=== PATIENT | female | born 1950 | race Caucasian/White ===

== ENCOUNTER 2016-08-24 10:03 | Inpatient (IN) | payer OTHER ==
[2016-08-23 10:26] VITALS: BMI 37.0
--- NOTE | 2016-08-23 10:59 | PAT Medication Instructions ---
Service Date Aug 23, 2016. Current Home Medication List Amitriptyline Hcl (Elavil), 50 MG PO HS Aspirin (Aspirin Ec), 81 MG PO QAM Citalopram Hydrobromide (Citalopram Hydrobromide), 1 TAB PO QAM Epinephrine (Epipen), 0.3 MG IM UD Fexofenadine Hcl (Alexandra Allergy), 1 TAB PO QAM Fish Oil ([place]-3), 2 TAB PO BID Hydrocortisone 2.5% (Rectal) (Anusol-Hc 2.5%), 1 APPLN TOP BID PRN for PRN Levothyroxine Sodium (Levothyroxine Sodium), 1 TAB PO QAM Metoprolol Tartrate (Lopressor) (Lopressor), 25 MG PO BID Ocuvite Preservision (Ocuvite Preservision), 1 TAB PO for ID Omeprazole (Prilosec), 20 MG PO QAM Prednisone (Prednisone), 5 MG PO QAM Probiotic Product (Probiotic), 1 TAB PO QAM Tramadol (Ultram), 50 MG PO Q6H PRN for RN [Nutra Support], 1 TAB PO BID [Prednisolone], 15 ML PO UD 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 Instructions For Your Scheduled Surgery Aspirin (Aspirin Ec), 81 MG PO QAM (on hold per patient) - Continue as directed: Epinephrine (Epipen), 0.3 MG IM UD [Prednisolone], 15 ML PO UD PRN for RN (only used prior to Epipen use) - Hold the following medications the morning of surgery: Probiotic Product (Probiotic), 1 TAB PO QAM Fexofenadine Hcl (Alexandra Allergy), 1 TAB PO QAM Ocuvite Preservision (Ocuvite Preservision), 1 TAB PO for ID Hydrocortisone 2.5% (Rectal) (Anusol-Hc 2.5%), 1 APPLN TOP BID PRN for PRN [Nutra Support], 1 TAB PO BID - Take the following medications the morning of surgery with a sip of water: Omeprazole (Prilosec), 20 MG PO QAM Prednisone (Prednisone), 5 MG PO QAM Levothyroxine Sodium (Levothyroxine Sodium), 1 TAB PO QAM Metoprolol Tartrate (Lopressor) (Lopressor), 25 MG PO BID Citalopram Hydrobromide (Citalopram Hydrobromide), 1 TAB PO QAM Tramadol (Ultram), 50 MG PO Q6H PRN for RN (okay to take up to 4 hours prior to surgery if needed) - Hold the following medications as scheduled the night before surgery: Fish Oil ([place]-3), 2 TAB PO BID - Take the following medications as scheduled the night before surgery: Metoprolol Tartrate (Lopressor) (Lopressor), 25 MG PO BID Amitriptyline Hcl (Elavil), 50 MG PO HS Ocuvite Preservision (Ocuvite Preservision), 1 TAB PO for ID Hydrocortisone 2.5% (Rectal) (Anusol-Hc 2.5%), 1 APPLN TOP BID PRN for PRN Tramadol (Ultram), 50 MG PO Q6H PRN for RN If you have any questions please call us at [phone] (Miladys Pierre PA-C) or [phone] or [phone]
[2016-08-23 11:21] LABS: BASO % 0.6 %; BASO ABS # 0.06 K/uL (0-0.2); HEMATOCRIT 38.3 % (37-47); IG% 0.3 %; LYMPH % 19.2 %; LYMPH ABS # 1.82 K/uL (1.2-3.4); MEAN CELL VOLUME 86.3 fL (80-100); MEAN CORPUSCULAR HEMOGLOBIN 28.8 pg (25-34); MEAN PLATELET VOLUME 9.3 fL (7.4-10.4); MONO % 6.2 %; NEUT % 67.7 %; PLATELET COUNT 243 K/uL (130-400); RED BLOOD COUNT 4.44 M/uL (4.2-5.4)
[2016-08-23 11:35] LABS: INR 0.9 (0.9-1.1); PROTHROMBIN TIME (PATIENT) 10.1 SECONDS (9.0-12.0)
[2016-08-23 11:43] LABS: COMPLETE YES; MEAN CORPUSCULAR HGB CONC 33.4 g/dl (32-36)
[2016-08-23 11:57] LABS: BUN/CREATININE RATIO 22.1 (10-20); CALCIUM 9.3 mg/dl (8.5-10.1); CREATININE 0.82 mg/dl (0.60-1.20); POTASSIUM 4.3 mmol/L (3.5-5.1)
--- NOTE | 2016-08-23 12:20 | DIAGNOSTIC IMAGING REPORT ---
CHEST PREADMISSION(PA/LAT) CLINICAL HISTORY: Preoperative chest COMPARISON STUDY: No previous studies for comparison. FINDINGS: The cardiac and mediastinal contours are normal. There is no evidence of focal pulmonary consolidation. There is no evidence of failure. No pleural effusions are visualized.[ IMPRESSION: No active disease in the chest. Electronically signed by: Alberto Leger M.D. 08/23/2016 12:18 PM Dictated Date/Time: 08/23/2016 12:18 PM
--- NOTE | 2016-08-23 19:14 | HISTORY & PHYSICAL EXAMINATION ---
DATE OF ADMISSION: 08/24/2016 CHIEF COMPLAINT: Bilateral knee pain, left side greater than right. HISTORY OF PRESENT ILLNESS: The patient is a 65-year-old female from [place] who presents for treatment of her knees. She has had a long history of bilateral knee pain and discomfort, left side quite a bit worse than the right. She has seen my partner Dr. Alves on several occasions. She had 1 injection which helped some and then the most recent shot did not help much at all. She describes a global pain in both knees. She uses a cane to get around. She limps with every step. The more she walks, the more she limps. She cannot walk for more than a couple of blocks due to her pain. She would like to proceed with definitive treatment. Of note, the patient's had multiple knee replacements and that she is quite familiar with the process. PAST MEDICAL HISTORY: Significant for: 1. Hypertension. 2. Elevated cholesterol. 3. Depression. 4. Hypothyroidism. 5. Obesity with a BMI of 37. 6. Arthritis. PAST SURGICAL HISTORY: Previous surgeries include: 1. Partial hysterectomy. 2. Tubal ligation. 3. Cholecystectomy. 4. Breast reduction. 5. Tummy tuck surgery. ALLERGIES: PENICILLIN WHICH CAUSES A RASH. No known respiratory problems. ALSO DESCRIBES ALLERGIES TO CIPRO, FELDENE, AND SULFA DRUGS. THE FELDENE CAUSES DIARRHEA. CURRENT MEDICINES: Include: 1. Tramadol for pain. 2. Multivitamin. 3. [place]-3. 4. Probiotic. 5. Metoprolol 25 mg twice a day. 6. Meloxicam 15 mg a day. 7. Elavil 50 mg at bedtime. 8. Prilosec 20 mg a day. 9. Wellbutrin 75 mg twice a day. 10. Levoxyl 150 mcg a day. 11. Prednisone 5 mg a day for arthritis. 12. PreserVision. 13. Antivert p.r.n. 14. Vitamin D3. 15. Ecotrin 81 mg a day. SOCIAL HISTORY: This is a 65-year-old female. She is . She is from [place]. FAMILY HISTORY: Noncontributory. REVIEW OF SYSTEMS: Negative for diabetes, neurologic problems, vascular problems or bleeding disorders. Denies any chest pain and no shortness of breath. No history of DVT or PE. PHYSICAL EXAMINATION: GENERAL: Reveals a healthy, pleasant middle-aged female. She looks to be in reasonably good health. HEENT: Benign. NECK: Supple. No lymphadenopathy. LUNGS: Clear to auscultation. HEART: Regular rate and rhythm. ABDOMEN: Soft, nontender, nondistended. EXTREMITIES: Grossly neurovascularly intact except as follows: Examination of both knees reveals the patient walks with the use of a cane. Without the cane, she is pretty unstable and walks with a varus alignment to both knees. She has got a varus thrust bilaterally. Range of motion is pretty symmetric at about 5-10 degrees short of full extension and about 105 degrees of flexion bilaterally. No particular pain with hip motion. X-RAYS: X-rays of the knees were reviewed. It shows advanced bilateral knee DJD, left side worse than right. She has got complete loss of her medial joint space on both sides. She has got cystic changes of the medial femoral condyle and medial tibial plateau, particularly on the left side. She has got osteophytes in all 3 compartments. ASSESSMENT: A 65-year-old female with advanced bilateral knee degenerative joint disease, left side more symptomatic than the right. She has failed conservative treatment. She is significantly debilitated by her disease and would like to have her left knee replaced. PLAN: We are going to take her to the operating room and do a left total knee replacement. The risks and benefits of this procedure were explained to the patient and include but not limited to DVT, PE, , infection, neurological injury, vascular injury, bleeding problem, pain, limited range of motion, stiffness, failure to relieve symptoms, incomplete relief of symptoms, need for further surgery in the future, fracture, leg length inequality, nerve palsy, etc. The patient understands and desires to proceed. Informed consent was obtained. We did talk to her about taking her metoprolol the morning of surgery. She stopped her Mobic. We will likely give her some stress dose prednisone. As far as discharge plans, she is planning to be discharged to home with [facility] home health program. She will then likely do outpatient therapy at [facility]. I will see her back 2 weeks postop.
[2016-08-24] VITALS (8 sets, daily range): BP systolic 108–150; BP diastolic 70–92; PULSE 70–84; TEMP 36.5–36.9; O2SAT 93–100; Ht 154.9 cm; Wt 88.3 kg
[~2016-08-24] VITALS: Ht 154.9 cm; Wt 88.3 kg
[~2016-08-24 10:03] MED LIST: ACETAMINOPHEN 500 MG TAB PO SCH; AMT50 PO; ASPI81TA28 PO; ATROPINE SULFATE 0.1 MG/ML 5ML SYR IV PRN; BUPIVACAINE 0.25% 30 ML VIAL ONE; BUPIVACAINE 0.5 % 5 MG/1 ML PF 10ML VIAL ONE; BUPIVACAINE LIPOSOME 266 MG, BUPIVACAINE/EPINEPHRINE INJ 50 ML, SODIUM CHLORIDE 0.9% PF... INFIL SCH; CEFAZOLIN 2000 MG/60 ML D5W 60 ML IV SCH; CITA20TA4 PO; EPP3/2 IM; EpHEDrine SULFATE INJ 50 MG/ML AMP IV PRN; FAMOTIDINE 20 MG TAB PO SCH; FENTANYL CITRATE INJ 50 MCG/1 ML 2 ML VIAL IV PRN; FEXO1TAB49 PO; GABAPENTIN 300 MG CAP PO SCH; HYDR2.5C37 TOP; LACTATED RINGER'S 1000ML 1,000 ML IV SCH; LACTATED RINGER'S 1000ML IV SCH; LACTATED RINGER'S 500 ML IV SCH; LEVO150T9 PO; METO25TA56 PO; METOCLOPRAMIDE HCL 10 MG TAB PO SCH; MISCCAP80 PO; MULT-190 PO; OMEG10007 PO; ONDANSETRON INJ 2 MG/ML 2 ML VIAL IV PRN; PRED-301 PO; PREDNISOLONE PO; PRLSR20 PO; SCOPOLAMINE 1.5 MG TDSY TD SCH; TRAM-10 PO; TRANEXAMIC ACID INJ 1,000 MG in SODIUM CHLORIDE 0.9% 100ML 100 ML IV SCH; [UNRECOGNIZED DRUG - OTHER] PO
--- NOTE | 2016-08-24 11:10 | History & Physical Bridge Note ---
H&P Re-Evaluation Bridge Note: I have examined the patient, reviewed the History & Physical and in the interval since the performance of the History & Physical I have noted the following changes of clinical significance: No changes noted
[2016-08-24] MEDS ORDERED: FENTANYL CITRATE INJ 50 MCG/1 ML 2 ML VIAL ONE (11:56)
[2016-08-24] MEDS ORDERED: MIDAZOLAM HCL 1 MG/ML 2ML VIAL ONE ×2 (11:56→13:44)
[2016-08-24] MEDS ORDERED: LIDOCAINE HCL 2% 2 ML VIAL (20MG/ML) ONE (11:56)
[2016-08-24] MEDS ORDERED: PROPOFOL IV EMULSION 10 MG/ML 20 ML VIAL IV ONE ×2 (11:56→15:22)
[2016-08-24] MEDS ORDERED: BUPIVACAINE/EPINEPHRINE 0.25% 1:200,000 30 ML VIAL ONE (13:17)
[2016-08-24] MEDS ORDERED: SODIUM CHLORIDE 0.9% PF 50 ML VIAL ONE (13:18)
[2016-08-24] MEDS ORDERED: BACITRACIN 50000 UNIT VIAL ONE (13:18)
[2016-08-24] MEDS ORDERED: PHENYLEPHRINE HCL INJ 10 MG/ML VIAL ONE (14:26)
--- NOTE | 2016-08-24 15:36 | [facility] Post Operative Brief Note ---
Immediate Operative Summary Operative Date Aug 24, 2016. Pre-Operative Diagnosis Left Knee Degenerative Joint Disease Post-Operative Diagnosis Left Knee Degenerative Joint Disease Procedure(s) Performed Left Total Knee Arthroplasty Surgeon Dr. Travis Walls Guest Relations Representative Surgeon(s) Brain Yee PA-C Estimated Blood Loss 50 ml Findings Left Knee DJD Fluids (cc crystalloids) 1400 cc Specimens A. Left knee bone and tissue Drains None Anesthesia Spinal Complication(s) None Disposition Recovery Room / PACU
[2016-08-24] MEDS ORDERED: BISACODYL 10 MG SUPP PR PRN (15:45)
[2016-08-24] MEDS ORDERED: HYDROCORTISONE HC 2.5% CRM 30GM TUBE EXT PRN (15:45)
[2016-08-24] MEDS ORDERED: EPINEPHRINE ADULT AUTO-INJECT 0.3 MG SYR IM PRN (15:45)
[2016-08-24] MEDS ORDERED: METOCLOPRAMIDE HCL INJ 5 MG/ML 2 ML VIAL IV PRN (15:45)
[2016-08-24] MEDS ORDERED: ONDANSETRON INJ 2 MG/ML 2 ML VIAL IV PRN (15:45)
[2016-08-24] MEDS ORDERED: ALUMINUM/MAGNESIUM/SIMETH (MAALOX MAX) 30 ML UDC PO PRN (15:45)
[2016-08-24] MEDS ORDERED: DiphenhydrAMINE HCL 50 MG/ML VIAL IV PRN (15:45)
[2016-08-24] MEDS ORDERED: MAGNESIUM HYDROXIDE SUSP 30 ML UDC PO PRN (15:45)
[2016-08-24] MEDS ORDERED: ZOLPIDEM TARTRATE 5 MG TAB PO PRN (15:45)
[2016-08-24] MEDS: CHECK SCOPOLAMINE PATCH PLACEMENT SCH ×2 (16:00→23:41)
--- NOTE | 2016-08-24 16:25 | DIAGNOSTIC IMAGING REPORT ---
TWO VIEWS LEFT KNEE CLINICAL HISTORY: Postoperative examination. FINDINGS: AP and crosstable lateral portable views of the left knee are obtained. A left knee arthroplasty is in near anatomic alignment. There has been undersurface remodeling of the patella. No acute fracture is seen. There are expected postoperative changes around the knee including skin clips, soft tissue edema, and subcutaneous gas. IMPRESSION: Expected postoperative changes status post left knee arthroplasty. No acute fracture is seen. Electronically signed by: Moreno Giordano M.D. 08/24/2016 4:24 PM Dictated Date/Time: 08/24/2016 4:23 PM
--- NOTE | 2016-08-24 16:41 | Anesthesiology Progress Note ---
Anesthesia Post Op Note Date & Time Aug 24, 2016 at 16:41 Vital Signs Pain Intensity: 0 Vital Signs Past 12 Hours Date Time Temp Pulse Resp B/P Pulse Ox O2 Delivery O2 Flow Rate FiO2 08/24/16 16:23 36.3 08/24/16 16:15 76 16 132/70 97 Nasal Cannula 2 08/24/16 16:05 83 16 142/77 97 Nasal Cannula 2 08/24/16 15:55 84 16 136/76 97 Nasal Cannula 2 08/24/16 15:45 36.7 88 16 143/77 97 Nasal Cannula 2 08/24/16 10:45 36.9 83 20 141/86 95 Room Air Notes Mental Status: alert / awake / arousable, participated in evaluation Pt Amnestic to Procedure: Yes Nausea / Vomiting: adequately controlled Pain: adequately controlled Airway Patency, RR, SpO2: stable & adequate BP & HR: stable & adequate Hydration State: stable & adequate Neuraxial Anesthesia: was administered, sensory block is resolving Anesthetic Complications: no major complications apparent
[2016-08-24] MEDS: D5W AND 1/2NSS + 20MEQ KCL 1,000 ML IV SCH (18:02)
[2016-08-24] MEDS: KETOROLAC TROMETHAMINE 30 MG/ML VIAL IV. SCH ×2 (18:05→23:41)
[2016-08-24] MEDS: HYDROCORTISONE IV 100 MG in SYRINGE 0 ML IV SCH (18:05)
[2016-08-24] MEDS: FERROUS GLUCONATE 324 MG TAB PO SCH (18:12)
[2016-08-24] MEDS: OXYCODONE HCL IR 5 MG TAB (IMMEDIATE RELEASE) PO PRN (19:14)
[2016-08-24] MEDS: ASPIRIN 325 MG ECTAB PO SCH (20:33)
[2016-08-24] MEDS: TAPENTADOL ER 50 MG TABCR PO SCH (20:33)
[2016-08-24] MEDS: AMITRIPTYLINE HCL 50 MG TAB PO SCH (20:34)
[2016-08-24] MEDS: DOCUSATE SODIUM 100 MG CAP PO SCH (20:34)
[2016-08-24] MEDS: METOPROLOL TARTRATE 25 MG TAB PO SCH (20:34)
[2016-08-24] MEDS: CEROVITE ADV FORMULA TAB PO SCH (20:34)
[2016-08-24] MEDS ORDERED: TRANEXAMIC ACID INJ 1,000 MG in SODIUM CHLORIDE 0.9% 100ML 100 ML IV SCH (21:00)
[2016-08-24] MEDS: CEFAZOLIN IV 2,000 MG in DEXTROSE 5% 50ML 50 ML IV SCH (22:11)
[2016-08-24] MEDS: ACETAMINOPHEN 500 MG TAB PO SCH (22:18)
--- NOTE | 2016-08-24 23:09 | OPERATIVE REPORT ---
DATE OF OPERATION: 08/24/2016 SURGEON: Dr. Travis Walls. PRINT DEVELOPER: LOS Cordova. PREOPERATIVE DIAGNOSIS: Left knee degenerative joint disease. POSTOPERATIVE DIAGNOSIS: Same. PROCEDURE PERFORMED: Left cemented posterior stabilized total knee arthroplasty. COMPLICATIONS: None. ESTIMATED BLOOD LOSS: 50 mL. FLUID REPLACEMENT: 1400 mL crystalloid fluid replacement. ANESTHESIA: Spinal with adductor canal block. DRAINS: None. SPECIMENS: Left knee sent for pathology. TOURNIQUET TIME: 61 minutes at 300 mmHg. OPERATIVE INDICATIONS: The patient is a 65-year-old female who has had a long history of bilateral knee pain and discomfort, left side greater than the right. She has been through extensive conservative treatment, she failed. She had minimal response to injection, oral medicines. She has resorted to using a cane to get around for the past several years. X-rays revealed advanced left knee DJD. The patient elected to proceed with operative treatment. OPERATIVE FINDINGS: Operative findings revealed advanced left knee DJD. She had grade 4 [id number] disease in all 3 compartments, most severe in the medial side. She had eburnation of the medial femoral condyle and medial tibial plateau. She had a large cyst in the medial femoral condyle and a smaller cyst in the medial tibial plateau. She had osteophytes in all 3 compartments. OPERATIVE IMPLANTS: Operative implants consisted of: 1. Biomet Vanguard size 62.5 left posterior stabilized femoral component. 2. Biomet size 67 tibial tray. 3. A 12 mm posterior stabilized polyethylene insert. 4. A 31 x 8 all poly patella. OPERATIVE PROCEDURE: The patient taken to the operating room, identified and placed on the operating table in supine position. All contact areas were appropriately padded. IV antibiotics were provided by the anesthesia team. A spinal anesthetic and adductor canal block had been provided in the holding area. Herrera catheter was placed in sterile fashion. A left thigh tourniquet was then placed and the left lower extremity was then prepped and draped in the usual sterile fashion. The left leg was elevated and exsanguinated using an Esmarch and tourniquet was placed at 300 mmHg. An anterior approach to the left knee was then performed through a longitudinal incision centered over the patella. Sharp dissection was carried out through the subcutaneous tissues down to the level of the extensor mechanism. A medial parapatellar arthrotomy incision was made. Some subperiosteal dissection was carried out medially. The fat pad was resected from beneath the patellar tendon. The lateral patellofemoral ligament was released. The patella was everted and knee was flexed. The osteophytes were taken off the distal femur. The ACL and PCL were then released from the distal femur and the tibia subluxated anteriorly. The external tibial alignment jig was then placed in the anterior face of the tibia and adjusted 16 mm medially. Proximal tibial cut was made to remove about a millimeter of bone from the most deficient aspect of the medial tibial plateau. The tibia was sized to a size 67. Some osteophytes were taken off medial and posteromedially. Attention was then drawn to the femur. The proximal femur was entered with a sharp drill. The intramedullary canal was suctioned. A left 5 degree valgus cutting guide was placed. Distal femoral cutting block was pinned in place. Distal femoral cut was made to take an additional 3 mm of bone off the distal femur due to the flexion contracture. The femur was then sized to a size 62.5. We did downsize this slightly. The AP cutting block was pinned parallel to the epicondylar axis, which was 4 degrees of external rotation. The anterior cut, anterior chamfer, posterior cut, posterior chamfer cuts were made. Box cutting guide was placed and adjusted slightly lateral and the box cut was made. The knee was flexed. The remnants of the medial and lateral menisci were excised. The osteophytes were taken off the posterior aspect of the femur. Of note, we did curet the large cyst out of the medial femoral condyle as well as some cysts from the tibia. A trial femoral component was placed. The tibial tray was pinned in maximum external rotation and the drill and stem punch were used to create defect in proximal tibia for the tibial tray. The knee was then trialed and the 12 mm insert fit most appropriately. Attention was then drawn to the patella. The patella was cleaned of all soft tissues. Patella thickness measured approximately 22 mm in thickness and was cut down to 13. It was sized to a size 31 patella. Lug holes were drilled for the 31 patella. Lateral osteophyte was removed. Patella button was placed. The knee was taken through range of motion and the patella tracked nicely with no thumbs test. Attention was then drawn toward placement of the permanent components. All trial components were removed. A bone plug was placed in the distal femur to limit blood loss. A double batch of Palacos G cement was mixed. A left size 62.5 posterior stabilized femoral component, size 67 tibial tray, a 12 mm posterior stabilized polyethylene insert, and a 31 x 8 all poly patella were then cemented in place. Knee was brought out into full extension until cement hardened. A final cement check was then performed. Pericapsular tissues were injected with 100 mL of a combination of 20 mL of Exparel, 30 mL of normal saline, 50 mL of 0.25% Marcaine with epinephrine. The tourniquet was then let down for a tourniquet time of 61 minutes. Hemostasis was assured with use of electrocautery. The extensor mechanism was then closed with a combination of #1 PDS suture and #1 Vicryl suture in a [id number]-[id number] fashion. The extensor mechanism was checked and found to be intact. The subcutaneous tissues were then closed with 2-0 Dexon suture in a buried interrupted fashion. Skin was closed with skin norman. Leg was then cleaned and dried and a sterile dressing of Xeroform, 4 x 4, sterile cast padding and Lester bandage were applied. The patient was then transferred to the recovery room in stable condition. The patient tolerated the procedure well with no complications. All needle and sponge counts were correct at the end of the operation. I attest to the content of the Intraoperative Record and any orders documented therein. Any exceptio ns are noted below.
[2016-08-25] MEDS: D5W AND 1/2NSS + 20MEQ KCL 1,000 ML IV SCH ×2 (02:31→13:26)
[2016-08-25] MEDS: HYDROCORTISONE IV 100 MG in SYRINGE 0 ML IV SCH ×2 (02:32→10:09)
[2016-08-25 03:47] VITALS: BP 114/70; PULSE 67; TEMP 36.6; O2SAT 94
[2016-08-25] MEDS: CEFAZOLIN IV 2,000 MG in DEXTROSE 5% 50ML 50 ML IV SCH (05:39)
[2016-08-25] MEDS: ACETAMINOPHEN 500 MG TAB PO SCH ×3 (05:40→21:33)
[2016-08-25] MEDS: LEVOTHYROXINE 150 MCG TAB PO SCH (05:40)
[2016-08-25] MEDS: KETOROLAC TROMETHAMINE 30 MG/ML VIAL IV. SCH ×4 (05:40→23:40)
[2016-08-25 06:08] LABS: HEMATOCRIT 33.7 % (37-47); MEAN CELL VOLUME 85.8 fL (80-100); MEAN CORPUSCULAR HEMOGLOBIN 28.5 pg (25-34); MEAN CORPUSCULAR HGB CONC 33.2 g/dl (32-36); MEAN PLATELET VOLUME 9.2 fL (7.4-10.4); PLATELET COUNT 211 K/uL (130-400); RED BLOOD COUNT 3.93 M/uL (4.2-5.4); WHITE BLOOD COUNT 12.14 K/uL (4.8-10.8)
[2016-08-25 06:38] LABS: BUN/CREATININE RATIO 12.9 (10-20); CALCIUM 8.9 mg/dl (8.5-10.1)
[2016-08-25 07:45] VITALS: BP 110/67; PULSE 69; TEMP 36.8; O2SAT 92
[2016-08-25] MEDS: CHECK SCOPOLAMINE PATCH PLACEMENT SCH ×3 (08:00→23:40)
[2016-08-25] MEDS ORDERED: RXC5 PO (08:18)
[2016-08-25] MEDS ORDERED: ASPEC325 PO (08:18)
[2016-08-25] MEDS ORDERED: ACET-1138 PO (08:18)
--- NOTE | 2016-08-25 08:20 | Discharge Instructions ---
Discharge Instructions Admission Reason for Admission: Left Knee Pain, Osteoarthritis Discharge Discharge Diagnosis / Problem: Left Knee Replacement Discharge Goals Goal(s): Decrease discomfort, Improve function, Increase independence, Improve disease control, Therapeutic intervention Activity Recommendations Activity Limitations: per Instructions/Follow-up section Weightbearing Status: Left weightbearing . Instructions / Follow-Up Instructions / Follow-Up ACTIVITY RECOMMENDATIONS: Physical Therapy: * You will go to physical therapy three times each week for four to six weeks after your surgery in order to regain your knee range of motion and to retrain your knee to work properly. * It is just as important to make sure you are getting your knee perfectly straight as it is to regain your knee bend. * Taking a pain pill an hour before therapy can help you have a more productive and comfortable therapy session. Home Exercise: * You were shown a series of exercises (heel props, heel slides, etc.) in the hospital. Do these exercises three to four times each day including the exercises you were shown in physical therapy. Walking: * Get up and walk several times each day. For the first four weeks, try not to stand or walk for more than one hour at a time. If you do stand or walk for more than one hour, you will not hurt anything, but your knee and leg will likely swell. * As you feel comfortable, you may change from the walker or crutches to a cane and then to independent walking. MEDICATIONS: New Medicine: * You will likely be taking one or more of these medications: 1. Oxycodone - A quick and shorter-acting pain medication. Take one to two tablets every four to six hours to lessen your pain. 2. Aspirin - Thins your blood to lessen the chance of forming a blood clot. * The most common side effects of pain medicine and iron are nausea and constipation. If nausea or constipation is too much of a problem or if you have any questions about your new medicines or doses, call [facility] at . We will try to help you manage these issues. VERY IMPORTANT TO READ AND REVIEW" Pain: * The immediate post-operative period after knee replacement surgery is often quite painful. * You are given a prescription for pain medicine. You should take it, as directed, when you need it, especially before physical therapy and before going to bed. Pain that interferes with sleep is very common and can last several months. * You will likely need pain medicine for the first four to six weeks. It will not stop all of the pain. The pain will lessen and as you feel better, you may change to milder pain medicine such as Tylenol. * The most common side effects of pain medicine are nausea and constipation, so don't take more than you need. SPECIAL CARE INSTRUCTIONS: TEDs/Elastic Stockings: * The white elastic stockings help limit swelling and prevent blood clots from forming in your legs. The more you wear them, the more they work. * Wear them for six weeks after knee replacement surgery and four weeks after partial knee replacement. Prevention of Infection: * Take antibiotics one hour before any dental cleaning, dental work, urological procedure, gastrointestinal procedure or any invasive surgery in order to prevent your new joint from getting infected. * You may get the antibiotics from the doctor performing the procedure or you may call our office at before and we will call in a prescription to the pharmacy of your choice. Things to Watch For: * Drainage from the incision site that occurs more than one week after your surgery. * Severely increased knee/leg pain or swelling. * Increased redness at the incision site. * Fever above 102 degrees Fahrenheit. * Unusual chest pain or shortness of breath. * Unusual pain or burning with urination. Call [facility] at with any of the above problems or if you have any questions about your medicines or recovery. FOLLOW UP VISIT: Make an appointment to see your doctor for approximately two weeks after surgery for a progress check and staple removal by calling the office at . Current Hospital Diet Patient's current hospital diet: Regular Diet Discharge Diet Recommended Diet: Regular Diet Procedures Procedures Performed: Left Total Knee Arthroplasty Pending Studies Studies pending at discharge: no Medical Emergencies . Who to Call and When: Medical Emergencies: If at any time you feel your situation is an emergency, please call [phone] immediately. . Non-Emergent Contact Non-Emergency issues call your: Surgeon . "Provider Documentation" section prepared by Travis Walls. VTE Core Measure Inpt VTE Proph given/why not?: Other Anticoagulation, T.E.D. Stockings, SCD's
--- NOTE | 2016-08-25 08:35 | PROGRESS NOTE ---
DATE: 08/25/2016 DATE: 08/25/2016. SUBJECTIVE: A 70-year-old white female postop day 1 from a left knee replacement. She is doing well. She denies any significant pain. No chest pain or shortness of breath. Not feeling dizzy or lightheaded. Had a pretty good at night sleeping last night. OBJECTIVE: VITAL SIGNS: Temperature 36.6. Vital signs stable. PHYSICAL EXAMINATION: GENERAL: Reveals a healthy, pleasant middle-aged female. She is sitting up in bed and looks pretty comfortable. LUNGS: Clear to auscultation. HEART: Regular rate and rhythm. ABDOMEN: Soft, nontender, nondistended. EXTREMITY EXAMINATION: Grossly neurovascularly intact except as follows: Examination of the left lower extremity reveals the leg to be well aligned. She can dorsiflex and plantarflex her foot appropriately. She is neurologically intact. Dressing is clean, dry and intact. LABORATORY DATA: Hemoglobin is 11.2, hematocrit 33.7. Electrolytes are stable. ASSESSMENT: A 65-year-old white female postop day 1 from a left knee replacement, doing well. Pain is controlled. She is neurologically intact. PLAN: 1. DVT prophylaxis including thigh-high TEDs, SCDs, and aspirin twice a day. 2. PT/OT. Weightbearing as tolerated. Left total knee protocol. 3. Pain control. Doing well with current pain regimen. 4. Disposition: She is planning to be discharged to home with some home health once adequately recovered.
[2016-08-25] MEDS: FERROUS GLUCONATE 324 MG TAB PO SCH ×3 (08:44→18:06)
[2016-08-25] MEDS: PANTOprazole SOD 40 MG TAB PO SCH (08:45)
[2016-08-25] MEDS: FEXOFENADINE HCL 180 MG TAB PO SCH (08:45)
[2016-08-25] MEDS: DOCUSATE SODIUM 100 MG CAP PO SCH ×2 (08:45→21:32)
[2016-08-25] MEDS: ASPIRIN 325 MG ECTAB PO SCH ×2 (08:45→21:32)
[2016-08-25] MEDS: CITALOPRAM 20 MG TAB PO SCH (08:45)
[2016-08-25] MEDS: METOPROLOL TARTRATE 25 MG TAB PO SCH ×2 (08:45→21:36)
[2016-08-25] MEDS: CEROVITE ADV FORMULA TAB PO SCH ×2 (08:46→21:32)
[2016-08-25] MEDS: LACTOBACILLUS ACIDOPHILUS (FLORANEX) TAB PO SCH (08:46)
[2016-08-25] MEDS: TAPENTADOL ER 50 MG TABCR PO SCH ×2 (08:51→21:31)
[2016-08-25] MEDS ORDERED: MULTIVITAMIN TAB PO SCH (09:00)
[2016-08-25] MEDS ORDERED: PANTOprazole SOD 40 MG TAB PO SCH (09:00)
[2016-08-25] MEDS: OXYCODONE HCL IR 5 MG TAB (IMMEDIATE RELEASE) PO PRN (11:58)
[2016-08-25 12:08] VITALS: BP 135/81; PULSE 71; TEMP 36.6; O2SAT 96
[2016-08-25 15:14] VITALS: BP 114/71; PULSE 73; TEMP 36.7; O2SAT 95
[2016-08-25] MEDS: AMITRIPTYLINE HCL 50 MG TAB PO SCH (21:32)
[2016-08-25 21:37] VITALS: BP 122/71; PULSE 77; TEMP 36.6; O2SAT 97
[2016-08-25 22:50] VITALS: BP 115/69; PULSE 76; TEMP 36.7; O2SAT 97
[2016-08-26] MEDS: KETOROLAC TROMETHAMINE 30 MG/ML VIAL IV. SCH (05:39)
[2016-08-26] MEDS: ACETAMINOPHEN 500 MG TAB PO SCH (05:39)
[2016-08-26] MEDS: LEVOTHYROXINE 150 MCG TAB PO SCH (05:39)
[2016-08-26 07:04] VITALS: BP 115/72; PULSE 76; TEMP 36.8; O2SAT 95
[2016-08-26 08:59] VITALS: BP 115/72; PULSE 76; TEMP 36.8; O2SAT 95
[2016-08-26] MEDS: DOCUSATE SODIUM 100 MG CAP PO SCH (09:06)
[2016-08-26] MEDS: CITALOPRAM 20 MG TAB PO SCH (09:06)
[2016-08-26] MEDS: PANTOprazole SOD 40 MG TAB PO SCH (09:06)
[2016-08-26] MEDS: CEROVITE ADV FORMULA TAB PO SCH (09:06)
[2016-08-26] MEDS: METOPROLOL TARTRATE 25 MG TAB PO SCH (09:06)
[2016-08-26] MEDS: FEXOFENADINE HCL 180 MG TAB PO SCH (09:06)
[2016-08-26] MEDS: ASPIRIN 325 MG ECTAB PO SCH (09:06)
[2016-08-26] MEDS: LACTOBACILLUS ACIDOPHILUS (FLORANEX) TAB PO SCH (09:07)
[2016-08-26] MEDS: FERROUS GLUCONATE 324 MG TAB PO SCH (09:07)
[2016-08-26] MEDS: TAPENTADOL ER 50 MG TABCR PO SCH (09:13)
--- NOTE | 2016-08-26 09:56 | PROGRESS NOTE ---
DATE: 08/26/2016 DATE: 08/26/2016. SUBJECTIVE: A 65-year-old female postop day 2 from left knee replacement. She is doing well. Pain is very well controlled. Therapy went well. Denies any chest pain or shortness of breath. Not feeling dizzy or lightheaded. OBJECTIVE: VITAL SIGNS: Temperature 36.8. Vital signs stable. PHYSICAL EXAMINATION: GENERAL: Reveals a healthy, pleasant middle-aged female. She is sitting up in bed, looks pretty comfortable. LUNGS: Clear to auscultation. HEART: Regular rate and rhythm. ABDOMEN: Soft, nontender, nondistended. EXTREMITY EXAMINATION: Grossly neurovascularly intact except as follows: Examination of the left lower extremity reveals the dressing to be clean, dry and intact. She can dorsiflex and plantarflex her foot appropriately. She is neurologically intact. ASSESSMENT: A 65-year-old female postop day 2 from a left knee replacement, doing well. Pain is controlled. PLAN: 1. DVT prophylaxis including thigh-high TEDs, SCDs, and aspirin twice a day. 2. PT/OT. Weightbearing as tolerated. Left total knee protocol. 3. Pain control. Doing well with current pain regimen. 4. Disposition: Plan to discharge to home with home health later today.
[2016-08-26] MEDS: OXYCODONE HCL IR 5 MG TAB (IMMEDIATE RELEASE) PO PRN (10:34)
--- NOTE | 2016-09-05 15:34 | DISCHARGE SUMMARY ---
ADMITTING PHYSICIAN AND SURGEON: Dr. Walls. ADMITTING DIAGNOSIS: Left knee degenerative joint disease. SURGERY PERFORMED: Left total knee arthroplasty. SECONDARY DIAGNOSES: Include hypertension, elevated cholesterol, depression, hypothyroidism, obesity, arthritis. CONSULTS: None obtained. HISTORY AND PHYSICAL EXAMINATION: Well documented in the patient's chart. HOSPITAL COURSE: The patient was admitted on 08/24/2016 and underwent total knee arthroplasty, tolerated the procedure well. There were no complications. She was transferred to the PACU postoperatively and later to the orthopedic floor for further care. She was given Ancef for antibiotic prophylaxis, HAL stockings, SCDs and aspirin for DVT prophylaxis. Hemoglobin, hematocrit and vital signs were monitored during her hospital stay and remained stable. She developed some mild postoperative anemia, did not require any blood transfusions. There were no complications. By postoperative day 2, she was tolerating a general diet, pain was controlled with oral pain medicine. She was participating in physical therapy and had no signs or symptoms of deep vein thrombosis. On postop day 2, she was discharged home and set up with home health services. She was given printed discharge instructions including prescriptions for Extra-Strength Tylenol, aspirin 325 mg b.i.d., oxycodone, continue her home medications with the exception of her home dose of aspirin which was changed. Continue physical therapy, weightbearing as tolerated. HAL stockings. Follow up with Dr. Walls in 10-12 days or sooner if there are problems or concerns.
== END 2016-08-26 10:54 | disposition home health service (06) | DRG 470 ==
LOC: ENRESERVTM → ENRESERVDT → C.ACU 10:03 → C.3E 10:40
PROVIDERS: ADMIT Orthopaedic Surgery Sports Medicine; ATTEND Orthopaedic Surgery Sports Medicine
PROC: 0YBG0ZZ Excision of Left Knee Region, Open Approach (ICD-10-PCS; principal; 2016-08-24 12:30)
PROC: 0SRD0J9 Replacement of Left Knee Joint with Synthetic Substitute, Cemented, Open Approach (ICD-10-PCS; principal; 2016-08-24 12:30)
DX: M17.12 Unilateral primary osteoarthritis, left knee (principal); M85.60 Other cyst of bone, unspecified site; I10 Essential (primary) hypertension; F32.9 Major depressive disorder, single episode, unspecified; E66.9 Obesity, unspecified; E03.9 Hypothyroidism, unspecified; Z68.37 Body mass index [BMI] 37.0-37.9, adult; Z79.52 Long term (current) use of systemic steroids; Z79.82 Long term (current) use of aspirin; Z79.899 Other long term (current) drug therapy

== ENCOUNTER 2019-03-25 08:02 | Inpatient (IN) ==
[2019-03-25] MEDS ORDERED: dilTIAZem HCl 5 MG/ML 5 ML VIAL IV STA (08:34)
[2019-03-25] MEDS ORDERED: SODIUM CHLORIDE 0.9% 1000ML 1,000 ML IV ONE (08:34)
[2019-03-25 08:43] LABS: Hematocrit (blood only) 46.5 % (37-47); Hemoglobin 15.5 g/dL (12.0-16.0); Mean Corpuscular Hemoglobin 29.3 pg (25-34); Mean Corpuscular Hgb Conc 33.3 g/dL (32-36); Mean Corpuscular Volume 87.9 fL (80-100); Mean Platelet Volume 10.5 fL (7.4-10.4); Platelet Count 348 K/uL (130-400); RDW Coefficient of Variation 14.1 % (11.5-14.5); RDW Standard Deviation 45.3 fL (36.4-46.3); Red Blood Count 5.29 M/uL (4.2-5.4); White Blood Count 13.88 K/uL (4.8-10.8)
[2019-03-25 08:53] LABS: Alanine Aminotransferase 65 U/L (12-78); Albumin Level 4.6 gm/dl (3.4-5.0); Aspartate Aminotransferase 39 U/L (15-37); BUN Creatinine Ratio 17.7 (10-20); Blood Urea Nitrogen 18 mg/dl (7-18); Calcium 10.2 mg/dl (8.5-10.1); Carbon Dioxide 27 mmol/L (21-32); Chloride 105 mmol/L (98-107); Creatinine Clr Calc Pharmacy 50.8 ml/min; Est GFR (African American) 65.1; Est GFR (Non-African American) 56.2; Glucose 107 mg/dl (70-99); Magnesium 1.9 mg/dl (1.8-2.4); Potassium 3.6 mmol/L (3.5-5.1); Sodium 140 mmol/L (136-145)
--- NOTE | 2019-03-25 08:59 | XRay Report ---
XR chest 1V portable CLINICAL HISTORY: Cardiac workup SHORTNESS OF BREATH, ATRIAL FIBRILLATION, NAUSEA. COMPARISON STUDY: August 23, 2016 FINDINGS: The cardiac and mediastinal contours are normal. There is no evidence of focal pulmonary co nsolidation. There is no evidence of failure. No pleural effusions are visualized.[ IMPRESSION: No active disease in the chest. Electronically signed by: Alberto Leger M.D. 03/25/2019 8:57 AM
[2019-03-25 09:04] LABS: Albumin Globulin Ratio 1.4 (0.9-2); Alkaline Phosphatase 134 U/L (45-117); Bilirubin,Total 0.5 mg/dl (0.2-1); Globulin 3.3 gm/dl (2.5-4.0); Total Protein 7.9 gm/dl (6.4-8.2); Troponin I < 0.015 ng/ml (0-0.045)
[2019-03-25 09:07] LABS: INR 2.1 (0.9-1.1); Partial Thromboplastin Ratio 1.5; Partial Thromboplastin Time 39.4 Seconds (21.0-31.0); Prothrombin Time 20.8 Seconds (9.0-12.0)
--- NOTE | 2019-03-25 09:49 | Emergency Department Note ---
ED Visit Note This patient was seen in concert with Dr. Armendariz and we discussed and agreed upon the history, physical, assessment and plan. See attending's note for details. . Resident Activity Tracking Resident Involvement: Resident Care Provided Care Provided: Adult ED
[2019-03-25 09:54] LABS: Basophils # (auto) 0.15 K/uL (0-0.2); Basophils % (auto) 1.1 %; Eosinophils # (auto) 0.77 K/uL (0-0.5); Eosinophils % (auto) 5.5 %; Immature Granulocytes # (auto) 0.04 K/uL (0.00-0.02); Immature Granulocytes % (auto) 0.3 %; Lymphocytes # (auto) 5.49 K/uL (1.2-3.4); Lymphocytes % (auto) 39.6 %; Monocytes # (auto) 1.32 K/uL (0.11-0.59); Monocytes % (auto) 9.5 %; Neutrophils # (auto) 6.11 K/uL (1.4-6.5)
--- NOTE | 2019-03-25 09:59 | Emergency Department Note ---
Entered by Marylou Pierce acting as a scribe for Zain Armendariz DO History of Present Illness General Chief complaint: Arrhythmia/Palpitations Stated complaint: AFIB, TACHYCARDIA - RVR Source: patient History of Present Illness Onset (ago): hour(s) (few) Location: chest Severity: similar to prior episodes Pain Consistency: + other (episode) Maximum Pain Intensity: 0 Quality: + other (rapid pulse) Associated symptoms: + malaise and + other (+diarrhea; +night sweats; +left sided arm pain; +neck pain ) The patient is a 68 year old female, with past medical history of atrial fibrillation, who presents to the Emergency Room with complaints of an episode of a rapid pulse that the patient noted a few hours prior to arrival. The patient notes her first episode of A Fib occurred in November, and the patient states she was seen at [facility] for symptoms. The patient notes she had a recurrent episode of A fib this past week, and the patient states she was discharged from [place] 3 days ago for this subsequent episode. The patient reports a cause was not determined for her A Fib episodes, but the patient states she was put on sotalol and Coumadin. The patient reports she has generally not felt well since her discharge, 3 days ago. The patient reports of experiencing malaise, diarrhea, and night sweats since the discharge, and the patient reports of left-sided arm and neck pain. The patient reports her rapid heart rate prior to arrival resembled her prior A Fib episode symptoms, which caused the patient states she took Metoprolol this morning for symptoms. The patient states Metoprolol did not provide any relief. Home Medications Home Medications Medication Instructions Recorded Confirmed Type atorvastatin 20 mg PO QAM 03/25/19 03/25/19 History cholecalciferol (vitamin D3) 1,000 unit PO QAM 03/25/19 03/25/19 History [Vitamin D3] citalopram 20 mg PO QAM 03/25/19 03/25/19 History clindamycin HCl 300 mg PO UD PRN 03/25/19 03/25/19 History enoxaparin 80 mg SUBCUT UD 03/25/19 03/25/19 History epinephrine [EpiPen] 0.3 mg IM Q3H PRN 03/25/19 03/25/19 History levothyroxine 125 mcg PO DAILYBB 03/25/19 03/25/19 History lidocaine 1 applic TOPICAL 6XD PRN 03/25/19 03/25/19 History melatonin 3 mg PO HS 03/25/19 03/25/19 History meloxicam 15 mg PO DAILY 03/25/19 03/25/19 History metformin 1,000 mg PO BIDM 03/25/19 03/25/19 History metoprolol tartrate 25 mg PO DAILY PRN 03/25/19 03/25/19 History xutofkwgawxn-ztojdpor-tacsks 1 tab PO QAM 03/25/19 03/25/19 History [Multivitamin 50 Plus] omeprazole 20 mg PO QAM 03/25/19 03/25/19 History prednisone 5 mg PO QAM 03/25/19 03/25/19 History sennosides [senna] 8.6 mg PO BID PRN 03/25/19 03/25/19 History sotalol 120 mg PO BID 03/25/19 03/25/19 History vit C,W-Yu-ljnhi-lutein-zeaxan 1 tab PO BID 03/25/19 03/25/19 History [PreserVision AREDS-2] warfarin 5 mg PO QAM 03/25/19 03/25/19 History Allergies Allergy/AdvReac Type Severity Reaction Status Date / Time soybean Allergy Severe ANAPHYLAXIS Verified 03/25/19 10:39 bacitracin Allergy Unknown RASH Verified 03/25/19 10:39 monosodium glutamate Allergy Unknown THROAT Verified 03/25/19 10:39 SWELLS neomycin Allergy Unknown RASH Verified 03/25/19 10:39 Penicillins Allergy Unknown UNKNOWN Verified 03/25/19 10:39 polymyxin B Allergy Unknown RASH Verified 03/25/19 10:39 Sulfa (Sulfonamide Allergy Unknown UNKNOWN Verified 03/25/19 10:39 Antibiotics) Cipro AdvReac Unknown N/V Verified 08/24/16 10:24 ciprofloxacin AdvReac Unknown N/V Verified 03/25/19 10:39 nitrofurantoin AdvReac Unknown DIARRHEA Verified 03/25/19 10:39 piroxicam AdvReac Unknown SEVERE Verified 03/25/19 10:39 DIARRHEA Past Med/Surg History Medical History A-fib Family History Other No significant family history Social History Preferred Language: Israeli Feels Safe at Home: Yes Smoking Status: Never smoker Review of Systems See HPI for pertinent positives & negatives. and A total of 10 systems reviewed and were otherwise negative Physical Exam Vital Signs Vital Signs - 24 hr 03/25/19 08:07 03/25/19 08:16 03/25/19 08:17 Temperature 36.4 C L Temperature Source Oral Sepsis Recent Fever Within 48 Hours No Sepsis Action Taken by Nursing No Action Required Pulse Rate 87 145 H 144 H Pulse Rate from SpO2 Sensor 144 H 143 H Pulse Rhythm Regular Pulse Strength Normal Respiratory Rate 16 16 19 Respiratory Effort / Characteristics Non-Labored Respiratory Depth Normal Respiratory Pattern Regular Blood Pressure 124/93 138/98 Blood Pressure Mean 103 111 Blood Pressure Position Sitting Pulse Oximetry 92 97 97 Oxygen Delivery Method Room Air 03/25/19 08:30 03/25/19 08:31 03/25/19 08:44 Temperature Temperature Source Sepsis Recent Fever Within 48 Hours Sepsis Action Taken by Nursing Pulse Rate 144 H 144 H 126 H Pulse Rate from SpO2 Sensor 148 H 144 H 117 H Pulse Rhythm Pulse Strength Respiratory Rate 20 19 20 Respiratory Effort / Characteristics Respiratory Depth Respiratory Pattern Blood Pressure 123/66 135/102 H Blood Pressure Mean 85 113 Blood Pressure Position Pulse Oximetry 93 97 Oxygen Delivery Method 03/25/19 08:46 03/25/19 08:52 03/25/19 09:00 Temperature Temperature Source Sepsis Recent Fever Within 48 Hours Sepsis Action Taken by Nursing Pulse Rate 103 H 49 L 73 Pulse Rate from SpO2 Sensor 59 L 73 Pulse Rhythm Pulse Strength Respiratory Rate 26 H 15 19 Respiratory Effort / Characteristics Respiratory Depth Respiratory Pattern Blood Pressure 127/83 110/70 Blood Pressure Mean 97 83 Blood Pressure Position Pulse Oximetry 97 95 Oxygen Delivery Method 03/25/19 09:01 03/25/19 09:15 03/25/19 09:28 Temperature Temperature Source Sepsis Recent Fever Within 48 Hours Sepsis Action Taken by Nursing Pulse Rate 74 75 94 H Pulse Rate from SpO2 Sensor 72 74 95 H Pulse Rhythm Pulse Strength Respiratory Rate 17 24 24 Respiratory Effort / Characteristics Respiratory Depth Respiratory Pattern Blood Pressure 120/87 108/96 100/52 L Blood Pressure Mean 98 100 68 Blood Pressure Position Pulse Oximetry 97 98 Oxygen Delivery Method 03/25/19 09:30 03/25/19 09:31 03/25/19 09:46 Temperature Temperature Source Sepsis Recent Fever Within 48 Hours Sepsis Action Taken by Nursing Pulse Rate 75 48 L 93 H Pulse Rate from SpO2 Sensor 96 H 67 89 Pulse Rhythm Pulse Strength Respiratory Rate 21 16 18 Respiratory Effort / Characteristics Respiratory Depth Respiratory Pattern Blood Pressure 136/85 118/81 Blood Pressure Mean 102 93 Blood Pressure Position Pulse Oximetry 96 96 Oxygen Delivery Method 03/25/19 10:00 03/25/19 10:01 03/25/19 10:15 Temperature Temperature Source Sepsis Recent Fever Within 48 Hours Sepsis Action Taken by Nursing Pulse Rate 93 H 101 H 84 Pulse Rate from SpO2 Sensor 87 87 87 Pulse Rhythm Pulse Strength Respiratory Rate 22 23 15 Respiratory Effort / Characteristics Respiratory Depth Respiratory Pattern Blood Pressure 112/86 128/82 Blood Pressure Mean 94 97 Blood Pressure Position Pulse Oximetry 93 94 Oxygen Delivery Method 03/25/19 10:30 03/25/19 10:31 03/25/19 10:45 Temperature Temperature Source Sepsis Recent Fever Within 48 Hours Sepsis Action Taken by Nursing Pulse Rate 98 H 95 H 94 H Pulse Rate from SpO2 Sensor 84 Pulse Rhythm Pulse Strength Respiratory Rate 26 H 20 18 Respiratory Effort / Characteristics Respiratory Depth Respiratory Pattern Blood Pressure 127/63 107/92 Blood Pressure Mean 84 97 Blood Pressure Position Pulse Oximetry 95 Oxygen Delivery Method 03/25/19 11:00 03/25/19 11:17 03/25/19 11:31 Temperature Temperature Source Sepsis Recent Fever Within 48 Hours Sepsis Action Taken by Nursing Pulse Rate 103 H 86 102 H Pulse Rate from SpO2 Sensor Pulse Rhythm Pulse Strength Respiratory Rate 21 28 H 26 H Respiratory Effort / Characteristics Respiratory Depth Respiratory Pattern Blood Pressure 116/89 127/90 117/78 Blood Pressure Mean 98 102 91 Blood Pressure Position Pulse Oximetry 96 94 92 Oxygen Delivery Method Room Air Room Air Room Air 03/25/19 11:45 03/25/19 12:01 03/25/19 12:16 Temperature Temperature Source Sepsis Recent Fever Within 48 Hours Sepsis Action Taken by Nursing Pulse Rate 102 H 98 H 108 H Pulse Rate from SpO2 Sensor Pulse Rhythm Pulse Strength Respiratory Rate 20 23 15 Respiratory Effort / Characteristics Respiratory Depth Respiratory Pattern Blood Pressure 128/100 124/97 127/100 Blood Pressure Mean 109 106 109 Blood Pressure Position Pulse Oximetry 98 97 96 Oxygen Delivery Method Room Air Room Air Room Air 03/25/19 12:17 03/25/19 12:30 03/25/19 12:46 Temperature Temperature Source Sepsis Recent Fever Within 48 Hours Sepsis Action Taken by Nursing Pulse Rate 112 H 109 H 105 H Pulse Rate from SpO2 Sensor 115 H Pulse Rhythm Pulse Strength Respiratory Rate 17 25 H 19 Respiratory Effort / Characteristics Respiratory Depth Respiratory Pattern Blood Pressure 135/88 Blood Pressure Mean 103 Blood Pressure Position Pulse Oximetry 95 98 96 Oxygen Delivery Method Room Air Room Air Room Air 03/25/19 13:00 03/25/19 13:01 03/25/19 13:15 Temperature Temperature Source Sepsis Recent Fever Within 48 Hours Sepsis Action Taken by Nursing Pulse Rate 111 H 114 H 103 H Pulse Rate from SpO2 Sensor Pulse Rhythm Pulse Strength Respiratory Rate 19 21 19 Respiratory Effort / Characteristics Respiratory Depth Respiratory Pattern Blood Pressure 120/98 126/96 Blood Pressure Mean 105 106 Blood Pressure Position Pulse Oximetry 95 93 97 Oxygen Delivery Method Room Air Room Air Room Air 03/25/19 13:31 03/25/19 13:45 03/25/19 14:00 Temperature Temperature Source Sepsis Recent Fever Within 48 Hours Sepsis Action Taken by Nursing Pulse Rate 104 H 117 H 124 H Pulse Rate from SpO2 Sensor Pulse Rhythm Pulse Strength Respiratory Rate 18 20 28 H Respiratory Effort / Characteristics Respiratory Depth Respiratory Pattern Blood Pressure 129/85 133/100 113/79 Blood Pressure Mean 99 111 90 Blood Pressure Position Pulse Oximetry 97 96 95 Oxygen Delivery Method Room Air Room Air Room Air GENERAL: Patient is awake alert in no acute distress patient is resting comfortably and showing no signs of anxiety EYES: The conjunctivae are clear. The pupils are round and reactive. EARS, NOSE, MOUTH AND THROAT: The nose is without any evidence of any deformity. Mucous membranes are moist tongue is midline NECK: The neck is nontender and supple. RESPIRATORY: Normal respiratory effort is noted there is no evidence of wheezing rhonchi or rales CARDIOVASCULAR: Tachycardic rate with regular rhythm was noted. There was no definite murmur noted to auscultation. GASTROINTESTINAL: The abdomen is soft. Bowel sounds are present in all quadrants. Abdomen is nontender MUSCULOSKELETAL/EXTREMITIES: There is no evidence of gross deformity full range of motion is noted in the hips and shoulders SKIN: There is no obvious evidence of any rash. Trace pedal edema was noted bilaterally. NEUROLOGIC: Patient is awake alert and oriented x3. Course 0816: Past medical records reviewed. The patient was evaluated in room A10 by Resident-Silvina Flores. A complete history and physical exam was performed. 1002: Resident-Silvina Flores discussed the patient's case with Dr. Ragland- Cardiology. Dr. Ragland will come evaluate the patient. 1143: Silvina reevaluated the patient. The patient is comfortable, and she states that Dr. Ragland has not seen her yet. 1206: I discussed the patient's case with Dr. Ragland and Dr. Harris- [facility]. They want to switch the patient's medication of sotalol to a different rate controller, and they want to treat the patient as inpatient. Consultations Consultation #1: Resident-Silvina Flores discussed the patient's case with Dr. Ragland-Cardiology. Dr. Ragland will come evaluate the patient. Time: 10:02 Consultation #2: I discussed the patient's case with Dr. Ragland and Dr. Alaina combs-[facility]. They want to switch the patient's medication of sotalol to a different rate controller, and they want to treat the patient as inpatient. Time: 12:06 Administered Medications Diltiazem HCl 125 mg/ Dextrose 125 mls @ 10 mls/hr IV .[id number] [facility]; Protocol Stop: 04/24/19 13:14 Last Titration: 03/25/19 14:35 Dose: 10 mg/hr, 10 mls/hr Documented by: [id number] Admin: 03/25/19 13:45 Dose: 5 mg/hr, 5 mls/hr Documented by: [id number] Cosigned by: [id number] Discontinued Medications Diltiazem HCl (Cardizem) 10 mg IV NOW STA Stop: 03/25/19 08:35 Last Admin: 03/25/19 08:41 Dose: 10 mg Documented by: [id number] Cosigned by: [id number] Sodium Chloride (Nss 1000ml) 1,000 mls @ 999 mls/hr IV .Q1H1M ONE Stop: 03/25/19 09:34 Last Infusion: 03/25/19 10:38 Dose: 0 mls/hr Documented by: [id number] Admin: 03/25/19 08:41 Dose: 999 mls/hr Documented by: [id number] Medical Decision Making Differential Diagnosis Differential diagnosis: Etiologies such as premature contractions, electrolyte abnormality, cardiac dysrhythmia, thyroid dysfunction, pulmonary embolism, infection, gastrointestinal, as well as others were entertained. Medical Records Attestation: I reviewed the patient's medical records. Home Medications Current Medication List: was personally reviewed by me Laboratory Data Attestation: I reviewed the patient's lab results. Result diagrams: 03/25/19 08:19 03/25/19 08:19 Lab Results 03/25/19 03/25/19 03/25/19 Range/Units 08:19 08:19 08:19 WBC 13.88 H (4.8-10.8) K/uL RBC 5.29 (4.2-5.4) M/uL Hgb 15.5 (12.0-16.0) g/dL Hct 46.5 (37-47) % MCV 87.9 (80-100) fL MCH 29.3 (25-34) pg MCHC 33.3 (32-36) g/dL RDW Std Deviation 45.3 (36.4-46.3) fL RDW Coeff of Starla 14.1 (11.5-14.5) % Plt Count 348 (130-400) K/uL MPV 10.5 H (7.4-10.4) fL Immature Gran % (Auto) 0.3 % Neut % (Auto) 44.0 % Lymph % (Auto) 39.6 % [place] % (Auto) 9.5 % Eos % (Auto) 5.5 % Baso % (Auto) 1.1 % Immature Gran # (Auto) 0.04 H (0.00-0.02) K/uL Neut # (Auto) 6.11 (1.4-6.5) K/uL Lymph # (Auto) 5.49 H (1.2-3.4) K/uL [place] # (Auto) 1.32 H (0.11-0.59) K/uL Eos # (Auto) 0.77 H (0-0.5) K/uL Baso # (Auto) 0.15 (0-0.2) K/uL Blood Smear Review PT 20.8 H (9.0-12.0) Seconds INR 2.1 H (0.9-1.1) APTT 39.4 H (21.0-31.0) Seconds PTT Ratio 1.5 Sodium 140 (136-145) mmol/L Potassium 3.6 (3.5-5.1) mmol/L Chloride 105 (98-107) mmol/L Carbon Dioxide 27 (21-32) mmol/L Anion Gap 8.0 (3-11) BUN 18 (7-18) mg/dl Creatinine 1.03 (0.6-1.2) mg/dl Est Cr Clr Drug Dosing 50.8 ml/min Est GFR ( Amer) 65.1 Est GFR (Non-Af Amer) 56.2 BUN/Creatinine Ratio 17.7 (10-20) Glucose 107 H (70-99) mg/dl Calcium 10.2 H (8.5-10.1) mg/dl Magnesium 1.9 (1.8-2.4) mg/dl Total Bilirubin 0.5 (0.2-1) mg/dl AST 39 H (15-37) U/L ALT 65 (12-78) U/L Alkaline Phosphatase 134 H (45-117) U/L Troponin I < 0.015 (0-0.045) ng/ml Total Protein 7.9 (6.4-8.2) gm/dl Albumin 4.6 (3.4-5.0) gm/dl Globulin 3.3 (2.5-4.0) gm/dl Albumin/Globulin Ratio 1.4 (0.9-2) TSH 1.750 (0.300-4.500) uIu/ml Imaging Data Radiologist's Impression: Radiology results as stated below per my review and the radiologist's interpretation: XR chest 1V portable CLINICAL HISTORY: Cardiac workup SHORTNESS OF BREATH, ATRIAL FIBRILLATION, NAUSEA. COMPARISON STUDY: August 23, 2016 FINDINGS: The cardiac and mediastinal contours are normal. There is no evidence of focal pulmonary consolidation. There is no evidence of failure. No pleural effusions are visualized.[ IMPRESSION: No active disease in the chest. Electronically signed by: Alberto Leger M.D. 03/25/2019 8:57 AM ECG Data Attestation: I personally reviewed and interpreted this ECG as follows: Indication: palpitations Rate (beats per minute): 145 Rhythm: atrial fibrillation (with RVR) Findings: + other (inferior and lateral ST abnormalities ) Comparison ECG Date: from (08/23/16) Additional Comments: REPEAT EKG: Atrial flutter, rate of 49. Improvement of previously noted ST abnormalities. Blood Pressure Blood Pressure Findings: Elevated blood pressure Blood Pressure Disposition: elevated BP felt to be situational MDM Narrative The patient is a 68-year-old female who presented to the emergency department for an evaluation of weakness palpitations and irregular heartbeat. The patient was recently diagnosed with atrial fibrillation. She had a procedure for cardioversion but this did not successfully return her to sinus rhythm. The patient was started on sotalol. She presents emergency department today with atrial fibrillation with rapid ventricular response. She was treated with Cardizem in the emergency department. She went to a slower atrial flutter at that time. The patient's symptoms slowly improved. I discussed the patient's laboratory and radiographic studies with her. I discussed her case with the on- call [facility] food mobile driver. At this time they have recommended the patient be admitted to the hospital for further medication treatment. They feel the patient may need to have the sotalol stopped with switch to a different antidysrhythmic. I discussed this case with the on-call [facility] hospitalist. They have agreed to evaluate the patient in the emergency department for further management disposition. Impression & Plan Atrial fibrillation with RVR, Palpitations Discharge Plan Visit Data Chief Complaint: Arrhythmia/Palpitations Stated Complaint: AFIB, TACHYCARDIA - RVR ED Provider: Zain Armendariz ED Midlevel Provider: Silvina Flores Discharge Problem: Atrial fibrillation with RVR, Palpitations Patient Disposition: Being Evaluated by Hospitalist Forms Stand Alone Forms: My [facility] Prescriptions Prescriptions: No Action sennosides [senna] 8.6 mg Tablet 8.6 mg PO BID PRN (Reason: Constipation) RF: 0 atorvastatin 20 mg tablet 20 mg PO QAM RF: 0 clindamycin HCl 300 mg Capsule 300 mg PO UD PRN (Reason: DENTAL WORK) RF: 0 meloxicam 15 mg tablet 15 mg PO DAILY RF: 0 prednisone 5 mg tablet 5 mg PO QAM RF: 0 melatonin 3 mg tablet 3 mg PO HS RF: 0 sotalol 120 mg tablet 120 mg PO BID RF: 0 citalopram 20 mg tablet 20 mg PO QAM RF: 0 metformin 1,000 mg tablet 1,000 mg PO BIDM RF: 0 levothyroxine 125 mcg tablet 125 mcg PO DAILYBB RF: 0 warfarin 5 mg tablet 5 mg PO QAM RF: 0 omeprazole 20 mg Capsule,Delayed Release(Dr/Ec) 20 mg PO QAM RF: 0 epinephrine [EpiPen] 0.3 mg/0.3 mL Auto-Injector 0.3 mg IM Q3H PRN (Reason: Allergic Reaction) RF: 0 cholecalciferol (vitamin D3) [Vitamin D3] 1,000 unit Capsule 1,000 unit PO QAM RF: 0 enoxaparin 80 mg/0.8 mL syringe 80 mg subcut UD RF: 0 Multivitamin 50 Plus Tablet 1 tab PO QAM RF: 0 metoprolol tartrate 25 mg tablet 25 mg PO DAILY PRN (Reason: Palpitations) RF: 0 lidocaine 5 % Ointment 1 applic TOPICAL 6XD PRN (Reason: Pain) RF: 0 PreserVision AREDS-2 [id number] Capsule 1 tab PO BID RF: 0 Referrals Referrals: Reid Main MD [Primary Care Provider] - The scribe's documentation has been prepared under my direction and personally reviewed by me in its entirety. I confirm that the note above accurately reflects all work, treatment, procedures, and medical decision making performed by me.
--- NOTE | 2019-03-25 13:36 | History & Physical Report ---
Date of Service March 25, 2019 Assessment & Plan (1) Atrial fibrillation with RVR: Admit to inpatient on telemetry Vital signs every 4 hours Started diltiazem drip for A. fib's with RVR Patient is already on warfarin with INR of 2.1, coagulated well Consider consulting cardiology after TTE is done and if no improvement. Consider putting back to metoprolol and titrate up to control the rate of A. fib's if patient does not convert back. TTE pending CBC CMP daily replenish electrolytes BNP pending, Lactate pending Full code Present on Admission?: Yes (2) Palpitations: As above (3) Hypertension: Hold sotalol and metoprolol while patient is on diltiazem drip. Started baby aspirin 81 mg daily. Present on Admission?: Yes (4) Hyperlipidemia: Continue atorvastatin 20 mg p.o. every morning, check for fasting lipid panel in a.m. Present on Admission?: Yes (5) Hypothyroidism: TSH normal, continue home dose of levothyroxine 125 MCG's p.o. daily Present on Admission?: Yes (6) Diabetes mellitus type 2 in obese: Hold metformin while patient is in the hospital to prevent kidney injury is due to possible radiological procedures and hypoglycemia. Recommended sliding scale insulin and before meals and at bedtime Accu-Cheks. Glycemic control per pharmacy management. A1c pending. Present on Admission?: Yes (7) Diarrhea: Continue gentle IV fluid hydration with normal saline at 80 cc/h while BNP is pending. Will reassess patient after BNP available in regards of continuing or stopping IV fluids to prevent volume overload. At this point patient does not looks volume overload clinically. All cultures with ova parasites, WBC, C. difficile pending Present on Admission?: Yes (8) Depression: Stable continue citalopram 20 mg p.o. every morning Present on Admission?: Yes History of Present Illness Chief Complaint: A. fib with RVR and diarrhea Primary Care Provider: Reid Main MD Patient is a 68 years old female with past medical history of hypertension, hyperlipidemia, A. fib's on warfarin and Lovenox to reach INR 2-3, hypothyroidism, insomnia, diabetes mellitus type 2, hyperlipidemia presented to the emergency room with complaint of palpitations and shortness of breath that started this morning. Patient said that recently she was on clindamycin for toothache. Patient says she started to have diarrhea for the past 2 days. Diarrhea is watery, 3-5 times a day and yellow. Patient says she went many times. This morning patient had another episode of diarrhea while in the emergency room. The sample was collected for stool culture ova and parasites and C. difficile. Patient was started on diltiazem drip after she received diltiazem bolus 10 mg IV and her heart rate somewhat improved down to 100 but then after half an hour went back to 120s 125 of A. fib's. INR is 2.1 which is appropriate for A. fib's and we will continue warfarin at this point. Patient had Lovenox yesterday therapeutic dose due to the fact that she was still not therapeutic on warfarin and she was bridged. Patient denies fever chills, headache, body aches, chest pain, frequency, urgency, abdominal pain hematuria, dysuria, hematemesis, melena, hematochezia. She denies any sick contact. Labs are reviewed: WBC 13.88, hemoglobin 15.5, hematocrit 46.5, platelets 348, PT 20.8, INR 2.1, APTT 39.4. Sodium 140, potassium 3.6, chloride 105, anion gap 8, BUN 18, creatinine 1.03, GFR 56.2 glucose 107, calcium 10.2 magnesium 1.9, AST 39, ALT 65, troponin 0 0.015, TSH 1.75. Allergies Allergy/AdvReac Type Severity Reaction Status Date / Time soybean Allergy Severe ANAPHYLAXIS Verified 03/25/19 10:39 bacitracin Allergy Unknown RASH Verified 03/25/19 10:39 monosodium glutamate Allergy Unknown THROAT Verified 03/25/19 10:39 SWELLS neomycin Allergy Unknown RASH Verified 03/25/19 10:39 Penicillins Allergy Unknown UNKNOWN Verified 03/25/19 10:39 polymyxin B Allergy Unknown RASH Verified 03/25/19 10:39 Sulfa (Sulfonamide Allergy Unknown UNKNOWN Verified 03/25/19 10:39 Antibiotics) Cipro AdvReac Unknown N/V Verified 08/24/16 10:24 ciprofloxacin AdvReac Unknown N/V Verified 03/25/19 10:39 nitrofurantoin AdvReac Unknown DIARRHEA Verified 03/25/19 10:39 piroxicam AdvReac Unknown SEVERE Verified 03/25/19 10:39 DIARRHEA Home Medications Home Medications Medication Instructions Recorded Confirmed Type atorvastatin 20 mg PO QAM 03/25/19 03/25/19 History cholecalciferol (vitamin D3) 1,000 unit PO QAM 03/25/19 03/25/19 History [Vitamin D3] citalopram 20 mg PO QAM 03/25/19 03/25/19 History clindamycin HCl 300 mg PO UD PRN 03/25/19 03/25/19 History enoxaparin 80 mg SUBCUT UD 03/25/19 03/25/19 History epinephrine [EpiPen] 0.3 mg IM Q3H PRN 03/25/19 03/25/19 History levothyroxine 125 mcg PO DAILYBB 03/25/19 03/25/19 History lidocaine 1 applic TOPICAL 6XD PRN 03/25/19 03/25/19 History melatonin 3 mg PO HS 03/25/19 03/25/19 History meloxicam 15 mg PO DAILY 03/25/19 03/25/19 History metformin 1,000 mg PO BIDM 03/25/19 03/25/19 History metoprolol tartrate 25 mg PO DAILY PRN 03/25/19 03/25/19 History jwhbhmsubpis-pedoioop-vggpfs 1 tab PO QAM 03/25/19 03/25/19 History [Multivitamin 50 Plus] omeprazole 20 mg PO QAM 03/25/19 03/25/19 History prednisone 5 mg PO QAM 03/25/19 03/25/19 History sennosides [senna] 8.6 mg PO BID PRN 03/25/19 03/25/19 History sotalol 120 mg PO BID 03/25/19 03/25/19 History vit C,M-Fv-sbqwk-lutein-zeaxan 1 tab PO BID 03/25/19 03/25/19 History [PreserVision AREDS-2] warfarin 5 mg PO QAM 03/25/19 03/25/19 History Past Med/Surg History Medical History A-fib Family History Other No significant family history Social History Preferred Language: Ukrainian Feels Safe at Home: Yes Smoking Status: Never smoker Review of Systems Review of Systems: All systems reviewed & are unremarkable except as noted in HPI & below Physical Exam Constitutional: WD/WN, vitals as above well developed Eyes: PERRL, conjunctivae normal, anicteric sclerae ENMT: external ear and nose normal, oropharynx normal Neck: trachea midline, no thyromegaly Respiratory: normal respiratory effort, lungs clear to auscultation Cardiovascular: Rate/Rhythm: + irregularly irregular Heart Sounds: normal S1 and normal S2 Palpation: + palpable S3 Gastrointestinal (Abdomen): normal bowel sounds, soft, nontender, no hepatosplenomegaly Musculoskeletal: no cyanosis or clubbing, extremities motor strength 5/5 Skin: no rashes, warm and dry Neurologic: patellar DTR's 2+ bilat, sensation intact Lymphatic: no cervical or axillary lymphadenopathy Results & Data Vital Signs (Past 12 Hours) Vital Signs Temp Pulse Resp BP Pulse Ox 03/25/19 12:16 108 H 15 127/100 96 03/25/19 12:01 98 H 23 124/97 97 03/25/19 11:45 102 H 20 128/100 98 03/25/19 11:31 102 H 26 H 117/78 92 03/25/19 11:17 86 28 H 127/90 94 03/25/19 11:00 103 H 21 116/89 96 03/25/19 10:45 94 H 18 107/92 03/25/19 10:31 95 H 20 127/63 03/25/19 10:30 98 H 26 H 95 03/25/19 10:15 84 15 128/82 94 03/25/19 10:01 101 H 23 112/86 03/25/19 10:00 93 H 22 93 03/25/19 09:46 93 H 18 118/81 96 03/25/19 09:31 48 L 16 136/85 96 03/25/19 09:30 75 21 03/25/19 09:28 94 H 24 100/52 L 03/25/19 09:15 75 24 108/96 98 03/25/19 09:01 74 17 120/87 97 03/25/19 09:00 73 19 95 03/25/19 08:52 49 L 15 110/70 97 03/25/19 08:46 103 H 26 H 127/83 03/25/19 08:44 126 H 20 135/102 H 97 03/25/19 08:31 144 H 19 123/66 03/25/19 08:30 144 H 20 93 03/25/19 08:17 144 H 19 138/98 97 03/25/19 08:16 145 H 16 97 03/25/19 08:07 36.4 C L 87 16 124/93 92 Code Status & VTE Plan Code Status full code VTE Prophylaxis Plan VTE Prophylaxis will be ordered: Yes PG Care Time/CCT Total # of Minutes Spent Total Time Spent with Patient: Total time spent is greater than 50% in coordination of care (as documented) at patient's floor/unit and/or counseling patient:
[2019-03-25] MEDS: dilTIAZem HCL 125 MG in DEXTROSE 5% 100 ML IV SCH ×3 (13:45→23:50)
--- NOTE | 2019-03-25 15:22 | Cardiology Consultation ---
Date of Consultation March 25, 2019 Assessment & Plan (1) Atrial fibrillation with RVR: She had paroxysmal atrial fibrillation with a last documented episode last week at [facility]. It converted with sotalol but then she developed atrial flutter. Currently on telemetry she appears to be in atrial fibrillation however 12 leads thus far today demonstrate atrial flutter. Recommend discontinuing sotalol. Continue anticoagulation for stroke risk reduction. (2) Paroxysmal atrial flutter: Recurrent atrial flutter has now occurred on sotalol 80 mg twice daily, prompting DC cardioversion at [facility] and then now once again on 120 mg twice daily of sotalol. Recommend discontinuation of sotalol. Diltiazem drip has been started by primary service and is controlling her heart rate adequately for now. She apparently has failed rate control strategy in the past as she has been following with Dr. Alan at [facility] for the past few months. She is also quite symptomatic with her atrial arrhythmias. Consider further antiarrhythmic approachAfter sotalol has washed out. Could also consider AFib and atrial flutter ablation if necessary in the future. Due to the complexity of her atrial arrhythmias, electrophysiology has been asked to evaluate her tomorrow. Continue anticoagulation for stroke risk reduction. (3) Hypertension: Blood pressure adequately controlled. (4) Anticoagulant long-term use: Continue anticoagulation for stroke risk reduction. Eliquis was too expensive. Consider Xarelto in place of warfarin if Eliquis is not affordable. Disposition: Electrophysiology consultation recommended to manage her paroxysmal atrial fibrillation and atrial flutter despite sotalol. Plan of care has been discussed with Dr. Armendariz of the emergency department. Thank you for allowing me to participate in the care of your patient. Please call for any other questions or concerns. Sincerely, Javier Ralgand M.D. History of Present Illness Reason for Consultation: Paroxysmal Atrial flutter Requesting Physician: Dr. Armendariz Attending Physician: Dr. Armendariz History of Present Illness Mrs Quiroz is a very pleasant 68-year-old female with history significant for paroxysmal atrial fibrillation, paroxysmal atrial flutter on anti rhythmic therapy, anticoagulation therapy, hypertension, dyslipidemia, prediabetes, and hypothyroidism. She has been followed by [facility] Cardiology (Dr. Alan) and [facility] electrophysiology (Dr. Cruz). She informed Dr. Armendariz that she preferred to establish with [facility] cardiology today. She states that near the 25 of December she developed palpitations described as a pounding in her head with elevated heart rate and she went to [facility] ER. She was diagnosed with atrial fibrillation and after 1-2 days in the hospital, she was discharged home. The very next day she once again went back to [facility] with atrial fibrillation and rapid ventricular response and spent several hospital days there. She was discharged home on diltiazem and metoprolol. She then did well for several weeks and went to [facility] on 03/01/2019 for a camping trip that was supposed the last 3 weeks. Unfortunately, after approximately 10 days she had extreme weakness and palpitations (pounding in her head) and therefore they drove back home 10 hours to [place]. By the time she got home her symptoms had resolved so she did not seek out medical attention at that time. Her symptoms then returned approximately 1 week later and she was hospitalized on 03/16/2019, and discharged on 03/22/2019. During her stay at [facility] last week, she was noted to be in atrial fibrillation with rapid ventricular response baseline ECGs that have been obtained and personally reviewed. Her ECG on 03/16/2019 demonstrated AFib with RVR at 138 bpm. According to the discharge summary she was placed on sotalol 80 mg twice daily and converted to sinus rhythm. She later developed atrial flutter with rapid ventricular response while on sotalol as noted by ECG on 03/21/2019 at 7:23 a.m.. She underwent transesophageal echo and cardioversion. Within a few hours, she once again developed atrial arrhythmia and therefore sotalol was increased to 120 mg twice daily. Eventually, sinus rhythm was once again obtained and she was discharged home on sotalol with instructions to take metoprolol 25 mg as needed for heart rate greater than 100 for 30 minutes. Unfortunately, last night palpitations awakened her from sleep at approximately midnight. She took metoprolol 25 mg and called cancellation clerk [facility] Cardiology at 3:00 a.m.. Symptoms persisted and therefore she came to the emergency department here at [facility]. She was found to be in atrial flutter with rapid ventricular response. She was given diltiazem 10 mg IV and then was found to be in atrial flutter at a rate of 49 bpm. She was later started on a diltiazem drip as her heart rate once again increased. During our visit, her heart rate was in the 90s to low 100s. She now has no palpitations but continues to feel weak, however improved. She denies chest pain, syncope, near-syncope, shortness of breath, edema, melena, hematochezia, hematuria, or other bleeding. She has had diarrhea for 3 days and states that the stool has been yellow in color. She had typically been very active until the first week of December and has not felt well since then for the most part. She reports having a nuclear stress test done in December at [facility]. Records have been requested and office nursing staff have indicated that according to [facility] records a nuclear stress was done however results cannot be found at the time of this note. She has been on warfarin since December. They did lerma Eliquis but apparently it was not affordable for her. She has had the following studies/procedures: 1. ASHU 03/20/2019 at [facility]: Normal LV size and systolic function. EF 50-54%. Spontaneous echo contrast within the left atrium. No left atrial appendage. Mild MR. Mild TR. No PFO or ASD. 2. Cardioversion 03/20/2019 at [facility]. Review of systems: As above. Review of systems otherwise negative/unremarkable. Social history: She denies tobacco, alcohol abuse. She lives at home with her , dose of. They have 1 son and 1 daughter. Multiple grandchildren. One great grandson. 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 Family history: Father had CAD status post CABG. Allergies Allergy/AdvReac Type Severity Reaction Status Date / Time soybean Allergy Severe ANAPHYLAXIS Verified 03/25/19 10:39 bacitracin Allergy Unknown RASH Verified 03/25/19 10:39 monosodium glutamate Allergy Unknown THROAT Verified 03/25/19 10:39 SWELLS neomycin Allergy Unknown RASH Verified 03/25/19 10:39 Penicillins Allergy Unknown UNKNOWN Verified 03/25/19 10:39 polymyxin B Allergy Unknown RASH Verified 03/25/19 10:39 Sulfa (Sulfonamide Allergy Unknown UNKNOWN Verified 03/25/19 10:39 Antibiotics) Cipro AdvReac Unknown N/V Verified 08/24/16 10:24 ciprofloxacin AdvReac Unknown N/V Verified 03/25/19 10:39 nitrofurantoin AdvReac Unknown DIARRHEA Verified 03/25/19 10:39 piroxicam AdvReac Unknown SEVERE Verified 03/25/19 10:39 DIARRHEA Home Medications Home Medications Medication Instructions Recorded Confirmed Type atorvastatin 20 mg PO QAM 03/25/19 03/25/19 History cholecalciferol (vitamin D3) 1,000 unit PO QAM 03/25/19 03/25/19 History [Vitamin D3] citalopram 20 mg PO QAM 03/25/19 03/25/19 History clindamycin HCl 300 mg PO UD PRN 03/25/19 03/25/19 History enoxaparin 80 mg SUBCUT UD 03/25/19 03/25/19 History epinephrine [EpiPen] 0.3 mg IM Q3H PRN 03/25/19 03/25/19 History levothyroxine 125 mcg PO DAILYBB 03/25/19 03/25/19 History lidocaine 1 applic TOPICAL 6XD PRN 03/25/19 03/25/19 History melatonin 3 mg PO HS 03/25/19 03/25/19 History meloxicam 15 mg PO DAILY 03/25/19 03/25/19 History metformin 1,000 mg PO BIDM 03/25/19 03/25/19 History metoprolol tartrate 25 mg PO DAILY PRN 03/25/19 03/25/19 History twnubsqxmpgy-htjtykto-krqfuv 1 tab PO QAM 03/25/19 03/25/19 History [Multivitamin 50 Plus] omeprazole 20 mg PO QAM 03/25/19 03/25/19 History prednisone 5 mg PO QAM 03/25/19 03/25/19 History sennosides [senna] 8.6 mg PO BID PRN 03/25/19 03/25/19 History sotalol 120 mg PO BID 03/25/19 03/25/19 History vit C,M-Uy-ufmbv-lutein-zeaxan 1 tab PO BID 03/25/19 03/25/19 History [PreserVision AREDS-2] warfarin 5 mg PO QAM 03/25/19 03/25/19 History Patient History Medical History Anticoagulant long-term use Paroxysmal atrial flutter (Acute) Depression Diarrhea Diabetes mellitus type 2 in obese Hypothyroidism Hyperlipidemia Hypertension Atrial fibrillation with RVR (Acute) A-fib Family History Other No significant family history Social History Preferred Language: Pashto Feels Safe at Home: Yes Smoking Status: Never smoker Physical Exam Physical Exam: Gen.: No acute distress. Alert and oriented. HEENT: Anicteric sclera. Neck: No JVD. No bruits. Normal carotid upstrokes bilaterally. Cardiac: PMI was nonpalpable. No ventricular heave. Irregularly irregular. Normal S1-S2. No murmurs, rubs, or gallops. Pulmonary: Clear to auscultation bilaterally without wheezes, rales, or rhonchi. Abdomen: Soft, nontender, nondistended, with normoactive bowel sounds. No bruits noted. Extremities: 2+ radial pulses bilaterally. 2+ posterior tibialis pulses bilaterally. Trace bilateral lower extremity edema. No cyanosis. No palpable cords. Psychiatric: Affect appears appropriate. Results & Data Vital Signs (Past 12 Hours) Vital Signs Temp Pulse Resp BP Pulse Ox 03/25/19 15:01 99 H 28 H 124/86 97 03/25/19 14:46 107 H 29 H 135/96 96 03/25/19 14:30 108 H 17 130/113 H 97 03/25/19 14:16 98 H 16 125/86 96 03/25/19 14:11 109 H 20 127/78 95 03/25/19 14:00 124 H 28 H 113/79 95 03/25/19 13:45 117 H 20 133/100 96 03/25/19 13:31 104 H 18 129/85 97 03/25/19 13:15 103 H 19 126/96 97 03/25/19 13:01 114 H 21 120/98 93 03/25/19 13:00 111 H 19 95 03/25/19 12:46 105 H 19 135/88 96 03/25/19 12:30 109 H 25 H 98 03/25/19 12:17 112 H 17 95 03/25/19 12:16 108 H 15 127/100 96 03/25/19 12:01 98 H 23 124/97 97 03/25/19 11:45 102 H 20 128/100 98 03/25/19 11:31 102 H 26 H 117/78 92 03/25/19 11:17 86 28 H 127/90 94 03/25/19 11:00 103 H 21 116/89 96 03/25/19 10:45 94 H 18 107/92 03/25/19 10:31 95 H 20 127/63 03/25/19 10:30 98 H 26 H 95 03/25/19 10:15 84 15 128/82 94 03/25/19 10:01 101 H 23 112/86 03/25/19 10:00 93 H 22 93 03/25/19 09:46 93 H 18 118/81 96 03/25/19 09:31 48 L 16 136/85 96 03/25/19 09:30 75 21 03/25/19 09:28 94 H 24 100/52 L 03/25/19 09:15 75 24 108/96 98 03/25/19 09:01 74 17 120/87 97 03/25/19 09:00 73 19 95 03/25/19 08:52 49 L 15 110/70 97 03/25/19 08:46 103 H 26 H 127/83 03/25/19 08:44 126 H 20 135/102 H 97 03/25/19 08:31 144 H 19 123/66 03/25/19 08:30 144 H 20 93 03/25/19 08:17 144 H 19 138/98 97 03/25/19 08:16 145 H 16 97 03/25/19 08:07 36.4 C L 87 16 124/93 92 Laboratory Results Laboratory Results - last 24 hr 03/25/19 03/25/19 03/25/19 08:19 08:19 08:19 WBC 13.88 H RBC 5.29 Hgb 15.5 Hct 46.5 MCV 87.9 MCH 29.3 MCHC 33.3 RDW Std Deviation 45.3 RDW Coeff of Starla 14.1 Plt Count 348 MPV 10.5 H Immature Gran % (Auto) 0.3 Neut % (Auto) 44.0 Lymph % (Auto) 39.6 Esmeralda % (Auto) 9.5 Eos % (Auto) 5.5 Baso % (Auto) 1.1 Immature Gran # (Auto) 0.04 H Neut # (Auto) 6.11 Lymph # (Auto) 5.49 H Esmeralda # (Auto) 1.32 H Eos # (Auto) 0.77 H Baso # (Auto) 0.15 Blood Smear Review PT 20.8 H INR 2.1 H APTT 39.4 H PTT Ratio 1.5 Sodium 140 Potassium 3.6 Chloride 105 Carbon Dioxide 27 Anion Gap 8.0 BUN 18 Creatinine 1.03 Est Cr Clr Drug Dosing 50.8 Est GFR ( Amer) 65.1 Est GFR (Non-Af Amer) 56.2 BUN/Creatinine Ratio 17.7 Glucose 107 H Calcium 10.2 H Magnesium 1.9 Total Bilirubin 0.5 AST 39 H ALT 65 Alkaline Phosphatase 134 H Troponin I < 0.015 Total Protein 7.9 Albumin 4.6 Globulin 3.3 Albumin/Globulin Ratio 1.4 TSH 1.750 Diagnostic Findings ECGs personally reviewed. ECG 03/25/2019 at 8:13 a.m.: Atrial flutter with 2-1 av conduction at [address]/T-wave abnormality. [facility] ECGs reviewed as noted above. Transesophageal echo done at [facility]; report reviewed as above. Chest x-ray 03/25/2019: No active disease the chest per Radiology. Medications Administered Current Inpatient Medications Diltiazem HCl 125 mg/ Dextrose 125 mls @ 15 mls/hr IV .[id number] [facility]; Protocol Stop: 04/24/19 13:14 Last Titration: 03/25/19 15:35 Dose: 15 mg/hr, 15 mls/hr Documented by: PG Care Time/CCT Total # of Minutes Spent Total Time Spent with Patient: Total time spent is greater than 50% in coordination of care (as documented) at patient's floor/unit and/or counseling patient:
[2019-03-25] MEDS ORDERED: GLUCAGON FOR INJ 1 MG VIAL SQ PRN (17:44)
[2019-03-25] MEDS ORDERED: OXYCODONE/ACETAMINOPHEN 5mg/325mg TAB PO PRN (17:44)
[2019-03-25] MEDS ORDERED: ONDANSETRON INJ 2 MG/ML 2 ML VIAL IV PRN (17:44)
[2019-03-25] MEDS ORDERED: ALUMINUM/MAGNESIUM SUSP 30 ML UDC PO PRN (17:44)
[2019-03-25] MEDS ORDERED: DC ALL PREVIOUSLY ORDERED DIABETES MEDS ONE (17:44)
[2019-03-25] MEDS ORDERED: GLUCOSE 10 TABS/TUBE PO PRN (17:44)
[2019-03-25] MEDS ORDERED: ACETAMINOPHEN 325 MG TAB PO PRN (17:44)
[2019-03-25] MEDS ORDERED: CARBOHYDRATES FOR HYPOGLYCEMIA PO PRN (17:44)
[2019-03-25] MEDS ORDERED: DEXTROSE 50% 50 ML SYRINGE IV PRN (17:44)
[2019-03-25] MEDS ORDERED: POLYETHYLENE (MIRALAX) 17 GM PACK PO PRN (17:44)
[2019-03-25] MEDS ORDERED: GLUCOSE 40% GEL 15 GM TUBE PO PRN (17:44)
[2019-03-25] MEDS ORDERED: MAGNESIUM HYDROXIDE SUSP 30 ML UDC PO PRN (17:44)
[2019-03-25] MEDS ORDERED: LIDOCAINE HCL 5% OINT 30 GM TUBE TOP PRN (17:44)
[2019-03-25] MEDS ORDERED: POTASSIUM CHLORIDE 20 MEQ TABCR PO STA (18:00)
[2019-03-25] MEDS ORDERED: PHARMACY GLYCEMIC MGMT CONSULT PRN (18:01)
[2019-03-25] MEDS ORDERED: SODIUM CHLORIDE 0.9% 1000ML 1,000 ML IV SCH (18:15)
[2019-03-25] MEDS: INSULIN ASPART 100 UNITS/ML 3 ML PEN SC SCH ×2 (18:23→21:08)
[2019-03-25] MEDS ORDERED: WARFARIN SOD 5 MG TAB PO SCH (19:00)
[2019-03-25] MEDS: ATORVASTATIN 20 MG TAB PO SCH (20:12)
[2019-03-25] MEDS: CEROVITE ADV FORMULA TAB PO SCH (20:13)
[2019-03-25] MEDS: ASPIRIN 81 MG ECTAB PO SCH (20:13)
--- NOTE | 2019-03-25 20:13 | CT Scan Report ---
CT SCAN OF THE ABDOMEN AND PELVIS WITHOUT IV CONTRAST CLINICAL HISTORY: Generalized abdominal pain. Diarrhea. COMPARISON STUDY: No priors. TECHNIQUE: CT scan of the abdomen and pelvis is performed from the lung bases to the proximal femora. Images are reviewed in the axial, sagittal, and coronal planes. IV contrast was not administered for this examination as per the referring clinician. Note that the examination was performed in suboptim al fashion without oral and IV contrast. A dose lowering technique was utilized adhering to the princ ipllisa of BRIT. CT DOSE: 859.42 mGycm FINDINGS: Lung bases: The heart is normal in size and without pericardial effusion. The lung bases are clear. T here is a tiny hiatal hernia. Liver: The unenhanced liver is normal in size, contour, and attenuation. There is no intrahepatic lisa iary ductal dilatation. 9 mm cyst is noted in the right lobe below the diaphragm. Gallbladder: Surgically absent noting clips in the gallbladder fossa. Spleen: Normal in size and attenuation. Pancreas: The unenhanced pancreas is mildly atrophic and grossly unremarkable. Adrenal glands: Unremarkable. Kidneys: The unenhanced kidneys demonstrate mild cortical atrophy and are without hydronephrosis. The re is a 4 mm nonobstructing calculus in the left kidney. No right renal calculi are identified. There is no evidence of contour deforming renal mass lesion. Abdominal vasculature: The abdominal aorta is normal in course and caliber noting scattered foci of a therosclerotic calcification. Bowel: There is mild sigmoid diverticulosis without CT evidence of acute diverticulitis. No bowel obs truction is seen. Submucosal fat deposition is noted in the right colon. The appendix is well-visual ized and normal. Peritoneum: There is no intraperitoneal free air or abdominal ascites. Lymphadenopathy: None. Pelvic viscera: The bladder is normal as visualized. The uterus is surgically absent. A 2 cm cystic f ocus is noted in the left ovary. Skeletal structures: The skeletal structures are osteopenic. Moderate lumbosacral spondylosis is obse rved. Degenerative change is noted in the hips and sacroiliac joints. No lytic or blastic lesions are seen. There is a healed right pubic ring fracture. IMPRESSION: 1. There are no acute infectious or inflammatory findings in the abdomen or pelvis. 2. Left-sided nephrolithiasis. 3. There is a 2 cm cystic focus in the left ovary. Although of low suspicion, this is an abnormal fin ding in a postmenopausal female. Follow-up with a nonemergent pelvic ultrasound is recommended for fu rther assessment. 4. Additional findings as above. Electronically signed by: Moreno Giordano M.D. 03/25/2019 8:12 PM
[2019-03-25] MEDS: ZOLPIDEM TARTRATE 5 MG TAB PO PRN (21:13)
[2019-03-26 02:52] LABS: Appearance Urine Clear (Clear); Bacteria Urine Automated Negative (Negative); Bilirubin Urine Negative (Negative); Blood Urine Negative (Negative); Color Urine Yellow; Glucose Urine UA Negative (Negative); Ketones Urine 1+ (Negative); Leukocyte Esterase Urine Trace (Negative); Nitrite Urine Negative (Negative); Protein Urine Negative (Negative); RBC Urine Automated 0-4 /hpf (0-4); Specific Gravity Urine 1.012 (1.000-1.030); Urobilinogen Urine Negative (Negative)
[2019-03-26] MEDS: LEVOTHYROXINE SODIUM 125 MCG TABLET PO SCH (05:51)
[2019-03-26 06:19] LABS: Basophils # (auto) 0.07 K/uL (0-0.2); Basophils % (auto) 0.8 %; Eosinophils # (auto) 0.47 K/uL (0-0.5); Eosinophils % (auto) 5.6 %; Hematocrit (blood only) 40.1 % (37-47); Hemoglobin 13.1 g/dL (12.0-16.0); Immature Granulocytes # (auto) 0.02 K/uL (0.00-0.02); Immature Granulocytes % (auto) 0.2 %; Lymphocytes # (auto) 3.02 K/uL (1.2-3.4); Lymphocytes % (auto) 35.7 %; Mean Corpuscular Hemoglobin 28.7 pg (25-34); Mean Corpuscular Hgb Conc 32.7 g/dL (32-36); Mean Corpuscular Volume 87.9 fL (80-100); Mean Platelet Volume 9.9 fL (7.4-10.4); Monocytes # (auto) 0.85 K/uL (0.11-0.59); Neutrophils # (auto) 4.03 K/uL (1.4-6.5); Neutrophils % (auto) 47.7 %; Platelet Count 264 K/uL (130-400); RDW Coefficient of Variation 14.2 % (11.5-14.5); RDW Standard Deviation 45.6 fL (36.4-46.3); Red Blood Count 4.56 M/uL (4.2-5.4); White Blood Count 8.46 K/uL (4.8-10.8)
[2019-03-26 06:42] LABS: Estimated Average Glucose 117 mg/dl; Hemoglobin A1C 5.7 % (4.5-5.6)
[2019-03-26 07:00] LABS: Albumin Level 3.5 gm/dl (3.4-5.0); BUN Creatinine Ratio 16.9 (10-20); Bilirubin,Total 0.5 mg/dl (0.2-1); Calcium 9.3 mg/dl (8.5-10.1); Creatinine Clr Calc Pharmacy 65.5 ml/min; Est GFR (African American) 88.4; Est GFR (Non-African American) 76.3
[2019-03-26 07:13] LABS: Albumin Globulin Ratio 1.2 (0.9-2); Total Protein 6.5 gm/dl (6.4-8.2)
[2019-03-26] MEDS: INSULIN ASPART 100 UNITS/ML 3 ML PEN SC SCH ×4 (08:53→20:49)
[2019-03-26] MEDS ORDERED: INFLUENZA ADMINISTRATION CHARGE ONE (09:00)
[2019-03-26] MEDS ORDERED: CITALOPRAM 20 MG TAB PO SCH (09:00)
[2019-03-26] MEDS: ASPIRIN 81 MG ECTAB PO SCH (09:00)
[2019-03-26] MEDS ORDERED: INFLUENZA VIRUS QUAD VACCINE 0.5 ML SYR IM ONE (09:00)
[2019-03-26] MEDS: MELOXICAM 7.5 MG TAB PO SCH (09:01)
[2019-03-26] MEDS: MULTIVITAMIN TAB PO SCH (09:02)
[2019-03-26] MEDS: ATORVASTATIN 20 MG TAB PO SCH (09:02)
[2019-03-26] MEDS: CEROVITE ADV FORMULA TAB PO SCH ×2 (09:03→21:33)
[2019-03-26] MEDS: PANTOprazole 40 MG TAB PO SCH (09:03)
[2019-03-26] MEDS: predniSONE 5 MG TAB PO SCH (09:03)
[2019-03-26] MEDS: CHOLECALCIFEROL 1,000 UNITS TAB PO SCH (09:04)
--- NOTE | 2019-03-26 09:43 | Cardiology Progress Note ---
Date of Service March 26, 2019 Assessment & Plan (1) Atrial fibrillation with RVR: She has had atrial fibrillation identified in the past (as well as atrial flutter). Atrial fibrillation is often more easily rate controlled and flutter so it is possible if he did not have flutter that rate control during atrial fibrillation could be accomplished. She has extreme symptoms when she is in atrial fibrillation or flutter but I cannot distinguish exactly which she has all of the time, since she seems to switch between flutter and fibrillation and it sounds as though her rapid heart rates are the main cause of her symptoms atrial fibrillation with rate control (without atrial flutter) might be an acceptable endpoint. (2) Paroxysmal atrial flutter: She has atrial flutter with very rapid heart rates often, but not all of the time. It appears to be typical flutter. I would like to continue another trial of antiarrhythmic therapy, if that fails I discussed other options with her. My next step would be to consider either atrial flutter ablation by itself with plans to rate control atrial fibrillation or to have her go to [facility] for atrial fibrillation and flutter ablation. I do not think we should make that decision at this point, I would like to trial of another antiarrhythmic agent. I am going to initiate Tikosyn, I am reluctant to use amiodarone due to its long-term toxicity although that remains an option. I discussed all these options with her. She will have to remain in the hospital for 3 days with initiation of Tikosyn and we will have to watch her QT interval. She has other issues being evaluated in any case including her diarrhea. (3) Hypertension: Her blood pressure has been well controlled in the hospital on her current regimen. (4) Anticoagulant long-term use: I discussed anticoagulation with her. Warfarin has been demonstrated to be an inferior anticoagulant, guidelines now suggest the use of 1 of the newer agents. I have not found cost to be an issue when we prescribe these, despite patient's being told that it is. She was told that it would be $400 for the first month and then $20 a month after that, which is not something I have ever heard of. We have cards that give patients 30 days free (which can be used in Medicare patients) and we have samples. I am therefore going to transition her to Eliquis and we will sort out financing later. If it truly is too expensive (which I doubt very much) then we will be forced to switch back to warfarin but that can be done later on as an outpatient. Her INR is 2.1, she is protected today and therefore I am going to discontinue the warfarin and check her INR tomorrow, I will probably start Eliquis tomorrow but I will check her INR first. Subjective This is a 68-year-old woman with a history of diabetes mellitus, hypertension and hypothyroidism who has developed atrial fibrillation diagnosed around December 2018. At that time she was admitted to [facility] when she developed palpitations on 25 December and went to the hospital. There she spent several days in the hospital I am not sure if the rhythm converted on its own. On the day of discharge she returned to the hospital with rapid ventricular response and spent several more days. She was discharged with rate control with diltiazem and metoprolol and I believe was not in atrial fibrillation until going to [place] several months later. She was planning to spend 3 weeks there but on February, they are extremely uncomfortable so she returned 2018 she developed the palpitations home but her symptoms evidently resolved and she did not go to the hospital. She did however go to the hospital on March 16, 2019 and was hospitalized for 6 days where she was found to have atrial fibrillation with rapid heart rate. She was discharged on sotalol and evidently converted to sinus rhythm, however on March 21, 2019 she developed atrial flutter with a rapid heart rate and underwent ASHU guided cardioversion on March 20, 2019 and sotalol was increased. She then developed palpitations on the evening of March 24, 2019, she had difficulty sleeping, she preferred to come to [facility] therefore on the morning of March 25, 2019 she presented to [facility]. Here she was found to be in atrial flutter with a rapid heart rate. She was started on diltiazem and her sotalol was discontinued (her last dose of sotalol was around 5 PM on March 24, 2019), her heart rate was slow (but asymptomatic) and she remained in atrial flutter until shortly after midnight on the morning of March 26, 2019 when she converted to sinus rhythm. The time of my evaluation this morning she is feeling well from the cardiovascular standpoint. She is no longer having palpitations, she is however having a number of other symptoms which do not appear to be related. She is having diarrhea which is being evaluated, she evidently is having difficulty with her thyroid control (although her TSH is normal here) and she feels that she is feeling hot and diaphoretic periodically which she does not recall having before her initial episode of atrial flutter in December of this year. With these rapid heart rate she does not have chest discomfort, however I believe her troponin was elevated in the past but not here. Physical Exam Physical Exam: Constitutional: Alert, cooperative and in no distress. Pulmonary: Clear to auscultation bilaterally. Cardiac: Regular rhythm with no murmur, gallop or rub. Abdomen: Soft, nontender with normal bowel sounds. Extremities: No edema. Skin: No rash, ecchymoses or petechiae. Results & Data Vital Signs (Past 12 Hours) Vital Signs Temp Pulse Pulse Resp BP Pulse Ox 03/26/19 08:03 36.9 C 72 16 118/79 95 03/26/19 03:34 36.7 C 73 17 112/71 95 03/25/19 23:44 84 03/25/19 23:22 36.5 C 82 17 100/58 L 97 Diagnostic Findings Telemetry: She came in in atrial flutter with a very rapid heart rate, that was slowed with intravenous diltiazem and then she converted to sinus rhythm shortly after midnight on the morning of March 26, 2019. She has remained in sinus rhythm at a controlled heart rate. PG Care Time/CCT Total # of Minutes Spent Total Time Spent with Patient: Total time spent is greater than 50% in coordination of care (as documented) at patient's floor/unit and/or counseling patient:
--- NOTE | 2019-03-26 10:09 | Pharmacy Report ---
Glycemic Control Consultation - Date of Service March 26, 2019 - Scope Scope: Glycemic Pharmacist consulted by Dr Harris on 03/25/19 for glycemic control and to write orders per [facility] inpatient glycemic control protocol - Objective Weight: 80.2 kg Accuchecks BSG (last 24hrs): 03/25/19 03/26/19 03/26/19 20:05 05:59 07:24 Glucose 87 POC Glucose 116 H 90 Laboratory Data (last 24hrs): 03/26/19 05:59 Potassium 4.0 Carbon Dioxide 26 Anion Gap 8.0 Creatinine 0.80 Est Cr Clr Drug Dosing 65.5 HbA1c: Hemoglobin A1c 5.7 % (4.5-5.6) H 03/26/19 05:59 - Recent Pertinent Medications Outpatient Anti-diabetic Regimen: * Metformin 1000 mg PO BIDM * A1c = 5.7 % (03/26/19) * Of note, patient takes prednisone 5 mg PO daily as an outpatient The patient is currently receiving: * Basal insulin: Lantus [] units every [] hours * Correctional Insulin: Novolog Correction per scale ACHS Goal Range: Low [] mg/dL - High [] mg/dL Correction Factor: [] mg/dL/unit * Prandial insulin: Per carb ratio of 1 unit per [] grams CHO consumed * Oral Agents: Risk Factors for Insulin Resistance: * Steroids: prednisone 5 mg PO daily (continued from home) - Assessment & Plan Assessment & Plan: ASSESSMENT: * JOY is a 68 year old female admitted to [facility] for atrial fibrillation with rapid ventricular response * Patient is anticoagulated with warfarin (INR therapeutic at 2.1) * Prednisone 5 mg PO daily (home dose) is to be continued while inpatient * BSGs yesterday of 107 mg/dL in the morning and 116 mg/dL in the evening * Patient did not receive any insulin yesterday * Fasting BSG this morning of 90 mg/dL and pre-lunch at 87 mg/dL - will loosen CR * Renal function is stable (SCr today of 0.8 mg/dL, CrCl: 65 mL/min) PLAN FOR INPATIENT GLYCEMIC CONTROL: * Holding outpatient oral diabetes medications * Renal function stable - may consider reinitiation of home metformin tomorrow * Basal insulin * Not necessary at this time * Bolus insulin - loosen CR * NovoLog per scale ACHS or Q6hrs while NPO * Goal Range: Low 110 mg/dL - High 140 mg/dL * Correction Factor: 30 mg/dL/unit * Nutritional / Prandial insulin per carb ratio of 1 unit per 15 grams CHO consumed * Please note that the plan above was derived based on current level of insulin resistance and hospital stress. These recommendations are appropriate for inpatient admission only. Plan of care upon discharge will need to be reassessed to avoid potential outpatient hypo/hyperglycemia. Thank you.
[2019-03-26] MEDS: DOFETILIDE 125 MCG CAPSULE PO SCH ×2 (11:41→21:33)
[2019-03-26] MEDS: ZOLPIDEM TARTRATE 5 MG TAB PO PRN (20:57)
--- NOTE | 2019-03-26 22:13 | Hospitalist Progress Note ---
Date of Service March 26, 2019 Assessment & Plan (1) Atrial fibrillation with RVR: Atrial fibrillation and flutter - exacerbation due to diarrhea from clindamycin Converted to NSR around 00:40 Now converted to NSR Appreciate cardiology management Plan for Tikosyn -> if fails plan for ablation of flutter or both flutter/fib [place] [facility] [place] Plan to start eliquis depending on INR tomorrow (2) Palpitations: As above (3) Hypertension: Defer management to cardiology. Stable at present off sotalol. (4) Hyperlipidemia: Continue atorvastatin 20 mg p.o. every morning, LDL <70 @ goal (5) Hypothyroidism: TSH 1.75, continue levothyroxine 125 MCG's p.o. daily (pt reports recently decreased from 150 mcg. (6) Depression: Stable on citalopram 20 mg p.o. every morning Hold further doses prior to discussing ongoing appropriateness of this medication with cardiology (7) Antibiotic-associated diarrhea: c. diff negative. fecal occult blood negative Lactobacillus ordered (8) Pre-diabetes: Continue metformin 1000mg BID (9) Sweating: Reports pre-dates a.flutter/fib episodes although she may have been going in and out without realizing previously but makes BB or Ca channel blockers less likely the cause. On multiple medications as possible exacerbating factors with citalopram and metformin in addition. However suspect more focal hyperhydrosis. CBC with leukocytosis on admission in setting of acute illness but has since normalized. No other historical labs on [facility]. Recommend outpatient follow up. (10) DVT prophylaxis: As per cardiology management of anticogulation Subjective Patient seen in evening. Resting comfortably in bed. Reports complete resolutions of her admission symptoms. Just started new anti-arrhythmic medication from Dr Mercado. Review of Systems Review of Systems: All systems reviewed & are unremarkable except as noted in HPI & below Musculoskeletal: fibromyalgia - previously controlled with nortriptylline and unsure why it was recently discontinued (suspect due to ongoing cardiac arrythmias) Arthritis - on chronic prednisone, tried coming off meloxicam recently and wrists swelled up Ongoing longstanding triceps pain Hematologic / Lymphatic: Unexplained sweating over the last year getting progressively worse. Physical Exam Constitutional: WD/WN, vitals as above Eyes: PERRL, conjunctivae normal, anicteric sclerae ENMT: external ear and nose normal, oropharynx normal Neck: trachea midline Thyroid: no thyromegaly Respiratory: normal respiratory effort, lungs clear to auscultation Cardiovascular: Rate/Rhythm: regular rate and regular rhythm Heart Sounds: normal S1 and normal S2; no murmur Extremities: no edema Gastrointestinal (Abdomen): normal bowel sounds, soft, nontender, no hepatos plenomegaly Skin: no rashes, warm and dry Neurologic: moves all extremities and awake; no focal motor deficits and not confused Psychiatric: A+Ox3, euthymic affect Lymphatic: no cervical or axillary lymphadenopathy Results & Data Vital Signs (Past 12 Hours) Vital Signs Temp Pulse Pulse Resp BP BP Pulse Ox 03/26/19 19:41 98.2 F 70 18 125/80 92 03/26/19 15:56 72 03/26/19 15:05 98.1 F 68 18 102/67 95 03/26/19 13:05 81 03/26/19 13:04 97.9 F 77 18 159/95 H 97 03/26/19 11:25 97.7 F 75 16 109/72 94 PG Care Time/CCT Total # of Minutes Spent Total Time Spent with Patient: Total time spent is greater than 50% in coordination of care (as documented) at patient's floor/unit and/or counseling patient:
[2019-03-27] MEDS: LEVOTHYROXINE SODIUM 125 MCG TABLET PO SCH (05:10)
[2019-03-27 06:10] LABS: Basophils # (auto) 0.07 K/uL (0-0.2); Basophils % (auto) 0.9 %; Eosinophils # (auto) 0.41 K/uL (0-0.5); Eosinophils % (auto) 5.3 %; Hematocrit (blood only) 37.2 % (37-47); Hemoglobin 12.6 g/dL (12.0-16.0); Immature Granulocytes # (auto) 0.02 K/uL (0.00-0.02); Immature Granulocytes % (auto) 0.3 %; Lymphocytes # (auto) 2.63 K/uL (1.2-3.4); Lymphocytes % (auto) 33.7 %; Mean Corpuscular Hemoglobin 29.6 pg (25-34); Mean Corpuscular Hgb Conc 33.9 g/dL (32-36); Mean Corpuscular Volume 87.3 fL (80-100); Mean Platelet Volume 10.1 fL (7.4-10.4); Monocytes # (auto) 0.77 K/uL (0.11-0.59); Monocytes % (auto) 9.9 %; Neutrophils % (auto) 49.9 %; Platelet Count 235 K/uL (130-400); RDW Standard Deviation 44.2 fL (36.4-46.3); Red Blood Count 4.26 M/uL (4.2-5.4)
[2019-03-27 06:45] LABS: Albumin Level 3.7 gm/dl (3.4-5.0); BUN Creatinine Ratio 16.2 (10-20); Calcium 9.4 mg/dl (8.5-10.1); Creatinine Clr Calc Pharmacy 63.3 ml/min; Est GFR (African American) 84.6; Magnesium 1.9 mg/dl (1.8-2.4); Potassium 3.6 mmol/L (3.5-5.1)
[2019-03-27 06:48] LABS: Albumin Globulin Ratio 1.4 (0.9-2); Bilirubin,Total 0.5 mg/dl (0.2-1); Globulin 2.7 gm/dl (2.5-4.0); Total Protein 6.4 gm/dl (6.4-8.2)
[2019-03-27] MEDS: LACTOBACILLUS ACIDOPHILUS (FLORANEX) TAB PO SCH ×3 (07:49→16:03)
[2019-03-27] MEDS: MELOXICAM 7.5 MG TAB PO SCH (07:50)
[2019-03-27] MEDS: ASPIRIN 81 MG ECTAB PO SCH (07:50)
[2019-03-27] MEDS: CHOLECALCIFEROL 1,000 UNITS TAB PO SCH (07:50)
[2019-03-27] MEDS: predniSONE 5 MG TAB PO SCH (07:50)
[2019-03-27] MEDS: PANTOprazole 40 MG TAB PO SCH (07:50)
[2019-03-27] MEDS: CEROVITE ADV FORMULA TAB PO SCH ×2 (07:50→20:18)
[2019-03-27] MEDS: MULTIVITAMIN TAB PO SCH (07:50)
[2019-03-27] MEDS: ATORVASTATIN 20 MG TAB PO SCH (07:50)
[2019-03-27] MEDS: INSULIN ASPART 100 UNITS/ML 3 ML PEN SC SCH ×4 (08:07→20:38)
[2019-03-27] MEDS: DOFETILIDE 125 MCG CAPSULE PO SCH ×3 (09:52→20:17)
[2019-03-27] MEDS ORDERED: METFORMIN HCL 500 MG TAB PO ONE (10:18)
[2019-03-27 10:24] LABS: INR 1.9 (0.9-1.1); Prothrombin Time 18.8 Seconds (9.0-12.0)
--- NOTE | 2019-03-27 11:26 | Cardiology Progress Note ---
Date of Service March 27, 2019 Assessment & Plan (1) Atrial fibrillation with RVR: She has had atrial fibrillation identified in the past (as well as atrial flutter). Atrial fibrillation is often more easily rate controlled than flutter so it is possible if she did not have flutter that rate control during atrial fibrillation could be accomplished. She has extreme symptoms when she is in atrial fibrillation or flutter but I cannot distinguish exactly which of these arrhythmias she has when she is symptomatic and her symptoms seem to come and go, since she seems to switch between flutter and fibrillation and it sounds as though her rapid heart rates are the main cause of her symptoms. Atrial fibrillation with rate control (without atrial flutter) might be an acceptable endpoint. Here she has predominantly had atrial flutter and sinus rhythm. (2) Paroxysmal atrial flutter: She has atrial flutter with very rapid heart rates often, but not all of the time. It appears to be typical flutter when she is not in atrial fibrillation. I would like to continue a continued trial of antiarrhythmic therapy, currently Eliquis which she is tolerating well symptomatically however her QT interval is somewhat prolonged today. I am therefore going to decrease the dose to 250 mcg twice daily. If rhythm control fails I discussed other options with her. My next step would be to consider either atrial flutter ablation by itself with plans to rate control during atrial fibrillation or to have her go to [facility] for combined atrial fibrillation and flutter ablation. I do not think we should make that decision at this point, I would like to continue with Tikosyn for the moment, it seems that it improved rhythm control based on just one brief episode of atrial flutter but we are now reducing the dose so we will have to see. She will have to remain in the hospital for 3 days with initiation of Tikosyn (which was started on March 26, 2019) and we will have to continue to watch her QT interval. She has other issues being evaluated in any case including her diarrhea. (3) Hypertension: Her blood pressure has been reasonably well controlled in the hospital on her current regimen. (4) Anticoagulant long-term use: I discussed anticoagulation with her. Warfarin has been demonstrated to be an inferior anticoagulant, guidelines now suggest the use of one of the newer agents. I have not found cost to be an issue when we prescribe these as an outpatient, despite patient's being told that it is. She was told that it would be $400 for the first month and then $20 a month after that, which is not something I have ever heard of. We have cards that give patients 30 days free (which can be used in Medicare patients) and we have samples. On March 26, 2019 I gave her 2 weeks of samples and a card for 30-day supply so we have at least 6 weeks to sorted out. I am therefore going to transition her to Eliquis and we will sort out financing later. I would like something a little more controllable as we consider options such as ablation and working with warfarin is too difficult. If it truly is too expensive (which I doubt but is possible) then we will be forced to switch back to warfarin but that can be done later on as an outpatient. Her INR is 1.9 today, I am going to start her on Eliquis 5 mg twice a day starting this morning. Subjective She is feeling well today, she had a brief episode of atrial flutter during the night which was asymptomatic and she had some bradycardia which was also asymptomatic. She has had no side effects on the Tikosyn so far. She has had no lightheadedness or dizziness or palpitations. Physical Exam Physical Exam: Constitutional: Alert, cooperative and in no distress. Pulmonary: Clear to auscultation bilaterally. Cardiac: Regular rhythm with no murmur, gallop or rub. Abdomen: Soft, nontender with normal bowel sounds. Extremities: No edema. Skin: No rash, ecchymoses or petechiae. Results & Data Vital Signs (Past 12 Hours) Vital Signs Temp Pulse Pulse Resp BP BP Pulse Ox 03/27/19 08:59 81 03/27/19 02:55 37 C 130 H 16 140/93 93 03/27/19 01:00 139/91 03/26/19 23:59 75 PG Care Time/CCT Total # of Minutes Spent Total Time Spent with Patient: Total time spent is greater than 50% in coordination of care (as documented) at patient's floor/unit and/or counseling patient:
[2019-03-27] MEDS: APIXABAN 5 MG TABLET PO SCH ×2 (12:47→20:17)
--- NOTE | 2019-03-27 13:08 | Pharmacy Report ---
Pharmacy Glycemic Sign Off Nt - Date of Service March 27, 2019 - Assessment & Plan ASSESSMENT: * Pharmacy was consulted by Dr Harris on 03/27 for glycemic control and to write orders per [facility] inpatient glycemic control protocol. * Major changes made by pharmacy to antidiabetic regimen include: * Initiate Novolog with CF/CR * Patient has been receiving/requiring 5 units of insulin per day for adequate glycemic control * BSGs ranging 87- 108 mg/dl * Regimen has only required minor adjustments over the past 48hrs to achieve this level of control * Do not anticipate further changes in patient status that would quickly deteriorate glycemic control (i.e. patient to be NPO for upcoming procedure, steroids tapering, starting tube feedings, etc). * Please see recommendations for outpatient antidiabetic regimen below. PLAN FOR INPATIENT GLYCEMIC CONTROL: * Metformin restarted by hospitalist today * Continue NovoLog per scale ACHS/Q6hrs while NPO * Goal range = 110- 140 mg/dl * CF = 30 mg/dl/unit * Remove carb ratio * A1c added to discharge instructions to be communicated to PCP. * Pharmacy is signing off of glycemic consult and will no longer be making adjustments to inpatient regimen. Please feel free to re-consult if needed. Thank you. DISCHARGE RECOMMENDATIONS: * A1c 5.7 % on 03/26/19, which is appropriate for goal < 7% * Continue metformin on discharge
[2019-03-27] MEDS: METFORMIN HCL 500 MG TAB PO SCH (16:05)
--- NOTE | 2019-03-27 17:16 | Hospitalist Progress Note ---
Date of Service March 27, 2019 Assessment & Plan (1) Paroxysmal atrial fibrillation with rapid ventricular response: Potentially exacerbated from diarrhea prior to admission Continue Tikosyn as per electrophysiology Appreciate ongoing electrophysiology management Anticoagulation with Eliquis If needs ablation for a. fib would be at [facility] for this (2) Paroxysmal atrial flutter: as above potential ablation for flutter here if felt her symptoms related to this (3) Palpitations: As above (4) Hypertension: Stable of meds. (5) Hyperlipidemia: Continue atorvastatin 20 mg p.o. QAM, LDL <70 @ goal (6) Hypothyroidism: TSH 1.75, continue levothyroxine 125 MCG's p.o. 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 Recommended continuing what ever she will be on at home. Discussed with patient and given less QTC prolongation and potential benefit for fibromyalgia will switch to duloxetine. (8) Pre-diabetes: Continue metformin 1000mg BID (9) Sweating: Pre-dates a.flutter/fib episodes although she may have been going in and out without realizing previously but makes BB or Ca channel blockers less likely the cause. On multiple medications as possible exacerbating factors with citalopram and metformin. CBC with leukocytosis on admission in setting of acute illness but has since normalized. Ovarian cyst workup as below. (10) Left shoulder pain: Suspect fibromyalgia given patient reported prior negative autoimmune workup under rheumatology. Will get ESR in AM to assess for PMR but given she is on prednisone this may be falsly negative. - switching citalopram to duloxetine hopefully will help with the fibromyalgia. (11) Ovarian cyst, left: Discussed abnormal low suspicious left ovarian cyst. Discussed outpatient vs. inpatient workup and given remote possibility related to presenting complaint elected to have US performed as inpatient. (12) Diarrhea: Not antibiotic associated as previously stated. Stop lactobacillus. Pt reports resolved. (13) Osteoarthritis: Prior workup under rheumatology reported therefore will not repeat. Continue prednisone and meloxicam (patient aware of increased bleeding risk but recently when this was stopped her joints swelled up) (14) Belching: Increases certain foods such as tomatoes or if she forgets to take omeprazole. Currently increased. Suspect underlying gastritis given prednisone and meloxicam use. Already arranged EGD as outpatient. Will add Pepcid to aid currently worsening. Hgb stable, daily trend. (15) DVT prophylaxis: Eliquis 5mg BID Code - full Dispo - pending rhythm stability Subjective Patient feeling well today. Episodes of atrial flutter and bradycardia overnight where she was asymptomatic. Average HR 115bpm. Spontaneously converted. No chest pain, palpitations, shortness of breath. Review of Systems Review of Systems: All systems reviewed & are unremarkable except as noted in HPI & below Gastrointestinal: + belching (worse with pizza, if she misses omeprazole, currently bad despite PPI use) and + diarrhea/loose stools (resolved, reports last clindamycin dose 1 month prior); no abdominal pain and no bloating Musculoskeletal: + myalgia (bilateral trapezius , left rotator cuffs and deltoid) Hematologic / Lymphatic: + problem reported (unexplained generalized sweating and heat intolerence) Physical Exam Constitutional: WD/WN, vitals as above Eyes: PERRL, conjunctivae normal, anicteric sclerae ENMT: external ear and nose normal, oropharynx normal Neck: trachea midline Thyroid: no thyromegaly Respiratory: normal respiratory effort, lungs clear to auscultation Cardiovascular: Rate/Rhythm: regular rate and regular rhythm Heart Sounds: normal S1 and normal S2; no murmur Extremities: no edema Gastrointestinal (Abdomen): normal bowel sounds, soft, nontender, no hepatosplenomegaly Musculoskeletal: Spine: normal cervical ROM, no cervical spasm and Lhermitte's sign negative Extremities: strength 5/5 throughout (upper limbs); full ROM of extremities (upper limbs) and no muscle atrophy Shoulder: no effusion and normal ROM of shoulder Tenderness over left trapezius, deltoid and rotator cuffs Skin: no rashes, warm and dry Neurologic: moves all extremities and awake; no focal motor deficits and not confused Psychiatric: A+Ox3, euthymic affect Results & Data Vital Signs (Past 12 Hours) Vital Signs Temp Pulse Pulse Resp BP Pulse Ox 03/27/19 15:34 97.9 F 81 16 138/86 95 03/27/19 15:18 80 03/27/19 08:59 81 PG Care Time/CCT Total # of Minutes Spent Total Time Spent with Patient: Total time spent is greater than 50% in coordination of care (as documented) at patient's floor/unit and/or counseling patient: (1) Depression Active/Remission status: in full remission Depression Type: major depressive disorder Major depression recurrence: recurrent Qualified Code(s): F33.42 - Major depressive disorder, recurrent, in full remission (2) Hyperlipidemia Hyperlipidemia type: unspecified Qualified Code(s): E78.5 - Hyperlipidemia, unspecified (3) Hypothyroidism Hypothyroidism type: acquired Qualified Code(s): E03.9 - Hypothyroidism, unspecified (4) Hypertension Hypertension type: essential hypertension Qualified Code(s): I10 - Essential (primary) hypertension
--- NOTE | 2019-03-27 18:12 | Ultrasound Report ---
PELVIC ULTRASOUND, TRANSABDOMINAL AND TRANSVAGINAL HISTORY: cystic focus on left ovary COMPARISON: Abdomen and pelvis CT 03/25/2019. FINDINGS: Uterus: Surgically absent. Right ovary: Normal in size and demonstrates normal color flow. There is a 1.4 cm cyst. Left ovary: Normal in size and demonstrates normal color flow. A 1.9 cm cyst. Miscellaneous:No pelvic free fluid. IMPRESSION: 1. Hysterectomy. 2. Small bilateral ovarian cysts as described above. These are indeterminate but could be pathologic in a postmenopausal female. 3 month pelvic ultrasound follow-up recommended. Electronically signed by: Tariq Azul M.D. 03/27/2019 6:11 PM
[2019-03-27] MEDS: DULOXETINE HCL 30 MG CAP PO SCH (18:29)
[2019-03-27] MEDS ORDERED: METOPROLOL TARTRATE 25 MG TAB PO STA (19:22)
[2019-03-27] MEDS: ZOLPIDEM TARTRATE 5 MG TAB PO PRN (23:27)
[2019-03-28] MEDS: LEVOTHYROXINE SODIUM 125 MCG TABLET PO SCH (05:49)
[2019-03-28 07:29] LABS: Basophils # (auto) 0.08 K/uL (0-0.2); Basophils % (auto) 0.9 %; Eosinophils # (auto) 0.47 K/uL (0-0.5); Eosinophils % (auto) 5.3 %; Hematocrit (blood only) 39.7 % (37-47); Immature Granulocytes # (auto) 0.02 K/uL (0.00-0.02); Immature Granulocytes % (auto) 0.2 %; Lymphocytes # (auto) 3.19 K/uL (1.2-3.4); Lymphocytes % (auto) 35.9 %; Mean Corpuscular Hemoglobin 28.6 pg (25-34); Mean Corpuscular Hgb Conc 32.7 g/dL (32-36); Mean Corpuscular Volume 87.4 fL (80-100); Mean Platelet Volume 10.6 fL (7.4-10.4); Monocytes # (auto) 0.91 K/uL (0.11-0.59); Monocytes % (auto) 10.2 %; Neutrophils # (auto) 4.21 K/uL (1.4-6.5); Neutrophils % (auto) 47.5 %; Platelet Count 267 K/uL (130-400); RDW Coefficient of Variation 14.1 % (11.5-14.5); RDW Standard Deviation 45.4 fL (36.4-46.3); Red Blood Count 4.54 M/uL (4.2-5.4); White Blood Count 8.88 K/uL (4.8-10.8)
[2019-03-28 08:00] LABS: Albumin Level 3.9 gm/dl (3.4-5.0); BUN Creatinine Ratio 15.9 (10-20); Calcium 9.5 mg/dl (8.5-10.1); Creatinine Clr Calc Pharmacy 58.8 ml/min; Est GFR (African American) 77.7; Est GFR (Non-African American) 67.1; Potassium 3.7 mmol/L (3.5-5.1)
[2019-03-28 08:03] LABS: Albumin Globulin Ratio 1.4 (0.9-2); Bilirubin,Total 0.4 mg/dl (0.2-1); Globulin 2.8 gm/dl (2.5-4.0); Total Protein 6.7 gm/dl (6.4-8.2)
[2019-03-28] MEDS: MULTIVITAMIN TAB PO SCH (09:02)
[2019-03-28] MEDS: PANTOprazole 40 MG TAB PO SCH (09:02)
[2019-03-28] MEDS: CEROVITE ADV FORMULA TAB PO SCH ×2 (09:02→20:34)
[2019-03-28] MEDS: METFORMIN HCL 500 MG TAB PO SCH ×2 (09:03→16:19)
[2019-03-28] MEDS: CHOLECALCIFEROL 1,000 UNITS TAB PO SCH (09:04)
[2019-03-28] MEDS: INSULIN ASPART 100 UNITS/ML 3 ML PEN SC SCH ×4 (09:04→20:12)
[2019-03-28] MEDS: ATORVASTATIN 20 MG TAB PO SCH (09:04)
[2019-03-28] MEDS: DOFETILIDE 125 MCG CAPSULE PO SCH ×2 (09:06→20:35)
[2019-03-28] MEDS: FAMOTIDINE 20 MG TAB PO SCH (09:06)
[2019-03-28] MEDS: APIXABAN 5 MG TABLET PO SCH ×2 (09:06→20:35)
[2019-03-28] MEDS: ASPIRIN 81 MG ECTAB PO SCH (09:07)
[2019-03-28] MEDS: MELOXICAM 7.5 MG TAB PO SCH (09:07)
[2019-03-28] MEDS: DULOXETINE HCL 30 MG CAP PO SCH (09:07)
[2019-03-28] MEDS: predniSONE 5 MG TAB PO SCH (09:07)
--- NOTE | 2019-03-28 09:38 | Cardiology Progress Note ---
Date of Service March 28, 2019 Assessment & Plan (1) Atrial fibrillation with RVR: Unclear she is in atrial fibrillation or flutter based on her telemetry. Heart rates are certainly quite irregular. She did have an extended period of sinus rhythm yesterday but converted back to an atrial arrhythmia yesterday evening. Curiously, she is not symptomatic at this time despite elevated heart rates. I think we will continue her dofetilide treatment. I will add a beta- angelica to her regimen in the hopes of controlling her ventricular rates. She will continue her anticoagulation with Eliquis. (2) Paroxysmal atrial flutter: Her initial EKGs were suggestive of an atrial flutter although whether this represents true right atrial isthmus dependent flutter is unclear from the tracing. Given the absence of prior heart surgery or significant valvular abnormalities this should be a typical right atrial flutter if indeed it is macro reentrant. If dofetilide is unsuccessful in controlling her a arrhythmias catheter based therapy would be a good option for her. She has been appraised of the options for catheter based therapy including a simple isthmus ablation at our facility or referral for more extensive ablation to account for both atrial flutter and atrial fibrillation. She will need to be maintained on systemic anticoagulation in any event. I think we will give her another 24 hours to see if the medication is successful. Her QTC looks good on the last EKG and I will await the EKG from this morning for review. (3) Hypertension: Her blood pressure has been reasonably well controlled in the hospital on her current regimen. (4) Anticoagulant long-term use: Currently on Eliquis. Subjective This morning the patient claims to be feeling well. She states she slept well last line is actually feeling better than she has in several days. She is not currently aware of any palpitations. She denies dizziness or lightheadedness with ambulation. No symptoms of chest pain or breathing difficulty. Review of Systems Review of Systems: Per HPI Physical Exam Physical Exam: She is alert and oriented x3. Mood affect appear normal. She answered all questions appropriately. HEENT: Sclerae are anicteric. Pupils are equal and reactive to light and accommodation. Extraocular movements were intact. Neuro: Cranial nerves intact Lungs: Lungs are clear to auscultation bilaterally. There are no rales wheezes or rhonchi. She has normal respiratory effort without use of accessory muscles. There is normal pulmonary excursion. Cardiac: The rhythm was irregular. S1 and S2 were normal. There are no murmurs on examination. The PMI was not markedly displaced on palpation. Extremities: Patient has bilateral radial pulses that are equal in intensity. There is no evidence cyanosis or clubbing. There was no evidence of significant peripheral edema bilaterally. Skin: There are no rashes noted on examination today. Results & Data Vital Signs (Past 12 Hours) Vital Signs Temp Pulse Pulse Resp BP Pulse Ox 03/28/19 08:17 36.4 C L 122 H 19 113/84 94 03/28/19 04:18 36.5 C 76 18 134/84 96 03/27/19 23:25 36.5 C 99 H 18 125/88 94 03/27/19 23:15 76 Laboratory Results Abnormal Lab Results 03/25/19 03/25/19 03/27/19 21:06 21:06 09:59 WBC RBC Hgb Hct MCV MCH MCHC RDW Std Deviation RDW Coeff of Starla Plt Count MPV Immature Gran % (Auto) Neut % (Auto) Lymph % (Auto) [place] % (Auto) Eos % (Auto) Baso % (Auto) Immature Gran # (Auto) Neut # (Auto) Lymph # (Auto) [place] # (Auto) Eos # (Auto) Baso # (Auto) ESR PT 18.8 H INR 1.9 H Sodium Potassium Chloride Carbon Dioxide Anion Gap BUN Creatinine Est Cr Clr Drug Dosing Est GFR ( Amer) Est GFR (Non-Af Amer) BUN/Creatinine Ratio Glucose POC Glucose Calcium Total Bilirubin AST ALT Alkaline Phosphatase Total Protein Albumin Globulin Albumin/Globulin Ratio Stool H. pylori Ag NOT DETECTED Giardia Antigen NOT DETECTED 03/27/19 03/27/19 03/27/19 11:27 16:36 20:26 WBC RBC Hgb Hct MCV MCH MCHC RDW Std Deviation RDW Coeff of Starla Plt Count MPV Immature Gran % (Auto) Neut % (Auto) Lymph % (Auto) [place] % (Auto) Eos % (Auto) Baso % (Auto) Immature Gran # (Auto) Neut # (Auto) Lymph # (Auto) [place] # (Auto) Eos # (Auto) Baso # (Auto) ESR PT INR Sodium Potassium Chloride Carbon Dioxide Anion Gap BUN Creatinine Est Cr Clr Drug Dosing Est GFR ( Amer) Est GFR (Non-Af Amer) BUN/Creatinine Ratio Glucose POC Glucose 104 H 112 H 104 H Calcium Total Bilirubin AST ALT Alkaline Phosphatase Total Protein Albumin Globulin Albumin/Globulin Ratio Stool H. pylori Ag Giardia Antigen 03/28/19 03/28/19 03/28/19 06:22 06:22 06:22 WBC 8.88 RBC 4.54 Hgb 13.0 Hct 39.7 MCV 87.4 MCH 28.6 MCHC 32.7 RDW Std Deviation 45.4 RDW Coeff of Starla 14.1 Plt Count 267 MPV 10.6 H Immature Gran % (Auto) 0.2 Neut % (Auto) 47.5 Lymph % (Auto) 35.9 [place]arnett % (Auto) 10.2 Eos % (Auto) 5.3 Baso % (Auto) 0.9 Immature Gran # (Auto) 0.02 Neut # (Auto) 4.21 Lymph # (Auto) 3.19 [place]arnett # (Auto) 0.91 H Eos # (Auto) 0.47 Baso # (Auto) 0.08 ESR 12 PT INR Sodium 140 Potassium 3.7 Chloride 106 Carbon Dioxide 26 Anion Gap 8.0 BUN 14 Creatinine 0.89 Est Cr Clr Drug Dosing 58.8 Est GFR ( Amer) 77.7 Est GFR (Non-Af Amer) 67.1 BUN/Creatinine Ratio 15.9 Glucose 86 POC Glucose Calcium 9.5 Total Bilirubin 0.4 AST 47 H ALT 88 H Alkaline Phosphatase 111 Total Protein 6.7 Albumin 3.9 Globulin 2.8 Albumin/Globulin Ratio 1.4 Stool H. pylori Ag Giardia Antigen 03/28/19 07:42 WBC RBC Hgb Hct MCV MCH MCHC RDW Std Deviation RDW Coeff of Starla Plt Count MPV Immature Gran % (Auto) Neut % (Auto) Lymph % (Auto) [place] % (Auto) Eos % (Auto) Baso % (Auto) Immature Gran # (Auto) Neut # (Auto) Lymph # (Auto) [place] # (Auto) Eos # (Auto) Baso # (Auto) ESR PT INR Sodium Potassium Chloride Carbon Dioxide Anion Gap BUN Creatinine Est Cr Clr Drug Dosing Est GFR ( Amer) Est GFR (Non-Af Amer) BUN/Creatinine Ratio Glucose POC Glucose 132 H Calcium Total Bilirubin AST ALT Alkaline Phosphatase Total Protein Albumin Globulin Albumin/Globulin Ratio Stool H. pylori Ag Giardia Antigen PG Care Time/CCT Total # of Minutes Spent Total Time Spent with Patient: Total time spent is greater than 50% in coordination of care (as documented) at patient's floor/unit and/or counseling patient: (1) Hypertension Hypertension type: essential hypertension Qualified Code(s): I10 - Essential (primary) hypertension
[2019-03-28] MEDS: METOPROLOL TARTRATE 25 MG TAB PO SCH ×3 (13:37→22:23)
--- NOTE | 2019-03-28 14:29 | Hospitalist Progress Note ---
Date of Service March 28, 2019 Assessment & Plan (1) Paroxysmal atrial fibrillation with rapid ventricular response: Potentially exacerbated from diarrhea prior to admission Continue Tikosyn as per electrophysiology, added ULICES metoprolol Appreciate ongoing electrophysiology management Anticoagulation with Eliquis If needs ablation for a. fib would be at [facility] [place] [place] for this (2) Paroxysmal atrial flutter: as above potential ablation for flutter here if felt her symptoms related to this (3) Palpitations: As above (4) Hypertension: Stable of meds. (5) Hyperlipidemia: Continue atorvastatin 20 mg p.o. QAM, LDL <70 @ goal (6) Hypothyroidism: TSH 1.75, continue levothyroxine 125 MCG's p.o. daily (recently decreased from 150 mcg by her tribunal member) (7) Depression: Citalopram switched for duloxetine to reduce QTc and treat fibromyalgia (8) Pre-diabetes: Continue metformin 1000mg BID (9) Sweating: Pre-dates a.flutter/fib episodes although she may have been going in and out without realizing previously but makes BB or Ca channel blockers less likely the cause. On multiple medications as possible exacerbating factors with citalopram and metformin. Labs unremarkable (10) Left shoulder pain: ESR negative (11) Osteoarthritis: Prior workup under rheumatology reported therefore will not repeat. Continue prednisone and meloxicam (patient aware of increased bleeding risk but recently when this was stopped her joints swelled up) (12) Belching: Suspected gastritis/GERD given prednisone and meloxicam use. Follow up planned EGD as outpatient. Continue PPI and pepcid. Hgb stable, daily trend. (13) Bilateral ovarian cysts: 3 month recheck recommended for stability (14) Elevated LFTs: unclear cause, continue to monitor (15) DVT prophylaxis: Eliquis 5mg BID Code - full Dispo - pending rhythm stability Subjective No change to trapezius and shoulder pain, worse on palpation. Multiple episodes of atrial fibrillation/flutter overnight and this morning, highest HR up to 200. Seen by Dr. Torres and started on metoprolol tartrate PO ULICES Q6H 25 mg. When seen patient comfortable in NSR. No chest pain, shortness of breath, palpitations, orthopnea or PND. Review of Systems Review of Systems: All systems reviewed & are unremarkable except as noted in HPI & below Physical Exam Constitutional: WD/WN, vitals as above ENMT: external ear and nose normal, oropharynx normal Neck: trachea midline Thyroid: no thyromegaly Respiratory: normal respiratory effort, lungs clear to auscultation Cardiovascular: Rate/Rhythm: regular rate and regular rhythm Heart Sounds: normal S1 and normal S2; no murmur Extremities: no edema Musculoskeletal: Spine: normal cervical ROM, no cervical spasm and Lhermitte's sign negative Extremities: strength 5/5 throughout (upper limbs); full ROM of extremities (upper limbs) and no muscle atrophy Shoulder: no effusion, normal ROM of shoulder and no joint line tenderness Skin: no rashes, warm and dry Neurologic: moves all extremities and awake; no focal motor deficits and not confused Psychiatric: A+Ox3, euthymic affect Lymphatic: no cervical or axillary lymphadenopathy Results & Data Vital Signs (Past 12 Hours) Vital Signs Temp Pulse Resp BP BP Pulse Ox 03/28/19 11:31 97.7 F 100 H 19 118/78 94 03/28/19 08:17 97.5 F L 122 H 19 113/84 94 03/28/19 04:18 97.7 F 76 18 134/84 96 PG Care Time/CCT Total # of Minutes Spent Total Time Spent with Patient: Total time spent is greater than 50% in coordination of care (as documented) at patient's floor/unit and/or counseling patient: (1) Depression Active/Remission status: in full remission Depression Type: major depressive disorder Major depression recurrence: recurrent Qualified Code(s): F33.42 - Major depressive disorder, recurrent, in full remission (2) Hyperlipidemia Hyperlipidemia type: unspecified Qualified Code(s): E78.5 - Hyperlipidemia, unspecified (3) Hypothyroidism Hypothyroidism type: acquired Qualified Code(s): E03.9 - Hypothyroidism, unspecified (4) Hypertension Hypertension type: essential hypertension Qualified Code(s): I10 - Essential (primary) hypertension
[2019-03-28] MEDS: ZOLPIDEM TARTRATE 5 MG TAB PO PRN (20:38)
[2019-03-29] MEDS: METOPROLOL TARTRATE 25 MG TAB PO SCH ×4 (06:27→23:55)
[2019-03-29] MEDS: LEVOTHYROXINE SODIUM 125 MCG TABLET PO SCH (06:28)
[2019-03-29 07:31] LABS: Basophils # (auto) 0.08 K/uL (0-0.2); Basophils % (auto) 0.8 %; Eosinophils # (auto) 0.72 K/uL (0-0.5); Eosinophils % (auto) 7.3 %; Hematocrit (blood only) 39.9 % (37-47); Hemoglobin 13.1 g/dL (12.0-16.0); Immature Granulocytes # (auto) 0.04 K/uL (0.00-0.02); Immature Granulocytes % (auto) 0.4 %; Lymphocytes # (auto) 3.67 K/uL (1.2-3.4); Lymphocytes % (auto) 37.1 %; Mean Corpuscular Hemoglobin 28.8 pg (25-34); Mean Corpuscular Hgb Conc 32.8 g/dL (32-36); Mean Corpuscular Volume 87.7 fL (80-100); Mean Platelet Volume 10.2 fL (7.4-10.4); Monocytes # (auto) 0.85 K/uL (0.11-0.59); Monocytes % (auto) 8.6 %; Neutrophils # (auto) 4.54 K/uL (1.4-6.5); Neutrophils % (auto) 45.8 %; Platelet Count 244 K/uL (130-400); RDW Coefficient of Variation 14.1 % (11.5-14.5); RDW Standard Deviation 45.1 fL (36.4-46.3); Red Blood Count 4.55 M/uL (4.2-5.4)
[2019-03-29] MEDS: APIXABAN 5 MG TABLET PO SCH ×2 (08:07→20:36)
[2019-03-29] MEDS: ASPIRIN 81 MG ECTAB PO SCH (08:07)
[2019-03-29] MEDS: CHOLECALCIFEROL 1,000 UNITS TAB PO SCH (08:07)
[2019-03-29] MEDS: MELOXICAM 7.5 MG TAB PO SCH (08:08)
[2019-03-29] MEDS: FAMOTIDINE 20 MG TAB PO SCH (08:08)
[2019-03-29 08:09] LABS: Albumin Level 3.8 gm/dl (3.4-5.0); BUN Creatinine Ratio 20.3 (10-20); Calcium 9.7 mg/dl (8.5-10.1); Creatinine Clr Calc Pharmacy 60.8 ml/min; Est GFR (Non-African American) 69.9; Potassium 3.7 mmol/L (3.5-5.1)
[2019-03-29] MEDS: DULOXETINE HCL 30 MG CAP PO SCH (08:09)
[2019-03-29] MEDS: predniSONE 5 MG TAB PO SCH (08:09)
[2019-03-29] MEDS: MULTIVITAMIN TAB PO SCH (08:09)
[2019-03-29] MEDS: CEROVITE ADV FORMULA TAB PO SCH ×2 (08:09→21:16)
[2019-03-29] MEDS: PANTOprazole 40 MG TAB PO SCH (08:09)
[2019-03-29] MEDS: ATORVASTATIN 20 MG TAB PO SCH (08:09)
[2019-03-29] MEDS: METFORMIN HCL 500 MG TAB PO SCH ×2 (08:10→16:55)
[2019-03-29] MEDS: DOFETILIDE 125 MCG CAPSULE PO SCH ×2 (08:10→20:35)
[2019-03-29 08:11] LABS: Albumin Globulin Ratio 1.3 (0.9-2); Bilirubin,Total 0.6 mg/dl (0.2-1); Globulin 2.8 gm/dl (2.5-4.0); Total Protein 6.6 gm/dl (6.4-8.2)
[2019-03-29] MEDS: INSULIN ASPART 100 UNITS/ML 3 ML PEN SC SCH ×4 (09:06→20:35)
--- NOTE | 2019-03-29 11:40 | Cardiology Progress Note ---
Date of Service March 29, 2019 Assessment & Plan (1) Atrial fibrillation with RVR: She appears to be having mostly atrial flutter and our hospital. She has reports of atrial fibrillation from an outside facility. (2) Paroxysmal atrial flutter: I think this is the rhythm that continues to cause higher rates here in our facility. Overall rate control appears to be improved. She certainly not symptomatic currently even during periods of atrial flutter. Did discuss additional options for treatment. She despite being adequately loaded on dofetilide she continues to cycle in and out of an atrial flutter. I doubt that this medication will provide her with long-term improvement in the number of episodes. However, it seems with better rate control her symptoms are also improved. We may be able to adopt a rate control strategy at some point. We had an extensive discussion regarding the option of catheter based therapy. Since we have only seen in atrial flutter in our facility I think it would be reasonable to attempt a standard ablation for atrial flutter. Whether she actually has a right atrial isthmus dependent flutter is unclear and could not be determined without invasive testing. Addressing her atrial flutter may result in better rate control but could leave her with episodes of atrial fibrillation as well. With her symptoms would be in that case are unclear. If she truly has atrial fibrillation which has been described previously any more complete ablation is in her best interest. She is concerned about having to procedures and has requested a transfer to [facility] for a pulmonary vein isolation and isthmus ablation. However, they will not accept her on an acute basis and suggested that she be seen electively. She will consider her options over the course of the evening he make a decision by tomorrow morning. We can continue her on her dofetilide and metoprolol currently. She will continue on anticoagulation as well. If she likes to stay to undergo an EP study and possible flutter ablation this could potentially be performed on Saturday afternoon. Alternatively, she could be discharged on her current medical regimen with perhaps a small adjustment in her metoprolol dose for a more elective evaluation at [facility]. (3) Hypertension: Her blood pressure has been reasonably well controlled in the hospital on her current regimen. (4) Anticoagulant long-term use: Currently on Eliquis. Subjective This morning the patient claims to be feeling well. She has not been aware of palpitations. She denies any dizziness or lightheadedness. She has not had breathing difficulty. She has been ambulatory around her room in the barr with out limiting symptoms. Review of Systems Review of Systems: Per HPI Physical Exam Physical Exam: She is alert and oriented x3. Mood affect appear normal. She answered all questions appropriately. HEENT: Sclerae are anicteric. Pupils are equal and reactive to light and accommodation. Extraocular movements were intact. Neuro: Cranial nerves intact Lungs: She has normal respiratory effort without use of accessory muscles. There is normal pulmonary excursion. Abdomen: Obese Extremities: Patient has bilateral radial pulses that are equal in intensity. There is no evidence cyanosis or clubbing. There was no evidence of significant peripheral edema bilaterally. Skin: There are no rashes noted on examination today. Results & Data Vital Signs (Past 12 Hours) Vital Signs Temp Pulse Pulse Pulse Resp BP BP 03/29/19 11:32 36.6 C 67 16 116/75 03/29/19 08:20 126 H 03/29/19 07:44 36.6 C 99 H 16 112/74 03/29/19 06:20 110 H 03/29/19 04:12 36.5 C 68 18 121/76 Pulse Ox 03/29/19 11:32 98 03/29/19 08:20 03/29/19 07:44 94 03/29/19 06:20 03/29/19 04:12 93 Laboratory Results Abnormal Lab Results 03/28/19 03/28/19 03/28/19 12:00 16:45 19:55 WBC RBC Hgb Hct MCV MCH MCHC RDW Std Deviation RDW Coeff of Starla Plt Count MPV Immature Gran % (Auto) Neut % (Auto) Lymph % (Auto) Lake % (Auto) Eos % (Auto) Baso % (Auto) Immature Gran # (Auto) Neut # (Auto) Lymph # (Auto) [place] # (Auto) Eos # (Auto) Baso # (Auto) Sodium Potassium Chloride Carbon Dioxide Anion Gap BUN Creatinine Est Cr Clr Drug Dosing Est GFR ( Amer) Est GFR (Non-Af Amer) BUN/Creatinine Ratio Glucose POC Glucose 96 124 H 95 Calcium Total Bilirubin AST ALT Alkaline Phosphatase Total Protein Albumin Globulin Albumin/Globulin Ratio 03/29/19 03/29/19 03/29/19 07:14 07:14 07:48 WBC 9.90 RBC 4.55 Hgb 13.1 Hct 39.9 MCV 87.7 MCH 28.8 MCHC 32.8 RDW Std Deviation 45.1 RDW Coeff of Starla 14.1 Plt Count 244 MPV 10.2 Immature Gran % (Auto) 0.4 Neut % (Auto) 45.8 Lymph % (Auto) 37.1 Lake % (Auto) 8.6 Eos % (Auto) 7.3 Baso % (Auto) 0.8 Immature Gran # (Auto) 0.04 H Neut # (Auto) 4.54 Lymph # (Auto) 3.67 H [place] # (Auto) 0.85 H Eos # (Auto) 0.72 H Baso # (Auto) 0.08 Sodium 140 Potassium 3.7 Chloride 106 Carbon Dioxide 27 Anion Gap 7.0 BUN 18 Creatinine 0.86 Est Cr Clr Drug Dosing 60.8 Est GFR ( Amer) 81.0 Est GFR (Non-Af Amer) 69.9 BUN/Creatinine Ratio 20.3 H Glucose 92 POC Glucose 124 H Calcium 9.7 Total Bilirubin 0.6 AST 27 ALT 71 Alkaline Phosphatase 103 Total Protein 6.6 Albumin 3.8 Globulin 2.8 Albumin/Globulin Ratio 1.3 PG Care Time/CCT Total # of Minutes Spent Total Time Spent with Patient: Total time spent is greater than 50% in coordination of care (as documented) at patient's floor/unit and/or counseling patient: (1) Hypertension Hypertension type: essential hypertension Qualified Code(s): I10 - Essential (primary) hypertension
[2019-03-29] MEDS ORDERED: HYDROCORTISONE 1% CRM 30 GM TUBE EXT PRN (18:21)
[2019-03-29] MEDS: ZOLPIDEM TARTRATE 5 MG TAB PO PRN (20:58)
--- NOTE | 2019-03-29 21:16 | Hospitalist Progress Note ---
Date of Service March 29, 2019 Assessment & Plan (1) Paroxysmal atrial fibrillation with rapid ventricular response: Continue Tikosyn as per electrophysiology + scheduled metoprolol for rate control Appreciate ongoing electrophysiology management Anticoagulation with Eliquis Given now better rate and rhythm control patient considering discharge home with follow up ablation for both @ [facility] [place] as outpatient (2) Paroxysmal atrial flutter: as above (3) Hypertension: Stable off home meds. (4) Hyperlipidemia: Continue atorvastatin 20 mg p.o. QAM, LDL <70 @ goal (5) Hypothyroidism: TSH 1.75, continue levothyroxine 125 MCG's p.o. daily (recently decreased from 150 mcg by her nozzle and sleeve worker) (6) Depression: Citalopram switched for duloxetine to reduce QTc and treat fibromyalgia (7) Pre-diabetes: Continue metformin 1000mg BID (8) Sweating: Pre-dates a.flutter/fib episodes although she may have been going in and out without realizing previously but makes BB or Ca channel blockers less likely the cause. On multiple medications as possible exacerbating factors with citalopram and metformin. Labs unremarkable (9) Left shoulder pain: ESR negative for PMR PCP follow up. (10) Osteoarthritis: Prior workup under rheumatology reported therefore will not repeat. Continue prednisone and meloxicam (patient aware of increased bleeding risk but recently when this was stopped her joints swelled up) (11) Belching: Reports improvement from not using straws or gum although we also added famotidine. Therefore will discontinue famotidine and see if symptoms reoccur Suspected gastritis/GERD given prednisone and meloxicam use. Follow up planned EGD as outpatient. Continue PPI. Hgb stable, daily trend. (12) Bilateral ovarian cysts: 3 month recheck recommended for stability (13) DVT prophylaxis: Eliquis 5mg BID Code - full Dispo - pending rhythm stability, possible home on Saturday with [facility] [place] outpatient follow up. Subjective In normal sinus rhythm when seen. A. fib/flutter well controlled on scheduled metoprolol when seen. No chest pain, shortness of breath, palpitations, orthopnea or PND. Review of Systems Review of Systems: All systems reviewed & are unremarkable except as noted in HPI & below Physical Exam Constitutional: well developed and + obese; no acute distress Eyes: no conjunctival abnormality ENMT: external ear and nose normal, oropharynx normal Neck: normal visual inspection, trachea midline and + thick neck Respiratory: normal respiratory effort, lungs clear to auscultation Cardiovascular: Rate/Rhythm: regular rate and regular rhythm Heart Sounds: normal S1 and normal S2; no murmur Extremities: no edema Musculoskeletal: Extremities: strength 5/5 throughout (upper limbs); full ROM of extremities (upper limbs) and no muscle atrophy Skin: no rashes, warm and dry Neurologic: moves all extremities and awake; no focal motor deficits and not confused Psychiatric: A+Ox3, euthymic affect Lymphatic: no cervical or axillary lymphadenopathy Results & Data Vital Signs (Past 12 Hours) Vital Signs Temp Pulse Pulse Pulse Resp BP Pulse Ox 03/29/19 20:09 97.5 F L 72 18 127/80 96 03/29/19 15:32 98.1 F 58 L 16 111/69 95 03/29/19 14:51 55 L 03/29/19 11:32 97.9 F 67 16 116/75 98 PG Care Time/CCT Total # of Minutes Spent Total Time Spent with Patient: Total time spent is greater than 50% in coordination of care (as documented) at patient's floor/unit and/or counseling patient: (1) Depression Active/Remission status: in full remission Depression Type: major depressive disorder Major depression recurrence: recurrent Qualified Code(s): F33.42 - Major depressive disorder, recurrent, in full remission (2) Hyperlipidemia Hyperlipidemia type: unspecified Qualified Code(s): E78.5 - Hyperlipidemia, unspecified (3) Hypothyroidism Hypothyroidism type: acquired Qualified Code(s): E03.9 - Hypothyroidism, un specified (4) Hypertension Hypertension type: essential hypertension Qualified Code(s): I10 - Essential (primary) hypertension
[2019-03-30 05:47] LABS: Basophils # (auto) 0.07 K/uL (0-0.2); Basophils % (auto) 0.7 %; Eosinophils # (auto) 0.91 K/uL (0-0.5); Eosinophils % (auto) 8.6 %; Hematocrit (blood only) 38.6 % (37-47); Hemoglobin 12.4 g/dL (12.0-16.0); Immature Granulocytes # (auto) 0.03 K/uL (0.00-0.02); Immature Granulocytes % (auto) 0.3 %; Lymphocytes # (auto) 3.48 K/uL (1.2-3.4); Lymphocytes % (auto) 32.8 %; Mean Corpuscular Hemoglobin 28.5 pg (25-34); Mean Corpuscular Hgb Conc 32.1 g/dL (32-36); Mean Corpuscular Volume 88.7 fL (80-100); Mean Platelet Volume 10.3 fL (7.4-10.4); Monocytes # (auto) 0.99 K/uL (0.11-0.59); Monocytes % (auto) 9.3 %; Neutrophils # (auto) 5.12 K/uL (1.4-6.5); Neutrophils % (auto) 48.3 %; Platelet Count 242 K/uL (130-400); RDW Coefficient of Variation 14.2 % (11.5-14.5); RDW Standard Deviation 46.3 fL (36.4-46.3); Red Blood Count 4.35 M/uL (4.2-5.4)
[2019-03-30] MEDS: METOPROLOL TARTRATE 25 MG TAB PO SCH ×4 (06:08→23:33)
[2019-03-30] MEDS: LEVOTHYROXINE SODIUM 125 MCG TABLET PO SCH (06:08)
[2019-03-30 06:14] LABS: Albumin Level 3.5 gm/dl (3.4-5.0); BUN Creatinine Ratio 18.7 (10-20); Calcium 9.3 mg/dl (8.5-10.1); Creatinine Clr Calc Pharmacy 50.8 ml/min; Est GFR (African American) 65.1; Est GFR (Non-African American) 56.2; Potassium 4.1 mmol/L (3.5-5.1)
[2019-03-30 06:16] LABS: Albumin Globulin Ratio 1.3 (0.9-2); Bilirubin,Total 0.4 mg/dl (0.2-1); Globulin 2.8 gm/dl (2.5-4.0); Total Protein 6.3 gm/dl (6.4-8.2)
[2019-03-30] MEDS: INSULIN ASPART 100 UNITS/ML 3 ML PEN SC SCH ×4 (08:54→21:16)
[2019-03-30] MEDS: MULTIVITAMIN TAB PO SCH (08:55)
[2019-03-30] MEDS: DOFETILIDE 125 MCG CAPSULE PO SCH ×2 (08:56→20:48)
[2019-03-30] MEDS: APIXABAN 5 MG TABLET PO SCH ×2 (09:03→20:46)
[2019-03-30] MEDS: MELOXICAM 7.5 MG TAB PO SCH (09:04)
[2019-03-30] MEDS: ASPIRIN 81 MG ECTAB PO SCH (09:04)
[2019-03-30] MEDS: CEROVITE ADV FORMULA TAB PO SCH ×2 (09:04→20:47)
[2019-03-30] MEDS: METFORMIN HCL 500 MG TAB PO SCH ×2 (09:04→17:16)
[2019-03-30] MEDS: DULOXETINE HCL 30 MG CAP PO SCH (09:05)
[2019-03-30] MEDS: PANTOprazole 40 MG TAB PO SCH (09:05)
[2019-03-30] MEDS: CHOLECALCIFEROL 1,000 UNITS TAB PO SCH (09:05)
[2019-03-30] MEDS: predniSONE 5 MG TAB PO SCH (09:05)
[2019-03-30] MEDS: ATORVASTATIN 20 MG TAB PO SCH (09:05)
--- NOTE | 2019-03-30 12:45 | Hospitalist Progress Note ---
Date of Service March 30, 2019 Assessment & Plan (1) Paroxysmal atrial fibrillation with rapid ventricular response: Continue Tikosyn as per electrophysiology + metoprolol for rate control Appreciate ongoing electrophysiology management Anticoagulation with Eliquis Given now better rate and rhythm control patient considering discharge home with follow up [place] for both [place] [facility] [place] (2) Paroxysmal atrial flutter: as above (3) Hypertension: Stable on current medical management. (4) Hyperlipidemia: Continue atorvastatin 20 mg p.o. QAM, LDL <70 @ goal (5) Hypothyroidism: TSH 1.75, continue levothyroxine 125 MCG's p.o. daily (recently decreased from 150 mcg by her school nurse) (6) Depression: Citalopram switched to duloxetine to reduce QTc and continue treatment of fibromyalgia (7) Pre-diabetes: Continue metformin 1000mg BID (8) Sweating: Pre-dates a.flutter/fib episodes although she may have been going in and out without realizing previously but makes BB or Ca channel blockers less likely the cause. On multiple medications as possible exacerbating factors with citalopram and metformin. Labs unremarkable (9) Left shoulder pain: ESR negative for PMR PCP follow up. (10) Osteoarthritis: Prior workup under rheumatology reported therefore will not repeat. Continue prednisone and meloxicam (patient aware of increased bleeding risk but recently when this was stopped her joints swelled up) (11) Belching: Reports improvement from not using straws or gum although we also added famotidine. Therefore will discontinue famotidine and see if symptoms reoccur Suspected gastritis/GERD given prednisone and meloxicam use. Follow up planned EGD as outpatient. Continue PPI. Hgb stable, daily trend. (12) Bilateral ovarian cysts: 3 month recheck recommended for stability (13) DVT prophylaxis: Eliquis 5mg BID Code - full Dispo - pending rhythm stability, possible home today with [facility] [place] follow up. Subjective Alert and oriented. No complaints. She is tolerating the new medications well. Awaiting cardiology follow-up today. She possibly could be discharged today on oral medication is to follow-up with [place] [facility] as an outpatient. Review of Systems Review of Systems: Constitutional-no fever or chills ENT-no blurred vision, no double vision, no epistaxis, no sore throat Respiratory-no cough, no wheezing, no shortness of breath Cardiac-no palpitations, no chest pain, no syncope GI-no nausea, vomiting, diarrhea, melena, hematochezia -no urinary retention, no urinary incontinence, no dysuria, no hematuria Musculoskeletal-no joint pain, no muscle tenderness Skin-no bruising, no rashes, no pruritus Neuro-no isolated weakness, no paresthesia, no weakness Psych-no depression, no anxiety Physical Exam Physical Exam: General-alert and oriented x3, no fevers, no chills HEENT-head atraumatic and normocephalic, TMs intact bilaterally, pupils equal and reactive to light, extraocular muscles intact Neck-no lymphadenopathy or thyromegaly, trachea midline Chest-clear to auscultation percussion. No rales wheezing or rhonchi Cardiac-regular rate and rhythm, normal S1 and S2, no murmurs Abdomen-normal bowel sounds, nontender, no hepatosplenomegaly Extremities-no cyanosis, clubbing, or edema Neuro-cranial nerves II through XII intact, motor and sensory function within normal limits, strength symmetrical 5/5, no focal deficits Psych-normal affect, normal mood Results & Data Vital Signs (Past 12 Hours) Vital Signs Temp Pulse Resp BP BP Pulse Ox 03/30/19 07:39 36.6 C 99 H 16 118/77 96 03/30/19 06:05 110 H 107/74 03/30/19 03:19 36.6 C 65 18 142/93 H 97 Laboratory Results 03/30/19 05:26 03/30/19 05:26 PG Care Time/CCT Total # of Minutes Spent Total Time Spent with Patient: Total time spent is greater than 50% in coordination of care (as documented) at patient's floor/unit and/or counseling patient: (1) Hypertension Hypertension type: essential hypertension Qualified Code(s): I10 - Essential (primary) hypertension (2) Hyperlipidemia Hyperlipidemia type: unspecified Qualified Code(s): E78.5 - Hyperlipidemia, unspecified (3) Hypothyroidism Hypothyroidism type: acquired Qualified Code(s): E03.9 - Hypothyroidism, unspecified (4) Depression Depression Type: major depressive disorder Major depression recurrence: recurrent Active/Remission status: in full remission Qualified Code(s): F33.42 - Major depressive disorder, recurrent, in full remission
--- NOTE | 2019-03-30 15:14 | Cardiology Progress Note ---
Date of Service March 30, 2019 Assessment & Plan (1) Atrial fibrillation with RVR: She appears to be having mostly atrial flutter and our hospital. She has reports of atrial fibrillation from an outside facility. (2) Paroxysmal atrial flutter: We had a discussion regarding her therapeutic options. She is still in favor of being evaluated for a pulmonary vein isolation and isthmus ablation at [facility]. After contacting them yesterday it was apparent that she could not be sent as an inpatient and they preferred she be evaluated as an outpatient and scheduled electively. Despite continued episodes of occasional atrial flutter she seem to be feeling quite well. Her rate control is also improved during episodes of atrial flutter. It seems reasonable at this point to discharge her with her current medications and arrange follow-up at [facility] for additional therapy. I think she can be discharged on her current dose of dofetilide and metoprolol 75 mg twice daily (3) Hypertension: Her blood pressure has been reasonably well controlled in the hospital on her current regimen. (4) Anticoagulant long-term use: Currently on Eliquis. Subjective This afternoon the patient claims to be feeling well. This afternoon the patient clearly feeling well. She had been amatory around the barr without symptoms of dizziness, lightheadedness or palpitations. No symptoms of chest discomfort or significant breathing difficulty. Review of Systems Review of Systems: Per HPI Physical Exam Physical Exam: She is alert and oriented x3. Mood affect appear normal. She answered all questions appropriately. HEENT: Sclerae are anicteric. Pupils are equal and reactive to light and accommodation. Extraocular movements were intact. Neuro: Cranial nerves intact Lungs: Lungs are clear to auscultation bilaterally. There are no rales wheezes or rhonchi. She has normal respiratory effort without use of accessory muscles. There is normal pulmonary excursion. Cardiac: The rhythm was regular. S1 and S2 were normal. There are no murmurs on examination. The PMI was not markedly displaced on palpation. Abdomen: The abdomen was soft and nontender. Extremities: Patient has bilateral radial pulses that are equal in intensity. There is no evidence cyanosis or clubbing. There was no evidence of significant peripheral edema bilaterally. Skin: There are no rashes noted on examination today. Results & Data Vital Signs (Past 12 Hours) Vital Signs Temp Pulse Resp BP BP Pulse Ox 03/30/19 07:39 36.6 C 99 H 16 118/77 96 03/30/19 06:05 110 H 107/74 03/30/19 03:19 36.6 C 65 18 142/93 H 97 Laboratory Results Abnormal Lab Results 03/29/19 03/29/19 03/30/19 16:56 20:21 05:26 WBC 10.60 RBC 4.35 Hgb 12.4 Hct 38.6 MCV 88.7 MCH 28.5 MCHC 32.1 RDW Std Deviation 46.3 RDW Coeff of Starla 14.2 Plt Count 242 MPV 10.3 Immature Gran % (Auto) 0.3 Neut % (Auto) 48.3 Lymph % (Auto) 32.8 Toombs % (Auto) 9.3 Eos % (Auto) 8.6 Baso % (Auto) 0.7 Immature Gran # (Auto) 0.03 H Neut # (Auto) 5.12 Lymph # (Auto) 3.48 H Toombs # (Auto) 0.99 H Eos # (Auto) 0.91 H Baso # (Auto) 0.07 Sodium Potassium Chloride Carbon Dioxide Anion Gap BUN Creatinine Est Cr Clr Drug Dosing Est GFR ( Amer) Est GFR (Non-Af Amer) BUN/Creatinine Ratio Glucose POC Glucose 117 H 89 Calcium Total Bilirubin AST ALT Alkaline Phosphatase Total Protein Albumin Globulin Albumin/Globulin Ratio 03/30/19 03/30/19 03/30/19 05:26 08:00 12:08 WBC RBC Hgb Hct MCV MCH MCHC RDW Std Deviation RDW Coeff of Starla Plt Count MPV Immature Gran % (Auto) Neut % (Auto) Lymph % (Auto) Toombs % (Auto) Eos % (Auto) Baso % (Auto) Immature Gran # (Auto) Neut # (Auto) Lymph # (Auto) Toombs # (Auto) Eos # (Auto) Baso # (Auto) Sodium 142 Potassium 4.1 Chloride 105 Carbon Dioxide 29 Anion Gap 8.0 BUN 19 H Creatinine 1.03 Est Cr Clr Drug Dosing 50.8 Est GFR ( Amer) 65.1 Est GFR (Non-Af Amer) 56.2 BUN/Creatinine Ratio 18.7 Glucose 82 POC Glucose 90 89 Calcium 9.3 Total Bilirubin 0.4 AST 18 ALT 56 Alkaline Phosphatase 89 Total Protein 6.3 L Albumin 3.5 Globulin 2.8 Albumin/Globulin Ratio 1.3 PG Care Time/CCT Total # of Minutes Spent Total Time Spent with Patient: Total time spent is greater than 50% in coordination of care (as documented) at patient's floor/unit and/or counseling patient: (1) Hypertension Hypertension type: essential hypertension Qualified Code(s): I10 - Essential (primary) hypertension
[2019-03-31] MEDS: METOPROLOL TARTRATE 25 MG TAB PO SCH (05:19)
[2019-03-31] MEDS: LEVOTHYROXINE SODIUM 125 MCG TABLET PO SCH (05:33)
[2019-03-31 06:07] LABS: Basophils # (auto) 0.08 K/uL (0-0.2); Basophils % (auto) 0.7 %; Eosinophils % (auto) 8.1 %; Hematocrit (blood only) 38.7 % (37-47); Hemoglobin 12.9 g/dL (12.0-16.0); Immature Granulocytes # (auto) 0.03 K/uL (0.00-0.02); Immature Granulocytes % (auto) 0.3 %; Lymphocytes # (auto) 3.89 K/uL (1.2-3.4); Mean Corpuscular Hemoglobin 29.1 pg (25-34); Mean Corpuscular Hgb Conc 33.3 g/dL (32-36); Mean Corpuscular Volume 87.4 fL (80-100); Monocytes # (auto) 0.88 K/uL (0.11-0.59); Monocytes % (auto) 7.9 %; Neutrophils # (auto) 5.35 K/uL (1.4-6.5); Platelet Count 259 K/uL (130-400); RDW Coefficient of Variation 13.9 % (11.5-14.5); RDW Standard Deviation 44.6 fL (36.4-46.3); Red Blood Count 4.43 M/uL (4.2-5.4); White Blood Count 11.13 K/uL (4.8-10.8)
[2019-03-31 06:42] LABS: Albumin Level 3.7 gm/dl (3.4-5.0); BUN Creatinine Ratio 21.6 (10-20); Calcium 9.4 mg/dl (8.5-10.1); Est GFR (African American) 74.7; Est GFR (Non-African American) 64.4; Potassium 3.9 mmol/L (3.5-5.1)
[2019-03-31 06:45] LABS: Albumin Globulin Ratio 1.2 (0.9-2); Bilirubin,Total 0.6 mg/dl (0.2-1); Total Protein 6.7 gm/dl (6.4-8.2)
[2019-03-31] MEDS: INSULIN ASPART 100 UNITS/ML 3 ML PEN SC SCH (08:29)
[2019-03-31] MEDS: METFORMIN HCL 500 MG TAB PO SCH (08:30)
[2019-03-31] MEDS: DULOXETINE HCL 30 MG CAP PO SCH (08:31)
[2019-03-31] MEDS: CHOLECALCIFEROL 1,000 UNITS TAB PO SCH (08:31)
[2019-03-31] MEDS: predniSONE 5 MG TAB PO SCH (08:31)
[2019-03-31] MEDS: PANTOprazole 40 MG TAB PO SCH (08:31)
[2019-03-31] MEDS: ATORVASTATIN 20 MG TAB PO SCH (08:31)
[2019-03-31] MEDS: DOFETILIDE 125 MCG CAPSULE PO SCH (08:32)
[2019-03-31] MEDS: CEROVITE ADV FORMULA TAB PO SCH (08:32)
[2019-03-31] MEDS: ASPIRIN 81 MG ECTAB PO SCH (08:33)
[2019-03-31] MEDS: MULTIVITAMIN TAB PO SCH (08:33)
[2019-03-31] MEDS: APIXABAN 5 MG TABLET PO SCH (08:33)
[2019-03-31] MEDS: MELOXICAM 7.5 MG TAB PO SCH (08:34)
--- NOTE | 2019-03-31 10:17 | Hospitalist Progress Note ---
Date of Service March 31, 2019 Assessment & Plan (1) Paroxysmal atrial fibrillation with rapid ventricular response: Continue Tikosyn as per electrophysiology + metoprolol for rate control Appreciate ongoing electrophysiology management Anticoagulation with Eliquis We will follow-up with [place] [facility] as an outpatient. (2) Paroxysmal atrial flutter: as above. Intermittent but controlled.Now on Eliquis therapy. (3) Hypertension: Stable on current medical management. (4) Hyperlipidemia: Continue atorvastatin 20 mg p.o. QAM, LDL <70 @ goal (5) Hypothyroidism: TSH 1.75, continue levothyroxine 125 MCG's p.o. daily (recently decreased from 150 mcg by her centerless grinder) (6) Depression: Citalopram switched to duloxetine to reduce QTc and continue treatment of fibromyalgia (7) Pre-diabetes: Continue metformin 1000mg BID (8) Sweating: Pre-dates a.flutter/fib episodes although she may have been going in and out without realizing previously but makes BB or Ca channel blockers less likely the cause. On multiple medications as possible exacerbating factors with citalopram and metformin. Labs unremarkable (9) Left shoulder pain: ESR negative for PMR PCP follow up. (10) Osteoarthritis: Prior workup under rheumatology reported therefore will not repeat. Continue prednisone and meloxicam (patient aware of increased bleeding risk but recently when this was stopped her joints swelled up) (11) Belching: Reports improvement from not using straws or gum although we also added famotidine. Therefore will discontinue famotidine and see if symptoms reoccur Suspected gastritis/GERD given prednisone and meloxicam use. Follow up planned EGD as outpatient. Continue PPI. Hgb stable, daily trend. (12) Bilateral ovarian cysts: 3 month recheck recommended for stability (13) DVT prophylaxis: Eliquis 5mg BID Code - full Dispo -Home today Subjective Medically stable. Case discussed with cardiology. She will be discharged today on Tikosyn and metoprolol. She is now on Eliquis which replaces warfarin. Cymbalta replaces amitriptyline. She will see [place] [facility] as an outpatient. Review of Systems Review of Systems: Constitutional-no fever or chills ENT-no blurred vision, no double vision, no epistaxis, no sore throat Respiratory-no cough, no wheezing, no shortness of breath Cardiac-no palpitations, no chest pain, no syncope GI-no nausea, vomiting, diarrhea, melena, hematochezia -no urinary retention, no urinary incontinence, no dysuria, no hematuria Musculoskeletal-no joint pain, no muscle tenderness Skin-no bruising, no rashes, no pruritus Neuro-no isolated weakness, no paresthesia, no weakness Psych-no depression, no anxiety Physical Exam Physical Exam: General-alert and oriented x3, no fevers, no chills HEENT-head atraumatic and normocephalic, TMs intact bilaterally, pupils equal and reactive to light, extraocular muscles intact Neck-no lymphadenopathy or thyromegaly, trachea midline Chest-clear to auscultation percussion. No rales wheezing or rhonchi Cardiac-regular rate and rhythm, normal S1 and S2, no murmurs Abdomen-normal bowel sounds, nontender, no hepatosplenomegaly Extremities-no cyanosis, clubbing, or edema Neuro-cranial nerves II through XII intact, motor and sensory function within normal limits, strength symmetrical 5/5, no focal deficits Psych-normal affect, normal mood Results & Data Vital Signs (Past 12 Hours) Vital Signs Temp Pulse Pulse Resp BP BP Pulse Ox 03/31/19 08:26 36.4 C L 80 19 124/92 95 03/31/19 07:10 105 H 03/31/19 04:09 36.6 C 66 18 113/71 95 03/31/19 01:07 64 03/30/19 23:53 36.6 C 102 H 20 117/68 92 Laboratory Results 03/31/19 05:46 03/31/19 05:46 PG Care Time/CCT Total # of Minutes Spent Total Time Spent with Patient: Total time spent is greater than 50% in coordination of care (as documented) at patient's floor/unit and/or counseling patient: (1) Hypertension Hypertension type: essential hypertension Qualified Code(s): I10 - Essential (primary) hypertension (2) Hyperlipidemia Hyperlipidemia type: unspecified Qualified Code(s): E78.5 - Hyperlipidemia, unspecified (3) Hypothyroidism Hypothyroidism type: acquired Qualified Code(s): E03.9 - Hypothyroidism, unspecified (4) Depression Depression Type: major depressive disorder Major depression recurrence: recurrent Active/Remission status: in full remission Qualified Code(s): F33.42 - Major depressive disorder, recurrent, in full remission
--- NOTE | 2019-03-31 10:18 | Discharge Summary ---
Date of Service March 31, 2019 Admission HPI Per Admitting Provider Patient is a 68 years old female with past medical history of hypertension, hyperlipidemia, A. fib's on warfarin and Lovenox to reach INR 2-3, hypothyroidism, insomnia, diabetes mellitus type 2, hyperlipidemia presented to the emergency room with complaint of palpitations and shortness of breath that started this morning. Patient said that recently she was on clindamycin for toothache. Patient says she started to have diarrhea for the past 2 days. Diarrhea is watery, 3-5 times a day and yellow. Patient says she went many times. This morning patient had another episode of diarrhea while in the emergency room. The sample was collected for stool culture ova and parasites and C. difficile. Patient was started on diltiazem drip after she received diltiazem bolus 10 mg IV and her heart rate somewhat improved down to 100 but then after half an hour went back to 120s 125 of A. fib's. INR is 2.1 which is appropriate for A. fib's and we will continue warfarin at this point. Patient had Lovenox yesterday therapeutic dose due to the fact that she was still not therapeutic on warfarin and she was bridged. Patient denies fever chills, headache, body aches, chest pain, frequency, urgency, abdominal pain hematuria, dysuria, hematemesis, melena, hematochezia. She denies any sick contact. Labs are reviewed: WBC 13.88, hemoglobin 15.5, hematocrit 46.5, platelets 348, PT 20.8, INR 2.1, APTT 39.4. Sodium 140, potassium 3.6, chloride 105, anion gap 8, BUN 18, creatinine 1.03, GFR 56.2 glucose 107, calcium 10.2 magnesium 1.9, AST 39, ALT 65, troponin 0 0.015, TSH 1.75. Admission Exam Per Admitting Provider Constitutional: WD/WN, vitals as above well developed Eyes: PERRL, conjunctivae normal, anicteric sclerae ENMT: external ear and nose normal, oropharynx normal Neck: trachea midline, no thyromegaly Respiratory: normal respiratory effort, lungs clear to auscultation Cardiovascular: Rate/Rhythm: + irregularly irregular Heart Sounds: normal S1 and normal S2 Palpation: + palpable S3 Gastrointestinal (Abdomen): normal bowel sounds, soft, nontender, no hepatosplenomegaly Musculoskeletal: no cyanosis or clubbing, extremities motor strength 5/5 Skin: no rashes, warm and dry Neurologic: patellar DTR's 2+ bilat, sensation intact Lymphatic: no cervical or axillary lymphadenopathy Principal Diagnosis Paroxysmal atrial fib flutter with rapid ventricular rate Discharge Exam Physical Exam: General-alert and oriented x3, no fevers, no chills HEENT-head atraumatic and normocephalic, TMs intact bilaterally, pupils equal and reactive to light, extraocular muscles intact Neck-no lymphadenopathy or thyromegaly, trachea midline Chest-clear to auscultation percussion. No rales wheezing or rhonchi Cardiac-regular rate and rhythm, normal S1 and S2, no murmurs Abdomen-normal bowel sounds, nontender, no hepatosplenomegaly Extremities-no cyanosis, clubbing, or edema Neuro-cranial nerves II through XII intact, motor and sensory function within normal limits, strength symmetrical 5/5, no focal deficits Psych-normal affect, normal mood Discharge Data Allergies Allergy/AdvReac Type Severity Reaction Status Date / Time soybean Allergy Severe ANAPHYLAXIS Verified 03/25/19 10:39 bacitracin Allergy Unknown RASH Verified 03/25/19 10:39 monosodium glutamate Allergy Unknown THROAT Verified 03/25/19 10:39 SWELLS neomycin Allergy Unknown RASH Verified 03/25/19 10:39 Penicillins Allergy Unknown UNKNOWN Verified 03/25/19 10:39 polymyxin B Allergy Unknown RASH Verified 03/25/19 10:39 Sulfa (Sulfonamide Allergy Unknown UNKNOWN Verified 03/25/19 10:39 Antibiotics) Cipro AdvReac Unknown N/V Verified 08/24/16 10:24 ciprofloxacin AdvReac Unknown N/V Verified 03/25/19 10:39 nitrofurantoin AdvReac Unknown DIARRHEA Verified 03/25/19 10:39 piroxicam AdvReac Unknown SEVERE Verified 03/25/19 10:39 DIARRHEA Consultations 03/25/19 12:04 ED Decision to Admit Stat 03/25/19 15:23 Consult Cardiology Stat Ordered Studies 03/25/19 17:44 CT abd pelvis wo con Stat 03/27/19 16:49 US transvaginal Routine 03/27/19 16:50 US pelvic complete Routine Hospital Course (1) Paroxysmal atrial fibrillation with rapid ventricular response: Continue Tikosyn as per electrophysiology + metoprolol for rate control Appreciate ongoing electrophysiology management Anticoagulation with Eliquis We will follow-up with [place] [facility] as an outpatient. (2) Paroxysmal atrial flutter: as above. Intermittent but controlled.Now on Eliquis therapy. (3) Hypertension: Stable on current medical management. (4) Hyperlipidemia: Continue atorvastatin 20 mg p.o. QAM, LDL <70 @ goal (5) Hypothyroidism: TSH 1.75, continue levothyroxine 125 MCG's p.o. daily (recently decreased from 150 mcg by her renderer) (6) Depression: Citalopram switched to duloxetine to reduce QTc and continue treatment of fibromyalgia (7) Pre-diabetes: Continue metformin 1000mg BID (8) Sweating: Pre-dates a.flutter/fib episodes although she may have been going in and out without realizing previously but makes BB or Ca channel blockers less likely the cause. On multiple medications as possible exacerbating factors with citalopram and metformin. Labs unremarkable (9) Left shoulder pain: ESR negative for PMR PCP follow up. (10) Osteoarthritis: Prior workup under rheumatology reported therefore will not repeat. Continue prednisone and meloxicam (patient aware of increased bleeding risk but recently when this was stopped her joints swelled up) (11) Belching: Reports improvement from not using straws or gum although we also added famotidine. Therefore will discontinue famotidine and see if symptoms reoccur Suspected gastritis/GERD given prednisone and meloxicam use. Follow up planned EGD as outpatient. Continue PPI. Hgb stable, daily trend. (12) Bilateral ovarian cysts: 3 month recheck recommended for stability (13) DVT prophylaxis: Eliquis 5mg BID Code - full Dispo -Home today Total Time Total Time Spent Total Time Spent (In Minutes): 35 Total Time Includes: Examination of the Patient, Discharge Planning, Medication Reconciliation and Communication With Other Providers Discharge Plan Discharge Items Patient Disposition: Home - Self-Care Reason For Visit: Atrial fibrillation/flutter Discharge Diagnosis: Atrial fibrillation/flutter - outpatient follow-up at [facility] recommended for consideration of ablation procedure Goals: 1. control a. fib/flutter Activity: As commented below Activity Comment: gradually increase as tolerated Bathing: No limitations Weightbearing: Full weightbearing Non-emergency contact: Primary Care Provider and Hearing Aid Repairer Call non-emergency contact if: you have any medication questions and your symptoms worsen Follow-up/Referrals: Chapito Torres MD [Physician] - 04/07/19 3:00 pm (Please, follow up at [facility] Cardiology Office with Dr. Torres on SaturdayApril 07 at 3:15 pm (arrive 3:00 pm). *The office is located in [address] of [facility]. This is the big building next to this hospital. If you need to change this appointment, call the office at [phone]. DON'T FORGET TO ASK HIM ABOUT SAMPLES OF ELIQUIS) Reid Main MD [Primary Care Provider] - 04/02/19 12:45 pm (Please, follow up with Dr. Main on April 02 at 12:45 pm. *If you need to change this appointment, call the office at [phone].) Diet: Carb Consistent or DM2 and Heart Healthy Addtl Attending Provider Instructions: You were seen and treated for rapid a.fib/flutter. The [facility]iology team saw you in consult for this and made the following recommendations - 1. INCREASE your metoprolol to 50mg twice daily. Take every day. 2. START dofetilide 250mcg twice daily. This is for a.fib/flutter. 3. STOP your sotalol. 4. STOP your warfarin. 5. START eliquis blood thinner 5mg twice daily. You will take this in place of warfarin. 6. You will need to follow-up with [facility] about the possibility of an ablation procedure as discussed with cardiology here. Lastly, on imaging of your pelvis, we found bilateral ovarian cysts. At a minimum you will need to have repeat imaging of the ovaries within 3 months. Your family doctor can coordinate this for you. Follow-up -- see separate section. Return to [facility] if -- * you have chest pain * you have shortness of breath * you have rapid heart beating or palpitations * any other concerns Pending Studies at Discharge: No Stand-Alone Forms: My [facility] Medications and DC Order Prescriptions: New dofetilide [Tikosyn] 125 mcg Capsule 250 mcg PO BID Qty: 60 RF: 2 Eliquis 5 mg Tablet 5 mg PO BID Qty: 60 RF: 2 duloxetine [Cymbalta] 30 mg capsule,delayed release(DR/EC) 30 mg PO DAILY Qty: 30 RF: 0 Continued sennosides [senna] 8.6 mg Tablet 8.6 mg PO BID PRN (Reason: Constipation) RF: 0 atorvastatin 20 mg tablet 20 mg PO QAM RF: 0 clindamycin HCl 300 mg Capsule 300 mg PO UD PRN (Reason: DENTAL WORK) RF: 0 meloxicam 15 mg tablet 15 mg PO DAILY RF: 0 prednisone 5 mg tablet 5 mg PO QAM RF: 0 melatonin 3 mg tablet 3 mg PO HS RF: 0 citalopram 20 mg tablet 20 mg PO QAM RF: 0 metformin 1,000 mg tablet 1,000 mg PO BIDM RF: 0 levothyroxine 125 mcg tablet 125 mcg PO DAILYBB RF: 0 omeprazole 20 mg Capsule,Delayed Release(Dr/Ec) 20 mg PO QAM RF: 0 epinephrine [EpiPen] 0.3 mg/0.3 mL Auto-Injector 0.3 mg IM Q3H PRN (Reason: Allergic Reaction) RF: 0 cholecalciferol (vitamin D3) [Vitamin D3] 1,000 unit Capsule 1,000 unit PO QAM RF: 0 Multivitamin 50 Plus Tablet 1 tab PO QAM RF: 0 lidocaine 5 % Ointment 1 applic TOPICAL 6XD PRN (Reason: Pain) RF: 0 PreserVision AREDS-2 [id number] [id number] Capsule 1 tab PO BID RF: 0 Changed metoprolol tartrate 25 mg tablet 50 mg PO BID PRN (Reason: Palpitations) Qty: 120 RF: 2 Discontinued sotalol 120 mg tablet 120 mg PO BID RF: 0 warfarin 5 mg tablet 5 mg PO QAM RF: 0 enoxaparin 80 mg/0.8 mL syringe 80 mg subcut UD RF: 0 Discharge Orders: Discharge Order (Routine); Ordered 03/30/19 Ordered By: Baldemar Wallace/Other Patient Handouts: Apixaban Oral tablet, Dofetilide Oral capsule Admission Data Admit Date/Time: 03/25/19 13:26 Attending Provider: Baldemar Myers Admit Provider: Mahi Harris Primary Care Provider: Reid Main I. Other Providers: Mahi Harris ; Orville Ragland Other Interventions: Discharge Summary Assessment (RN) Last Done: 03/31/19 10:15
== END 2019-03-31 12:32 | disposition home or self-care (01) | DRG 310 ==
LOC: ED 08:02 → 2S 13:26 → SUATTDRO 13:26 → 2S 16:38 → 2N 03-26 12:50

== ENCOUNTER 2020-07-26 06:19 | Observation (INO) ==
--- NOTE | 2020-07-19 11:54 | Anesthesiology Consultation ---
Date of Service July 19, 2020 Assessment & Plan (1) Encounter for pre-operative examination: Chart Review Chart Review: Acceptable Risk for Surgery (pending preop Covid testing results ) and Patient NOT seen in Pre Admission Testing - Check BSG AM DOS Per nursing assessment on 07/01/2020, pt resides in [facility]. No recent travel. Wears mask, uses good hand hygiene and socially distances. No known Covid positive contacts or Covid related symptoms. Pt will be following up with surgeon regarding preop Covid testing date and time= will await results. Last seen by cardio 01/01/20= see for routine follow up on a fib/flutter with RVR. "She appears to have undergone a successful pulmonary vein isolation and ablation for atrial flutter. There is no specific follow-up required at this point in the absence of new symptoms. However, she should continue her anticoagulation indefinitely." Noted to have mild MR on 2019 ECHO- no murmur noted on exam- can follow up with ECHO in 2-4 years. History Surgery Operation Date: 07/26/20 08:50 Proposed Procedures p Right Total Knee Replacement - Travis Walls MD Height/Weight Height: 5 ft 1 in Weight: 77.111 kg Allergies Allergy/AdvReac Type Severity Reaction Status Date / Time bacitracin Allergy Mild RASH Verified 07/01/20 13:18 neomycin Allergy Mild RASH Verified 07/01/20 13:18 polymyxin B Allergy Mild RASH Verified 07/01/20 13:18 monosodium glutamate Allergy Unknown THROAT Verified 07/01/20 13:18 SWELLS Penicillins Allergy Unknown UNKNOWN Verified 07/01/20 13:18 Sulfa (Sulfonamide Allergy Unknown UNKNOWN Verified 07/01/20 13:18 Antibiotics) ciprofloxacin AdvReac Mild N/V Verified 07/01/20 13:18 nitrofurantoin AdvReac Mild DIARRHEA Verified 07/01/20 13:18 piroxicam AdvReac Mild SEVERE Verified 07/01/20 13:18 DIARRHEA Cipro AdvReac Unknown N/V Verified 08/24/16 10:24 Medications Home Medications Medication Instructions Recorded Confirmed Last Taken PreserVision AREDS-2 1 tab PO BID 03/25/19 07/01/20 03/24/19 atorvastatin 20 mg PO QPM 03/25/19 07/01/20 03/24/19 epinephrine [EpiPen] 0.3 mg IM Q3H PRN 03/25/19 07/01/20 Unknown meloxicam 15 mg PO QAM 03/25/19 07/01/20 03/24/19 sennosides [senna] 8.6 mg PO HS 03/25/19 07/01/20 Unknown apixaban [Eliquis] 5 mg PO BID #60 tab 03/30/19 07/01/20 Unknown prednisone 5 mg tablet 5 mg PO QAM 01/01/20 07/01/20 Unknown duloxetine [Cymbalta] 60 mg PO BID 04/22/20 07/01/20 Unknown metformin 500 mg PO BID 04/22/20 07/01/20 Unknown metoprolol tartrate 50 mg PO BID 04/22/20 07/01/20 Unknown amlodipine 10 mg PO QAM 07/01/20 07/01/20 Unknown levothyroxine 112 mcg PO QAM 07/01/20 07/01/20 Unknown omeprazole 07/18/20 Unknown Past Medical History Medical History A-fib AND A-FLUTTER, S/P SUCCESSFUL RFA OF PULMONARY VEIN 05/2019; ON ELIQUIS INDEFINITELY PER CARDIO 01/01/20. NO FURTHER CARDIO F/U SCHEDULED. Anticoagulant long-term use Depression Fibromyalgia GERD (gastroesophageal reflux disease) Hyperlipidemia Hypertension Hypothyroidism Jaw clicking Macular degeneration Osteoarthritis Prediabetes On metformin BID SOBOE (shortness of breath on exertion) OUT OF SHAPE Past Family History Family History Mother Alzheimer disease Father Coronary heart disease Family history of diabetes mellitus Sister Hypothyroidism Sister Hypothyroidism Other No family history of adverse response to anesthesia Past Surgical History Surgical History H/O cardiac radiofrequency ablation 05/2019 AT [place] History of bilateral tubal ligation History of cardiac cath 7 YEARS AGO (NO STENTS) History of cardioversion X 1 History of cholecystectomy History of colonoscopy History of hysterectomy History of tonsillectomy History of tooth extraction History of total knee replacement LEFT Hx of bilateral breast reduction surgery ALONG WITH REVISION D/T BLEEDING Hx of bladder repair surgery CYSTOCELE REPAIR AND SLING S/P panniculectomy Social History Smoking Status: Never smoker Do You Dip or Chew Tobacco: No Hx Alcohol Use: No Hx Substance Use: No substance use type: does not use Testing Laboratory Results Blood Type B Positive 07/14/20 09:49 Antibody Screen NEGATIVE 07/14/20 09:49 Laboratory Tests 07/14/20 07/14/20 07/14/20 09:49 09:49 09:49 WBC 10.66 Hgb 12.7 Hct 39.6 Plt Count 298 PT 10.9 INR 1.0 Sodium 143 Potassium 4.1 Chloride 111 H Carbon Dioxide 29 BUN 27 H Creatinine 0.75 Glucose 93 TSH Free T4 07/14/20 09:50 WBC Hgb Hct Plt Count PT INR Sodium Potassium Chloride Carbon Dioxide BUN Creatinine Glucose TSH 0.488 Free T4 1.37 Electrocardiogram Date: 10/23/19 Findings: + NSR @ (62bpm) Chest X-Ray Date: 04/25/20 Findings: + NAD Echocardiogram Date: 12/22/18 EF: 61% LV Function: normal RWMA: + none Nondilated cardiac chambers. Mild mitral regurgitation is present. Mild tricuspid regurgitation is present. Indeterminate IVC size and collapsibility. Right atrial pressure estimated at 8 mmHg. The pulmonary artery systolic pressure is 30 mmHg. Stress Test Date: 01/01/19 Type: nuclear Normal pharmacologic Cardiolite stress test without evidence of infarct or ischemia. Negative pharmacologic stress EKG for ischemia. Normal wall motion analysis. Normal post-stress ejection fraction.
--- NOTE | 2020-07-19 13:15 | History and Physical Report ---
DATE OF ADMISSION: 07/26/2020 CHIEF COMPLAINT: Right knee pain and discomfort. HISTORY OF PRESENT ILLNESS: The patient is a 69-year-old female who presents for surgical treatment of her right knee. She had her left knee replacement back in 08/2016 and has done well from this side. Over the past several years, she has developed increased pain and discomfort in her right knee. It is fairly global pain but a little bit more medial. She had an injection which provided very temporary relief only. The pain has become more disabling over time. The more she walks, the more it hurts. She limps with every step and more as the day goes on. She has difficulty going up and down steps. She would like to have her right knee replaced. Of note, the patient was scheduled to have this done in May, but canceled due to COVID issues. She now would like to proceed. PAST MEDICAL HISTORY: Significant for, 1. Hypertension. 2. Elevated cholesterol. 3. Atrial fibrillation/flutter with a history of ablation in [place], but on blood thinners. 4. Prediabetes. 5. Gastroesophageal reflux disease. 6. Mild obesity with a BMI of 32. 7. Low back pain/sciatica. PAST SURGICAL HISTORY: Includes, 1. Left knee replacement done on 08/24/2016. 2. Breast reduction. 3. Tummy tuck. 4. Bladder surgery. 5. Hysterectomy. 6. Cholecystectomy. ALLERGIES: FELDENE, SULFA, PENICILLIN. CURRENT MEDICINES: Include, 1. Amlodipine. 2. Eliquis. 3. Atorvastatin. 4. Cymbalta. 5. EpiPen. 6. Levothyroxine. 7. Lidocaine topical ointment. 8. Meloxicam. 9. Metformin. 10. Metoprolol. 11. Prednisone. 12. Senna. 13. Vitamins. SOCIAL HISTORY: Significant for a 69-year-old female. She lives at [facility] in the [facility]. She does not smoke. No significant alcohol intake. FAMILY HISTORY: Noncontributory. REVIEW OF SYSTEMS: Significant for what she calls prediabetes. Denies any chest pain or shortness of breath. She is on Eliquis for atrial fibrillation with a history of ablation in the past. No history of DVT or PE. PHYSICAL EXAMINATION: GENERAL: Shows a pleasant, middle-aged female. Looks to be in pretty good health. HEENT: Benign. NECK: Supple, no lymphadenopathy. LUNGS: Clear to auscultation. HEART: Has a regular rate and rhythm. ABDOMEN: Soft, nontender, nondistended. EXTREMITIES: Grossly neurovascularly intact except as follows: Examination of the right knee reveals the patient ambulates independently. She has got varus alignment to her knee. The varus deformity is increased with weightbearing. She has got bony hypertrophy medially. She is tender over the medial joint line. Range of motion about 10 degrees short of full extension to 120 degrees of flexion. No instability. No pain with hip motion. Examination of the left knee reveals a well-healed incision. Knee alignment looks anatomic. Range of motion 0-120. No swelling. X-RAYS: X-rays of the right knee were reviewed and reveal advanced right knee DJD. She has complete loss of her medial joint space. She has subchondral sclerosis. She has got osteophytes primarily in the medial compartment. The left knee replacement looks to be in good position without signs of problems. ASSESSMENT: A 69-year-old white female 3 years out from a left knee replacement, with advanced right knee degenerative joint disease. She has failed conservative treatment and would like to have her right knee replaced. She was actually scheduled for this previously, but canceled due to the COVID issues. PLAN: We are going to proceed with right total knee replacement. The risks and benefits of this procedure were explained to the patient including but not limited to DVT, PE, , infection, neurological injury, vascular injury, bleeding problem, pain, limited range of motion, stiffness, failure to relieve her symptoms, incomplete relief of symptoms, need for further surgery in the future, fracture, leg length inequality, etc. The patient understands and desires to proceed. Informed consent was obtained. We did talk about holding her Eliquis 3 days preop. She will take her metoprolol in the morning of surgery. She will also need to hold her Mobic. She will hold her metformin in the morning of surgery. As far as discharge plans, she is planning to be discharged back to [place] where she lives.
[~2020-07-26 06:19] MED LIST changes: -AMT50 PO; -ASPI81TA28 PO; -ATROPINE SULFATE 0.1 MG/ML 5ML SYR IV PRN; -BUPIVACAINE 0.25% 30 ML VIAL ONE; -BUPIVACAINE 0.5 % 5 MG/1 ML PF 10ML VIAL ONE; -BUPIVACAINE LIPOSOME 266 MG, BUPIVACAINE/EPINEPHRINE INJ 50 ML, SODIUM CHLORIDE 0.9% PF... INFIL SCH; +BUPIVACAINE LIPOSOME/PF 266 MG, BUPIVACAINE/EPINEPHRINE 50 ML, SODIUM CHLORIDE 0.9% 30 ... INFIL SCH; -CEFAZOLIN 2000 MG/60 ML D5W 60 ML IV SCH; -CITA20TA4 PO; -EPP3/2 IM; -EpHEDrine SULFATE INJ 50 MG/ML AMP IV PRN; -FENTANYL CITRATE INJ 50 MCG/1 ML 2 ML VIAL IV PRN; -FEXO1TAB49 PO; -HYDR2.5C37 TOP; -LACTATED RINGER'S 1000ML 1,000 ML IV SCH; -LACTATED RINGER'S 1000ML IV SCH; -LACTATED RINGER'S 500 ML IV SCH; -LEVO150T9 PO; +LR 500ML BOLUS, THEN 15ML/HR IV SCH; +LR 60ML/HR IV SCH; -METO25TA56 PO; -METOCLOPRAMIDE HCL 10 MG TAB PO SCH; +METOCLOPRAMIDE HCL 10 MG TABLET PO SCH; -MISCCAP80 PO; -MULT-190 PO; -OMEG10007 PO; -ONDANSETRON INJ 2 MG/ML 2 ML VIAL IV PRN; -PRED-301 PO; -PREDNISOLONE PO; -PRLSR20 PO; -SCOPOLAMINE 1.5 MG TDSY TD SCH; -TRAM-10 PO; +TRANEXAMIC ACID 1,000 MG **IV Intra-op IV SCH; -TRANEXAMIC ACID INJ 1,000 MG in SODIUM CHLORIDE 0.9% 100ML 100 ML IV SCH; -[UNRECOGNIZED DRUG - OTHER] PO; +ceFAZolin 2000MG 2,000 MG/15 ML SYR IV SCH
[2020-07-26] MEDS ORDERED: BUPIVACAINE 0.5 % 5 MG/1 ML PF 10ML VIAL ONE (06:30)
[2020-07-26] MEDS ORDERED: ROPIVACAINE 0.5% 5 MG/ML 30 ML VIAL ONE (06:30)
--- NOTE | 2020-07-26 07:01 | History & Physical Bridge Note ---
Date of Service July 26, 2020 History & Physical Bridge Note I have examined the patient, reviewed the History & Physical and in the interval since the performance of the History & Physical I have noted the following changes of clinical significance: no changes noted
[2020-07-26] MEDS ORDERED: MIDAZOLAM HCL 1 MG/ML 2ML VIAL ONE ×2 (08:30)
[2020-07-26] MEDS ORDERED: HYDROmorphone INJ 2 MG/ML SYR/VIAL ONE (09:16)
[2020-07-26] MEDS ORDERED: BUPIVACAINE LIPOSOME 1.3% 266 MG/20 ML VIAL ONE (09:35)
[2020-07-26] MEDS ORDERED: SODIUM CHLORIDE 0.9% PF 50 ML VIAL ONE (09:35)
[2020-07-26] MEDS ORDERED: BACITRACIN INJ 50,000 UNIT VIAL ONE (09:35)
[2020-07-26] MEDS ORDERED: EPINEPHrine INJ 1 MG/ML AMP ONE (09:36)
[2020-07-26] MEDS ORDERED: BUPIVACAINE 0.25% 30 ML VIAL ONE (09:36)
[2020-07-26] MEDS ORDERED: ATROPINE SULFATE 0.1 MG/ML 10ML SYR IV PRN (09:43)
[2020-07-26] MEDS ORDERED: ePHEDrine sulfate 50 MG/ML AMP IV PRN (09:43)
[2020-07-26] MEDS ORDERED: HYDROmorphone INJ 0.5 MG/0.5 ML SYR IV PRN ×2 (09:43→12:21)
[2020-07-26] MEDS ORDERED: ONDANSETRON INJ 2 MG/ML 2 ML VIAL IV PRN ×2 (09:43→12:21)
[2020-07-26] MEDS ORDERED: ONDANSETRON INJ 2 MG/ML 2 ML VIAL ONE (10:20)
[2020-07-26] MEDS ORDERED: ePHEDrine sulfate 50 MG/ML SYR ONE (10:20)
[2020-07-26] MEDS ORDERED: PHENYLEPHRINE 100MCG/ML 5ML SYR ONE (10:20)
[2020-07-26] MEDS ORDERED: PROPOFOL IV EMULSION 10 MG/ML 20 ML VIAL IV ONE (11:21)
--- NOTE | 2020-07-26 11:41 | Operative Report ---
Post Operative Report Pre & Post Diagnosis Operation Date: 07/26/20 08:50 Pre-Op Diagnosis: Right Knee Advanced Degenerative Joint Disease Post-Op Diagnosis: Right Knee Advanced Degenerative Joint Disease I identified the patient and participated in the time-out.: Yes Procedure Operation Date: 07/26/20 08:50 Actual Procedures p Right Total Knee Arthroplasty(Right) - Travis Walls MD Surgeon Travis Walls MD [employer] PARAS Yee Estimated Blood Loss 50 Findings Consistent with Post-Op Diagnosis Operative findings revealed advanced right knee DJD. She had extensive grade 4 [id number] disease and eburnation medial compartment. She had some focal grade 4 changes the patellofemoral compartment and grade 3 changes laterally. She had osteophytes primarily medially. She had a fixed varus deformity to her knee with a 10 to 15 degree flexion contracture. Fluids 1200 cc. Specimens Right knee sent for pathology. Drains None. Anesthesia Type Spinal MAC Complications none Disposition Accompanied Patient To Recovery: No Disposition: Recovery Room Indications Patient is 69-year-old female is had a long history of knee problems. She has been through extensive conservative treatment the past. She did have her left knee replaced about 4 years ago and is done well from this. Over the past several years she developed increased pain discomfort in in her right knee. She failed conservative measures. She elected proceed with surgical treatment. Description of Procedure Operative implants consist of: 1 Biomet Vanguard size 65.5 right posterior stabilized femoral component. 2. Biomet size 63 tibial tray. 3. 10 mm posterior stabilized polyethylene insert. 4. 31 x 8 all polypatella. The patient was taken to the operating identified and placed on the operating table supine position. All contact areas were properly padded. IV antibiotics tried by anesthesia team. Spinal anesthetic and abductor canal block had been provided in the holding area. Herrera catheter was placed in sterile fashion. Right thigh turn was then placed in the right lower extremity was then prepped and draped in usual sterile fashion. The right leg was elevated exsanguinated with use of an Esmarch and tourniquet placed at 300 mmHg. An anterior approach to the right knee was then performed to longitudinal incision centered over the patella. Sharp dissection was got through subcutaneous tissue down to the extensor mechanism. A medial parapatellar arthrotomy incision was made. Some subperiosteal dissection was carried out medially. The fat pad was resected from each patella tendon. Lateral patellofemoral ligament was released. Patella was subluxated laterally and the knee was flexed. The osteophytes were taken off distal femur. The ACL and PCL were then released from distal femur and the tibia subluxated anter iorly. The external tibial alignment jig was then placed in the interface the tibia and adjusted 14 mm medially. Proximal tibial cut was made remove about a millimeter bone from the most deficient aspect medial tibial plateau. Some osteophytes were taken off posteriorly and posterior medially. The tibia was sized to a size 63. Attention drawn the femur. The distal femur turned with a sharp drill. The intramedullary canal was suction. A right 5 degree valgus cutting guide was placed. Distal femoral cutting block was pinned in place. This from cut was made to take an additional 3 mm of bone off the distal left femur. The femur was then sized to a size 62.5. The AP cutting block was pinned parallel to the epicondylar axis which was 3 degrees of external rotation. The anterior cut, anterior chamfer, posterior cut, posterior chamfer cuts were made. Box cutting guide was placed in just slight lateral box cut was made. The knee was flexed. The remnants of the medial and lateral menisci were excised. The osteophytes were taken off the posterior aspect of the femur. A trial femoral component was placed. The tibial tray was pinned in maximum external rotation and the drill and stem punch were used to create defect in proximal tibia for the tibial tray. The knee was then trialed the 10 mm insert fit most appropriately. Attention drawn the patella. The patella was cleaned of all soft tissues. Patella thickness measured 21 mm in thickness was cut down to 13. Was sized to a size 31 patella. The lug holes were drilled for 31 patella. The lateral osteophyte is moved. Patella button was placed. Knee was taken through range of motion patella tracked nicely with no thumbs test. Attention drawn to placing permanent components. All trial components were removed. A bone plug was placed in the distal femur limit blood loss. A double batch Palacos G cement was mixed. A Biomet Vanguard size 62.5 right posterior stabilized femoral component, size 63 tibial tray, a 10 mm posterior stabilized polyethylene insert, and a 31 x 8 all polypatella then cemented in place. The knee was brought out into full extension until the cement hardened. Final cement check was then performed. The pericapsular tissues were injected with a total of 100 cc of combination of 20 cc of Exparel, 30 cc normal saline, 50 cc of quarter percent Marcaine with epinephrine. Patient did receive 1 g tranexamic acid per the tourniquet was then let down for final tourniquet time of 49 minutes. Hemostasis assured use electrocautery. Extensor mechanism closed with combination 1 PDS suture #1 Vicryl suture in [id number] fashion. The extensor mechanism checked found to be intact with subcutaneous tissue then closed with 2 Dexon suture in a buried interrupted fashion skin was closed skin norman. Leg was then cleaned dried a sterile dressing composed Xeroform, 4 x 4's, sterile cast padding, Lester bandage were applied. The patient then transferred to the recovery room in stable condition. Patient tolerated the procedure well and there were no complications. Juliano Yee, my physician assistant professor of mathematics, was present for the entire procedure. His assistance was essential and required for appropriate patient positioning, prepping and draping, surgical exposure, performing the technical details of the operation, placement the implants, closure of the wound, and placement of the sterile bandage. I attest to the content of the Intraoperative Record and any orders documented therein. Any exceptions are noted below.
--- NOTE | 2020-07-26 12:13 | XRay Report ---
XR knee RT 1 or 2V routine HISTORY: 69 years-old Female Surgical Post Op right knee total joint arthroplasty COMPARISON: Right knee radiographs 04/25/2020 TECHNIQUE: 2 views of the right knee FINDINGS: Right knee total joint arthroplasty and patella resurfacing. No acute fracture or opaque foreign body . Anterior midline skin norman are noted along with expected postsurgical soft tissue swelling and d eep tissue air with surgical drainage catheter. IMPRESSION: Right knee total joint arthroplasty and patella resurfacing with expected postoperative c hanges. ACT 112: Negative or not required by law. The above report was generated using voice recognition software. It may contain grammatical, syntax o r spelling errors. Electronically signed by: Dmitri Valencia M.D. 07/26/2020 12:12 PM
[2020-07-26] MEDS ORDERED: GLUCAGON FOR INJ 1 MG VIAL SQ PRN (12:21)
[2020-07-26] MEDS ORDERED: METOCLOPRAMIDE HCL INJ 5 MG/ML 2 ML VIAL IV PRN (12:21)
[2020-07-26] MEDS ORDERED: NALOXONE HCL 0.4 MG/1 ML VIAL/CARP IV PRN (12:21)
[2020-07-26] MEDS ORDERED: MAGNESIUM HYDROXIDE SUSP 30 ML UDC PO PRN (12:21)
[2020-07-26] MEDS ORDERED: GLUCOSE 10 TABS/TUBE PO PRN (12:21)
[2020-07-26] MEDS ORDERED: diphenhydrAMINE Capsule 25 MG CAP PO PRN (12:21)
[2020-07-26] MEDS ORDERED: DEXTROSE 50% 50 ML SYRINGE IV PRN (12:21)
[2020-07-26] MEDS ORDERED: CARBOHYDRATES FOR HYPOGLYCEMIA PO PRN (12:21)
[2020-07-26] MEDS ORDERED: bisacodyL 10 MG SUPP PR PRN (12:21)
[2020-07-26] MEDS ORDERED: GLUCOSE 40% GEL 15 GM TUBE PO PRN (12:21)
[2020-07-26] MEDS ORDERED: ALUMINUM/MAGNESIUM SUSP 30 ML UDC PO PRN (12:21)
[2020-07-26] MEDS ORDERED: PHARMACY GLYCEMIC MGMT CONSULT PRN (12:37)
--- NOTE | 2020-07-26 12:50 | Anesthesiology Progress Note ---
Date of Service July 26, 2020 Anesthesia Post Procedure Vital Signs Vital Signs: Temp Pulse Pulse Resp BP BP Pulse Ox 07/26/20 12:48 36.4 C L 64 18 104/64 92 07/26/20 12:20 36.4 C L 67 18 113/68 92 07/26/20 12:10 71 21 110/62 96 07/26/20 12:00 36.5 C 70 22 107/62 98 07/26/20 11:50 71 22 106/59 L 98 07/26/20 11:40 72 24 110/59 L 100 07/26/20 11:33 36.9 C 71 17 109/61 100 07/26/20 06:50 36.9 C 62 18 126/89 96 Transfer of Care Handoff Completed per policy Notes Mental Status: alert / awake / arousable Patient Amnestic to Procedure: Yes Nausea / Vomiting: adequately controlled Pain: adequately controlled Airway Patency, RR, SpO2: stable & adequate BP & HR: stable & adequate Hydration State: stable & adequate Anesthetic Complications: no major complications apparent
[2020-07-26] MEDS: SODIUM CHLORIDE 0.9% 1000ML 1,000 ML IV SCH ×2 (12:51→22:40)
--- NOTE | 2020-07-26 13:22 | Pharmacy Report ---
Pharmacy Glycemic Short Note 2 - Date of Service July 26, 2020 - Glycemic Short BSG Results (Last 24 hours): 07/26/20 07/26/20 06:47 11:35 POC Glucose 99 117 H OUTPATIENT ANTIDIABETIC REGIMEN: * metformin 500 bid * A1c 5.7% 03/2019 ASSESSMENT: * 69 year old female, now s/p TKA POD 0. On metformin at home, last A1c 03/2019 noted in computer. Ordered another A1c for tomorrow AM * Patient did not receive an steroids preop/intraop, therefore will hold basal insulin and utilize only correctional. Fasting BSG this AM 99 mg/dL * Will start novolog stress of 2 dosing for today with CF only. Plan to resume home metformin tomorrow if appropriate PLAN FOR INPATIENT GLYCEMIC CONTROL: * Hold outpatient oral diabetes medications * Basal insulin - holding * Bolus insulin * NovoLog per scale ACHS or Q6hrs while NPO * Goal Range: Low 110 mg/dL - High 140 mg/dL * Correction Factor: 30 mg/dL/unit * Nutritional / Prandial insulin per carb ratio of 1 unit per -- grams CHO consumed PLAN FOR DISCHARGE: * pending for 2/3 AM
[2020-07-26] MEDS: KETOROLAC TROMETHAMINE 15 MG/ML VIAL IV SCH ×3 (14:02→23:33)
[2020-07-26] MEDS: ACETAMINOPHEN 500 MG TAB PO SCH ×2 (14:02→21:10)
[2020-07-26] MEDS: Scopolamine CHECK PATCH PLACEMENT SCH ×2 (15:33→23:33)
[2020-07-26] MEDS: ASCORBIC ACID 500 MG TAB PO SCH (17:16)
[2020-07-26] MEDS: FERROUS GLUCONATE 324 MG TAB PO SCH (17:16)
[2020-07-26] MEDS: INSULIN ASPART 100 UNITS/ML 3 ML PEN SC SCH ×2 (17:25→22:00)
[2020-07-26] MEDS: ceFAZolin 1000MG 1,000 MG/7.5 ML SYR IV SCH (17:54)
[2020-07-26] MEDS ORDERED: TRANEXAMIC ACID / 0.7% NACL 1,000 MG/100 ML BAG IV SCH (18:00)
[2020-07-26] MEDS ORDERED: NON-FORMULARY MEDICATION (Vit C,E-Zn-Coppr-Lutein-Zeaxan [Preservision Areds-2] 250-200-40 PO SCH (21:00)
[2020-07-26] MEDS ORDERED: SENNA 8.6 MG TAB PO SCH ×2 (21:00)
[2020-07-26] MEDS ORDERED: ATORVASTATIN 20 MG TAB PO SCH (21:00)
[2020-07-26] MEDS: traMADol HCL 50 MG TABLET PO PRN (21:16)
[2020-07-26] MEDS: DOCUSATE SODIUM 100 MG CAP PO SCH (21:17)
[2020-07-27] MEDS: ceFAZolin 1000MG 1,000 MG/7.5 ML SYR IV SCH (02:47)
[2020-07-27] MEDS: KETOROLAC TROMETHAMINE 15 MG/ML VIAL IV SCH (04:45)
[2020-07-27] MEDS: ACETAMINOPHEN 500 MG TAB PO SCH ×2 (04:45→14:05)
[2020-07-27 06:04] LABS: Hematocrit (blood only) 34.6 % (37-47); Hemoglobin 11.7 g/dL (12.0-16.0); Mean Corpuscular Hemoglobin 29.8 pg (25-34); Mean Corpuscular Hgb Conc 33.8 g/dL (32-36); Mean Platelet Volume 9.7 fL (7.4-10.4); Platelet Count 239 K/uL (130-400); RDW Coefficient of Variation 13.6 % (11.5-14.5); RDW Standard Deviation 44.1 fL (36.4-46.3); Red Blood Count 3.93 M/uL (4.2-5.4); White Blood Count 9.38 K/uL (4.8-10.8)
[2020-07-27 06:19] LABS: Estimated Average Glucose 114 mg/dl; Hemoglobin A1C 5.6 % (4.5-5.6)
[2020-07-27] MEDS ORDERED: LEVOTHYROXINE SODIUM 112 MCG TABLET PO SCH (06:30)
[2020-07-27 06:40] LABS: BUN Creatinine Ratio 16.4 (10-20); Calcium 8.6 mg/dl (8.5-10.1); Creatinine Clr Calc Pharmacy 59.1 ml/min; Est GFR (African American) 80.5; Est GFR (Non-African American) 69.4; Potassium 3.9 mmol/L (3.5-5.1)
[2020-07-27] MEDS: INSULIN ASPART 100 UNITS/ML 3 ML PEN SC SCH ×2 (09:00→12:59)
[2020-07-27] MEDS ORDERED: DULoxetine HCL 60 MG CAP PO SCH (09:00)
[2020-07-27] MEDS ORDERED: MULTIVITAMIN TAB PO SCH (09:00)
[2020-07-27] MEDS ORDERED: predniSONE 5 MG TAB PO SCH (09:00)
[2020-07-27] MEDS ORDERED: PANTOprazole 40 MG TAB PO SCH (09:00)
[2020-07-27] MEDS ORDERED: amLODIPine BESYLATE 5 MG TAB PO SCH (09:00)
[2020-07-27] MEDS: Scopolamine CHECK PATCH PLACEMENT SCH (09:03)
[2020-07-27] MEDS: ASCORBIC ACID 500 MG TAB PO SCH (09:05)
[2020-07-27] MEDS: FERROUS GLUCONATE 324 MG TAB PO SCH (09:05)
[2020-07-27] MEDS: DOCUSATE SODIUM 100 MG CAP PO SCH (09:06)
[2020-07-27] MEDS: traMADol HCL 50 MG TABLET PO PRN (09:47)
--- NOTE | 2020-07-27 11:29 | Progress Notes ---
DATE: 07/27/2020 SUBJECTIVE: A 69-year-old white female postop day 1 from a right knee replacement. She is doing pretty well. Pain has been controlled. She is taking some tramadol. No chest pain or shortness of breath. Not feeling dizzy or lightheaded. OBJECTIVE: VITAL SIGNS: Temperature 36.8. Vital signs stable. GENERAL: Shows a pleasant, middle-aged female. Had to wake her this morning. LUNGS: Clear to auscultation. HEART: Has a regular rate and rhythm. ABDOMEN: Soft, nontender, nondistended. EXTREMITIES: Grossly neurovascularly intact except as follows. Examination of the right leg reveals the dressing to be clean, dry and intact. She can dorsiflex and plantarflex her foot appropriately. She is neurologically intact. LABORATORY DATA: Hemoglobin 11.7. Hematocrit 34.6. Electrolytes are stable. ASSESSMENT: A 69-year-old white female postop day 1 from right knee replacement, doing pretty well. Pain seems to be controlled. She is neurologically intact. PLAN: 1. DVT prophylaxis including thigh-high TEDs, SCDs, and we will put her back on her Eliquis. We will start her on a prophylactic dose for now and she will be discharged on a therapeutic dose. 2. PT/OT. Weight bear as tolerated. Right total knee protocol. 3. Pain control, doing okay with current pain regimen. She has taken tramadol and Tylenol. 4. Disposition: Plan to discharge her to home. She lives at [place] and they will assist with her home care.
[2020-07-27] MEDS ORDERED: APIXABAN 2.5 MG TAB PO SCH (12:00)
[2020-07-27] MEDS ORDERED: metFORMIN HCL 500 MG TAB PO SCH (17:00)
== END 2020-07-27 15:38 | disposition home health service (06) ==
LOC: ASU 06:19 → 3E 06:19

== ENCOUNTER 2021-03-20 16:03 | Inpatient (IN) ==
[2021-03-20 17:02] LABS: Partial Thromboplastin Ratio 0.9; Partial Thromboplastin Time 24.5 Seconds (21.0-31.0); Prothrombin Time 10.3 Seconds (9.0-12.0)
[2021-03-20 17:16] LABS: Alanine Aminotransferase 22 U/L (12-78); Albumin Level 3.5 gm/dl (3.4-5.0); Aspartate Aminotransferase 12 U/L (15-37); BUN Creatinine Ratio 22.9 (10-20); Blood Urea Nitrogen 24 mg/dl (7-18); Calcium 9.4 mg/dl (8.5-10.1); Carbon Dioxide 27 mmol/L (21-32); Chloride 109 mmol/L (98-107); Creatinine Clr Calc Pharmacy 48.7 ml/min; Est GFR (African American) 64.2 ml/min; Est GFR (Non-African American) 55.4 ml/min; Glucose 93 mg/dl (70-99); Potassium 4.6 mmol/L (3.5-5.1); Sodium 141 mmol/L (136-145)
[2021-03-20 17:20] LABS: Albumin Globulin Ratio 1.3 (0.9-2); Alkaline Phosphatase 87 U/L (45-117); Bilirubin,Total 0.5 mg/dl (0.2-1); Globulin 2.8 gm/dl (2.5-4.0); Total Protein 6.3 gm/dl (6.4-8.2); Troponin I < 0.015 ng/ml (0-0.045)
--- NOTE | 2021-03-20 17:28 | XRay Report ---
XR chest 1V portable HISTORY: Atypical Chest Pain COMPARISON: Chest 03/11/2021. FINDINGS: No pneumothorax. No pleural effusions. The cardiac silhouette remains overlying enlarged. N o new focal lung consolidations to suggest pneumonia. No evidence for pulmonary edema. Degenerative c hanges again noted within the bilateral shoulders, right greater than left. IMPRESSION: No significant change compared to the prior study. No acute process. ACT 112: Negative or not required by law. Electronically signed by: Tariq Azul M.D. 03/20/2021 5:26 PM
[2021-03-20 19:29] LABS: Basophils # (auto) 0.07 K/uL (0-0.2); Basophils % (auto) 0.7 %; Eosinophils # (auto) 0.45 K/uL (0-0.5); Eosinophils % (auto) 4.7 %; Hematocrit (blood only) 36.7 % (37-47); Hemoglobin 11.5 g/dL (12.0-16.0); Immature Granulocytes # (auto) 0.02 K/uL (0.00-0.02); Immature Granulocytes % (auto) 0.2 %; Lymphocytes # (auto) 1.91 K/uL (1.2-3.4); Lymphocytes % (auto) 20.1 %; Mean Corpuscular Hemoglobin 27.9 pg (25-34); Mean Corpuscular Hgb Conc 31.3 g/dL (32-36); Mean Corpuscular Volume 89.1 fL (80-100); Mean Platelet Volume 10.5 fL (7.4-10.4); Monocytes # (auto) 0.49 K/uL (0.11-0.59); Monocytes % (auto) 5.2 %; Neutrophils # (auto) 6.54 K/uL (1.4-6.5); Neutrophils % (auto) 69.1 %; Platelet Count 275 K/uL (130-400); RDW Coefficient of Variation 14.2 % (11.5-14.5); RDW Standard Deviation 45.7 fL (36.4-46.3); Red Blood Count 4.12 M/uL (4.2-5.4); White Blood Count 9.48 K/uL (4.8-10.8)
[2021-03-20] MEDS ORDERED: ASPIRIN CHEW 324 MG PO STA (20:26)
[2021-03-20 21:01] LABS: Magnesium 1.3 mg/dl (1.8-2.4)
--- NOTE | 2021-03-20 21:06 | History & Physical Report ---
Date of Service March 20, 2021 Assessment & Plan (1) Chest pain: Plan: Atypical Possibly musculoskeletal given reproducibility Rule out ACS given minimal troponin elevation hx chronic systolic heart failure (EF 44%, TTE 2020), patient euvolemic PAF on Eliquis, patient NSR hypertension, stable hyperlipidemia on statin Rx rheumatoid arthritis on chronic steroid therapy DM2 on oral medications, well-controlled as of recent hemoglobin A1c of 5.29 November 2020 hypothyroidism, recent outpatient TSH elevated New onset anemia, patient admits to intermittent hemorrhoidal bleed without abdominal pain symptoms OBS PCU Follow troponin Cardiology consult Re: Chest pain, troponin elevation (Patient known to [facility] N.p.o. until seen by cardiology in a.m. ISS BG goal 1 10-1 40 Anemia work-up, transfuse PRBC if hemoglobin less than 8 and or for symptomatic anemia DVT prophylaxis. Eliquis if hemoglobin stable Full code Text document was generated using [employer] voice recognition software. It may contain grammatical or spelling errors. Kindly contact undersigned for clarification of any documentation item in question. History of Present Illness Chief Complaint: Chest pain Primary Care Provider: Reid Main MD History obtained from patient and records. Medical history significant for chronic systolic heart failure (EF 44%, TTE 2020), A. fib on Eliquis, hypertension, hyperlipidemia, rheumatoid arthritis on chronic steroid therapy, DM2 on oral medications, hypothyroidism. Last confinement at [facility] 3 weeks ago for decompensated heart failure attributed to tachyarrhythmia. 2D echo showed EF of 44%. Nondilated cardiac chambers. Mild aortic valve sclerosis, mild mitral regurgitation, mild TR. Indeterminate IVC size and collapsibility. Right atrial pressure estimated at 8 mmHg. Estimated PASP 28 mmHg. 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 Patient discharged on new amiodarone Rx and Toprol XL (to replace patient's Lopressor.) 03/04 Patient seen at the ER for rapid A. fib. 03/07 [facility] follow-up visit. 03/11 Return to ER for rapid A. fib despite compliance with medications. One day history of achy left-sided chest pain with some shortness of breath. No cough, no radiation symptoms. Transient headache symptoms as well. Spontaneous resolution of chest pain upon arrival at the ER. 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 Allergies Allergy/AdvReac Type Severity Reaction Status Date / Time monosodium glutamate Allergy Severe THROAT Verified 03/20/21 20:37 SWELLS bacitracin Allergy Mild RASH Verified 03/20/21 20:37 neomycin Allergy Mild RASH Verified 03/20/21 20:37 polymyxin B Allergy Mild RASH Verified 03/20/21 20:37 Penicillins Allergy Unknown UNKNOWN Verified 03/20/21 20:37 Sulfa (Sulfonamide Allergy Unknown UNKNOWN Verified 03/20/21 20:37 Antibiotics) piroxicam AdvReac Severe SEVERE Verified 03/20/21 20:37 DIARRHEA nitrofurantoin AdvReac Intermediate DIARRHEA Verified 03/20/21 20:37 ciprofloxacin AdvReac Mild N/V Verified 03/20/21 20:37 Home Medications Medication Instructions Recorded Confirmed Type epinephrine 0.3 mg/0.3 mL 0.3 mg IM Q3H PRN 03/25/19 03/21/21 History injection, auto-injector (EpiPen) meloxicam 15 mg tablet 15 mg PO QAM 03/25/19 03/21/21 History vit C 250 mg-vit E 90 mg-zinc 40 1 tab PO BID 03/25/19 03/21/21 History mg-copper 1 [id number] capsule (PreserVision AREDS-2) apixaban 5 mg tablet (Eliquis) 5 mg PO BID #60 tab 03/30/19 03/21/21 Rx prednisone 5 mg tablet 5 mg PO QAM 01/01/20 03/21/21 History duloxetine 60 mg capsule,delayed 60 mg PO QPM 04/22/20 03/21/21 History release (Cymbalta) omeprazole 20 mg capsule,delayed 20 mg PO DAILY 07/18/20 03/21/21 History release multivitamin 1 tab PO DAILY 09/29/20 03/21/21 History levothyroxine 112 mcg tablet 112 mcg PO DAILY #90 tab 12/15/20 03/21/21 Rx atorvastatin 10 mg tablet 10 mg PO QPM 03/04/21 03/21/21 History metoprolol succinate 25 mg 50 mg PO DAILY 03/04/21 03/21/21 History tablet,extended release 24 hr cefdinir 300 mg capsule 300 mg PO BID 03/20/21 03/21/21 History cholecalciferol (vitamin D3) 50 50 mcg PO DAILY 03/20/21 03/21/21 History mcg (2,000 unit) capsule (Vitamin D3) clindamycin HCl 300 mg capsule 300 mg PO DIRECTED PRN 03/20/21 03/21/21 History furosemide 20 mg tablet 20 mg PO DAILY PRN 03/20/21 03/21/21 History metformin 500 mg tablet 500 mg PO BID 03/20/21 03/21/21 History nitroglycerin 0.4 mg sublingual 0.4 mg SUBLINGUAL DIRECTED PRN 03/20/21 03/21/21 History tablet (Nitrostat) Past Med/Surg History Medical History (Updated 03/21/21 @ 11:09 by WILL Becerra) A-fib AND A-FLUTTER, S/P SUCCESSFUL RFA OF PULMONARY VEIN 05/2019; ON ELIQUIS INDEFINITELY PER CARDIO 01/01/20. NO FURTHER CARDIO F/U SCHEDULED. 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 Macular degeneration Osteoarthritis Osteoporosis Paroxysmal atrial fibrillation with rapid ventricular response Paroxysmal atrial flutter Polyarthropathy, inflammatory Prediabetes On metformin BID Shortness of breath SOBOE (shortness of breath on exertion) OUT OF SHAPE Surgical History H/O cardiac radiofrequency ablation 05/2019 AT [facility] History of bilateral tubal ligation History of cardiac cath 7 YEARS AGO (NO STENTS) History of cardioversion X 1 History of cholecystectomy History of colonoscopy History of hysterectomy History of tonsillectomy History of tooth extraction History of total knee replacement LEFT History of total left knee replacement History of total right knee replacement Hx of bilateral breast reduction surgery ALONG WITH REVISION D/T BLEEDING Hx of bladder repair surgery CYSTOCELE REPAIR AND SLING S/P panniculectomy Family History Mother Alzheimer disease Father Coronary heart disease Family history of diabetes mellitus Sister Hypothyroidism Sister Hypothyroidism Other No family history of adverse response to anesthesia Social History Smoking Status: Never smoker Second Hand Exposure: No; Do You Dip or Chew Tobacco: No; Tobacco Cessation Education Requested by Patient: No Hx Alcohol Use: No Hx Substance Use: No Preferred Language: [place] Communication Ability: Effective Government Clerk Required: No Beliefs That Will Affect Care: None marital status: Current Living Situation: Spouse Other Information That Helps Us Care for You: No Feels Safe at Home: Yes Safety Concerns: Feels Safe At This Time Assistive Devices: Glasses Review of Systems Review of Systems: As per HPI, all 10 systems reviewed, all other ROS negative Physical Exam Physical Exam: GENERAL: Comfortable, slightly anxious, pleasant, obese, no respiratory distress SKIN: Pallor, warm HEENT: Bespectacled, pale palpebral conjunctivae, no ptosis, dry buccal mucosa NECK : Supple, no tenderness CHEST : CTA, left-sided chest wall tenderness HEART : RRR, no obvious murmurs ABDOMEN: Some distention, nontender EXTREMITIES : Minimal LE swelling, no LE tenderness, no other conspicuous deformities noted NEUROLOGIC : Coherent, no facial asymmetry, no other gross focality Results & Data Results & Data ([facility]) Vital Signs (Past 12 Hours) Vital Signs Temp Pulse Pulse Resp BP BP Pulse Ox 03/20/21 20:04 64 18 100 03/20/21 20:03 67 61 20 148/85 H 148/85 H 100 03/20/21 16:15 35.9 C L 59 L 20 131/76 97 Laboratory Results Laboratory Results WBC 9.48 K/uL (4.8-10.8) 03/20/21 16:25 RBC 4.12 M/uL (4.2-5.4) L 03/20/21 16:25 Hgb 11.5 g/dL (12.0-16.0) L 03/20/21 16:25 Hct 36.7 % (37-47) L 03/20/21 16:25 MCV 89.1 fL (80-100) 03/20/21 16:25 MCH 27.9 pg (25-34) 03/20/21 16:25 MCHC 31.3 g/dL (32-36) L 03/20/21 16:25 RDW Std Deviation 45.7 fL (36.4-46.3) 03/20/21 16:25 RDW Coeff of Starla 14.2 % (11.5-14.5) 03/20/21 16:25 Plt Count 275 K/uL (130-400) 03/20/21 16:25 MPV 10.5 fL (7.4-10.4) H 03/20/21 16:25 Immature Gran % (Auto) 0.2 % 03/20/21 16:25 Neut % (Auto) 69.1 % 03/20/21 16:25 Lymph % (Auto) 20.1 % 03/20/21 16:25 Vernon % (Auto) 5.2 % 03/20/21 16:25 Eos % (Auto) 4.7 % 03/20/21 16:25 Baso % (Auto) 0.7 % 03/20/21 16:25 Neut # (Auto) 6.54 K/uL (1.4-6.5) H 03/20/21 16:25 Lymph # (Auto) 1.91 K/uL (1.2-3.4) 03/20/21 16:25 Vernon # (Auto) 0.49 K/uL (0.11-0.59) 03/20/21 16:25 Eos # (Auto) 0.45 K/uL (0-0.5) 03/20/21 16:25 Baso # (Auto) 0.07 K/uL (0-0.2) 03/20/21 16:25 Immature Gran # (Auto) 0.02 K/uL (0.00-0.02) 03/20/21 16:25 PT 10.3 Seconds (9.0-12.0) 03/20/21 16:25 INR 1.0 (0.9-1.1) 03/20/21 16:25 APTT 24.5 Seconds (21.0-31.0) 03/20/21 16:25 PTT Ratio 0.9 03/20/21 16:25 Sodium 141 mmol/L (136-145) 03/20/21 16:25 Potassium 4.6 mmol/L (3.5-5.1) 03/20/21 16:25 Chloride 109 mmol/L (98-107) H 03/20/21 16:25 Carbon Dioxide 27 mmol/L (21-32) 03/20/21 16:25 Anion Gap 4.0 (3-11) 03/20/21 16:25 BUN 24 mg/dl (7-18) H 03/20/21 16:25 Creatinine 1.03 mg/dl (0.6-1.2) 03/20/21 16:25 Est Cr Clr Drug Dosing 48.7 ml/min 03/20/21 16:25 Est GFR ( Amer) 64.2 ml/min 03/20/21 16:25 Est GFR (Non-Af Amer) 55.4 ml/min 03/20/21 16:25 BUN/Creatinine Ratio 22.9 (10-20) H 03/20/21 16:25 Glucose 93 mg/dl (70-99) 03/20/21 16:25 Calcium 9.4 mg/dl (8.5-10.1) 03/20/21 16:25 Magnesium 1.3 mg/dl (1.8-2.4) L 03/20/21 16:25 Total Bilirubin 0.5 mg/dl (0.2-1) 03/20/21 16:25 AST 12 U/L (15-37) L 03/20/21 16:25 ALT 22 U/L (12-78) 03/20/21 16:25 Alkaline Phosphatase 87 U/L (45-117) 03/20/21 16:25 Troponin I < 0.015 ng/ml (0-0.045) 03/20/21 16:25 Total Protein 6.3 gm/dl (6.4-8.2) L 03/20/21 16:25 Albumin 3.5 gm/dl (3.4-5.0) 03/20/21 16:25 Globulin 2.8 gm/dl (2.5-4.0) 03/20/21 16:25 Albumin/Globulin Ratio 1.3 (0.9-2) 03/20/21 16:25 Lipase 402 U/L (73-393) H 03/20/21 16:25 Impressions Chest X-Ray 03/20/21 16:20 XR chest 1V portable HISTORY: Atypical Chest Pain COMPARISON: Chest 03/11/2021. FINDINGS: No pneumothorax. No pleural effusions. The cardiac silhouette remains overlying enlarged. No new focal lung consolidations to suggest pneumonia. No evidence for pulmonary edema. Degenerative changes again noted within the bilateral shoulders, right greater than left. IMPRESSION: No significant change compared to the prior study. No acute process. ACT 112: Negative or not required by law. Electronically signed by: Tariq Azul M.D. 03/20/2021 5:[address] head initial read: No ICH, mass effect or edema. No evidence of acute cortical stroke. Visualized sinuses and mastoid air cells are clear CT chest initial read: Normal cardiac size with coronaryarterycalcifications. Unremarkable mediastinum. Minimal subpleural scarring versus atelectasis involving the right paraspinal region likelyrelated to a adjacent masseffect fromspine spurring. Otherwise normal lung parenchymawith no acute cardiopulmonary process. No pneumothorax or pleural effusion. No focal mass or inflammatoryprocess involving the left anterior chest wall. Upper abdomen reveals a small lymph versus just belowthe dome of the right hemidiaphragm measuring 7.3 mm. Remainder of the liver is unremarkable. Minimal hiatal hernia. Status post cholecystectomy. Remainder of the upper abdominal structures are unremarkable. Degenerative disease of the spine. No acute fracture or subluxation. EKG as per my interpretation rate 65, NSR, normal axis, T wave abnormality septal leads
[2021-03-20 21:39] LABS: Hematocrit (blood only) 35.2 % (37-47); Hemoglobin 11.2 g/dL (12.0-16.0); Reticulocyte % 0.9 % (0.5-2.0); Reticulocytes # 0.04 10^6/uL (0.02-0.10)
--- NOTE | 2021-03-20 22:02 | Emergency Department Note ---
History of Present Illness General Chief Complaint: Chest Pain Stated Complaint: CHEST PAIN, HEADACHE Time Seen by Provider: 03/20/21 20:05 History of Present Illness Provider Complaint: chest pain Onset (ago): day(s) 1 Duration: constant Onset: during rest Pain Location: left chest Pain Radiation: none Severity: moderate Maximum Pain Intensity: 5 Current Pain Intensity: 2 Quality: + sharp Relieved By: + nothing Exacerbated By: + nothing Context: no recent illness, no recent surgery, no recent immobilization, no recent travel, no trauma/injury, no new medications or no history of DVT/PE Associated symptoms: + dyspnea; no nausea, no vomiting, no diaphoresis, no sense of impending doom, no syncope, no palpitations, no fever, no cough or no leg swelling Home Medications Medication Instructions Recorded Confirmed Type epinephrine 0.3 mg/0.3 mL 0.3 mg IM Q3H PRN 03/25/19 03/20/21 History injection, auto-injector (EpiPen) meloxicam 15 mg tablet 15 mg PO QAM 03/25/19 03/20/21 History vit C 250 mg-vit E 90 mg-zinc 40 1 tab PO BID 03/25/19 03/20/21 History mg-copper 1 [id number] capsule (PreserVision AREDS-2) apixaban 5 mg tablet (Eliquis) 5 mg PO BID #60 tab 03/30/19 03/20/21 Rx prednisone 5 mg tablet 5 mg PO QAM 01/01/20 03/20/21 History duloxetine 60 mg capsule,delayed 60 mg PO QPM 04/22/20 03/20/21 History release (Cymbalta) omeprazole 20 mg capsule,delayed 20 mg PO DAILY 07/18/20 03/20/21 History release multivitamin 1 tab PO DAILY 09/29/20 03/20/21 History levothyroxine 112 mcg tablet 112 mcg PO DAILY #90 tab 12/15/20 03/20/21 Rx atorvastatin 10 mg tablet 10 mg PO QPM 03/04/21 03/20/21 History metoprolol succinate 25 mg 50 mg PO DAILY 03/04/21 03/20/21 History tablet,extended release 24 hr cefdinir 300 mg capsule 300 mg PO BID 03/20/21 03/20/21 History cholecalciferol (vitamin D3) 50 50 mcg PO DAILY 03/20/21 03/20/21 History mcg (2,000 unit) capsule (Vitamin D3) clindamycin HCl 300 mg capsule 300 mg PO DIRECTED PRN 03/20/21 03/20/21 History furosemide 20 mg tablet 20 mg PO DAILY PRN 03/20/21 03/20/21 History metformin 500 mg tablet 500 mg PO BID 03/20/21 03/20/21 History nitroglycerin 0.4 mg sublingual 0.4 mg SUBLINGUAL DIRECTED PRN 03/20/21 03/20/21 History tablet (Nitrostat) Allergies Allergy/AdvReac Type Severity Reaction Status Date / Time monosodium glutamate Allergy Severe THROAT Verified 03/20/21 20:37 SWELLS bacitracin Allergy Mild RASH Verified 03/20/21 20:37 neomycin Allergy Mild RASH Verified 03/20/21 20:37 polymyxin B Allergy Mild RASH Verified 03/20/21 20:37 Penicillins Allergy Unknown UNKNOWN Verified 03/20/21 20:37 Sulfa (Sulfonamide Allergy Unknown UNKNOWN Verified 03/20/21 20:37 Antibiotics) piroxicam AdvReac Severe SEVERE Verified 03/20/21 20:37 DIARRHEA nitrofurantoin AdvReac Intermediate DIARRHEA Verified 03/20/21 20:37 ciprofloxacin AdvReac Mild N/V Verified 03/20/21 20:37 Past Med/Surg History Medical History A-fib AND A-FLUTTER, S/P SUCCESSFUL RFA OF PULMONARY VEIN 05/2019; ON ELIQUIS INDEFINITELY PER CARDIO 01/01/20. NO FURTHER CARDIO F/U SCHEDULED. Anticoagulant long-term use Depression Fibromyalgia GERD (gastroesophageal reflux disease) Hypertension Jaw clicking Macular degeneration Osteoarthritis Paroxysmal atrial fibrillation with rapid ventricular response Paroxysmal atrial flutter Prediabetes On metformin BID Shortness of breath SOBOE (shortness of breath on exertion) OUT OF SHAPE Surgical History H/O cardiac radiofrequency ablation 05/2019 AT [facility] History of bilateral tubal ligation History of cardiac cath 7 YEARS AGO (NO STENTS) History of cardioversion X 1 History of cholecystectomy History of colonoscopy History of hysterectomy History of tonsillectomy History of tooth extraction History of total knee replacement LEFT History of total left knee replacement History of total right knee replacement Hx of bilateral breast reduction surgery ALONG WITH REVISION D/T BLEEDING Hx of bladder repair surgery CYSTOCELE REPAIR AND SLING S/P panniculectomy Family History Mother Alzheimer disease Father Coronary heart disease Family history of diabetes mellitus Sister Hypothyroidism Sister Hypothyroidism Other No family history of adverse response to anesthesia Social History Smoking Status: Never smoker Second Hand Exposure: Yes (FATHER SMOKED); Hx Alcohol Use: No Hx Substance Use: No Preferred Language: Tongan Communication Ability: Effective Director It Required: No Beliefs That Will Affect Care: None marital status: Current Living Situation: Spouse Feels Safe at Home: Yes Assistive Devices: Walker Review of Systems A total of 10 systems reviewed and were otherwise negative Physical Exam Vital Signs Vital Signs - 24 hr 03/20/21 16:15 03/20/21 20:03 03/20/21 20:04 Temperature 35.9 C L Temperature Source Temporal Artery Scan Pulse Rate 59 L 67 64 Pulse Rate [Finger] 61 Pulse Rate from SpO2 Sensor 62 Pulse Rhythm Regular Respiratory Rate 20 20 18 Respiratory Effort / Characteristics Non-Labored Spontaneous Non-Labored Spontaneous Respiratory Depth Normal Normal Respiratory Pattern Regular Blood Pressure 131/76 148/85 H Blood Pressure [Right Arm] 148/85 H Blood Pressure Mean 94 106 Blood Pressure Mean [Right Arm] 106 Blood Pressure Position Sitting Pulse Oximetry 97 100 100 Oxygen Delivery Method Room Air Room Air Room Air Sepsis Recent Fever Within 48 Hours No Sepsis New/Unexplained Change in Mental Status No Sepsis Action Taken by Nursing No Action Required 03/20/21 20:30 03/20/21 21:01 Temperature Temperature Source Pulse Rate 60 67 Pulse Rate [Finger] Pulse Rate from SpO2 Sensor 103 H 68 Pulse Rhythm Respiratory Rate 16 19 Respiratory Effort / Characteristics Respiratory Depth Respiratory Pattern Blood Pressure 149/88 H 168/78 H Blood Pressure [Right Arm] Blood Pressure Mean 108 108 Blood Pressure Mean [Right Arm] Blood Pressure Position Pulse Oximetry 99 96 Oxygen Delivery Method Sepsis Recent Fever Within 48 Hours Sepsis New/Unexplained Change in Mental Status Sepsis Action Taken by Nursing Physical Exam GENERAL: She is oriented to person, place, and time. She appears well-developed and well-nourished. She does not appear distressed. HENT: Exam performed. -Head: Normocephalic and atraumatic. -Right Ear: External ear normal. No mastoid tenderness. -Left Ear: External ear normal. No mastoid tenderness. -Mouth/Throat: The oropharynx is clear and moist. No trismus in the jaw. No dental abscesses or uvula swelling. No oropharyngeal exudate or tonsillar abscesses. EYES: Conjunctivae and EOM are normal. Pupils are equal, round, and reactive to light. Right eye exhibits no discharge. Left eye exhibits no discharge. No scleral icterus. NECK: Normal range of motion. Neck supple. No JVD present. No spinous process tenderness present. No carotid bruit present. No rigidity. No tracheal deviation and normal range of motion present. No Brudzinski's sign and no Kernig's sign noted. CV: Normal rate, regular rhythm, normal heart sounds and intact distal pulses. There is no peripheral edema. Palpable radial pulses bue. PULM/CHEST: Effort normal and breath sounds normal. No respiratory distress. No stridor. She has no wheezes. She has no rales. -Chest Wall: She exhibits no tenderness. ABD: The abdomen is soft. Bowel sounds are normal. She has no distension. No mass is present. There is no tenderness. There is no rebound, no guarding, no Hall's sign and no tenderness at McBurney's point. Rovsig negative MUSC/SKEL: Normal range of motion. There is no peripheral edema, tenderness or deformity. LYMPH: No cervical adenopathy. NEURO: She is alert and oriented to person, place, and time. She has normal strength. No cranial nerve deficit or sensory deficit. Coordination and gait normal. GCS eye subscore is 4. GCS verbal subscore is 5. GCS motor subscore is 6. Cerebellar tests wnl. SKIN: Skin is warm and dry. She is not diaphoretic. PSYCH: She has a normal mood and affect. Behavior is normal. Judgment and thought content normal. Course Course 2004: The patient was evaluated in room B12. A complete history and physical exam was performed Cardiac monitoring: An order was placed for continuous cardiac monitoring. The monitor shows a rate of 60 with sinus rhythm Patient was seen during a time of extreme volume and extreme acuity during the COVID-19 pandemic. Nursing triage protocols were initiated and labs were drawn by protocol in the triage area. EMR reviewed. This is the patient's third visit for cardiac complaints this month. Labs and imaging within normal limits. [facility] evaluation rule out ACS. Administered Medications Discontinued Medications Aspirin (Aspirin Chew 324 Mg) 324 mg PO NOW STA Stop: 03/20/21 20:27 Last Admin: 03/20/21 20:34 Dose: 324 mg Documented by: [id number] Medical Decision Making Laboratory Data Result diagrams: 03/20/21 21:22 03/20/21 16:25 Labs: Lab Results 03/20/21 03/20/21 03/20/21 Range/Units 16:25 16:25 16:25 WBC 9.48 (4.8-10.8) K/uL RBC 4.12 L (4.2-5.4) M/uL Hgb 11.5 L (12.0-16.0) g/dL Hct 36.7 L (37-47) % MCV 89.1 (80-100) fL MCH 27.9 (25-34) pg MCHC 31.3 L (32-36) g/dL RDW Std Deviation 45.7 (36.4-46.3) fL RDW Coeff of Starla 14.2 (11.5-14.5) % Plt Count 275 (130-400) K/uL MPV 10.5 H (7.4-10.4) fL Immature Gran % (Auto) 0.2 % Neut % (Auto) 69.1 % Lymph % (Auto) 20.1 % Towner % (Auto) 5.2 % Eos % (Auto) 4.7 % Baso % (Auto) 0.7 % Reticulocyte % (Auto) (0.5-2.0) % Neut # (Auto) 6.54 H (1.4-6.5) K/uL Lymph # (Auto) 1.91 (1.2-3.4) K/uL Towner # (Auto) 0.49 (0.11-0.59) K/uL Eos # (Auto) 0.45 (0-0.5) K/uL Baso # (Auto) 0.07 (0-0.2) K/uL Reticulocyte # (0.02-0.10) 10^6/uL Immature Gran # (Auto) 0.02 (0.00-0.02) K/uL PT 10.3 (9.0-12.0) Seconds INR 1.0 (0.9-1.1) APTT 24.5 (21.0-31.0) Seconds PTT Ratio 0.9 Sodium 141 (136-145) mmol/L Potassium 4.6 (3.5-5.1) mmol/L Chloride 109 H (98-107) mmol/L Carbon Dioxide 27 (21-32) mmol/L Anion Gap 4.0 (3-11) BUN 24 H (7-18) mg/dl Creatinine 1.03 (0.6-1.2) mg/dl Est Cr Clr Drug Dosing 48.7 ml/min Est GFR ( Amer) 64.2 ml/min Est GFR (Non-Af Amer) 55.4 ml/min BUN/Creatinine Ratio 22.9 H (10-20) Glucose 93 (70-99) mg/dl Calcium 9.4 (8.5-10.1) mg/dl Magnesium (1.8-2.4) mg/dl Total Bilirubin 0.5 (0.2-1) mg/dl AST 12 L (15-37) U/L ALT 22 (12-78) U/L Alkaline Phosphatase 87 (45-117) U/L Troponin I < 0.015 (0-0.045) ng/ml Total Protein 6.3 L (6.4-8.2) gm/dl Albumin 3.5 (3.4-5.0) gm/dl Globulin 2.8 (2.5-4.0) gm/dl Albumin/Globulin Ratio 1.3 (0.9-2) Lipase (73-393) U/L COVID-19 Eval Order 03/20/21 03/20/21 03/20/21 Range/Units 16:25 21:07 21:22 WBC (4.8-10.8) K/uL RBC (4.2-5.4) M/uL Hgb 11.2 L (12.0-16.0) g/dL Hct 35.2 L (37-47) % MCV (80-100) fL MCH (25-34) pg MCHC (32-36) g/dL RDW Std Deviation (36.4-46.3) fL RDW Coeff of Starla (11.5-14.5) % Plt Count (130-400) K/uL MPV (7.4-10.4) fL Immature Gran % (Auto) % Neut % (Auto) % Lymph % (Auto) % Towner % (Auto) % Eos % (Auto) % Baso % (Auto) % Reticulocyte % (Auto) 0.9 (0.5-2.0) % Neut # (Auto) (1.4-6.5) K/uL Lymph # (Auto) (1.2-3.4) K/uL Towner # (Auto) (0.11-0.59) K/uL Eos # (Auto) (0-0.5) K/uL Baso # (Auto) (0-0.2) K/uL Reticulocyte # 0.04 (0.02-0.10) 10^6/uL Immature Gran # (Auto) (0.00-0.02) K/uL PT (9.0-12.0) Seconds INR (0.9-1.1) APTT (21.0-31.0) Seconds PTT Ratio Sodium (136-145) mmol/L Potassium (3.5-5.1) mmol/L Chloride (98-107) mmol/L Carbon Dioxide (21-32) mmol/L Anion Gap (3-11) BUN (7-18) mg/dl Creatinine (0.6-1.2) mg/dl Est Cr Clr Drug Dosing ml/min Est GFR ( Amer) ml/min Est GFR (Non-Af Amer) ml/min BUN/Creatinine Ratio (10-20) Glucose (70-99) mg/dl Calcium (8.5-10.1) mg/dl Magnesium 1.3 L (1.8-2.4) mg/dl Total Bilirubin (0.2-1) mg/dl AST (15-37) U/L ALT (12-78) U/L Alkaline Phosphatase (45-117) U/L Troponin I (0-0.045) ng/ml Total Protein (6.4-8.2) gm/dl Albumin (3.4-5.0) gm/dl Globulin (2.5-4.0) gm/dl Albumin/Globulin Ratio (0.9-2) Lipase 402 H (73-393) U/L COVID-19 Eval Order Covid19 at [facility] Imaging Data Chest x-ray: Radiologist's impression: Chest X-Ray 03/20/21 16:20 XR chest 1V portable HISTORY: Atypical Chest Pain COMPARISON: Chest 03/11/2021. FINDINGS: No pneumothorax. No pleural effusions. The cardiac silhouette remains overlying enlarged. No new focal lung consolidations to suggest pneumonia. No evidence for pulmonary edema. Degenerative changes again noted within the bilateral shoulders, right greater than left. IMPRESSION: No significant change compared to the prior study. No acute process. ACT 112: Negative or not required by law. Electronically signed by: Tariq Azul M.D. 03/20/2021 5:26 PM ECG Data Indication: chest pain Rate (beats per minute): 64 Rhythm: normal sinus Findings: no ST depression, no ST elevation or no prolonged QT Additional Comments: QRS 76 MDM Narrative 2005: The patient was evaluated in room B12. A complete history and physical exam was performed Cardiac monitoring: An order was placed for continuous cardiac monitoring. The monitor shows a rate of 60 with sinus rhythm Patient was seen during a time of extreme volume and extreme acuity during the COVID-19 pandemic. Nursing triage protocols were initiated and labs were drawn by protocol in the triage area. EMR reviewed. This is the patient's third visit for cardiac complaints this month. Labs and imaging within normal limits. Patient will be admitted to the [facility] hospitalist team for further cardiology evaluation rule out ACS. Impression & Plan Chest pain Discharge Plan Visit Data Chief Complaint: Chest Pain Stated Complaint: CHEST PAIN, HEADACHE Discharge Problem: Chest pain Patient Disposition: Being Evaluated by Hospitalist Forms Stand Alone Forms: [facility] Prescriptions Prescriptions: No Action levothyroxine 112 mcg tablet 112 mcg PO DAILY Qty: 90 RF: 3 multivitamin Tablet 1 tab PO DAILY RF: 0 prednisone 5 mg tablet 5 mg PO QAM RF: 0 meloxicam 15 mg tablet 15 mg PO QAM RF: 0 epinephrine [EpiPen] 0.3 mg/0.3 mL Auto-Injector 0.3 mg IM Q3H PRN (Reason: Allergic Reaction) RF: 0 PreserVision AREDS-2 [id number] Capsule 1 tab PO BID RF: 0 Eliquis 5 mg Tablet 5 mg PO BID Qty: 60 RF: 2 omeprazole 20 mg capsule,delayed release(DR/EC) 20 mg PO DAILY RF: 0 duloxetine [Cymbalta] 60 mg Capsule,Delayed Release(Dr/Ec) 60 mg PO QPM RF: 0 atorvastatin 10 mg tablet 10 mg PO QPM RF: 0 metoprolol succinate 25 mg Tablet Extended Release 24 Hr 50 mg PO DAILY RF: 0 metformin 500 mg tablet 500 mg PO BID RF: 0 nitroglycerin [Nitrostat] 0.4 mg Tablet, Sublingual 0.4 mg sublingual DIRECTED PRN (Reason: Chest Pain) RF: 0 furosemide 20 mg tablet 20 mg PO DAILY PRN (Reason: EDEMA/WT GAIN >3#) RF: 0 cefdinir 300 mg capsule 300 mg PO BID RF: 0 cholecalciferol (vitamin D3) [Vitamin D3] 50 mcg (2,000 unit) Capsule 50 mcg PO DAILY RF: 0 clindamycin HCl 300 mg capsule 300 mg PO DIRECTED PRN (Reason: PRIOR TO DENTAL APPOINTMENT) RF: 0 Referrals Referrals: Reid Main MD [Primary Care Provider] -
[2021-03-20 22:09] LABS: Ferritin 24.6 ng/ml (8-388); Iron 78 mcg/dl (35-150); Total Iron Binding Capacity 289 mcg/dl (250-450); Transferrin 247 mg/dl (200-360); Troponin I < 0.015 ng/ml (0-0.045)
[2021-03-20 22:31] LABS: Folate (Folic Acid) 18.5 ng/ml (>5.38)
[2021-03-20] MEDS ORDERED: MoRPHine SULFATE 4 MG/ML 1 ML CARP\\VIAL IV PRN (22:59)
[2021-03-20] MEDS ORDERED: NITROGLYCERIN SL 0.4 MG/TAB TAB SL PRN ×2 (22:59)
[2021-03-20] MEDS ORDERED: traMADol HCL 50 MG TABLET PO PRN (22:59)
[2021-03-20] MEDS ORDERED: LORazepam 0.5 MG/1 ML VIAL IV PRN (22:59)
[2021-03-20] MEDS ORDERED: ACETAMINOPHEN 325 MG TAB PO PRN (22:59)
[2021-03-20] MEDS ORDERED: PROMETHAZINE HCL 12.5 MG in SODIUM CHLORIDE 0.9% 50 ML IV PRN (22:59)
[2021-03-21] MEDS ORDERED: SODIUM CHLORIDE 0.45 % 1,000 ML IV SCH
[2021-03-21 00:53] LABS: Lyme Ab IgG w/WB Rflx Negative (Negative)
[2021-03-21 01:04] LABS: Lyme Ab IgM w/WB Rflx Negative (Negative)
[2021-03-21] MEDS: APIXABAN 5 MG TABLET PO SCH ×3 (01:59→20:37)
[2021-03-21 05:40] LABS: Basophils # (auto) 0.08 K/uL (0-0.2); Basophils % (auto) 0.9 %; Eosinophils # (auto) 0.67 K/uL (0-0.5); Eosinophils % (auto) 7.2 %; Hematocrit (blood only) 34.2 % (37-47); Hemoglobin 10.7 g/dL (12.0-16.0); Immature Granulocytes # (auto) 0.03 K/uL (0.00-0.02); Immature Granulocytes % (auto) 0.3 %; Lymphocytes # (auto) 3.14 K/uL (1.2-3.4); Lymphocytes % (auto) 33.8 %; Mean Corpuscular Hemoglobin 28.5 pg (25-34); Mean Corpuscular Hgb Conc 31.3 g/dL (32-36); Mean Platelet Volume 9.9 fL (7.4-10.4); Monocytes # (auto) 0.74 K/uL (0.11-0.59); Neutrophils # (auto) 4.64 K/uL (1.4-6.5); Neutrophils % (auto) 49.8 %; Platelet Count 244 K/uL (130-400); RDW Coefficient of Variation 14.2 % (11.5-14.5); RDW Standard Deviation 46.7 fL (36.4-46.3); Red Blood Count 3.76 M/uL (4.2-5.4)
[2021-03-21] MEDS: LEVOTHYROXINE SODIUM 112 MCG TABLET PO SCH (06:02)
[2021-03-21 06:10] LABS: BUN Creatinine Ratio 24.5 (10-20); Calcium 8.8 mg/dl (8.5-10.1); Creatinine Clr Calc Pharmacy 56.7 ml/min; Est GFR (African American) 76.6 ml/min; Est GFR (Non-African American) 66.1 ml/min; Potassium 4.3 mmol/L (3.5-5.1)
[2021-03-21] MEDS ORDERED: MAGNESIUM SULFATE / D5W 1 GM/100 ML BAG IV ONE ×2 (06:45→08:19)
[2021-03-21] MEDS: METOPROLOL SUCC 50MG EXT REL TAB PO SCH ×2 (06:51→08:54)
--- NOTE | 2021-03-21 08:06 | CT Scan Report ---
CT head/brain wo con CLINICAL HISTORY: melgoza COMPARISON STUDY: No previous studies for comparison. TECHNIQUE: Axial CT of the brain is performed from the vertex to the skull base. IV contrast was not administered for this examination. A dose lowering technique was utilized adhering to the principles of ALARA. CT DOSE: 638.56 mGycm FINDINGS: No intra or extra-axial mass lesions are visualized. There is no CT evidence of acute cortical infarc tion. There is no evidence of midline shift. There is no acute hemorrhage. There is questionable focal area of decreased attenuation is seen within subcortical white matter at the left frontal lobe which could also represent sulcal prominence on this 5 mm axial image. No acute depressed calvarial fractures are visualized. There is no evidence of pathologic ventricular dilatation. There is no evidence of acute sinusitis IMPRESSION: No acute intracranial hemorrhage, no midline shift or space occupying lesions. ACT 112: Negative or not required by law. The above report was generated using voice recognition software. It may contain grammatical, syntax o r spelling errors. Electronically signed by: Chanel Cowan DO 03/21/2021 8:05 AM
[2021-03-21] MEDS ORDERED: GLUCOSE 40% GEL 15 GM TUBE PO PRN (08:24)
[2021-03-21] MEDS ORDERED: DEXTROSE 50% 50 ML SYRINGE IV PRN (08:24)
[2021-03-21] MEDS ORDERED: GLUCOSE 10 TABS/TUBE PO PRN (08:24)
[2021-03-21] MEDS ORDERED: GLUCAGON FOR INJ 1 MG VIAL SQ PRN (08:24)
[2021-03-21] MEDS ORDERED: CARBOHYDRATES FOR HYPOGLYCEMIA PO PRN (08:24)
--- NOTE | 2021-03-21 08:42 | CT Scan Report ---
CT chest diagnostic wo con INDICATION: MN ^L chest wall pain, anemia ro hematoma. TECHNIQUE: Multidetector row helical CT of the chest was performed. Coronal and sagittal reformations were obtained. Automated dose lowering techniques and/or adjustment according to patient size were u tilized for this exam. Comparison: None available at the time of this dictation. FINDINGS: Lungs and pleura: Normal. Heart and pericardium: Cardiomegaly is seen with biatrial enlargement. Vessels: Moderate atherosclerotic changes in the aorta and coronary arteries. Mediastinum and heath: Unremarkable. Chest wall and lower neck: Unremarkable. Abdomen: Patient is status post cholecystectomy. There is a small hiatal hernia. Partial visualizatio n of a subcentimeter hypodensity in the dome of the liver which is too small to characterize. Bones: Degenerative changes in the thoracic spine. IMPRESSION: 1. No acute abnormality and in particular no evidence of hematoma. 2. Cardiomegaly. ACT 112: Negative or not required by law. Electronically signed by: Bakari Garber M.D. 03/21/2021 8:41 AM
[2021-03-21] MEDS: CEROVITE ADV FORMULA TAB PO SCH (08:54)
[2021-03-21] MEDS: predniSONE 5 MG TAB PO SCH (08:55)
[2021-03-21] MEDS: PANTOprazole 40 MG TAB PO SCH (08:55)
[2021-03-21] MEDS ORDERED: METOPROLOL SUCC 50MG EXT REL TAB PO SCH (09:00)
[2021-03-21] MEDS ORDERED: MULTIVITAMIN TAB PO SCH (09:00)
--- NOTE | 2021-03-21 10:44 | Hospitalist Progress Note ---
Date of Service March 21, 2021 Assessment & Plan (1) Chest pain: Plan: -Patient presenting from home with reports of left-sided chest pain that began yesterday morning after waking up, pain has resolved and no further issues since arriving to the hospital -Pain reproducible on exam, likely musculoskeletal in nature -Troponin negative x3 -Atrial fibrillation management as below (2) Atrial fibrillation with rapid ventricular response: Plan: -Patient with longstanding history of paroxysmal atrial fibrillation s/p prior ablation and cardioversion -Admitted to [facility] 02/27 through 03/01 for acute on chronic HFrEF, newly found EF 44%, A. fib with RVR. Patient started on amiodarone therapy and metoprolol tartrate switched to metoprolol succinate. Patient seen in the ED on 03/04 and again found to be in A. fib with RVR. She was hypohypomagnesemic. Patient was given metoprolol 5 mg IV x 2 doses and magnesium replacement with improvement in heart rate and symptoms. Patient was also instructed to increase metoprolol succinate 25 mg daily to 50 mg daily. Patient was seen in follow-up by cardiology on 03/07 and was instructed to remain on the amiodarone 200 mg TID for a total of 3 weeks then reduce to 200 mg daily and to also remain on metoprolol succinate 50 mg daily. Patient presented to the ED on 03/11 and again was in A. fib with RVR with hypomagnesemia. Again patient received IV metoprolol and IV magnesium with improvement in heart rate and symptoms. Patient reports that since starting the amiodarone, she has been very nauseous and self stopped this medication on 03/15. Patient seen by PCP on 03/17 and prescribed a course of cefdinir for possible bronchitis. -No infectious symptoms at this time, will not continue cefdinir. -On admission, patient was in NSR however this morning at 6:30 AM, she went into A. fib with RVR with rates in the low 100s -MG +1.5, being replaced. K+ 4.3 -Continue metoprolol succinate 50 mg daily -Continue Eliquis -Cardiology consult (patient known to [facility]) -Dr. Ragland notified (3) Hypomagnesemia: Plan: -MG +1.5 -Replace, follow -Ensure normal electrolytes due to underlying paroxysmal A. fib (4) Anemia: Plan: -Hgb 14.4 03/11 -> 11.5 -> 11.2 -> 10.7 -No obvious signs of bleeding at this time, Hgb remaining stable therefore will continue Eliquis -May be multifactorial: has received some IVF during recent ED visits so may be dilutional component also patient reports some mild hemorrhoidal bleeding -Anemia labs unremarkable -Hold meloxicam -Likely needs outpatient GI evaluation (5) Chronic HFrEF (heart failure with reduced ejection fraction): Plan: -Echo 02/28/2021-EF 44%, mild mitral regurgitation, mild tricuspid regurgitation -Newly reduced EF likely tachycardia induced -Utilizes Lasix on a as needed basis, appears euvolemic at this time (6) Hypothyroidism: Plan: -TSH of 15.5, free T4 2.0 on 03/16 -Follows with Dr. Low -will notify (7) DM type 2 (diabetes mellitus, type 2): Plan: -Hgb A1c 5.8 11/2020 -Hold oral agents, utilize NovoLog per protocol while hospitalized (8) Osteoarthritis: Plan: -on prednisone 5 mg daily, continue -Hold meloxicam due to anemia (9) DVT prophylaxis: Plan: -On Eliquis Admission and Anticipated Discharge Date Admission Date: March 20, 2021 Supervising Physician Co-Signing Physician Notes Patient is seen and examined at bedside. States feeling much better this morning. Denies any chest pain, shortness of air, dizziness, nausea, abdominal pain. In A. fib RVR on monitor this morning. On exam patient is moderately built and nourished, no apparent distress, normocephalic atraumatic, EOMI, normal breath sounds, clear to auscultation, irregularly irregular rhythm, tachycardic, no murmur, trace pedal edema, abdomen soft, nontender, normal bowel sounds, alert, awake, oriented, grossly no focal deficits. A. fib RVR Hypomagnesemia H/O ablation H/O Amiodarone Intolerance Failed Sotalol, Tikosyn Appreciate cardiology input Replace electrolytes as needed On Eliquis for anticoagulation Continue metoprolol Started on Multaq May need repeat Ablation Needs follow up with Cardiology upon discharge I personally reviewed the record. Patient is interviewed and examined at bedside. Patient's care is coordinated with Марина Moore THREAD MARKER. Please refer to the documentation above for details of patient's presentation and for discussion of other issues. Subjective Patient seen and examined. Resting in bed, no acute distress. Reports no further episodes of chest pain. Went into A. fib RVR this morning around 630. Patient asymptomatic. Denies shortness of breath. No lightheadedness or dizziness. Denies abdominal pain or nausea. Review of Systems Review of Systems: All systems reviewed & are unremarkable except as noted in Subjective Physical Exam Constitutional: WD/WN, vitals as above Respiratory: normal respiratory effort, lungs clear to auscultation Cardiovascular: Rate/Rhythm: + tachycardic and + irregularly irregular Vessels: normal peripheral pulses Extremities: + edema (Trace edema BLE) Gastrointestinal (Abdomen): Inspection/Auscultation: normal bowel sounds Percussion/Palpation: abdomen soft; abdomen nontender Skin: no rashes, warm and dry Neurologic: no focal motor deficits Psychiatric: A+Ox3, euthymic affect Results & Data Results & Data ([facility]) Vital Signs (Past 12 Hours) Vital Signs Temp Pulse Pulse Resp BP Pulse Ox Pulse Ox 03/21/21 07:30 36.7 C 112 H 19 101/74 97 03/21/21 06:43 124/88 03/21/21 03:27 36.8 C 63 18 102/60 99 03/21/21 01:02 62 03/20/21 23:26 99 03/20/21 23:00 36.6 C 61 20 138/85 99 Laboratory Results Short CBC 03/20/21 03/20/21 03/21/21 Range/Units 16:25 21:22 05:25 WBC 9.48 9.30 (4.8-10.8) K/uL Hgb 11.5 L 11.2 L 10.7 L (12.0-16.0) g/dL Hct 36.7 L 35.2 L 34.2 L (37-47) % Plt Count 275 244 (130-400) K/uL BMP 03/20/21 03/21/21 16:25 05:25 Sodium 141 142 Potassium 4.6 4.3 Chloride 109 H 109 H Carbon Dioxide 27 30 BUN 24 H 22 H Creatinine 1.03 0.89 Glucose 93 79 Calcium 9.4 8.8 Cardiac Enzymes 03/20/21 03/20/21 03/21/21 Range/Units 16:25 21:22 05:25 Troponin I < 0.015 < 0.015 < 0.015 (0-0.045) ng/ml Liver Function 03/20/21 Range/Units 16:25 Total Bilirubin 0.5 (0.2-1) mg/dl AST 12 L (15-37) U/L ALT 22 (12-78) U/L Alkaline Phosphatase 87 (45-117) U/L Albumin 3.5 (3.4-5.0) gm/dl
[2021-03-21] MEDS: INSULIN ASPART 100 UNITS/ML 3 ML PEN SC SCH ×3 (12:19→20:45)
--- NOTE | 2021-03-21 16:08 | Cardiology Consultation ---
Date of Consultation March 21, 2021 Assessment & Plan (1) Chest pain: (2) Paroxysmal atrial fibrillation: (3) Chronic HFrEF (heart failure with reduced ejection fraction): (4) Anticoagulant long-term use: ASSESSMENT/PLAN: 1. Atypical chest pain: Chest pain was persistent throughout the day yesterday for 9-10 hours with negative troponin level x3. Ischemic evaluation not necessary as this pain is not consistent with ischemic heart disease. 2. Paroxysmal atrial fibrillation: She has had prior AFib/flutter ablation in 2019 at [facility]. Continues to have intermittent atrial fibrillation with rapid ventricular response. Feels better in sinus rhythm and therefore will try to maintain sinus rhythm. Discussed with her kiss mixer, Dr. Torres. Will attempt Multaq 400 mg twice daily to see if it offers any benefit. She may require more definitive therapy such as repeat ablation. She has failed Tikosyn and sotalol and did not tolerate amiodarone. Reduce metoprolol succinate to 25 mg daily to avoid bradycardia. May be able to titrate metoprolol succinate in the future. Continue anticoagulation for stroke risk reduction. She reportedly has failed rate control strategy in the past. 3. Chronic heart failure with mid range EF: Her reduced LV systolic function may be due to tachycardia. Had echo earlier this month at [facility]. She appears euvolemic currently. She is not requiring diuretic as an outpatient. Continue low-sodium diet and daily weights at home. 4. Cardiomyopathy: Mildly reduced LV systolic function on 02/28/[address] [facility]. Cardiomyopathy may be tachycardia induced. She continues to have prolonged episodes of AFib with RVR. Continue metoprolol succinate as noted above. Consider PRESTON-inhibitor vs Entresto after medication adjustments for her atrial fibrillation. Can repeat echo as an outpatient. 5. Anticoagulation therapy: Continue anticoagulation for stroke risk reduction. 6. Disposition: Can be discharged today from a cardiology standpoint. If she remains hospitalized, we will continue to follow. Otherwise, follow-up with her primary low vision therapist, Dr. Torres, in the next 1-2 weeks. Patient care communicated with Ms. Moore of the primary hospitalist service. Patient care was also discussed with Dr. Torres. Thank you for allowing me to participate in the care of your patient. Please call for any other questions or concerns. Sincerely, Javier Ragland M.D. History of Present Illness Reason for Consultation: Chest pain Requesting Physician: Nitin Logan MD Attending Physician: Nitin Logan MD History of Present Illness Mrs Quiroz is a very pleasant 70-year-old female with history significant for paroxysmal atrial fibrillation, paroxysmal atrial flutter, s/p afib/flutter ablation (May 2019), mild cardiomyopathy, HF with mid range EF, anticoagulation therapy, hypertension, dyslipidemia, type 2diabetes, rheumatoid arthritis and hypothyroidism. Her primary low vision therapist is Dr. Torres. She has had the following studies/procedures: 1. ASHU 03/20/[address] [facility]: Normal LV size and systolic function. EF 50-54%. Spontaneous echo contrast within the left atrium. No left atrial appendage. Mild MR. Mild TR. No PFO or ASD. 2. Cardioversion 03/20/[address] [facility]. 3. AFib/flutter ablation [facility] May 2019. 4. Echo 02/28/2021 [facility]: Mildly reduced LV systolic function. EF 44%. Mild MR. AFib. She was hospitalized on 03/20/2021 with chest pain, which was felt to be atypical by admitting service. She also developed atrial fibrillation on 03/21/2021 at 6:29 a.m., with rapid ventricular response. She woke up on 03/20/2021 with left-sided chest discomfort that persisted for 9- 10 hours before spontaneously resolving. She described the pain as a toothache type pain. Symptoms were not exacerbated by exertion. She also felt as though she was in atrial fibrillation yesterday throughout the day, although she was in sinus rhythm on presenting ECG. Then this morning, she developed atrial fibrillation that persisted throughout the day until 2:49 p.m. when she spontaneously converted to sinus. She has not had any further chest pain. She denies shortness of breath, syncope, near-syncope, edema, melena, hematochezia, hematuria, or other bleeding. Because of the atrial fibrillation, she called [facility] kiss mixer, Dr. Tobar, who performed her AFib/flutter ablation. As of now, they cannot see her until May. She would like to have further treatment for her atrial fibrillation that she feels better when she is in sinus rhythm. She was hospitalized at [facility] on 02/27/2021 with CHF and required BiPAP. She states that she was discharged within 2 days. She takes Lasix on an as-needed basis and has not required any Lasix since discharge. She has maintained a low- sodium diet and checks her weight on a daily basis. Her weight has been stable. She was placed on amiodarone during her hospital stay there for AFib with RVR but she developed nausea, weakness, and decreased appetite. For this reason, she self discontinued the medication and feels much better off of amiodarone. She has been taking metoprolol succinate 50 mg daily. In the past, she has failed Tikosyn and sotalol for her atrial arrhythmia and now has not tolerated amiodarone. She has a sleep study pending as an outpatient. Review of systems: As above. Review of systems otherwise negative/unremarkable. Social history: She denies tobacco, alcohol abuse. She lives at home with her . They have 1 son and 1 daughter. Multiple grandchildren. Great grandchildren. 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 Family history: Father had CAD status post CABG. Allergies Allergy/AdvReac Type Severity Reaction Status Date / Time monosodium glutamate Allergy Severe THROAT Verified 03/20/21 20:37 SWELLS bacitracin Allergy Mild RASH Verified 03/20/21 20:37 neomycin Allergy Mild RASH Verified 03/20/21 20:37 polymyxin B Allergy Mild RASH Verified 03/20/21 20:37 Penicillins Allergy Unknown UNKNOWN Verified 03/20/21 20:37 Sulfa (Sulfonamide Allergy Unknown UNKNOWN Verified 03/20/21 20:37 Antibiotics) piroxicam AdvReac Severe SEVERE Verified 03/20/21 20:37 DIARRHEA nitrofurantoin AdvReac Intermediate DIARRHEA Verified 03/20/21 20:37 ciprofloxacin AdvReac Mild N/V Verified 03/20/21 20:37 Home Medications Medication Instructions Recorded Confirmed Type epinephrine 0.3 mg/0.3 mL 0.3 mg IM Q3H PRN 03/25/19 03/21/21 History injection, auto-injector (EpiPen) meloxicam 15 mg tablet 15 mg PO QAM 03/25/19 03/21/21 History vit C 250 mg-vit E 90 mg-zinc 40 1 tab PO BID 03/25/19 03/21/21 History mg-copper 1 [id number] capsule (PreserVision AREDS-2) apixaban 5 mg tablet (Eliquis) 5 mg PO BID #60 tab 03/30/19 03/21/21 Rx prednisone 5 mg tablet 5 mg PO QAM 01/01/20 03/21/21 History duloxetine 60 mg capsule,delayed 60 mg PO QPM 04/22/20 03/21/21 History release (Cymbalta) omeprazole 20 mg capsule,delayed 20 mg PO DAILY 07/18/20 03/21/21 History release multivitamin 1 tab PO DAILY 09/29/20 03/21/21 History levothyroxine 112 mcg tablet 112 mcg PO DAILY #90 tab 12/15/20 03/21/21 Rx atorvastatin 10 mg tablet 10 mg PO QPM 03/04/21 03/21/21 History metoprolol succinate 25 mg 50 mg PO DAILY 03/04/21 03/21/21 History tablet,extended release 24 hr cefdinir 300 mg capsule 300 mg PO BID 03/20/21 03/21/21 History cholecalciferol (vitamin D3) 50 50 mcg PO DAILY 03/20/21 03/21/21 History mcg (2,000 unit) capsule (Vitamin D3) clindamycin HCl 300 mg capsule 300 mg PO DIRECTED PRN 03/20/21 03/21/21 History furosemide 20 mg tablet 20 mg PO DAILY PRN 03/20/21 03/21/21 History metformin 500 mg tablet 500 mg PO BID 03/20/21 03/21/21 History nitroglycerin 0.4 mg sublingual 0.4 mg SUBLINGUAL DIRECTED PRN 03/20/21 03/21/21 History tablet (Nitrostat) Patient History Medical History (Updated 03/21/21 @ 16:41 by Orville Ragland MD) A-fib AND A-FLUTTER, S/P SUCCESSFUL RFA OF PULMONARY VEIN 05/2019; ON ELIQUIS INDEFINITELY PER CARDIO 01/01/20. 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 Macular degeneration Osteoarthritis Osteoporosis Paroxysmal atrial fibrillation with rapid ventricular response Paroxysmal atrial flutter Polyarthropathy, inflammatory Prediabetes On metformin BID Shortness of breath SOBOE (shortness of breath on exertion) OUT OF SHAPE Surgical History H/O cardiac radiofrequency ablation 05/2019 AT [facility] History of bilateral tubal ligation History of cardiac cath 7 YEARS AGO (NO STENTS) History of cardioversion X 1 History of cholecystectomy History of colonoscopy History of hysterectomy History of tonsillectomy History of tooth extraction History of total knee replacement LEFT History of total left knee replacement History of total right knee replacement Hx of bilateral breast reduction surgery ALONG WITH REVISION D/T BLEEDING Hx of bladder repair surgery CYSTOCELE REPAIR AND SLING S/P panniculectomy Family History Mother Alzheimer disease Father Coronary heart disease Family history of diabetes mellitus Sister Hypothyroidism Sister Hypothyroidism Other No family history of adverse response to anesthesia Social History Smoking Status: Never smoker Second Hand Exposure: No; Do You Dip or Chew Tobacco: No; Tobacco Cessation Education Requested by Patient: No Hx Alcohol Use: No Hx Substance Use: No Preferred Language: Ukrainian Communication Ability: Effective Auto Damage Estimator Required: No Beliefs That Will Affect Care: None marital status: Current Living Situation: Spouse Other Information That Helps Us Care for You: No Feels Safe at Home: Yes Safety Concerns: Feels Safe At This Time Assistive Devices: None Physical Exam Physical Exam: Gen.: No acute distress. Alert and oriented. HEENT: Anicteric sclera. Neck: No JVD. No bruits. Normal carotid upstrokes bilaterally. Cardiac: PMI was nonpalpable. No ventricular heave. Regular. Normal S1-S2. No murmurs, rubs, or gallops. Pulmonary: Clear to auscultation bilaterally without wheezes, rales, or rhonchi. Abdomen: Soft, nontender, nondistended, with normoactive bowel sounds. No bruits noted. Extremities: 2+ radial pulses bilaterally. 2+ posterior tibialis pulses bilaterally. No significant pitting edema or cyanosis. Psychiatric: Affect appears appropriate. Results & Data ([facility]) Vital Signs (Past 12 Hours) Vital Signs Temp Pulse Resp BP Pulse Ox 03/21/21 14:48 36.7 C 89 18 130/88 95 03/21/21 11:00 36.7 C 120 H 20 121/79 93 03/21/21 07:30 36.7 C 112 H 19 101/74 97 03/21/21 06:43 124/88 Laboratory Results Laboratory Results - last 24 hr 03/20/21 03/20/21 03/20/21 16:25 16:25 16:25 WBC 9.48 RBC 4.12 L Hgb 11.5 L Hct 36.7 L MCV 89.1 MCH 27.9 MCHC 31.3 L RDW Std Deviation 45.7 RDW Coeff of Starla 14.2 Plt Count 275 MPV 10.5 H Immature Gran % (Auto) 0.2 Neut % (Auto) 69.1 Lymph % (Auto) 20.1 Meade % (Auto) 5.2 Eos % (Auto) 4.7 Baso % (Auto) 0.7 Reticulocyte % (Auto) Neut # (Auto) 6.54 H Lymph # (Auto) 1.91 Meade # (Auto) 0.49 Eos # (Auto) 0.45 Baso # (Auto) 0.07 Reticulocyte # Immature Gran # (Auto) 0.02 PT 10.3 INR 1.0 APTT 24.5 PTT Ratio 0.9 Sodium 141 Potassium 4.6 Chloride 109 H Carbon Dioxide 27 Anion Gap 4.0 BUN 24 H Creatinine 1.03 Est Cr Clr Drug Dosing 48.7 Est GFR ( Amer) 64.2 Est GFR (Non-Af Amer) 55.4 BUN/Creatinine Ratio 22.9 H Glucose 93 POC Glucose Calcium 9.4 Magnesium Iron TIBC Transferrin Ferritin Total Bilirubin 0.5 AST 12 L ALT 22 Alkaline Phosphatase 87 Troponin I < 0.015 Total Protein 6.3 L Albumin 3.5 Globulin 2.8 Albumin/Globulin Ratio 1.3 Triglycerides Cholesterol LDL Cholesterol, Calc VLDL Cholesterol, Calc HDL Cholesterol Cholesterol/HDL Ratio Lipase Vitamin B12 Folate Lyme Disease IgG Ab Lyme Disease IgM Ab COVID-19 Eval Order SARS-CoV-2 (PCR) Hepatitis C Ab Screen Blood Type Antibody Screen 03/20/21 03/20/21 03/20/21 16:25 16:25 21:07 WBC RBC Hgb Hct MCV MCH MCHC RDW Std Deviation RDW Coeff of Starla Plt Count MPV Immature Gran % (Auto) Neut % (Auto) Lymph % (Auto) Meade % (Auto) Eos % (Auto) Baso % (Auto) Reticulocyte % (Auto) Neut # (Auto) Lymph # (Auto) Meade # (Auto) Eos # (Auto) Baso # (Auto) Reticulocyte # Immature Gran # (Auto) PT INR APTT PTT Ratio Sodium Potassium Chloride Carbon Dioxide Anion Gap BUN Creatinine Est Cr Clr Drug Dosing Est GFR ( Amer) Est GFR (Non-Af Amer) BUN/Creatinine Ratio Glucose POC Glucose Calcium Magnesium 1.3 L Iron TIBC Transferrin Ferritin Total Bilirubin AST ALT Alkaline Phosphatase Troponin I Total Protein Albumin Globulin Albumin/Globulin Ratio Triglycerides Cholesterol LDL Cholesterol, Calc VLDL Cholesterol, Calc HDL Cholesterol Cholesterol/HDL Ratio Lipase 402 H Vitamin B12 Folate Lyme Disease IgG Ab Negative Lyme Disease IgM Ab Negative COVID-19 Eval Order Covid19 at [facility] SARS-CoV-2 (PCR) Hepatitis C Ab Screen Blood Type Antibody Screen 03/20/21 03/20/21 03/20/21 21:07 21:22 21:22 WBC RBC Hgb 11.2 L Hct 35.2 L MCV MCH MCHC RDW Std Deviation RDW Coeff of Starla Plt Count MPV Immature Gran % (Auto) Neut % (Auto) Lymph % (Auto) Meade % (Auto) Eos % (Auto) Baso % (Auto) Reticulocyte % (Auto) 0.9 Neut # (Auto) Lymph # (Auto) Meade # (Auto) Eos # (Auto) Baso # (Auto) Reticulocyte # 0.04 Immature Gran # (Auto) PT INR APTT PTT Ratio Sodium Potassium Chloride Carbon Dioxide Anion Gap BUN Creatinine Est Cr Clr Drug Dosing Est GFR ( Amer) Est GFR (Non-Af Amer) BUN/Creatinine Ratio Glucose POC Glucose Calcium Magnesium Iron TIBC Transferrin Ferritin Total Bilirubin AST ALT Alkaline Phosphatase Troponin I Total Protein Albumin Globulin Albumin/Globulin Ratio Triglycerides Cholesterol LDL Cholesterol, Calc VLDL Cholesterol, Calc HDL Cholesterol Cholesterol/HDL Ratio Lipase Vitamin B12 Folate Lyme Disease IgG Ab Lyme Disease IgM Ab COVID-19 Eval Order SARS-CoV-2 (PCR) NEGATIVE Hepatitis C Ab Screen Blood Type B Positive Antibody Screen NEGATIVE 03/20/21 03/20/21 03/21/21 21:22 21:22 05:25 WBC RBC Hgb Hct MCV MCH MCHC RDW Std Deviation RDW Coeff of Starla Plt Count MPV Immature Gran % (Auto) Neut % (Auto) Lymph % (Auto) Meade % (Auto) Eos % (Auto) Baso % (Auto) Reticulocyte % (Auto) Neut # (Auto) Lymph # (Auto) Meade # (Auto) Eos # (Auto) Baso # (Auto) Reticulocyte # Immature Gran # (Auto) PT INR APTT PTT Ratio Sodium Potassium Chloride Carbon Dioxide Anion Gap BUN Creatinine Est Cr Clr Drug Dosing Est GFR ( Amer) Est GFR (Non-Af Amer) BUN/Creatinine Ratio Glucose POC Glucose Calcium Magnesium Iron 78 TIBC 289 Transferrin 247 Ferritin 24.6 Total Bilirubin AST ALT Alkaline Phosphatase Troponin I < 0.015 Total Protein Albumin Globulin Albumin/Globulin Ratio Triglycerides Cholesterol LDL Cholesterol, Calc VLDL Cholesterol, Calc HDL Cholesterol Cholesterol/HDL Ratio Lipase Vitamin B12 677 Folate 18.50 Lyme Disease IgG Ab Lyme Disease IgM Ab COVID-19 Eval Order SARS-CoV-2 (PCR) Hepatitis C Ab Screen Neg Blood Type Antibody Screen 03/21/21 03/21/21 03/21/21 05:25 05:25 05:25 WBC 9.30 RBC 3.76 L Hgb 10.7 L Hct 34.2 L MCV 91.0 MCH 28.5 MCHC 31.3 L RDW Std Deviation 46.7 H RDW Coeff of Starla 14.2 Plt Count 244 MPV 9.9 Immature Gran % (Auto) 0.3 Neut % (Auto) 49.8 Lymph % (Auto) 33.8 Meade % (Auto) 8.0 Eos % (Auto) 7.2 Baso % (Auto) 0.9 Reticulocyte % (Auto) Neut # (Auto) 4.64 Lymph # (Auto) 3.14 Meade # (Auto) 0.74 H Eos # (Auto) 0.67 H Baso # (Auto) 0.08 Reticulocyte # Immature Gran # (Auto) 0.03 H PT INR APTT 26.0 PTT Ratio 1.0 Sodium 142 Potassium 4.3 Chloride 109 H Carbon Dioxide 30 Anion Gap 3.0 BUN 22 H Creatinine 0.89 Est Cr Clr Drug Dosing 56.7 Est GFR ( Amer) 76.6 Est GFR (Non-Af Amer) 66.1 BUN/Creatinine Ratio 24.5 H Glucose 79 POC Glucose Calcium 8.8 Magnesium Iron TIBC Transferrin Ferritin Total Bilirubin AST ALT Alkaline Phosphatase Troponin I Total Protein Albumin Globulin Albumin/Globulin Ratio Triglycerides 179 H Cholesterol 137 LDL Cholesterol, Calc 53 VLDL Cholesterol, Calc 36 HDL Cholesterol 48 Cholesterol/HDL Ratio 3 Lipase Vitamin B12 Folate Lyme Disease IgG Ab Lyme Disease IgM Ab COVID-19 Eval Order SARS-CoV-2 (PCR) Hepatitis C Ab Screen Blood Type Antibody Screen 03/21/21 03/21/21 03/21/21 05:25 05:25 11:33 WBC RBC Hgb Hct MCV MCH MCHC RDW Std Deviation RDW Coeff of Starla Plt Count MPV Immature Gran % (Auto) Neut % (Auto) Lymph % (Auto) Meade % (Auto) Eos % (Auto) Baso % (Auto) Reticulocyte % (Auto) Neut # (Auto) Lymph # (Auto) Meade # (Auto) Eos # (Auto) Baso # (Auto) Reticulocyte # Immature Gran # (Auto) PT INR APTT PTT Ratio Sodium Potassium Chloride Carbon Dioxide Anion Gap BUN Creatinine Est Cr Clr Drug Dosing Est GFR ( Amer) Est GFR (Non-Af Amer) BUN/Creatinine Ratio Glucose POC Glucose 98 Calcium Magnesium 1.5 L Iron TIBC Transferrin Ferritin Total Bilirubin AST ALT Alkaline Phosphatase Troponin I < 0.015 Total Protein Albumin Globulin Albumin/Globulin Ratio Triglycerides Cholesterol LDL Cholesterol, Calc VLDL Cholesterol, Calc HDL Cholesterol Cholesterol/HDL Ratio Lipase Vitamin B12 Folate Lyme Disease IgG Ab Lyme Disease IgM Ab COVID-19 Eval Order SARS-CoV-2 (PCR) Hepatitis C Ab Screen Blood Type Antibody Screen Diagnostic Findings Telemetry personally reviewed: Initially sinus rhythm but developed atrial fibrillation at 6:29 a.m. on 03/21/2021. AFib persisted until 2:49 p.m. on 03/21/2021 when she converted to sinus rhythm spontaneously. ECG personally reviewed 03/20/2021 at 4:26 p.m.: Sinus rhythm 64 beats per minute. ECG 03/21/2021 at 6:05 a.m.: Sinus rhythm 60 beats per minute with limb lead reversal. Echo report from [facility] 02/28/2021 reviewed as noted above in HPI. Medications Administered Current Inpatient Medications Acetaminophen (Acetaminophen 325 Mg Tab) 650 mg PO Q4H PRN PRN Reason: Pain or Fever Stop: 04/19/21 22:58 Last Admin: 03/21/21 13:18 Dose: 650 mg Documented by: Apixaban (Apixaban 5 Mg Tablet) 5 mg PO BID [facility] Stop: 04/20/21 01:44 Last Admin: 03/21/21 10:16 Dose: 5 mg Documented by: Atorvastatin Calcium (Atorvastatin 10 Mg Tab) 10 mg PO QPM ULICES Stop: 04/20/21 20:59 Dextrose (Dextrose 50% 50 Ml Syringe) 25 - 50 ml IV UD PRN; Protocol PRN Reason: Hypoglycemia Protocol Stop: 04/20/21 08:23 Dronedarone (Dronedarone Hcl 400 Mg Tab) 400 mg PO BID ULICES Stop: 04/20/21 20:59 Duloxetine HCl (Duloxetine Hcl 60 Mg Cap) 60 mg PO QPM ULICES Stop: 04/20/21 20:59 Glucagon (Glucagon For Inj 1 Mg Vial) 1 mg SQ UD PRN; Protocol PRN Reason: Hypoglycemia Protocol Stop: 04/20/21 08:23 Glucose (Glucose 10 Tabs/Tube) 4 - 8 tabs PO UD PRN; Protocol PRN Reason: Hypoglycemia Protocol Stop: 04/20/21 08:23 Glucose (Glucose 40% Gel 15 Gm Tube) 15 - 30 gm PO UD PRN; Protocol PRN Reason: Hypoglycemia Protocol Stop: 04/20/21 08:23 Sodium Chloride (1/2 Nss) 1,000 mls @ 40 mls/hr IV .Q24H ULICES Stop: 04/20/21 00:00 Last Admin: 03/20/21 23:34 Dose: 40 mls/hr Documented by: Promethazine HCl 12.5 mg/ (Sodium Chloride) 50.5 mls @ 202 mls/hr IV Q6H PRN PRN Reason: Nausea And Vomiting Stop: 04/19/21 22:58 Lorazepam (Ativan) 0.5 mg in 1 mls @ 1 mls/min IV Q4H PRN PRN Reason: Anxiety/Agitation Stop: 04/19/21 22:58 Insulin Aspart (Insulin Aspart 100 Units/Ml 3 Ml Pen) 0 units SC ACHS ULICES Stop: 04/20/21 11:29 Last Admin: 03/21/21 12:19 Dose: 1 units Documented by: Levothyroxine Sodium (Levothyroxine Sodium 112 Mcg Tablet) 112 mcg PO DAILYBB ULICES Stop: 04/20/21 06:29 Last Admin: 03/21/21 06:02 Dose: 112 mcg Documented by: Metoprolol Succinate (Metoprolol Succ 25mg Ext Rel Tab) 25 mg PO DAILY ULICES Stop: 04/21/21 08:59 Miscellaneous (Carbohydrates For Hypoglycemia ) 15 - 30 gm PO UD PRN PRN Reason: Hypoglycemia Protocol Stop: 04/20/21 08:23 Morphine Sulfate (Morphine Sulfate 4 Mg/Ml 1 Ml Carp\Vial) 4 mg IV Q4H PRN PRN Reason: Pain Stop: 04/03/21 22:58 Multivitamins/Minerals (Cerovite Adv Formula Tab) 1 tab PO DAILY ULICES Stop: 04/20/21 08:59 Last Admin: 03/21/21 08:54 Dose: 1 tab Documented by: Nitroglycerin (Nitroglycerin Sl 0.4 Mg/Tab Tab) 0.4 mg SL UD PRN PRN Reason: Chest Pain Stop: 04/19/21 22:58 Pantoprazole Sodium (Pantoprazole 40 Mg Tab) 40 mg PO DAILY [facility]; Protocol Stop: 04/20/21 08:59 Last Admin: 03/21/21 08:55 Dose: 40 mg Documented by: Prednisone (Prednisone 5 Mg Tab) 5 mg PO QAM ULICES Stop: 04/20/21 08:59 Last Admin: 03/21/21 08:55 Dose: 5 mg Documented by: Tramadol HCl (Tramadol Hcl 50 Mg Tablet) 25 - 50 mg PO Q4H PRN PRN Reason: Pain Stop: 04/19/21 22:58 PG Care Time/CCT Total # of Minutes Spent Total Time Spent with Patient: Total time spent is greater than 50% in coordination of care (as documented) at patient's floor/unit and/or counseling patient: Coding Level of Care Code 15808 Initial Inpt Care Lvl 3 Diagnoses Chest pain R07.9 Paroxysmal atrial fibrillation I48.0 Chronic HFrEF (heart failure with reduced ejection fraction) I50.22 Anticoagulant long-term use Z79.01
[2021-03-21] MEDS: DRONEDARONE HCL 400 MG TAB PO SCH (20:38)
[2021-03-21] MEDS ORDERED: ATORVASTATIN 10 MG TAB PO SCH (21:00)
[2021-03-21] MEDS ORDERED: DULoxetine HCL 60 MG CAP PO SCH (21:00)
[2021-03-22] MEDS: LEVOTHYROXINE SODIUM 112 MCG TABLET PO SCH (06:11)
--- NOTE | 2021-03-22 06:13 | Electrocardiogram Report ---
Test Reason : Blood Pressure : / mmHG Vent. Rate : 064 BPM Atrial Rate : 064 BPM P-R Int : 162 ms QRS Dur : 076 ms QT Int : 438 ms P-R-T Axes : 064 075 087 degrees QTc Int : 451 ms Normal sinus rhythm Nonspecific ST abnormality Abnormal ECG When compared with ECG of 11-MAR-2021 20:14, Sinus rhythm has replaced Atrial fibrillation Vent. rate has decreased BY 67 BPM Confirmed by Orville Ragland ([id number]) on 03/22/2021 6:13:49 AM Referred By: REFERRED SELF Confirmed By:Orville Ragland
[2021-03-22 06:43] LABS: Hematocrit (blood only) 35.4 % (37-47); Hemoglobin 11.3 g/dL (12.0-16.0); Mean Corpuscular Hemoglobin 28.3 pg (25-34); Mean Corpuscular Hgb Conc 31.9 g/dL (32-36); Mean Corpuscular Volume 88.7 fL (80-100); Mean Platelet Volume 10.1 fL (7.4-10.4); Platelet Count 266 K/uL (130-400); RDW Coefficient of Variation 14.3 % (11.5-14.5); RDW Standard Deviation 46.6 fL (36.4-46.3); Red Blood Count 3.99 M/uL (4.2-5.4)
[2021-03-22 07:24] LABS: BUN Creatinine Ratio 14.8 (10-20); Calcium 9.2 mg/dl (8.5-10.1); Creatinine Clr Calc Pharmacy 53.5 ml/min; Est GFR (African American) 72.7 ml/min; Est GFR (Non-African American) 62.7 ml/min; Potassium 4.2 mmol/L (3.5-5.1)
[2021-03-22] MEDS: CEROVITE ADV FORMULA TAB PO SCH (08:21)
[2021-03-22] MEDS: predniSONE 5 MG TAB PO SCH (08:21)
[2021-03-22] MEDS: PANTOprazole 40 MG TAB PO SCH (08:21)
[2021-03-22] MEDS: APIXABAN 5 MG TABLET PO SCH (08:21)
[2021-03-22] MEDS: DRONEDARONE HCL 400 MG TAB PO SCH (08:22)
[2021-03-22] MEDS: INSULIN ASPART 100 UNITS/ML 3 ML PEN SC SCH ×2 (08:24→11:52)
[2021-03-22] MEDS ORDERED: METOPROLOL SUCC 25MG EXT REL TAB PO SCH (09:00)
--- NOTE | 2021-03-22 10:27 | Cardiology Progress Note ---
Date of Service March 22, 2021 Assessment & Plan (1) Paroxysmal atrial fibrillation: (2) Chest pain: (3) Chronic HFrEF (heart failure with reduced ejection fraction): (4) Anticoagulant long-term use: Plan: ASSESSMENT/PLAN: 1. Paroxysmal atrial fibrillation: She has had prior AFib[place]flutter [place] [facility] but has continued to have intermittent atrial fibrillation. Has maintained sinus rhythm since spontaneously converting yesterday. She has re ceived 2 doses of Multaq thus far, and is tolerating it well. Feels better in sinus rhythm and therefore will try to maintain sinus rhythm. Continue Multaq 400 mg twice daily. She has failed Tikosyn and sotalol and did not tolerate amiodarone. Metoprolol succinate has been reduced to 25 mg daily while on Multaq to avoid bradycardia. May be able to titrate metoprolol succinate in the future. Continue anticoagulation for stroke risk reduction. She reportedly has failed rate control strategy in the past. 2. Atypical chest pain: Chest pain was persistent throughout the day on 03/20/2021 for 9-10 hours with negative troponin level x3. Ischemic evaluation not necessary as this pain is not consistent with ischemic heart disease. 3. Chronic heart failure with mid range EF: Appears euvolemic. Her reduced LV systolic function may be due to tachycardia. Had echo earlier this month at [facility]. She is not requiring diuretic as an outpatient. Continue low-sodium diet and daily weights at home. 4. Cardiomyopathy: Mildly reduced LV systolic function on 02/28/2021 echo at [facility]. Cardiomyopathy may be tachycardia induced. Can repeat echo as an outpatient after heart rate has been better controlled. Continue metoprolol succinate as noted above. Consider PRESTON-inhibitor vs Entresto if EF remains reduced on follow-up echo as an outpatient. 5. Anticoagulation therapy: Continue anticoagulation for stroke risk reduction. 6. Disposition: Can be discharged today from a cardiology standpoint. Follow-up with her primary food storeroom clerk, Dr. Torres, in the next 1-2 weeks. Patient care personally discussed with Ms. Moore of the primary hospitalist service. Admission and Anticipated Discharge Date Admission Date: March 21, 2021 Subjective Patient was seen this morning. She states that she feels better today than she has in a long while. She denies palpitations, chest pain, syncope, near- syncope, shortness of breath, edema, or bleeding. She is tolerating Multaq (2 doses thus far). She was alone in her hospital room. Review of systems: As above. Physical Exam Physical Exam: Gen.: No acute distress. Alert and oriented. HEENT: Anicteric sclera. Neck: No JVD. Cardiac: PMI was nonpalpable. No ventricular heave. Regular. Normal S1-S2. No murmurs, rubs, or gallops. Pulmonary: Clear to auscultation bilaterally without wheezes, rales, or rhonchi. Abdomen: Soft, nontender, nondistended, with normoactive bowel sounds. No bruits noted. Extremities: 2+ radial pulses bilaterally. 2+ posterior tibialis pulses bilaterally. No significant pitting edema or cyanosis. Psychiatric: Affect appears appropriate. Results & Data ([facility]) Vital Signs (Past 12 Hours) Vital Signs Temp Pulse Pulse Resp BP Pulse Ox 03/22/21 08:00 58 L 03/22/21 07:18 36.5 C 51 L 18 128/80 97 03/22/21 03:19 36.5 C 57 L 17 107/63 98 03/21/21 23:09 36.5 C 62 17 102/61 98 03/21/21 22:58 62 Intake & Output 03/20/21 03/21/21 03/22/21 03/23/21 06:59 06:59 06:59 06:59 Intake Total 1828 / 1828 Balance 1828 / 1828 Weight 173 lb 15.115 oz 168 lb 13.985 oz Laboratory Results Laboratory Results - last 24 hr 03/21/21 03/21/21 03/21/21 11:33 16:10 20:13 WBC RBC Hgb Hct MCV MCH MCHC RDW Std Deviation RDW Coeff of Starla Plt Count MPV Sodium Potassium Chloride Carbon Dioxide Anion Gap BUN Creatinine Est Cr Clr Drug Dosing Est GFR ( Amer) Est GFR (Non-Af Amer) BUN/Creatinine Ratio Glucose POC Glucose 98 145 H 88 Calcium Magnesium 03/22/21 03/22/21 03/22/21 06:10 06:10 07:01 WBC 8.70 RBC 3.99 L Hgb 11.3 L Hct 35.4 L MCV 88.7 MCH 28.3 MCHC 31.9 L RDW Std Deviation 46.6 H RDW Coeff of Starla 14.3 Plt Count 266 MPV 10.1 Sodium 140 Potassium 4.2 Chloride 110 H Carbon Dioxide 29 Anion Gap 1.0 L BUN 14 Creatinine 0.93 Est Cr Clr Drug Dosing 53.5 Est GFR ( Amer) 72.7 Est GFR (Non-Af Amer) 62.7 BUN/Creatinine Ratio 14.8 Glucose 84 POC Glucose 89 Calcium 9.2 Magnesium 2.0 Diagnostic Findings Telemetry reviewed: Has maintained sinus rhythm since visit yesterday. Medications Administered Current Inpatient Medications Acetaminophen (Acetaminophen 325 Mg Tab) 650 mg PO Q4H PRN PRN Reason: Pain or Fever Stop: 04/19/21 22:58 Last Admin: 03/21/21 13:18 Dose: 650 mg Documented by: Apixaban (Apixaban 5 Mg Tablet) 5 mg PO BID ULICES Stop: 04/20/21 01:44 Last Admin: 03/22/21 08:21 Dose: 5 mg Documented by: Atorvastatin Calcium (Atorvastatin 10 Mg Tab) 10 mg PO QPM ULICES Stop: 04/20/21 20:59 Last Admin: 03/21/21 20:38 Dose: 10 mg Documented by: Dextrose (Dextrose 50% 50 Ml Syringe) 25 - 50 ml IV UD PRN; Protocol PRN Reason: Hypoglycemia Protocol Stop: 04/20/21 08:23 Dronedarone (Dronedarone Hcl 400 Mg Tab) 400 mg PO BID ULICES Stop: 04/20/21 20:59 Last Admin: 03/22/21 08:22 Dose: 400 mg Documented by: Duloxetine HCl (Duloxetine Hcl 60 Mg Cap) 60 mg PO QPM ULICES Stop: 04/20/21 20:59 Last Admin: 03/21/21 20:36 Dose: 60 mg Documented by: Glucagon (Glucagon For Inj 1 Mg Vial) 1 mg SQ UD PRN; Protocol PRN Reason: Hypoglycemia Protocol Stop: 04/20/21 08:23 Glucose (Glucose 10 Tabs/Tube) 4 - 8 tabs PO UD PRN; Protocol PRN Reason: Hypoglycemia Protocol Stop: 04/20/21 08:23 Glucose (Glucose 40% Gel 15 Gm Tube) 15 - 30 gm PO UD PRN; Protocol PRN Reason: Hypoglycemia Protocol Stop: 04/20/21 08:23 Promethazine HCl 12.5 mg/ (Sodium Chloride) 50.5 mls @ 202 mls/hr IV Q6H PRN PRN Reason: Nausea And Vomiting Stop: 04/19/21 22:58 Lorazepam (Ativan) 0.5 mg in 1 mls @ 1 mls/min IV Q4H PRN PRN Reason: Anxiety/Agitation Stop: 04/19/21 22:58 Insulin Aspart (Insulin Aspart 100 Units/Ml 3 Ml Pen) 0 units SC ACHS ULICES Stop: 04/20/21 11:29 Last Admin: 03/22/21 08:24 Dose: 4 units Documented by: Levothyroxine Sodium (Levothyroxine Sodium 112 Mcg Tablet) 112 mcg PO DAILYBB [facility] Stop: 04/20/21 06:29 Last Admin: 03/22/21 06:11 Dose: 112 mcg Documented by: Metoprolol Succinate (Metoprolol Succ 25mg Ext Rel Tab) 25 mg PO DAILY [facility] Stop: 04/21/21 08:59 Last Admin: 03/22/21 08:22 Dose: 25 mg Documented by: Miscellaneous (Carbohydrates For Hypoglycemia ) 15 - 30 gm PO UD PRN PRN Reason: Hypoglycemia Protocol Stop: 04/20/21 08:23 Morphine Sulfate (Morphine Sulfate 4 Mg/Ml 1 Ml Carp\Vial) 4 mg IV Q4H PRN PRN Reason: Pain Stop: 04/03/21 22:58 Multivitamins/Minerals (Cerovite Adv Formula Tab) 1 tab PO DAILY [facility] Stop: 04/20/21 08:59 Last Admin: 03/22/21 08:21 Dose: 1 tab Documented by: Nitroglycerin (Nitroglycerin Sl 0.4 Mg/Tab Tab) 0.4 mg SL UD PRN PRN Reason: Chest Pain Stop: 04/19/21 22:58 Pantoprazole Sodium (Pantoprazole 40 Mg Tab) 40 mg PO DAILY [facility]; Protocol Stop: 04/20/21 08:59 Last Admin: 03/22/21 08:21 Dose: 40 mg Documented by: Prednisone (Prednisone 5 Mg Tab) 5 mg PO QAM [facility] Stop: 04/20/21 08:59 Last Admin: 03/22/21 08:21 Dose: 5 mg Documented by: Tramadol HCl (Tramadol Hcl 50 Mg Tablet) 25 - 50 mg PO Q4H PRN PRN Reason: Pain Stop: 04/19/21 22:58 PG Care Time/CCT Total # of Minutes Spent Total Time Spent with Patient: Total time spent is greater than 50% in coordination of care (as documented) at patient's floor/unit and/or counseling patient: Coding Level of Care Code 30066 Subseq Hosp Care Lvl 3 Diagnoses Chest pain R07.9 Paroxysmal atrial fibrillation I48.0 Chronic HFrEF (heart failure with reduced ejection fraction) I50.22 Anticoagulant long-term use Z79.01
--- NOTE | 2021-03-22 13:24 | Electrocardiogram Report ---
Test Reason : Blood Pressure : / mmHG Vent. Rate : 060 BPM Atrial Rate : 060 BPM P-R Int : 148 ms QRS Dur : 084 ms QT Int : 446 ms P-R-T Axes : 114 117 106 degrees QTc Int : 446 ms Normal sinus rhythm Limb lead reversal Abnormal ECG When compared with ECG of 20-MAR-2021 16:26, Limb lead reversal is now Present Confirmed by Orville Ragland ([id number]) on 03/22/2021 1:23:46 PM Referred By: REFERRED SELF Confirmed By:Orville Ragland
--- NOTE | 2021-03-22 14:59 | Discharge Summary ---
Date of Service March 22, 2021 Admission HPI Per Admitting Provider History obtained from patient and records. Medical history significant for chronic systolic heart failure (EF 44%, TTE 2020), A. fib on Eliquis, hypertension, hyperlipidemia, rheumatoid arthritis on chronic steroid therapy, DM2 on oral medications, hypothyroidism. Last confinement at [facility] 3 weeks ago for decompensated heart failure attributed to tachyarrhythmia. 2D echo showed EF of 44%. Nondilated cardiac chambers. Mild aortic valve sclerosis, mild mitral regurgitation, mild TR. Indeterminate IVC size and collapsibility. Right atrial pressure estimated at 8 mmHg. Estimated PASP 28 mmHg. 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 Patient discharged on new amiodarone Rx and Toprol XL (to replace patient's Lopressor.) 03/04 Patient seen at the ER for rapid A. fib. 03/07 [facility] Cardiology follow-up visit. 03/11 Return to ER for rapid A. fib despite compliance with medications. One day history of achy left-sided chest pain with some shortness of breath. No cough, no radiation symptoms. Transient headache symptoms as well. Spontaneous resolution of chest pain upon arrival at the ER. 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 fib Discharge Exam Constitutional WD/WN, vitals as above Respiratory normal respiratory effort, lungs clear to auscultation Cardiovascular Rate/Rhythm: regular rate and regular rhythm Vessels: normal peripheral pulses Extremities: + edema (trace edema BLE) Gastrointestinal (Abdomen) Percussion/Palpation: abdomen soft; abdomen nontender Skin no rashes, warm and dry Neurologic no focal motor deficits Psychiatric A+Ox3, euthymic affect Discharge Data Allergies Allergy/AdvReac Type Severity Reaction Status Date / Time monosodium glutamate Allergy Severe THROAT Verified 03/20/21 20:37 SWELLS bacitracin Allergy Mild RASH Verified 03/20/21 20:37 neomycin Allergy Mild RASH Verified 03/20/21 20:37 polymyxin B Allergy Mild RASH Verified 03/20/21 20:37 Penicillins Allergy Unknown UNKNOWN Verified 03/20/21 20:37 Sulfa (Sulfonamide Allergy Unknown UNKNOWN Verified 03/20/21 20:37 Antibiotics) piroxicam AdvReac Severe SEVERE Verified 03/20/21 20:37 DIARRHEA nitrofurantoin AdvReac Intermediate DIARRHEA Verified 03/20/21 20:37 ciprofloxacin AdvReac Mild N/V Verified 03/20/21 20:37 Consultations Cardiology-Dr. Ragland Procedures Performed none Ordered Studies HEAD CT IMPRESSION: No acute intracranial hemorrhage, no midline shift or space occupying lesions. CHEST CT IMPRESSION: 1. No acute abnormality and in particular no evidence of hematoma. 2. Cardiomegaly. Hospital Course (1) Chest pain: -Patient presenting from home with reports of left-sided chest pain that began after waking up, pain has resolved and no further issues since arriving to the hospital -Pain reproducible on exam, likely musculoskeletal in nature -Troponin negative x3 -Atrial fibrillation management as below (2) Atrial fibrillation with rapid ventricular response: -Patient with longstanding history of paroxysmal atrial fibrillation s/p prior ablation and cardioversion. Failed Tikosyn, sotalol, amiodarone. -Admitted to [facility] 02/27 through 03/01 for acute on chronic HFrEF, newly found EF 44%, A. fib with RVR. Patient started on amiodarone therapy and metoprolol tartrate switched to metoprolol succinate. Patient seen in the ED on 03/04 and again found to be in A. fib with RVR. She was hypohypomagnesemic. Patient was given metoprolol 5 mg IV x 2 doses and magnesium replacement with improvement in heart rate and symptoms. Patient was also instructed to increase metoprolol succinate 25 mg daily to 50 mg daily. Patient was seen in follow-up by cardiology on 03/07 and was instructed to remain on the amiodarone 200 mg TID for a total of 3 weeks then reduce to 200 mg daily and to also remain on metoprolol succinate 50 mg daily. Patient presented to the ED on 03/11 and again was in A. fib with RVR with hypomagnesemia. Again patient received IV metoprolol and IV magnesium with improvement in heart rate and symptoms. Patient reports that since starting the amiodarone, she has been very nauseous and self stopped this medication on 03/15. Patient seen by PCP on 03/17 and prescribed a course of cefdinir for possible bronchitis. -No infectious symptoms at this time, will not continue cefdinir. -On admission, patient was in NSR however 03/21 6:30 AM, she went into A. fib w ith RVR with rates in the low 100s and then spontaneously converted in the afternoon -Noted to have hypomagnesemia, replaced. K+ 4.2 -Cardiology consulted - patient was started on Multaq 400mg BID unfortunately due to cost ($400/month), patient cannot afford this medication. Co-pay card was provided however cannot be used with patient's insurance. Discussed additional options with Dr. Ragland - will discharge patient home on previous dose of metoprolol succinate 50 mg daily. Patient was instructed that if she develops tachycardia or palpitations, she may increase her metoprolol to [address] Ragland also discussed the case with the patient's primary automobile mechanic helper Dr. Torres who will try to expedite patient's EP cardiology appointment in [place]. -Continue Eliquis (3) Hypomagnesemia: -Replaced, resolved (4) Anemia: -Hgb 14.4 03/11 -> 11.5 -> 11.2 -> 10.7 -> 11.3 -No obvious signs of bleeding at this time, Hgb remaining stable therefore will continue Eliquis -May be multifactorial: has received some IVF during recent ED visits so may be dilutional component also patient reports some mild hemorrhoidal bleeding -Anemia labs unremarkable -Hold meloxicam -Likely needs outpatient GI evaluation (5) Chronic HFrEF (heart failure with reduced ejection fraction): -Echo 02/28/2021-EF 44%, mild mitral regurgitation, mild tricuspid regurgitation -Newly reduced EF likely tachycardia induced -Utilizes Lasix on a as needed basis, appears euvolemic at this time (6) Hypothyroidism: -TSH of 15.5, free T4 2.0 on 03/16 -Follows with Dr. Low -will notify (7) DM type 2 (diabetes mellitus, type 2): -Hgb A1c 5.8 11/2020 -Hold oral agents, utilize NovoLog per protocol while hospitalized (8) Osteoarthritis: -on prednisone 5 mg daily, continue -Hold meloxicam due to anemia Total Time Total Time Spent Total Time Spent (In Minutes): 60 Discharge Plan Discharge Items Patient Disposition: Home - Self-Care Reason For Visit: CP Discharge Diagnosis: Chest Pain - non cardiac Atrial Fibrillation Activity: Resume your previous activity Non-emergency contact: Primary Care Provider and Senior [employer] Consultant Call non-emergency contact if: you have any medication questions and your symptoms worsen Follow-up/Referrals: Reid Main MD [Primary Care Provider] - (Date & Time 03/28/2021 10:40 AM Provider Reid Main MD [facility] ) Diet: Carb Consistent or DM2 and Heart Healthy Addtl Attending Provider Instructions: You were admitted to the hospital for chest pain. This was felt to be non cardiac in nature. While admitted, you were found to be in atrial fibrillation with increased rate (irregular heart beat). You have a known history of this. Continue metoprolol succinate (Toprol XL) 50mg daily. If you find that your heart rate is increased, irregular, or you are having palpitations, you may increase this to 50mg twice a day. If you do make this change, stay on metoprolol succinate 50mg twice daily until your cardiology appointment. You will be contacted regarding an appointment with EP Cardiology in [place]. Your hemoglobin (blood count) was found to be slightly low. We did not see any signs of bleeding. Since you are on a blood thinner, we recommend that you hold meloxicam as this medication can sometimes make bleeding worse. Continue all other medications as prescribed. Keep your follow up appointment with Luca Archer PA-C ([facility]) as previously scheduled. Appointment has been made for you with your PCP. If your symptoms return or worsen, please call your doctor or go to the nearest emergency room. It was a pleasure taking care of you. If you need to reach a member of the [facility] team, call the hospital at [phone]. Pending Studies at Discharge: No Stand-Alone Forms: My [facility], Smoking Cessation Medications and DC Order Prescriptions: Continued levothyroxine 112 mcg tablet 112 mcg PO DAILY Qty: 90 RF: 3 multivitamin Tablet 1 tab PO DAILY RF: 0 prednisone 5 mg tablet 5 mg PO QAM RF: 0 PreserVision AREDS-2 [phone] [id number] Capsule 1 tab PO BID RF: 0 Eliquis 5 mg Tablet 5 mg PO BID Qty: 60 RF: 2 omeprazole 20 mg capsule,delayed release(DR/EC) 20 mg PO DAILY RF: 0 duloxetine [Cymbalta] 60 mg Capsule,Delayed Release(Dr/Ec) 60 mg PO QPM RF: 0 atorvastatin 10 mg tablet 10 mg PO QPM RF: 0 metoprolol succinate 25 mg Tablet Extended Release 24 Hr 50 mg PO DAILY RF: 0 metformin 500 mg tablet 500 mg PO BID RF: 0 nitroglycerin [Nitrostat] 0.4 mg Tablet, Sublingual 0.4 mg sublingual DIRECTED PRN (Reason: Chest Pain) RF: 0 furosemide 20 mg tablet 20 mg PO DAILY PRN (Reason: EDEMA/WT GAIN >3#) RF: 0 cholecalciferol (vitamin D3) [Vitamin D3] 50 mcg (2,000 unit) Capsule 50 mcg PO DAILY RF: 0 clindamycin HCl 300 mg capsule 300 mg PO DIRECTED PRN (Reason: PRIOR TO DENTAL APPOINTMENT) RF: 0 Discontinued meloxicam 15 mg tablet 15 mg PO QAM RF: 0 epinephrine [EpiPen] 0.3 mg/0.3 mL Auto-Injector 0.3 mg IM Q3H PRN (Reason: Allergic Reaction) RF: 0 cefdinir 300 mg capsule 300 mg PO BID RF: 0 Discharge Orders: Discharge Order (Routine); Ordered 03/22/21 Ordered By: Марина Moore Admission Data Admit Date/Time: 03/21/21 16:07 Attending Provider: Diana Jolly I. Admit Provider: Eladio Wilkins Primary Care Provider: Reid Main I. Other Providers: Eladio Wilkins ; Марина Moore ; Orville Ragland ; Nitin Logan Other Interventions: Discharge Summary Assessment (RN) Last Done: 03/22/21 13:30 Supervising Physician Co-Signing Physician Notes Patient seen and examined today. Refer to nurse practitioner's documentation as above. Agree with plans as detailed above. Spent about 35mins myself doing the discharge process including examination, med reconciliation, counselling, etc.
== END 2021-03-22 17:29 | disposition home or self-care (01) | DRG 309 ==
LOC: 2S 16:03 → ED 16:03 → 2S 22:42 → SUATTDRO 03-21 16:07

== ENCOUNTER 2022-01-17 12:43 | Observation (INO) ==
[2022-01-17] MEDS ORDERED: METOPROLOL TARTRATE 1 MG/ML VIAL IV STA (13:08)
[2022-01-17] MEDS ORDERED: MAGNESIUM SULFATE / D5W 1 GM/100 ML BAG IV STA ×2 (13:08→14:07)
[2022-01-17] MEDS ORDERED: SODIUM CHLORIDE 0.9% 500 ML IV SCH (13:15)
--- NOTE | 2022-01-17 13:21 | Emergency Department Note ---
Impression & Plan Atrial fibrillation with rapid ventricular response, Hypomagnesemia, Weakness, SOB (shortness of breath), Acute electrocardiogram changes ED Provider Note NAME: HANNY CASILLAS AGE: 71 SEX: F : 1950 ARRIVES VIA: Walk-In INFORMANT: [Patient] ED PROVIDER(S): [Moreno Chairez MD] CHIEF COMPLAINT: Dr. Referred HISTORY OF PRESENT ILLNESS: Patient is a 71-year-old female with a history of A. fib and a flutter. She has had 2 previous ablations for this diagnosis. The patient states that 5 days ago she had a bout of A. 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 She was sent to the ED for potential cardioversion although, she spontaneously converted. The patient has had on and off atrial fibrillation/atrial flutter symptoms throughout this weekend. Her symptoms and the dysrhythmia seem to come and go. Things seem worse when she tries to walk around. She had some sweating spells, some exertional dyspnea. She has been belching a bit. She feels weak and a bit dizzy at times. The patient is on flecainide twice a day. She takes metoprolol and Eliquis. The patient is unsure what to do at this point as she cannot seem to stay in a sinus rhythm. She is concerned about her symptoms. She thinks she may need another ablation. There has been no chest pain today although 5 days ago, she had some right-sided chest pain which was very short-lived. REVIEW OF SYSTEMS: See HPI for pertinent positives and negatives. A total of ten systems were reviewed and were otherwise negative. PMHx/PSHx: See Below SOCIAL HISTORY: See Below. PHYSICAL EXAM: GENERAL: Patient is in no acute distress. HEENT: No acute trauma, normocephalic atraumatic, mucous membranes moist, no nasal congestion, no scleral icterus. NECK: No stridor, no adenopathy, no meningismus, trachea is midline. LUNGS: Clear to auscultation bilaterally, no wheeze, no rhonchi, breath sounds equal. HEART: Tachycardic and irregular, subtle systolic murmur. ABDOMEN: Soft, nontender, bowel sounds positive, no peritonitis. EXTREMITIES: No cyanosis or edema, full range of motion of all the joints without pain or difficulty, no signs for acute trauma. NEUROLOGIC: Oriented x 3, no acute motor or sensory deficits, no focal weakness. SKIN: No rash, no jaundice, no diaphoresis. DIFFERENTIAL DIAGNOSIS: Cardiac ischemia, aortic dissection, dysrhythmia, A. fib, a flutter, SVT, electrolyte imbalance, thyroid disorder, pulmonary embolism, pneumothorax, pneumonia, pericarditis, myocarditis, esophageal rupture, GERD, cholecystitis, pancreatitis, musculoskeletal, as well as other pathologies. EMERGENCY DEPARTMENT COURSE/PROCEDURES: ECG: Indication was palpitations. The ECG shows atrial fibrillation with a right bundle branch block. The rate is 116. There is no ST elevation, no PVCs. The QTC is 536. Compared to an ECG from 12 January 2022, the right bundle branch block is new. Atrial fibrillation has replaced atrial flutter. Continuous Cardiac Monitoring: An order was placed for continuous cardiac monitoring. The monitor shows a rate of 117 with atrial fibrillation. Critical Care Note: I have personally spent 38 minutes of critical care time in the direct management of this patient. This includes bedside care, interpretation of diagnostic studies, and testing, discussion with consultants, patient, and family members, and other required patient management activities. This 38 minutes is in excess of all separately billable procedures. MEDICAL DECISION MAKING: There is a slight leukocytosis, this could be consistent with infection or the stress of her situation. There is a normal hemoglobin and platelet count. No renal failure, magnesium was low at 1.6. No concerning liver enzyme elevation. ECG showed atrial fibrillation with a right bundle branch block. The right bundle branch block was new. Cardiac enzyme testing x1 does not show any evidence for acute cardiac injury. The patient appeared to be in a euthyroid state. Lyme disease testing was negative. COVID test was negative. Chest x- ray did not show CHF or pneumonia. The patient was given IV Lopressor, 5 mg. She was given a 500 cc saline bolus. She received IV magnesium, 2 g. I did speak with cardiology--monitoring, medication adjustment, possible cardioversion in the near future were all considerations. The patient will be hospitalized for now. She may be a candidate for repeat ablation in the future, she has had success with this procedure before. It does appear that her dysrhythmia is causing her shortness of breath, sweating and weakness/dizziness. I did speak with case management, the on-call hospitalist was consulted. Past Med/Surg History Medical History A-fib AND A-FLUTTER, S/P RFA OF PULMONARY VEIN 05/2019; ABLATION IN 06/2021 AT [facility]. 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 Macular degeneration Osteoporosis Polyarthropathy, inflammatory SOBOE (shortness of breath on exertion) OUT OF SHAPE Surgical History H/O cardiac radiofrequency ablation x2--06/2021 @ [place] and 05/2019 AT [facility] History of bilateral tubal ligation History of cardiac cath 7 YEARS AGO (NO STENTS) History of cardioversion X 1 History of cholecystectomy History of colonoscopy History of hysterectomy History of tonsillectomy History of tooth extraction History of total left knee replacement History of total right knee replacement (~07/26/20) Hx of bilateral breast reduction surgery ALONG WITH REVISION D/T BLEEDING Hx of bladder repair surgery CYSTOCELE REPAIR AND SLING S/P panniculectomy Family History Mother Alzheimer disease Father Coronary heart disease Family history of diabetes mellitus Sister Hypothyroidism Sister Hypothyroidism Other No family history of adverse response to anesthesia Social History Smoking Status: Never smoker Second Hand Exposure: No; Hx Alcohol Use: No Hx Substance Use: No Preferred Language: Danish Communication Ability: Effective Manager Student Services Required: No Beliefs That Will Affect Care: None marital status: Current Living Situation: Spouse Feels Safe at Home: Yes Assistive Devices: None Allergies Allergies Allergy/AdvReac Type Severity Reaction Status Date / Time monosodium glutamate Allergy Severe THROAT Verified 01/17/22 15:11 SWELLS bacitracin Allergy Mild RASH Verified 01/17/22 15:11 neomycin Allergy Mild RASH Verified 01/17/22 15:11 polymyxin B Allergy Mild RASH Verified 01/17/22 15:11 Penicillins Allergy Unknown UNKNOWN Verified 01/17/22 15:11 Sulfa (Sulfonamide Allergy Unknown UNKNOWN Verified 01/17/22 15:11 Antibiotics) piroxicam AdvReac Severe SEVERE Verified 01/17/22 15:11 DIARRHEA nitrofurantoin AdvReac Intermediate DIARRHEA Verified 01/17/22 15:11 amiodarone AdvReac Mild GI upset Verified 01/17/22 15:11 ciprofloxacin AdvReac Mild N/V Verified 01/17/22 15:11 Home Meds Home Medications Medication Instructions Recorded Confirmed vit C 250 mg-vit E 90 mg-zinc 40 1 tab PO BID 03/25/19 01/17/22 mg-copper 1 [id number] capsule (PreserVision AREDS-2) prednisone 5 mg tablet 5 mg PO QAM 01/01/20 01/17/22 duloxetine 60 mg capsule,delayed 60 mg PO QPM 04/22/20 01/17/22 release (Cymbalta) omeprazole 20 mg capsule,delayed 20 mg PO QAM 07/18/20 01/17/22 release multivitamin 1 tab PO QAM 09/29/20 01/17/22 atorvastatin 10 mg tablet 10 mg PO QPM 03/04/21 01/17/22 cholecalciferol (vitamin D3) 50 50 mcg PO QAM 03/20/21 01/17/22 mcg (2,000 unit) capsule (Vitamin D3) furosemide 20 mg tablet 20 mg PO DAILY PRN EDEMA/WT GAIN 03/20/21 01/17/22 >3# metformin 500 mg tablet 500 mg PO BID 03/20/21 01/17/22 metoprolol succinate 100 mg 100 mg PO QAM 08/21/21 01/17/22 tablet,extended release 24 hr Previous Rx's Medication Instructions Recorded apixaban 5 mg tablet (Eliquis) 5 mg PO BID #60 tabs 03/30/19 clindamycin HCl 300 mg capsule 300 mg PO DIRECTED PRN PRIOR TO 11/06/21 DENTAL APPOINTMENT #6 caps levothyroxine 112 mcg tablet 112 mcg PO QAM #90 tabs 11/24/21 CPAP Machine #1 ea 12/18/21 flecainide 100 mg tablet 100 mg PO Q12H #180 tabs 12/28/21 Results & Data (ED) Vital Signs Vital Signs - 24 hr 01/17/22 12:48 01/17/22 13:33 01/17/22 13:36 Temperature 37.8 C H Temperature Source Oral Pulse Rate 117 H 115 H Pulse Rate [Apical] 115 H Pulse Rhythm [Apical] Regular Pulse Strength [Apical] Normal Respiratory Rate 20 16 Respiratory Effort / Characteristics Non-Labored Non-Labored Respiratory Depth Normal Normal Respiratory Pattern Regular Blood Pressure 115/79 126/95 Blood Pressure [Left Arm] 126/95 Blood Pressure Mean 91 Blood Pressure Mean [Left Arm] 105 Blood Pressure Position [Left Arm] Lying Pulse Oximetry 96 99 Oxygen Delivery Method Room Air Room Air Sepsis Recent Fever Within 48 Hours No Sepsis New/Unexplained Change in Mental Status N/A Sepsis Action Taken by Nursing No Action Required 01/17/22 13:36 Temperature Temperature Source Pulse Rate 115 H Pulse Rate [Apical] Pulse Rhythm [Apical] Pulse Strength [Apical] Respiratory Rate 16 Respiratory Effort / Characteristics Respiratory Depth Respiratory Pattern Blood Pressure Blood Pressure [Left Arm] Blood Pressure Mean Blood Pressure Mean [Left Arm] Blood Pressure Position [Left Arm] Pulse Oximetry 99 Oxygen Delivery Method Room Air Sepsis Recent Fever Within 48 Hours Sepsis New/Unexplained Change in Mental Status Sepsis Action Taken by [facility] Medications Current Medication List: was personally reviewed by me Laboratory Data Attestation: I reviewed the patient's lab results. Result diagrams: 01/17/22 13:27 01/17/22 13:27 Lab Results 01/17/22 01/17/22 01/17/22 Range/Units 13:27 13:27 13:27 WBC 12.62 H (4.8-10.8) K/ul RBC 5.11 (3.93-5.22) M/uL Hgb 13.9 (12.0-16.0) g/dl Hct 44.3 (34.1-44.9) % MCV 86.7 (80.0-100.0) fL MCH 27.2 (25.0-34.0) pg MCHC 31.4 L (32.0-36.0) g/dL RDW Std Deviation 45.6 (36.4-46.3) fL RDW Coeff of Starla 14.4 (11.5-14.5) % Plt Count 336 (130-400) K/uL MPV 9.9 (9.4-12.3) fL Immature Gran % (Auto) 0.6 % Neut % (Auto) 63.2 % Lymph % (Auto) 19.6 % [place] % (Auto) 5.6 % Eos % (Auto) 9.7 % Baso % (Auto) 1.3 % Neut # (Auto) 7.96 H (1.4-6.5) K/uL Lymph # (Auto) 2.47 (1.2-3.4) K/uL [place] # (Auto) 0.71 (0.24-0.82) K/uL Eos # (Auto) 1.23 H (0-0.50) K/uL Baso # (Auto) 0.17 (0-0.2) K/uL Immature Gran # (Auto) 0.08 H (0.00-0.02) K/uL Sodium 139 (136-145) mmol/L Potassium 4.5 (3.5-5.1) mmol/L Chloride 102 (98-107) mmol/L Carbon Dioxide 29 (21-32) mmol/L Anion Gap 8 (3-11) BUN 18 (6-23) mg/dl Creatinine 0.91 (0.6-1.2) mg/dl Est Cr Clr Drug Dosing 55.8 ml/min Est GFR ( Amer) 74.1 ml/min Est GFR (Non-Af Amer) 63.9 ml/min BUN/Creatinine Ratio 19.8 (10-20) Glucose 105 H (70-99(Fasting)) mg/dl Lactate 1.6 (0.4-2.0) mmol/L Calcium 10.2 H (8.5-10.1) mg/dl Magnesium 1.6 L (1.7-2.4) mg/dl Total Bilirubin 0.4 (0.2-1.0) mg/dl AST 16 (13-39) U/L ALT 21 (7-52) U/L Alkaline Phosphatase 116 H (34-104) U/L Troponin I High Sens 6.3 (0-14) pg/ml Total Protein 6.9 (6.0-8.3) gm/dl Albumin 4.5 (3.4-5.0) gm/dl Globulin 2.4 L (2.5-4.0) gm/dl Albumin/Globulin Ratio 1.9 (0.9-2) TSH (0.300-4.500) uIu/ml Lyme Disease IgG Ab (Negative) Lyme Disease IgM Ab (Negative) SARS-CoV-2 (PCR) (Negative) 01/17/22 01/17/22 01/17/22 Range/Units 13:27 13:27 13:29 WBC (4.8-10.8) K/ul RBC (3.93-5.22) M/uL Hgb (12.0-16.0) g/dl Hct (34.1-44.9) % MCV (80.0-100.0) fL MCH (25.0-34.0) pg MCHC (32.0-36.0) g/dL RDW Std Deviation (36.4-46.3) fL RDW Coeff of Starla (11.5-14.5) % Plt Count (130-400) K/uL MPV (9.4-12.3) fL Immature Gran % (Auto) % Neut % (Auto) % Lymph % (Auto) % [place] % (Auto) % Eos % (Auto) % Baso % (Auto) % Neut # (Auto) (1.4-6.5) K/uL Lymph # (Auto) (1.2-3.4) K/uL [place] # (Auto) (0.24-0.82) K/uL Eos # (Auto) (0-0.50) K/uL Baso # (Auto) (0-0.2) K/uL Immature Gran # (Auto) (0.00-0.02) K/uL Sodium (136-145) mmol/L Potassium (3.5-5.1) mmol/L Chloride (98-107) mmol/L Carbon Dioxide (21-32) mmol/L Anion Gap (3-11) BUN (6-23) mg/dl Creatinine (0.6-1.2) mg/dl Est Cr Clr Drug Dosing ml/min Est GFR ( Amer) ml/min Est GFR (Non-Af Amer) ml/min BUN/Creatinine Ratio (10-20) Glucose (70-99(Fasting)) mg/dl Lactate (0.4-2.0) mmol/L Calcium (8.5-10.1) mg/dl Magnesium (1.7-2.4) mg/dl Total Bilirubin (0.2-1.0) mg/dl AST (13-39) U/L ALT (7-52) U/L Alkaline Phosphatase (34-104) U/L Troponin I High Sens (0-14) pg/ml Total Protein (6.0-8.3) gm/dl Albumin (3.4-5.0) gm/dl Globulin (2.5-4.0) gm/dl Albumin/Globulin Ratio (0.9-2) TSH 4.005 (0.300-4.500) uIu/ml Lyme Disease IgG Ab Negative (Negative) Lyme Disease IgM Ab Negative (Negative) SARS-CoV-2 (PCR) NEGATIVE (Negative) Administered Medications Discontinued Medications Sodium Chloride (Nss) 500 mls @ 999 mls/hr IV .Q31M ULICES Stop: 01/17/22 13:45 Last Infusion: 01/17/22 14:11 Dose: 0 mls/hr Documented By: [facility] Admin: 01/17/22 13:43 Dose: 999 mls/hr Documented By: [facility] Magnesium Sulfate/Dextrose (Magnesium Sulfate / D5w) 1 gm in 100 mls @ 100 mls/hr IV NOW STA Stop: 01/17/22 14:07 Last Infusion: 01/17/22 14:47 Dose: 0 mls/hr Documented By: [facility] Admin: 01/17/22 13:33 Dose: 100 mls/hr Documented By: [facility] Magnesium Sulfate/Dextrose (Magnesium Sulfate / D5w) 1 gm in 100 mls @ 100 mls/ hr IV NOW STA Stop: 01/17/22 15:06 Last Infusion: 01/17/22 15:43 Dose: 0 mls/hr Documented By: [facility] Admin: 01/17/22 14:41 Dose: 100 mls/hr Documented By: [facility] Metoprolol Tartrate (Metoprolol Tartrate 1 Mg/Ml Vial) 5 mg IV NOW STA Stop: 01/17/22 13:09 Last Admin: 01/17/22 13:33 Dose: 5 mg Documented By: [facility] Imaging Data Radiologist's Impression: Chest X-Ray 01/17/22 13:09 XR chest 1V portable HISTORY: weakness COMPARISON: Chest 01/12/2022. FINDINGS: There are low lung volumes. The cardiac silhouette remains borderline enlarged. No pleural effusions. No pneumothorax. No focal lung consolidations to suggest pneumonia. No evidence for pulmonary edema. IMPRESSION: No significant change compared to the prior study. No acute process. ACT 112: Negative or not required by law. Electronically signed by: Tariq Azul M.D. 01/17/2022 1:37 PM Discharge Plan Visit Data Chief Complaint: Referred by Doctor Stated Complaint: AFIB- NURSE REFERRED ED Provider: Moreno Chairez Discharge Problem: Atrial fibrillation with rapid ventricular response, Hypomagnesemia, Weakness, SOB (shortness of breath), Acute electrocardiogram changes Patient Disposition: Admitted As Inpatient Condition: Fair Forms Stand Alone Forms: [facility] First Class EV Conversions Prescriptions Prescriptions: No Action clindamycin HCl 300 mg capsule 300 mg PO DIRECTED PRN (Reason: PRIOR TO DENTAL APPOINTMENT) Qty: 6 3RF Rx Instructions: TAKE 2 CAPSULES ONE HOUR PRIOR TO DENTAL WORK levothyroxine 112 mcg tablet 112 mcg PO QAM Qty: 90 3RF (DME) CPAP Machine Misc .Route Qty: 1 0RF Rx Instructions: 9 cm of water, mask fit patient comfort, heated humidification, compliance download capabilities, DME of patient choice flecainide 100 mg tablet 100 mg PO Q12H Qty: 180 3RF multivitamin Tablet 1 tab PO QAM prednisone 5 mg tablet 5 mg PO QAM PreserVision AREDS-2 [id number] Capsule 1 tab PO BID Eliquis 5 mg Tablet 5 mg PO BID Qty: 60 2RF omeprazole 20 mg capsule,delayed release(DR/EC) 20 mg PO QAM duloxetine [Cymbalta] 60 mg Capsule,Delayed Release(Dr/Ec) 60 mg PO QPM atorvastatin 10 mg tablet 10 mg PO QPM metformin 500 mg tablet 500 mg PO BID furosemide 20 mg tablet 20 mg PO DAILY PRN (Reason: EDEMA/WT GAIN >3#) cholecalciferol (vitamin D3) [Vitamin D3] 50 mcg (2,000 unit) Capsule 50 mcg PO QAM metoprolol succinate 100 mg tablet extended release 24 hr 100 mg PO QAM Referrals Referrals: Reid Main MD [Primary Care Provider] -
--- NOTE | 2022-01-17 13:39 | XRay Report ---
XR chest 1V portable HISTORY: weakness COMPARISON: Chest 01/12/2022. FINDINGS: There are low lung volumes. The cardiac silhouette remains borderline enlarged. No pleural effusions. No pneumothorax. No focal lung consolidations to suggest pneumonia. No evidence for pulmon fina edema. IMPRESSION: No significant change compared to the prior study. No acute process. ACT 112: Negative or not required by law. Electronically signed by: Tariq Azul M.D. 01/17/2022 1:37 PM
[2022-01-17 13:40] LABS: Basophils # (auto) 0.17 K/uL (0-0.2); Basophils % (auto) 1.3 %; Eosinophils # (auto) 1.23 K/uL (0-0.50); Eosinophils % (auto) 9.7 %; Hematocrit (blood only) 44.3 % (34.1-44.9); Hemoglobin 13.9 g/dl (12.0-16.0); Immature Granulocytes # (auto) 0.08 K/uL (0.00-0.02); Immature Granulocytes % (auto) 0.6 %; Lymphocytes # (auto) 2.47 K/uL (1.2-3.4); Lymphocytes % (auto) 19.6 %; Mean Corpuscular Hemoglobin 27.2 pg (25.0-34.0); Mean Corpuscular Hgb Conc 31.4 g/dL (32.0-36.0); Mean Corpuscular Volume 86.7 fL (80.0-100.0); Mean Platelet Volume 9.9 fL (9.4-12.3); Monocytes # (auto) 0.71 K/uL (0.24-0.82); Monocytes % (auto) 5.6 %; Neutrophils # (auto) 7.96 K/uL (1.4-6.5); Neutrophils % (auto) 63.2 %; Platelet Count 336 K/uL (130-400); RDW Coefficient of Variation 14.4 % (11.5-14.5); RDW Standard Deviation 45.6 fL (36.4-46.3); Red Blood Count 5.11 M/uL (3.93-5.22); White Blood Count 12.62 K/ul (4.8-10.8)
[2022-01-17 14:01] LABS: Albumin Globulin Ratio 1.9 (0.9-2); Albumin Level 4.5 gm/dl (3.4-5.0); BUN Creatinine Ratio 19.8 (10-20); Bilirubin,Total 0.4 mg/dl (0.2-1.0); Calcium 10.2 mg/dl (8.5-10.1); Creatinine Clr Calc Pharmacy 55.8 ml/min; Est GFR (African American) 74.1 ml/min; Est GFR (Non-African American) 63.9 ml/min; Globulin 2.4 gm/dl (2.5-4.0); Magnesium 1.6 mg/dl (1.7-2.4); Potassium 4.5 mmol/L (3.5-5.1); Total Protein 6.9 gm/dl (6.0-8.3)
[2022-01-17 14:05] LABS: Troponin I High Sensitivity 6.3 pg/ml (0-14)
[2022-01-17 15:27] LABS: Lyme Ab IgG w/WB Rflx Negative (Negative); Lyme Ab IgM w/WB Rflx Negative (Negative)
--- NOTE | 2022-01-17 15:28 | History & Physical Report ---
Date of Service January 17, 2022 Assessment & Plan (1) Atrial fibrillation with rapid ventricular response: Plan: Patient is 71 y/o F with PMH atrial fibrillation s/p [place] [facility] [place] s/p cardioversion, anticoagulated on Eliquis, RA, DM II, hypothyroidism, GERD, anxiety, CARLOS presented to ER with c/o palpitations, exertional SOB, diaphoresis fatigue x 5 days. 01/12/22 with tachycardia and found to have atrial flutter referred to ER for possible cardioversion, however HR decreased and patient discharged home Today in ER found to be in atrial fibrillation RVR rate 116, BP: 115/79. Was given Lopressor 5mg IV. Pulse down to 99. Patient reports improvement of symptoms while sitting in bed. TSH: 4. Initial troponin: 6.3. Magnesium: 1.6 History echo 06/2021 EF: 55% Monitor on tele Continue metoprolol succinate, flecainide IV Lopressor prn NPO midnight Cardiology consult. Follows with [facility] cardiology. Dr Mercado notified by ER (2) Hypomagnesemia: Plan: Magnesium: 1.6 In ER given magnesium sulfate 2GM IV Monitor (3) Leukocytosis: Plan: Denies any known fever or chills. Denies cough, URI symptoms, urinary symptoms, vomiting, diarrhea T: 37.8C today in ER. WBC: 12. Negative COVID-19 PCR, negative Lyme titer. Lactate WNL CXR: no acute infiltrate UA pending On chronic prednisone Monitor for further fever and if would occur consider adding antibiotics Monitor CBC (4) Arthritis, rheumatoid: Plan: On chronic prednisone Continue prednisone (5) DM type 2 (diabetes mellitus, type 2): Plan: A1c: 5.8 in 11/2020 Hold home metformin Novolog sliding scale per protocol A1c in am (6) Hypothyroidism: Plan: Continue levothyroxine (7) Depression: Plan: Continue duloxetine (8) GERD (gastroesophageal reflux disease): Plan: Continue PPI (9) Sleep apnea: Plan: CPAP HS DVT Prophylaxis On Eliquis Full Code as per discussion with pt Follows with Dr Main for routine care Pt was seen and care coordinated with Dr Arguello. See addendum Plan Attending Addendum: care coordinated with LOS Mccloud please refer to her notes for full details, I agree with her notes patient seen and examined, records reviewed by myself as well on exam, patient seen sitting up in bed, watching TV, comfortable, not in d istress No active chest pain, shortness of breath and palpitations, dizziness Chief complaint is feeling fatigued for the past few days No fevers or chills, headache, dizziness, cough, abdominal pain, nausea vomiting, changes with urination or bowel movement Does report dyspnea on exertion no other symptoms VS noted and reviewed oriented x3, not in distress, speaks in sentences with no effort nor accessory muscle use normal rate, irregularly irregular, no murmurs clear breath sounds bilaterally non distended, soft, nontender no bipedal edema, erythema, warmth no neuro deficits WBC 12.6 Hg 13.9 Crea 0.9 Chest x-ray: No pneumonia EKG: Atrial fibrillation ASSESSMENT AND PLAN 71-year-old female with history of atrial fibrillation on Eliquis, presenting with fatigue, dyspnea exertion. Atrial fibrillation in RVR Heart rate on admission 117, on examination [address] Oswald consulted, recommend continuation of usual metoprolol plus flecainide, Eliquis If with recurrence of RVR, will consider cardioversion Fatigue Likely from diagnoses #1 No signs of infection at this point On chronic prednisone 5 mg daily for rheumatoid arthritis Monitor other diagnoses and plan of care as per LOS Arguello MD History of Present Illness Chief Complaint: Palpitations Primary Care Provider: Reid Main MD Patient is 71 y/o F with PMH atrial fibrillation s/p [place] vein [place] [facility] [place] fibrillation s/p cardioversion, anticoagulated on Eliquis, RA, DM II, hypothyroidism, GERD, anxiety, CARLOS presented to ER with c/o palpitations. Patient with recent history 01/12/22 seen by outpatient cardiology with tachycardia and found to have atrial flutter. She was referred to ER that day for possible cardioversion. During ER course patient's heart rate decreased and was not as symptomatic so was discharged home. Patient on metoprolol succinate 100 mg daily and flecainide 100 mg twice daily, anticoagulated on Eliquis and denies any missed doses. Patient reports since 01/12/22 she has "felt lousy". Reports generalized fatigue, any exertion has increased palpitations and reports exertional shortness of breath, diaphoresis. She states she has been sitting around has not been active secondary to worsening symptoms with exertion. Denies chest pain, dizziness, syncope. She reports she has a Fitbit watch that has been reading her pulse 117-120s, however she reports often times it does not record pulse appropriately. Denies known fever/chills, N/V/D/C, [place], vision changes, neck pain, orthopnea, cough, sore throat, choking, otalgia, rhinorrhea, abdominal pain, paresthesias, extremity weakness, extremity edema, rashes, urinary symptoms. Today in ER found to be in atrial fibrillation RVR rate 116, BP: 115/79. Was given Lopressor 5mg IV. Pulse down to 99. Patient reports improvement of symptoms while sitting in bed. Allergies Allergy/AdvReac Type Severity Reaction Status Date / Time monosodium glutamate Allergy Severe THROAT Verified 01/17/22 15:11 SWELLS bacitracin Allergy Mild RASH Verified 01/17/22 15:11 neomycin Allergy Mild RASH Verified 01/17/22 15:11 polymyxin B Allergy Mild RASH Verified 01/17/22 15:11 Penicillins Allergy Unknown UNKNOWN Verified 01/17/22 15:11 Sulfa (Sulfonamide Allergy Unknown UNKNOWN Verified 01/17/22 15:11 Antibiotics) piroxicam AdvReac Severe SEVERE Verified 01/17/22 15:11 DIARRHEA nitrofurantoin AdvReac Intermediate DIARRHEA Verified 01/17/22 15:11 amiodarone AdvReac Mild GI upset Verified 01/17/22 15:11 ciprofloxacin AdvReac Mild N/V Verified 01/17/22 15:11 Home Medications Medication Instructions Recorded Confirmed Type vit C 250 mg-vit E 90 mg-zinc 40 1 tab PO BID 03/25/19 01/17/22 History mg-copper 1 [id number] capsule (PreserVision AREDS-2) apixaban 5 mg tablet (Eliquis) 5 mg PO BID #60 tabs 03/30/19 01/17/22 Rx prednisone 5 mg tablet 5 mg PO QAM 01/01/20 01/17/22 History duloxetine 60 mg capsule,delayed 60 mg PO QPM 04/22/20 01/17/22 History release (Cymbalta) omeprazole 20 mg capsule,delayed 20 mg PO QAM 07/18/20 01/17/22 History release multivitamin 1 tab PO QAM 09/29/20 01/17/22 History atorvastatin 10 mg tablet 10 mg PO QPM 03/04/21 01/17/22 History cholecalciferol (vitamin D3) 50 50 mcg PO QAM 03/20/21 01/17/22 History mcg (2,000 unit) capsule (Vitamin D3) furosemide 20 mg tablet 20 mg PO DAILY PRN EDEMA/WT GAIN 03/20/21 01/17/22 History >3# metformin 500 mg tablet 500 mg PO BID 03/20/21 01/17/22 History metoprolol succinate 100 mg 100 mg PO QAM 08/21/21 01/17/22 History tablet,extended release 24 hr clindamycin HCl 300 mg capsule 300 mg PO DIRECTED PRN PRIOR TO 11/06/21 01/17/22 Rx DENTAL APPOINTMENT #6 caps levothyroxine 112 mcg tablet 112 mcg PO QAM #90 tabs 11/24/21 01/17/22 Rx CPAP Machine #1 ea 12/18/21 01/17/22 Rx flecainide 100 mg tablet 100 mg PO Q12H #180 tabs 12/28/21 01/17/22 Rx Past Med/Surg History Medical History (Updated 01/17/22 @ 16:36 by Luana Boone PA-C) A-fib AND A-FLUTTER, S/P RFA OF PULMONARY VEIN 05/2019; ABLATION IN 06/2021 AT [place]. 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 Macular degeneration Osteoporosis Polyarthropathy, inflammatory SOBOE (shortness of breath on exertion) OUT OF SHAPE Surgical History H/O cardiac radiofrequency ablation x2--06/2021 @ [place] and 05/2019 AT [facility] History of bilateral tubal ligation History of cardiac cath 7 YEARS AGO (NO STENTS) History of cardioversion X 1 History of cholecystectomy History of colonoscopy History of hysterectomy History of tonsillectomy History of tooth extraction History of total left knee replacement History of total right knee replacement (~07/26/20) Hx of bilateral breast reduction surgery ALONG WITH REVISION D/T BLEEDING Hx of bladder repair surgery CYSTOCELE REPAIR AND SLING S/P panniculectomy Family History Mother Alzheimer disease Father Coronary heart disease Family history of diabetes mellitus Sister Hypothyroidism Sister Hypothyroidism Other No family history of adverse response to anesthesia Social History Smoking Status: Never smoker Second Hand Exposure: No; Hx Alcohol Use: No Hx Substance Use: No Preferred Language: Polish Communication Ability: Effective Seater Grinder Required: No Beliefs That Will Affect Care: None marital status: Current Living Situation: Spouse Feels Safe at Home: Yes Assistive Devices: None Review of Systems Review of Systems: All systems reviewed & are unremarkable except as noted in HPI & below Physical Exam Physical Exam: General: no distress, WDWN Head: normocephalic, atraumatic Eyes: PERRL, EOM's intact, conjunctiva non-injected, anicteric ENT: normal inspection external ears, nose, mucous membranes moist Neck: supple, trachea midline Lungs: clear, no respiratory distress, no wheezing/rhonchi/rales CV: irregularly irregular, rate 98, no murmur, no pretibial edema Abd: normal BS, soft, non-tender Ext: no cyanosis, no calf tenderness Neuro: A&O x 3, no focal deficits noted, normal affect Skin: warm, dry Results & Data Results & Data ([facility]) Vital Signs (Past 12 Hours) Vital Signs Temp Pulse Pulse Resp BP BP Pulse Ox 01/17/22 13:36 115 H 16 99 01/17/22 13:36 115 H 16 126/95 99 01/17/22 13:33 115 H 126/95 01/17/22 12:48 37.8 C H 117 H 20 115/79 96 O2 Del Method 01/17/22 13:36 Room Air 01/17/22 13:36 Room Air 01/17/22 13:33 01/17/22 12:48 Room Air Laboratory Results Short CBC 01/17/22 Range/Units 13:27 WBC 12.62 H (4.8-10.8) K/ul Hgb 13.9 (12.0-16.0) g/dl Hct 44.3 (34.1-44.9) % Plt Count 336 (130-400) K/uL BMP 01/17/22 13:27 Sodium 139 Potassium 4.5 Chloride 102 Carbon Dioxide 29 BUN 18 Creatinine 0.91 Glucose 105 H Calcium 10.2 H Liver Function 01/17/22 Range/Units 13:27 Total Bilirubin 0.4 (0.2-1.0) mg/dl AST 16 (13-39) U/L ALT 21 (7-52) U/L Alkaline Phosphatase 116 H (34-104) U/L Albumin 4.5 (3.4-5.0) gm/dl Diagnostic Findings Chest X-Ray 01/17/22 13:09 XR chest 1V portable HISTORY: weakness COMPARISON: Chest 01/12/2022. FINDINGS: There are low lung volumes. The cardiac silhouette remains borderline enlarged. No pleural effusions. No pneumothorax. No focal lung consolidations to suggest pneumonia. No evidence for pulmonary edema. IMPRESSION: No significant change compared to the prior study. No acute process. ACT 112: Negative or not required by law. Electronically signed by: Tariq Azul M.D. 01/17/2022 1:37 PM ECG Rate (beats per minute): 116 Rhythm: atrial fibrillation Findings: + LPFB and + RBBB Additional Comments: Prior EKG atrial flutter. RBBB, L fascicular block appear new
--- NOTE | 2022-01-17 16:02 | Electrocardiogram Report ---
Test Reason : Blood Pressure : / mmHG Vent. Rate : 116 BPM Atrial Rate : 119 BPM P-R Int : 000 ms QRS Dur : 174 ms QT Int : 386 ms P-R-T Axes : 000 114 029 degrees QTc Int : 536 ms Atrial fibrillation with rapid ventricular response Right bundle branch block Left posterior fascicular block Bifascicular block Abnormal ECG When compared with ECG of 12-JAN-2022 19:40, Atrial fibrillation has replaced Atrial flutter (RBBB and left posterior fascicular block) is now Present Confirmed by Felipe Mercado ([id number]) on 01/17/2022 4:02:33 PM Referred By: REFERRED SELF Confirmed By:Felipe Mercado
[2022-01-17 17:33] LABS: Appearance Urine Clear (Clear); Bacteria Urine Automated Negative (Negative); Bilirubin Urine Negative (Negative); Blood Urine Negative (Negative); Color Urine Yellow; Epithelial Cell Urine Auto >30 /lpf (0-5); Glucose Urine UA Negative (Negative); Ketones Urine Negative (Negative); Leukocyte Esterase Urine Trace (Negative); Nitrite Urine Negative (Negative); Protein Urine Negative (Negative); RBC Urine Automated 0-4 /hpf (0-4); Specific Gravity Urine 1.018 (1.000-1.030); Urobilinogen Urine Negative (Negative); pH Urine 5.5 (4.5-7.5)
[2022-01-17] MEDS ORDERED: POLYETHYLENE (MIRALAX) 17 GM PACK PO PRN (19:58)
[2022-01-17] MEDS ORDERED: METOPROLOL TARTRATE 1 MG/ML VIAL IV PRN (19:58)
[2022-01-17] MEDS ORDERED: GLUCAGON FOR INJ 1 MG VIAL SQ PRN (19:58)
[2022-01-17] MEDS ORDERED: CARBOHYDRATES FOR HYPOGLYCEMIA PO PRN (19:58)
[2022-01-17] MEDS ORDERED: GLUCOSE 40% GEL 15 GM TUBE PO PRN (19:58)
[2022-01-17] MEDS ORDERED: DEXTROSE 50% 50 ML SYRINGE IV PRN (19:58)
[2022-01-17] MEDS ORDERED: GLUCOSE 10 TAB/TUBE PO PRN (19:58)
[2022-01-17] MEDS ORDERED: ACETAMINOPHEN 325 MG TAB PO PRN (19:58)
[2022-01-17] MEDS ORDERED: DULoxetine HCL 60 MG CAP PO SCH (21:00)
[2022-01-17] MEDS: INSULIN ASPART PER UNIT SC SCH ×2 (21:00→22:06)
[2022-01-17] MEDS ORDERED: ATORVASTATIN 10 MG TAB PO SCH (21:00)
[2022-01-17] MEDS: FLECAINIDE ACETATE 100 MG TABLET PO SCH (21:03)
[2022-01-17] MEDS: CEROVITE ADV FORMULA TAB PO SCH (21:03)
[2022-01-17] MEDS: APIXABAN 5 MG TABLET PO SCH (21:04)
[2022-01-18 04:23] LABS: Basophils # (auto) 0.12 K/uL (0-0.2); Basophils % (auto) 1.1 %; Eosinophils # (auto) 1.46 K/uL (0-0.50); Eosinophils % (auto) 13.5 %; Hematocrit (blood only) 37.9 % (34.1-44.9); Immature Granulocytes # (auto) 0.06 K/uL (0.00-0.02); Immature Granulocytes % (auto) 0.6 %; Lymphocytes # (auto) 3.48 K/uL (1.2-3.4); Lymphocytes % (auto) 32.2 %; Mean Corpuscular Hemoglobin 27.5 pg (25.0-34.0); Mean Corpuscular Hgb Conc 31.7 g/dL (32.0-36.0); Mean Corpuscular Volume 86.7 fL (80.0-100.0); Monocytes # (auto) 0.83 K/uL (0.24-0.82); Monocytes % (auto) 7.7 %; Neutrophils # (auto) 4.85 K/uL (1.4-6.5); Neutrophils % (auto) 44.9 %; Platelet Count 285 K/uL (130-400); RDW Coefficient of Variation 14.3 % (11.5-14.5); RDW Standard Deviation 45.6 fL (36.4-46.3); Red Blood Count 4.37 M/uL (3.93-5.22)
[2022-01-18 04:42] LABS: BUN Creatinine Ratio 21.5 (10-20); Calcium 9.1 mg/dl (8.5-10.1); Est GFR (African American) 72.2 ml/min; Est GFR (Non-African American) 62.3 ml/min; Potassium 4.2 mmol/L (3.5-5.1)
[2022-01-18 04:49] LABS: Troponin I High Sensitivity 7.2 pg/ml (0-14)
[2022-01-18] MEDS ORDERED: LEVOTHYROXINE SODIUM 112 MCG TABLET PO SCH (06:30)
[2022-01-18] MEDS: INSULIN ASPART PER UNIT SC SCH (07:35)
[2022-01-18] MEDS ORDERED: Nursing to Pharmacy Communication SCH (07:45)
[2022-01-18 07:56] LABS: Estimated Average Glucose 120 mg/dl; Hemoglobin A1C 5.8 % (4.5-5.6)
[2022-01-18] MEDS ORDERED: METOPROLOL SUCC 50MG EXT REL TAB PO SCH (09:00)
[2022-01-18] MEDS ORDERED: MULTIVITAMIN TAB PO SCH (09:00)
[2022-01-18] MEDS ORDERED: CHOLECALCIFEROL 1,000 UNITS 25 MCG TAB PO SCH (09:00)
[2022-01-18] MEDS ORDERED: PANTOprazole 40 MG TAB PO SCH (09:00)
[2022-01-18] MEDS ORDERED: predniSONE 5 MG TAB PO SCH (09:00)
[2022-01-18] MEDS: APIXABAN 5 MG TABLET PO SCH (09:01)
[2022-01-18] MEDS: CEROVITE ADV FORMULA TAB PO SCH (09:01)
[2022-01-18] MEDS: FLECAINIDE ACETATE 100 MG TABLET PO SCH (09:01)
--- NOTE | 2022-01-18 09:19 | Electrocardiogram Report ---
Test Reason : Blood Pressure : / mmHG Vent. Rate : 106 BPM Atrial Rate : 245 BPM P-R Int : 000 ms QRS Dur : 096 ms QT Int : 390 ms P-R-T Axes : 000 082 117 degrees QTc Int : 518 ms Poor data quality, interpretation may be adversely affected Atrial fibrillation Abnormal ECG When compared with ECG of 17-JAN-2022 12:58, (RBBB and left posterior fascicular block) is no longer Present Confirmed by Kevin Owens ([id number]) on 01/18/2022 9:19:23 AM Referred By: REFERRED SELF Confirmed By:Kevin Owens
--- NOTE | 2022-01-18 11:33 | Hospitalist Progress Note ---
Date of Service January 18, 2022 Assessment & Plan (1) Atrial fibrillation with rapid ventricular response: Plan: Patient is 71 y/o F with PMH atrial fibrillation s/p pulmonary vein [place] [facility] [place] atrial fibrillation s/p cardioversion, anticoagulated on Eliquis, RA, DM II, hypothyroidism, GERD, anxiety, CARLOS presented to ER with c/o palpitations, exertional SOB, diaphoresis fatigue x 5 days. 01/12/22 with tachycardia and found to have atrial flutter referred to ER for possible cardioversion, however HR decreased and patient discharged home Present to the ER with palpitation associated with worsening fatigue and shortness of breath She was found in A. fib with RVR on admission Received Lopressor 5 mg IV in the ER Troponin x3 negative Echo pending Currently on metoprolol 100 mg daily and flecainide 100 mg twice daily Continue Eliquis (patient said she has not missed any dose) Cardiology on board plan for cardiovert this morning Keep n.p.o. for now (2) Hypomagnesemia: Plan: Magnesium: 1.6 on admission Magnesium 2 today Continue monitor (3) Leukocytosis: Plan: Mostly reactive all due to chronic prednisone denies any known fever or chills or urinary symptoms T: 37.8C today in ER. WBC: 12. Negative COVID-19 PCR, negative Lyme titer. Lactate WNL CXR: no acute infiltrate UA only showed trace leukocyte On chronic prednisone Blood culture collected in the ER pending Continue to hold on antibiotic for now WBC normalized (4) Arthritis, rheumatoid: Plan: On chronic prednisone Continue prednisone (5) DM type 2 (diabetes mellitus, type 2): Plan: Most recent hemoglobin A1c today 5.8 Continue to hold home metformin Novolog sliding scale per protocol Continue monitor blood sugar (6) Hypothyroidism: Plan: TSH within normal limit continue levothyroxine (7) Depression: Plan: Continue duloxetine (8) GERD (gastroesophageal reflux disease): Plan: Continue PPI (9) Sleep apnea: Plan: CPAP HS DVT Prophylaxis On Eliquis Full Code Admission and Anticipated Discharge Date Admission Date: January 17, 2022 Subjective Patient was seen and examined for follow-up of palpitation Lying in bed with no acute distress watching TV Patient said that she feels okay right now Patient said that she was cardioverted back in August for the A. fib Denies any chest pain, palpitation, dizziness, shortness of breath. Review of Systems Review of Systems: All systems reviewed & are unremarkable except as noted in Subjective Physical Exam Physical Exam: General- No acute distress Head- atraumatic Eyes- PERRL, EOMI, ENT- oropharynx clear Neck- supple, no JVD Lungs- clear to auscultation Heart- irregular rhythm; no murmur Abdomen- normal bowel sounds, soft, nontender Extremities- no calf tenderness Neuro- alert, oriented x 3; PERRL, EOMI; no facial palsy; no dysarthria Skin- warm & dry Results & Data Results & Data ([facility]) Vital Signs (Past 12 Hours) Vital Signs Temp Pulse Pulse Resp BP Pulse Ox O2 Del Method 01/18/22 10:48 36.5 C 104 H 19 123/81 94 Room Air 01/18/22 09:54 113 H 01/18/22 07:34 36.9 C 95 H 18 118/77 97 Room Air 01/18/22 04:14 36.5 C 111 H 16 121/87 94 Room Air 01/18/22 00:00 105 H
[2022-01-18] MEDS ORDERED: INSULIN ASPART PER UNIT SC SCH (12:00)
--- NOTE | 2022-01-18 12:17 | Anesthesiology Consultation ---
Date of Service January 18, 2022 Assessment & Plan (1) Encounter for pre-operative examination: Chart Review Chart Review: Acceptable Risk for Surgery History Surgery Operation Date: 01/18/22 12:00 Proposed Procedures p Cardioversion w/Anesthesia Sedation - Kevin Owens MD Height/Weight Height: 5 ft 1 in Weight: 81.329 kg Allergies Allergy/AdvReac Type Severity Reaction Status Date / Time monosodium glutamate Allergy Severe THROAT Verified 01/17/22 15:11 SWELLS bacitracin Allergy Mild RASH Verified 01/17/22 15:11 neomycin Allergy Mild RASH Verified 01/17/22 15:11 polymyxin B Allergy Mild RASH Verified 01/17/22 15:11 Penicillins Allergy Unknown UNKNOWN Verified 01/17/22 15:11 Sulfa (Sulfonamide Allergy Unknown UNKNOWN Verified 01/17/22 15:11 Antibiotics) piroxicam AdvReac Severe SEVERE Verified 01/17/22 15:11 DIARRHEA nitrofurantoin AdvReac Intermediate DIARRHEA Verified 01/17/22 15:11 amiodarone AdvReac Mild GI upset Verified 01/17/22 15:11 ciprofloxacin AdvReac Mild N/V Verified 01/17/22 15:11 Medications Home Medications Medication Instructions Recorded Confirmed Last Taken vit C 250 mg-vit E 90 mg-zinc 40 1 tab PO BID 03/25/19 01/17/22 01/17/22 mg-copper 1 [id number] capsule (PreserVision AREDS-2) apixaban 5 mg tablet (Eliquis) 5 mg PO BID #60 tabs 03/30/19 01/17/22 01/17/22 prednisone 5 mg tablet 5 mg PO QAM 01/01/20 01/17/22 01/17/22 duloxetine 60 mg capsule,delayed 60 mg PO QPM 04/22/20 01/17/22 01/16/22 release (Cymbalta) omeprazole 20 mg capsule,delayed 20 mg PO QAM 07/18/20 01/17/22 01/17/22 release multivitamin 1 tab PO QAM 09/29/20 01/17/22 01/17/22 atorvastatin 10 mg tablet 10 mg PO QPM 03/04/21 01/17/22 01/16/22 cholecalciferol (vitamin D3) 50 50 mcg PO QAM 03/20/21 01/17/2208/21/22 mcg (2,000 unit) capsule (Vitamin D3) furosemide 20 mg tablet 20 mg PO DAILY PRN EDEMA/WT GAIN 03/20/21 01/17/22 Unknown >3# metformin 500 mg tablet 500 mg PO BID 03/20/21 01/17/22 01/17/22 metoprolol succinate 100 mg 100 mg PO QAM 08/21/21 01/17/22 01/17/22 tablet,extended release 24 hr clindamycin HCl 300 mg capsule 300 mg PO DIRECTED PRN PRIOR TO 11/06/21 01/17/22 Unknown DENTAL APPOINTMENT #6 caps levothyroxine 112 mcg tablet 112 mcg PO QAM #90 tabs 11/24/21 01/17/22 01/17/22 CPAP Machine #1 ea 12/18/21 01/17/22 Unknown flecainide 100 mg tablet 100 mg PO Q12H #180 tabs 12/28/21 01/17/22 01/17/22 Active Medications Generic Name Dose Route Start Last Admin Trade Name Anisha PRN Reason Stop Dose Admin Apixaban 5 mg 01/17/22 21:00 01/18/22 09:01 Apixaban 5 Mg Tablet PO 02/16/22 20:59 5 mg BID ULICES Administration Atorvastatin Calcium 10 mg 01/17/22 21:00 01/17/22 21:04 Atorvastatin 10 Mg Tab PO 02/16/22 20:59 10 mg QPM ULICES Administration Duloxetine HCl 60 mg 01/17/22 21:00 01/17/22 21:04 Duloxetine Hcl 60 Mg Cap PO 02/16/22 20:59 60 mg QPM ULICES Administration Flecainide Acetate 100 mg 01/17/22 21:00 01/18/22 09:01 Flecainide Acetate 100 Mg Tablet PO 02/16/22 20:59 100 mg Q12H ULICES Administration Insulin Aspart 0 units 01/18/22 12:00 01/18/22 11:34 Insulin Aspart Per Unit SC 02/17/22 11:59 Not Given Q6 ULICES Levothyroxine Sodium 112 mcg 01/18/22 06:30 01/18/22 06:19 Levothyroxine Sodium 112 Mcg Tablet PO 02/17/22 06:29 112 mcg DAILYBB ULICES Administration Metoprolol Succinate 100 mg 01/18/22 09:00 01/18/22 09:01 Metoprolol Succ 50mg Ext Rel Tab PO 02/17/22 08:59 100 mg QAM ULICES Administration Multivitamins 1 tab 01/18/22 09:00 01/18/22 09:01 Multivitamin Tab PO 02/17/22 08:59 1 tab QAM ULICES Administration Multivitamins/Minerals 1 tab 01/17/22 21:00 01/18/22 09:01 Cerovite Adv Formula Tab PO 02/16/22 20:59 1 tab BID ULICES Administration Pantoprazole Sodium 40 mg 01/18/22 09:00 01/18/22 09:01 Pantoprazole 40 Mg Tab PO 02/17/22 08:59 40 mg QAM ULICES Administration Protocol Prednisone 5 mg 01/18/22 09:00 01/18/22 09:01 Prednisone 5 Mg Tab PO 02/17/22 08:59 5 mg QAM ULICES Administration Vitamin D 2,000 units 01/18/22 09:00 01/18/22 09:01 Cholecalciferol 1,000 Units 25 Mcg Tab PO 02/17/22 08:59 2,000 units QAM ULICES Administration Past Medical History Medical History A-fib AND A-FLUTTER, S/P RFA OF PULMONARY VEIN 05/2019; ABLATION IN 06/2021 AT [facility]. 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 Macular degeneration Osteoporosis Polyarthropathy, inflammatory SOBOE (shortness of breath on exertion) OUT OF SHAPE Past Family History Family History Mother Alzheimer disease Father Coronary heart disease Family history of diabetes mellitus Sister Hypothyroidism Sister Hypothyroidism Other No family history of adverse response to anesthesia Past Surgical History Surgical History H/O cardiac radiofrequency ablation x2--06/2021 @ [place] and 05/2019 AT [facility] History of bilateral tubal ligation History of cardiac cath 7 YEARS AGO (NO STENTS) History of cardioversion X 1 History of cholecystectomy History of colonoscopy History of hysterectomy History of tonsillectomy History of tooth extraction History of total left knee replacement History of total right knee replacement (~07/26/20) Hx of bilateral breast reduction surgery ALONG WITH REVISION D/T BLEEDING Hx of bladder repair surgery CYSTOCELE REPAIR AND SLING S/P panniculectomy Social History Smoking Status: Never smoker Do You Dip or Chew Tobacco: No Hx Alcohol Use: No Hx Substance Use: No substance use type: does not use Physical Exam Vital Signs Last Vital Signs Temp 36.5 C 01/18/22 10:48 Pulse 104 H 01/18/22 10:48 Resp 19 01/18/22 10:48 BP 123/81 01/18/22 10:48 Pulse Ox 94 01/18/22 10:48 O2 Del Method 01/18/22 10:48 Testing Laboratory Results 01/18/22 03:58 01/18/22 03:58 Hemoglobin A1c 5.8 % (4.5-5.6) H 01/18/22 03:58 Urine Color Yellow 01/17/22 13:29 Urine Appearance Clear (Clear) 01/17/22 13:29 Urine pH 5.5 (4.5-7.5) 01/17/22 13:29 Ur Specific [place] 1.018 (1.000-1.030) 01/17/22 13:29 Urine Protein Negative (Negative) 01/17/22 13:29 Urine Glucose (UA) Negative (Negative) 01/17/22 13:29 Urine Ketones Negative (Negative) 01/17/22 13:29 Urine Nitrite Negative (Negative) 01/17/22 13:29 Ur Leukocyte Esterase Trace (Negative) H 01/17/22 13:29 Urine WBC (Auto) 1-5 /hpf (0-5) 01/17/22 13:29 Urine RBC (Auto) 0-4 /hpf (0-4) 01/17/22 13:29 U Hyaline Cast (Auto) 1-5 /lpf (0-5) 01/17/22 13:29 U Epithel Cells (Auto) >30 /lpf (0-5) H 01/17/22 13:29 Urine Bacteria (Auto) Negative (Negative) 01/17/22 13:29 07/28/22 07/28/22 10:47 07:20 POC Glucose 108 H 101 H Echocardiogram Date: 06/27/21 EF: 55-60% Other Findings: + LVH
[2022-01-18] MEDS ORDERED: LIDOCAINE 2% 2 ML VIAL/AMP(20MG/ML) INFIL ONE (13:10)
[2022-01-18] MEDS ORDERED: PROPOFOL IV EMULSION 10 MG/ML 20 ML VIAL IV ONE (13:10)
--- NOTE | 2022-01-18 13:29 | Cardiology Consultation ---
Date of Consultation January 18, 2022 Assessment & Plan (1) Atrial flutter: (2) Hypomagnesemia: (3) Paroxysmal atrial fibrillation: (4) H/O cardiac radiofrequency ablation: Plan 71-year-old woman with paroxysmal atrial fibrillation status post ablation x2 now with atrial flutter which was just electrically cardioverted back to sinus rhythm. She will continue on flecainide 100 mg every 12 hours. Will initiate Slow-Mag 64 mg twice daily, with an extra dose of Slow-Mag whenever she takes her diuretic. Since she takes this primarily for leg edema, encouraged her to use compression stockings and elevation and avoid routine diuretic use, noting that she will have more benefit if she uses the diuretic only when she has leg edema with concurrent weight gain. Continue anticoagulation with apixaban 5 mg twice daily. After a few hours observation, she should be okay for discharge home later today. History of Present Illness Reason for Consultation: Zane salter RVR Requesting Physician: Emma Rasmussen MD Attending Physician: Emma Rasmussen MD History of Present Illness 71-year-old woman with paroxysmal atrial fibrillation (status post pulmonary venous ablation x2 , last June 2021), status post cardioversion August 2021, who was subsequently off antiarrhythmics but developed atrial flutter with rapid ventricular response was admitted yesterday with intent to undergo elective electrical cardioversion. She had been noting dyspnea on minimal exertion, diaphoresis, fatigue, and subjective tachycardic palpitations in recent weeks. She was initiated on flecainide but her rhythm remained atrial flutter. Of note, over the past year she has been intermittently hypomagnesemic (4 of 10 values were low), possibly from her intermittent diuretic use (which she takes only every few weeks). She denies any diarrhea. At one point she had been on a magnesium supplement, possibly magnesium oxide, but she has not been taking this routinely. Her magnesium yesterday was 1.6, today after intravenous repletion her magnesium is 2.0. She was comfortable at rest with no complaints of chest pain, dyspnea, or subjective palpitations. After discussion of risks, benefits, and alternatives, she proceeded with electrical cardioversion and was returned to sinus rhythm with a single 70 J synchronized shock. No procedural complications. Post cardioversion, she was awake, asymptomatic, and hemodynamically stable in sinus rhythm. Allergies Allergy/AdvReac Type Severity Reaction Status Date / Time monosodium glutamate Allergy Severe THROAT Verified 01/17/22 15:11 SWELLS bacitracin Allergy Mild RASH Verified 01/17/22 15:11 neomycin Allergy Mild RASH Verified 01/17/22 15:11 polymyxin B Allergy Mild RASH Verified 01/17/22 15:11 Penicillins Allergy Unknown UNKNOWN Verified 01/17/22 15:11 Sulfa (Sulfonamide Allergy Unknown UNKNOWN Verified 01/17/22 15:11 Antibiotics) piroxicam AdvReac Severe SEVERE Verified 01/17/22 15:11 DIARRHEA nitrofurantoin AdvReac Intermediate DIARRHEA Verified 01/17/22 15:11 amiodarone AdvReac Mild GI upset Verified 01/17/22 15:11 ciprofloxacin AdvReac Mild N/V Verified 01/17/22 15:11 Home Medications Medication Instructions Recorded Confirmed Type vit C 250 mg-vit E 90 mg-zinc 40 1 tab PO BID 03/25/19 01/17/22 History mg-copper 1 [id number] capsule (PreserVision AREDS-2) apixaban 5 mg tablet (Eliquis) 5 mg PO BID #60 tabs 03/30/19 01/17/22 Rx prednisone 5 mg tablet 5 mg PO QAM 01/01/20 01/17/22 History duloxetine 60 mg capsule,delayed 60 mg PO QPM 04/22/20 01/17/22 History release (Cymbalta) omeprazole 20 mg capsule,delayed 20 mg PO QAM 07/18/20 01/17/22 History release multivitamin 1 tab PO QAM 09/29/20 01/17/22 History atorvastatin 10 mg tablet 10 mg PO QPM 03/04/21 01/17/22 History cholecalciferol (vitamin D3) 50 50 mcg PO QAM 03/20/21 01/17/22 History mcg (2,000 unit) capsule (Vitamin D3) furosemide 20 mg tablet 20 mg PO DAILY PRN EDEMA/WT GAIN 03/20/21 01/17/22 History >3# metformin 500 mg tablet 500 mg PO BID 03/20/21 01/17/22 History metoprolol succinate 100 mg 100 mg PO QAM 08/21/21 01/17/22 History tablet,extended release 24 hr clindamycin HCl 300 mg capsule 300 mg PO DIRECTED PRN PRIOR TO 11/06/21 01/17/22 Rx DENTAL APPOINTMENT #6 caps levothyroxine 112 mcg tablet 112 mcg PO QAM #90 tabs 11/24/21 01/17/22 Rx CPAP Machine #1 ea 12/18/21 01/17/22 Rx flecainide 100 mg tablet 100 mg PO Q12H #180 tabs 12/28/21 01/17/22 Rx Patient History Medical History A-fib AND A-FLUTTER, S/P RFA OF PULMONARY VEIN 05/2019; ABLATION IN 06/2021 AT [place]. 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 Macular degeneration Osteoporosis Polyarthropathy, inflammatory SOBOE (shortness of breath on exertion) OUT OF SHAPE Surgical History H/O cardiac radiofrequency ablation x2--06/2021 @ [place] and 05/2019 AT [place] History of bilateral tubal ligation History of cardiac cath 7 YEARS AGO (NO STENTS) History of cardioversion X 1 History of cholecystectomy History of colonoscopy History of hysterectomy History of tonsillectomy History of tooth extraction History of total left knee replacement History of total right knee replacement (~07/26/20) Hx of bilateral breast reduction surgery ALONG WITH REVISION D/T BLEEDING Hx of bladder repair surgery CYSTOCELE REPAIR AND SLING S/P panniculectomy Family History Mother Alzheimer disease Father Coronary heart disease Family history of diabetes mellitus Sister Hypothyroidism Sister Hypothyroidism Other No family history of adverse response to anesthesia Social History Smoking Status: Never smoker Second Hand Exposure: No; Do You Dip or Chew Tobacco: No; Tobacco Cessation Education Requested by Patient: No Hx Alcohol Use: No Hx Substance Use: No Preferred Language: [place] Communication Ability: Effective Preparing Box Tender Required: No Beliefs That Will Affect Care: None marital status: Current Living Situation: Spouse Current Living Situation Comment: Home with Other Information That Helps Us Care for You: No Feels Safe at Home: Yes Safety Concerns: Feels Safe At This Time Assistive Devices: Cane and Walker Assistive Devices Comment: at times Physical Exam Physical Exam: No distress. BP 140/80 mmHg. Pulse initially in the 100-110 bpm range, 60 bpm and regular after cardioversion. Skin: no ecchymoses or generalized lesions. HEENT: unremarkable. Neck: no JVD or carotid bruits. Lungs: clear. Cardiac: Initially irregular/cardiac rhythm, subsequently regular rhythm, no murmur or gallop. Abdomen: benign. Extremities: no edema, pulses intact. Neurologic: normal affect, nonfocal. Results & Data ([facility]) Vital Signs (Past 12 Hours) Vital Signs Temp Pulse Pulse Resp BP Pulse Ox O2 Del Method 01/18/22 10:48 97.7 F 104 H 19 123/81 94 Room Air 01/18/22 09:54 113 H 01/18/22 07:34 98.4 F 95 H 18 118/77 97 Room Air 01/18/22 04:14 97.7 F 111 H 16 121/87 94 Room Air Laboratory Results Magnesium 1.6 yesterday and 2.0 today. Potassium 4.2, BUN 20, creatinine 0.93. Diagnostic Findings ECG today showed atrial fibrillation with a rate of 106 bpm, compared with yesterday right bundle branch block and left posterior fascicular block were no longer present. Chest x-ray on admission was unremarkable. Echocardiogram June 2021 showed EF 60% with mild LVH, moderate left atrial dilatation, mild tricuspid regurgitation. PG Care Time/CCT Total # of Minutes Spent Total Time Spent with Patient: Total time spent is greater than 50% in coordination of care (as documented) at patient's floor/unit and/or counseling patient: Coding Level of Care Code 43484 Inpt Consult Level 4 Diagnoses Atrial flutter I48.92 Hypomagnesemia E83.42 Paroxysmal atrial fibrillation I48.0 H/O cardiac radiofrequency ablation Z98.890
--- NOTE | 2022-01-18 15:06 | Anesthesiology Progress Note ---
Date of Service January 18, 2022 Anesthesia Post Procedure Vital Signs Vital Signs: Temp Pulse Pulse Resp BP Pulse Ox O2 Del Method 01/18/22 13:30 62 18 132/78 95 Room Air 01/18/22 13:16 60 18 140/80 100 Room Air 01/18/22 13:06 103 H 20 134/101 H 95 Room Air 01/18/22 10:48 36.5 C 104 H 19 123/81 94 Room Air 01/18/22 09:54 113 H 01/18/22 07:34 36.9 C 95 H 18 118/77 97 Room Air 01/18/22 04:14 36.5 C 111 H 16 121/87 94 Room Air 01/18/22 00:00 105 H 01/17/22 19:40 113 H 01/17/22 23:04 36.5 C 97 H 20 122/82 96 Room Air 01/17/22 20:26 36.4 C L 100 H 20 129/90 97 Room Air 01/17/22 16:52 104 H 24 138/69 97 Room Air Transfer of Care Handoff Completed per policy Notes Mental Status: alert / awake / arousable Patient Amnestic to Procedure: Yes Nausea / Vomiting: adequately controlled Pain: adequately controlled Airway Patency, RR, SpO2: stable & adequate BP & HR: stable & adequate Hydration State: stable & adequate Anesthetic Complications: no major complications apparent
--- NOTE | 2022-01-18 17:18 | Discharge Summary ---
Date of Service January 18, 2022 Admission HPI Per Admitting Provider Patient is 71 y/o F with PMH atrial fibrillation [place] [facility] [place] atrial fibrillation s/p cardioversion, anticoagulated on Eliquis, RA, DM II, hypothyroidism, GERD, anxiety, CARLOS presented to ER with c/o palpitations. Patient with recent history 01/12/22 seen by outpatient cardiology with tachycardia and found to have atrial flutter. She was referred to ER that day for possible cardioversion. During ER course patient's heart rate decreased and was not as symptomatic so was discharged home. Patient on metoprolol succinate 100 mg daily and flecainide 100 mg twice daily, anticoag ulated on Eliquis and denies any missed doses. Patient reports since 01/12/22 she has "felt lousy". Reports generalized fatigue, any exertion has increased palpitations and reports exertional shortness of breath, diaphoresis. She states she has been sitting around has not been active secondary to worsening symptoms with exertion. Denies chest pain, dizziness, syncope. She reports she has a Fitbit watch that has been reading her pulse 117-120s, however she reports often times it does not record pulse appropriately. Denies known fever/chills, N/V/D/C, MENDIETA, vision changes, neck pain, orthopnea, cough, sore throat, choking, otalgia, rhinorrhea, abdominal pain, paresthesias, extremity weakness, extremity edema, rashes, urinary symptoms. Today in ER found to be in atrial fibrillation RVR rate 116, BP: 115/79. Was given Lopressor 5mg IV. Pulse down to 99. Patient reports improvement of symptoms while sitting in bed. Admission Exam Per Admitting Provider General: no distress, WDWN Head: normocephalic, atraumatic Eyes: PERRL, EOM's intact, conjunctiva non-injected, anicteric ENT: normal inspection external ears, nose, mucous membranes moist Neck: supple, trachea midline Lungs: clear, no respiratory distress, no wheezing/rhonchi/rales CV: irregularly irregular, rate 98, no murmur, no pretibial edema Abd: normal BS, soft, non-tender Ext: no cyanosis, no calf tenderness Neuro: A&O x 3, no focal deficits noted, normal affect Skin: warm, dry Principal Diagnosis Atrial fibrillation with rapid ventricular response: Hypomagnesemia: Leukocytosis: Arthritis, rheumatoid: DM type 2 (diabetes mellitus, type 2): Hypothyroidism: Sleep apnea: Discharge Exam General- No acute distress Head- atraumatic Eyes- PERRL, EOMI, ENT- oropharynx clear Neck- supple, no JVD Lungs- clear to auscultation Heart- irregular rhythm; no murmur Abdomen- normal bowel sounds, soft, nontender Extremities- no calf tenderness Neuro- alert, oriented x 3; PERRL, EOMI; no facial palsy; no dysarthria Skin- warm & dry Discharge Data Allergies Allergy/AdvReac Type Severity Reaction Status Date / Time monosodium glutamate Allergy Severe THROAT Verified 01/17/22 15:11 SWELLS bacitracin Allergy Mild RASH Verified 01/17/22 15:11 neomycin Allergy Mild RASH Verified 01/17/22 15:11 polymyxin B Allergy Mild RASH Verified 01/17/22 15:11 Penicillins Allergy Unknown UNKNOWN Verified 01/17/22 15:11 Sulfa (Sulfonamide Allergy Unknown UNKNOWN Verified 01/17/22 15:11 Antibiotics) piroxicam AdvReac Severe SEVERE Verified 01/17/22 15:11 DIARRHEA nitrofurantoin AdvReac Intermediate DIARRHEA Verified 01/17/22 15:11 amiodarone AdvReac Mild GI upset Verified 01/17/22 15:11 ciprofloxacin AdvReac Mild N/V Verified 01/17/22 15:11 Consultations 01/17/22 15:25 ED Decision to Admit Stat 01/17/22 15:47 Consult Cardiology Routine 01/18/22 11:16 Consult Anesthesiology Routine Procedures Performed Operation Date: 01/18/22 12:00 Actual Procedures p Cardioversion - Kevin Owens MD PG Electrical Cardioversion Rp Electrical Cardioversion Report Indication: Atrial flutter with rapid ventricular response Written consent was obtained after the risks and benefits were explained, including but not limited to pain, thermal burn, allergic reaction, aspiration, airway obstruction, laryngospasm, infection, hypotension, and cardiorespiratory arrest. A time out was taken and the correct patient and procedure identified. The patient was on 100% via NRB and end tidal CO2 monitoring prior to the procedure. Suction, airway equipment, medications, respiratory equipment, ACLS cart, and appropriate personnel were prepared prior to the initiation of the procedure. Sedation was achieved by anesthesiology. The biphasic defibrillator was set to 70 joules of energy and synched. After confirmation of sedation and "all clear" safety check the synchronized shock was delivered. This resulted in successful conversion of the dysrhythmia back into sinus rhythm. See nursing notes for dosages and times. There were no complications and the patient recovered uneventfully from the procedure. Coding Level of Care Code Cardioversion, elective Additional Codes Electrical Cardioversion Report ([id number]) Signed By: <Electronically signed by Kevin Owens MD> Ordered Studies XR chest 1V portable HISTORY: weakness COMPARISON: Chest 01/12/2022. FINDINGS: There are low lung volumes. The cardiac silhouette remains borderline enlarged. No pleural effusions. No pneumothorax. No focal lung consolidations to suggest pneumonia. No evidence for pulmonary edema. IMPRESSION: No significant change compared to the prior study. No acute process. ACT 112: Negative or not required by law. Electronically signed by: Tariq Azul M.D. 01/17/2022 1:37 PM Dictated:01/17/22 1336 Transcribed: 01/17/22 1336 Hospital Course (1) Atrial fibrillation with rapid ventricular response: Patient is 71 y/o F with PMH atrial fibrillation [place] [facility] [place] atrial fibrillation s/p cardioversion, anticoagulated on Eliquis, RA, DM II, hypothyroidism, GERD, anxiety, CARLOS presented to ER with c/o palpitations, exertional SOB, diaphoresis fatigue x 5 days. 01/12/22 with tachycardia and found to have atrial flutter referred to ER for possible cardio version, however HR decreased and patient discharged home Present to the ER with palpitation associated with worsening fatigue and shortness of breath She was found in A. fib with RVR on admission Received Lopressor 5 mg IV in the ER Troponin x3 negative Currently on metoprolol 100 mg daily and flecainide 100 mg twice daily Continue Eliquis (patient said she has not missed any dose) Cardiology on board plan for cardiovert this morning S/p successful cardioversion to normal sinus rhythm. No complications and the patient recovered uneventfully from the procedure. Ok from cardiology standpoint to discharge home (2) Hypomagnesemia: Magnesium: 1.6 on admission Magnesium 2 today Continue magnesium supplement (3) Leukocytosis: Mostly reactive all due to chronic prednisone denies any known fever or chills or urinary symptoms T: 37.8C today in ER. WBC: 12. Negative COVID-19 PCR, negative Lyme titer. Lactate WNL CXR: no acute infiltrate UA only showed trace leukocyte On chronic prednisone Blood culture collected in the ER pending Continue to hold on antibiotic for now WBC normalized (4) Arthritis, rheumatoid: On chronic prednisone Continue prednisone (5) DM type 2 (diabetes mellitus, type 2): Most recent hemoglobin A1c today 5.8 Continue to hold home metformin Novolog sliding scale per protocol Continue monitor blood sugar (6) Hypothyroidism: TSH within normal limit continue levothyroxine (7) Depression: Continue duloxetine (8) GERD (gastroesophageal reflux disease): Continue PPI (9) Sleep apnea: CPAP HS DVT Prophylaxis On Eliquis Full Code By CMS guidelines, a determination that the admission or continued stay is not medically necessary has been made by a member of the UR committee and a physician for this hospital stay, therefore a Code 44 will be completed and the Inpatient admission will be changed to outpatient. Total Time Total Time Spent Total Time Spent (In Minutes): 35 minutes Discharge Plan Discharge Items Patient Disposition: Home - Self-Care Reason For Visit: AFIB RVR Discharge Diagnosis: Atrial fibrillation with rapid ventricular response: Hypomagnesemia: Leukocytosis: Arthritis, rheumatoid: DM type 2 (diabetes mellitus, type 2): Hypothyroidism: Sleep apnea: Condition on Discharge: Fair Activity: Resume your previous activity Non-emergency contact: Primary Care Provider and Weld Engineer Call non-emergency contact if: you have any medication questions Follow-up/Referrals: Reid Main MD [Primary Care Provider] - (Date & Time 01/22/2022 11:20 AM Provider Reid Main MD Department [facility] ) Diet: Carb Consistent or DM2 Addtl Attending Provider Instructions: Follow up with your primary care provider 01/22/2022 @ 11:20 AM Reid Main MD Department [facility] Follow up with your cardiology outpatient Will initiate Slow-Mag 64 mg twice daily, with an extra dose of Slow-Mag whenever you take the diuretic (lasix) Check magnesium level in 1 week Seek medical attention if palpitation reoccurs Pending Studies at Discharge: No Stand-Alone Forms: My [facility], Smoking Cessation Medications and DC Order Prescriptions: New Mag 64 64 mg Tablet,Delayed Release (Dr/Ec) 64 mg PO BID Qty: 60 0RF Continued clindamycin HCl 300 mg capsule 300 mg PO DIRECTED PRN (Reason: PRIOR TO DENTAL APPOINTMENT) Qty: 6 3RF Rx Instructions: TAKE 2 CAPSULES ONE HOUR PRIOR TO DENTAL WORK levothyroxine 112 mcg tablet 112 mcg PO QAM Qty: 90 3RF (DME) CPAP Machine Misc .Route Qty: 1 0RF Rx Instructions: 9 cm of water, mask fit patient comfort, heated humidification, compliance download capabilities, DME of patient choice flecainide 100 mg tablet 100 mg PO Q12H Qty: 180 3RF multivitamin Tablet 1 tab PO QAM prednisone 5 mg tablet 5 mg PO QAM PreserVision AREDS-2 [id number] Capsule 1 tab PO BID Eliquis 5 mg Tablet 5 mg PO BID Qty: 60 2RF omeprazole 20 mg capsule,delayed release(DR/EC) 20 mg PO QAM duloxetine [Cymbalta] 60 mg Capsule,Delayed Release(Dr/Ec) 60 mg PO QPM atorvastatin 10 mg tablet 10 mg PO QPM metformin 500 mg tablet 500 mg PO BID furosemide 20 mg tablet 20 mg PO DAILY PRN (Reason: EDEMA/WT GAIN >3#) cholecalciferol (vitamin D3) [Vitamin D3] 50 mcg (2,000 unit) Capsule 50 mcg PO QAM metoprolol succinate 100 mg tablet extended release 24 hr 100 mg PO QAM Discharge Orders: Discharge Order (Routine); Ordered 01/18/22 Ordered By: Emma Rasmussen Admission Data Admit Date/Time: 01/17/22 15:47 Attending Provider: Emma Rasmussen Admit Provider: Terrell Arguello Primary Care Provider: Reid Main I. Other Providers: Felipe Mercado ; Terrell Arguello ; Luca Archer ; Kevin Owens ; Zain Carpenter ; Travis Lovett ; Benton Diggs Jr ; Orville Ragland ; Randi Pan ; Catherine Giles ; Chapito Burrows ; Ezio Torres ; Gilberto Hilario ; Josephine Yin ; Margarita Nash ; Jonathan Weber ; Titi Madrid ; Daryl Rawls ; Travis Powell V. Other Interventions: Discharge Summary Assessment (RN) Last Done: 01/18/22 17:53
--- NOTE | 2022-01-18 17:25 | Communication Note ---
Date of Service: January 18, 2022 Code 44 attestation: The chart of the patient, labs, EKG and imaging studies reviewed and agree with the discharge as per the attending. By CMS guidelines, a determination that the admission or continued stay is not medically necessary has been made by a member of the UR committee and a physician for this hospital stay, therefore a Code 44 will be completed and the Inpatient admission will be changed to outpatient. Dr Alaina Jones Member UR Committee
[2022-01-18] MEDS ORDERED: MAGNESIUM CHLORIDE W/CALCIUM 64MG DELAYED REL TAB PO SCH (21:00)
--- NOTE | 2022-01-19 08:12 | Cardioversion ---
Date of Service January 18, 2022 PG Electrical Cardioversion Rp Electrical Cardioversion Report Indication: Atrial flutter with rapid ventricular response Written consent was obtained after the risks and benefits were explained, including but not limited to pain, thermal burn, allergic reaction, aspiration, airway obstruction, laryngospasm, infection, hypotension, and cardiorespiratory arrest. A time out was taken and the correct patient and procedure identified. The patient was on 100% via NRB and end tidal CO2 monitoring prior to the procedure. Suction, airway equipment, medications, respiratory equipment, ACLS cart, and appropriate personnel were prepared prior to the initiation of the procedure. Sedation was achieved by anesthesiology. The biphasic defibrillator was set to 70 joules of energy and synched. After confirmation of sedation and "all clear" safety check the synchronized shock was delivered. This resulted in successful conversion of the dysrhythmia back into sinus rhythm. See nursing notes for dosages and times. There were no complications and the patient re covered uneventfully from the procedure. Coding Level of Care Code Cardioversion, elective Additional Codes Electrical Cardioversion Report ([id number])
== END 2022-01-18 18:40 | disposition home or self-care (01) | DRG 309 ==
LOC: ED 12:43 → SUATTDRO 15:47 → INTOOBSV 15:47 → EDINP 15:47 → 2S 19:32
DX: Z88.6 Allergy status to analgesic agent; F41.9 Anxiety disorder, unspecified; Z79.84 Long term (current) use of oral hypoglycemic drugs; Z91.018 Allergy to other foods; Z90.09 Acquired absence of other part of head and neck; Z98.51 Tubal ligation status; K21.9 Gastro-esophageal reflux disease without esophagitis; I44.4 Left anterior fascicular block; Z88.1 Allergy status to other antibiotic agents; Z98.82 Breast implant status; G47.33 Obstructive sleep apnea (adult) (pediatric); Z79.52 Long term (current) use of systemic steroids; I48.92 Unspecified atrial flutter; M06.4 Inflammatory polyarthropathy; Z88.0 Allergy status to penicillin; E83.42 Hypomagnesemia; Z90.710 Acquired absence of both cervix and uterus; I48.0 Paroxysmal atrial fibrillation; E11.9 Type 2 diabetes mellitus without complications; M81.0 Age-related osteoporosis without current pathological fracture; I50.22 Chronic systolic (congestive) heart failure; Z79.82 Long term (current) use of aspirin; Z88.2 Allergy status to sulfonamides; E03.9 Hypothyroidism, unspecified; Z90.49 Acquired absence of other specified parts of digestive tract; I11.0 Hypertensive heart disease with heart failure; I45.10 Unspecified right bundle-branch block; F32.A Depression, unspecified; Z88.8 Allergy status to other drugs, medicaments and biological substances; M79.7 Fibromyalgia; Z96.653 Presence of artificial knee joint, bilateral

== ENCOUNTER 2022-02-26 18:57 | Inpatient (IN) ==
[2022-02-26] MEDS ORDERED: dilTIAZem HCl 5 MG/ML 5 ML VIAL IV STA (19:12)
--- NOTE | 2022-02-26 19:15 | Emergency Department Note ---
History of Present Illness General Chief complaint: Illness Stated complaint: AFIB, BP ABNORMAL, PULSE OX ABNORMAL Time Seen by Provider: 02/26/22 19:06 Source: patient History of Present Illness Provider complaint: Chest pain Onset (ago): day(s) 2 Location: chest Pain Consistency: + constant Quality: + other (Heaviness) Relieved By: + none Associated symptoms: + chest pain, + shortness of breath and + other (Fatigue); no cough, no diaphoresis, no fever/chills or no nausea/vomiting This is a 71-year-old female with a history of atrial fibrillation on Eliquis presenting with chest discomfort starting 2 days ago. It has been relatively constant. She states that she felt very fatigued and short of breath with it as well. She denies any modifying factors. She denies having any palpitations or feelings of tachycardia. Today she stated her blood pressure was very high and she had difficulty getting her pulse ox and so she came in for evaluation. She describes the chest discomfort as a heaviness across her chest. She does have chronic leg swelling since she was diagnosed with atrial fibrillation several months ago. She denies any calf pain or leg pain. She has had no fever, cough or cold symptoms, abdominal pain, vomiting, diarrhea or urinary symptoms. Home Medications Medication Instructions Recorded Confirmed Type vit C 250 mg-vit E 90 mg-zinc 40 1 tab PO BID 03/25/19 02/26/22 History mg-copper 1 [id number] capsule (PreserVision AREDS-2) apixaban 5 mg tablet (Eliquis) 5 mg PO BID #60 tabs 03/30/19 02/26/22 Rx prednisone 5 mg tablet 5 mg PO QAM 01/01/20 02/26/22 History duloxetine 60 mg capsule,delayed 60 mg PO QPM 04/22/20 02/26/22 History release (Cymbalta) multivitamin 1 tab PO QAM 09/29/20 02/26/22 History atorvastatin 10 mg tablet 10 mg PO QPM 03/04/21 02/26/22 History cholecalciferol (vitamin D3) 50 50 mcg PO QAM 03/20/21 02/26/22 History mcg (2,000 unit) capsule (Vitamin D3) furosemide 20 mg tablet 20 mg PO DAILY PRN EDEMA/WT GAIN 03/20/21 02/26/22 History >3# metformin 500 mg tablet 500 mg PO BID 03/20/21 02/26/22 History clindamycin HCl 300 mg capsule 300 mg PO DIRECTED PRN PRIOR TO 11/06/21 02/26/22 Rx DENTAL APPOINTMENT #6 caps levothyroxine 112 mcg tablet 112 mcg PO QAM #90 tabs 11/24/21 02/26/22 Rx CPAP Machine #1 ea 12/18/21 02/26/22 Rx magnesium chloride 64 mg 64 mg PO BID #60 tabs 01/18/22 02/26/22 Rx (magnesium chloride) tablet,delayed release (Mag 64) metoprolol succinate 100 mg 100 mg PO BID 02/02/22 02/26/22 History tablet,extended release 24 hr docusate sodium 100 mg capsule 100 mg PO HS 02/26/22 02/26/22 History (Stool Softener) polyethylene glycol 3350 17 8.5 g PO QAM 02/26/22 02/26/22 History gram/dose oral powder (Miralax) Allergies Allergy/AdvReac Type Severity Reaction Status Date / Time monosodium glutamate Allergy Severe THROAT Verified 02/26/22 21:07 SWELLS bacitracin Allergy Mild RASH Verified 02/26/22 21:07 neomycin Allergy Mild RASH Verified 02/26/22 21:07 polymyxin B Allergy Mild RASH Verified 02/26/22 21:07 Penicillins Allergy Unknown UNKNOWN Verified 02/26/22 21:07 Sulfa (Sulfonamide Allergy Unknown UNKNOWN Verified 02/26/22 21:07 Antibiotics) piroxicam AdvReac Severe SEVERE Verified 02/26/22 21:07 DIARRHEA nitrofurantoin AdvReac Intermediate DIARRHEA Verified 02/26/22 21:07 amiodarone AdvReac Mild GI upset Verified 02/26/22 21:07 ciprofloxacin AdvReac Mild N/V Verified 02/26/22 21:07 Past Med/Surg History Medical History A-fib AND A-FLUTTER, S/P RFA OF PULMONARY VEIN 05/2019; ABLATION IN 06/2021 AT [facility]. ON ELIQUIS Anticoagulant long-term use Arthritis, rheumatoid Chronic HFrEF (heart failure with reduced ejection fraction) EF 60% on 06/27/21 ECHO Depression DM type 2 (diabetes mellitus, type 2) Dyslipidemia Fibromyalgia GERD (gastroesophageal reflux disease) Hypertension Hypothyroidism Jaw clicking half-way current use of systemic steroids Macular degeneration Osteoporosis Polyarthropathy, inflammatory SOBOE (shortness of breath on exertion) OUT OF SHAPE Surgical History H/O cardiac radiofrequency ablation x2--06/2021 @ [facility] and 05/2019 AT [facility] History of bilateral tubal ligation History of cardiac cath 7 YEARS AGO (NO STENTS) History of cardioversion X 1 History of cholecystectomy History of colonoscopy History of hysterectomy History of tonsillectomy History of tooth extraction History of total left knee replacement History of total right knee replacement (~07/26/20) Hx of bilateral breast reduction surgery ALONG WITH REVISION D/T BLEEDING Hx of bladder repair surgery CYSTOCELE REPAIR AND SLING S/P panniculectomy Family History Mother Alzheimer disease Father Coronary heart disease Family history of diabetes mellitus Sister Hypothyroidism Sister Hypothyroidism Other No family history of adverse response to anesthesia Social History Smoking Status: Never smoker Second Hand Exposure: No; Hx Alcohol Use: No Hx Substance Use: No Preferred Language: Citizen Of The [place] Communication Ability: Effective Guard Supervisor Required: No Beliefs That Will Affect Care: None marital status: Current Living Situation: Spouse Current Living Situation Comment: Home with Feels Safe at Home: Yes Assistive Devices: Cane and Walker Review of Systems See HPI for pertinent positives & negatives. and A total of 10 systems reviewed and were otherwise negative Physical Exam Vital Signs Vital Signs - 24 hr 02/26/22 18:59 02/26/22 19:16 02/26/22 19:31 Temperature 36.9 C Temperature Source Temporal Artery Scan Pulse Rate 165 H 163 H 85 Pulse Rate from SpO2 Sensor 87 Pulse Rhythm Irregular Respiratory Rate 22 28 H 21 Respiratory Effort / Characteristics Non-Labored Spontaneous Respiratory Depth Normal Blood Pressure 148/90 H 156/107 H Blood Pressure Mean 109 123 Blood Pressure Position Sitting Pulse Oximetry 93 100 98 Oxygen Delivery Method Room Air Sepsis Recent Fever Within 48 Hours No Sepsis New/Unexplained Change in Mental Status No Sepsis Action Taken by Nursing No Action Required 02/26/22 19:31 02/26/22 19:45 02/26/22 20:00 Temperature Temperature Source Pulse Rate 81 Pulse Rate from SpO2 Sensor Pulse Rhythm Respiratory Rate 23 19 Respiratory Effort / Characteristics Respiratory Depth Blood Pressure 117/77 120/75 116/92 Blood Pressure Mean 90 90 100 Blood Pressure Position Pulse Oximetry 98 95 Oxygen Delivery Method Sepsis Recent Fever Within 48 Hours Sepsis New/Unexplained Change in Mental Status Sepsis Action Taken by Nursing Constitutional: Vital signs reviewed. Eyes: Pupils are equal round reactive to light. Conjunctiva are noninjected. ENT: Pharynx is clear without erythema or exudate. Mucous membranes are moist. Neck supple without meningeal signs. Respiratory: Clear to auscultation bilaterally. Breath sounds are equal bilaterally. Cardiovascular: Tachycardic. Heart rate 162. GI: Soft, nondistended and nontender. Bowel sounds are present. Musculoskeletal: Bilateral pedal edema. No lower extremity tenderness. Integumentary: No cyanosis. or jaundice. Neurological: The patient is awake and alert. No focal deficits. Psychiatric: Normal affect. Course Administered Medications Discontinued Medications Diltiazem HCl (Diltiazem Hcl 5 Mg/Ml 5 Ml Vial) 10 mg IV NOW STA Stop: 02/26/22 19:13 Last Admin: 02/26/22:22 Dose: 10 mg Documented By: CHRISTIANE Co-signed By: RUBY Medical Decision Making Differential Diagnosis Atrial fibrillation with RVR, acute coronary syndrome, CT, pulmonary edema, electrolyte abnormality Medical Records Attestation: I reviewed the patient's medical records. I did perform a limited focused review of portions of the patient's old chart on the electronic medical record. The patient was admitted to the hospital in December for A. fib with RVR Home Medications Current Medication List: was personally reviewed by me Laboratory Data Attestation: I reviewed the patient's lab results. Result diagrams: 02/26/22 19:16 02/26/22 19:16 Lab Results 02/26/22 02/26/22 02/26/22 Range/Units 19:16 19:16 19:42 WBC 13.16 H (4.8-10.8) K/ul RBC 4.90 (3.93-5.22) M/uL Hgb 13.4 (12.0-16.0) g/dl Hct 42.5 (34.1-44.9) % MCV 86.7 (80.0-100.0) fL MCH 27.3 (25.0-34.0) pg MCHC 31.5 L (32.0-36.0) g/dL RDW Std Deviation 44.7 (36.4-46.3) fL RDW Coeff of Starla 14.2 (11.5-14.5) % Plt Count 345 (130-400) K/uL MPV 10.0 (9.4-12.3) fL Immature Gran % (Auto) 0.5 % Neut % (Auto) 51.2 % Lymph % (Auto) 24.1 % [place]aine % (Auto) 9.0 % Eos % (Auto) 14.1 % Baso % (Auto) 1.1 % Neut # (Auto) 6.73 H (1.4-6.5) K/uL Lymph # (Auto) 3.17 (1.2-3.4) K/uL Blaine # (Auto) 1.18 H (0.24-0.82) K/uL Eos # (Auto) 1.86 H (0-0.50) K/uL Baso # (Auto) 0.15 (0-0.2) K/uL Immature Gran # (Auto) 0.07 H (0.00-0.02) K/uL Sodium 141 (136-145) mmol/L Potassium 3.9 (3.5-5.1) mmol/L Chloride 103 (98-107) mmol/L Carbon Dioxide 30 (21-32) mmol/L Anion Gap 8 (3-11) BUN 19 (6-23) mg/dl Creatinine 0.94 (0.6-1.2) mg/dl Est Cr Clr Drug Dosing Not Reportable Est GFR ( Amer) 71.2 ml/min Est GFR (Non-Af Amer) 61.5 ml/min BUN/Creatinine Ratio 20.2 H (10-20) Glucose 101 H (70-99(Fasting)) mg/dl Calcium 10.1 (8.5-10.1) mg/dl Total Bilirubin 0.4 (0.2-1.0) mg/dl AST 18 (13-39) U/L ALT 24 (7-52) U/L Alkaline Phosphatase 126 H (34-104) U/L Troponin I High Sens 11.6 D (0-14) pg/ml Total Protein 7.1 (6.0-8.3) gm/dl Albumin 4.8 (3.4-5.0) gm/dl Globulin 2.3 L (2.5-4.0) gm/dl Albumin/Globulin Ratio 2.1 H (0.9-2) Lipase 105 H (11-82) U/L SARS-CoV-2, RNA, NAAT NEGATIVE (NEGATIVE) Imaging Data Radiologist's Impression: Chest X-Ray 02/26/22 19:12 XR chest 1V portable CLINICAL HISTORY: Atypical chest pain. COMPARISON STUDY: Chest radiograph January 17, 2022. Chest CT March 20, 2021. FINDINGS: Lung volumes are normal. Lungs are clear. There is no pneumothorax or pleural effusion. Cardiac size is normal. Mediastinal contours are normal. There is no evidence for pulmonary edema. IMPRESSION: No acute cardiopulmonary findings. ACT 112: Negative or not required by law. Electronically signed by: Sam Jacinto M.D. 02/26/2022 7:26 PM ECG Data Attestation: I personally reviewed and interpreted this ECG as follows: Indication: + chest pain, + SOB/dyspnea and + tachycardia Rate (beats per minute): 162 Rhythm: + atrial flutter ECG ST segments: + Nonspecific ST abnormalities ECG Findings: no PVCs Comparison ECG Date: from (January 18, 2022) Change: the following changes noted (Previously in atrial fibrillation with a rate of 106) Additional Comments: Twelve-lead EKG was performed at 1930 after administration of Cardizem and resolution of tachycardia. Per my interpretation it shows atrial flutter with 41 conduction. Heart rate is 85. No signs of STEMI. No PVCs. [place] is 59. MDM Narrative I did evaluate the patient as noted above. The patient is presenting with fatigue, shortness of breath and chest heaviness for the past 2 days. She has a history of atrial fibrillation and is currently on Eliquis. IV access was established. I did place an order for continuous cardiac monitoring. The asa tor showed atrial flutter at a rate of 160 bpm. I did have her perform vagal maneuvers and this slowed her heart rate down slightly into the 140s and she had obvious flutter waves. I did order and personally review the patient's 12-lead EKG as described above. She has atrial flutter with a rate of 162 bpm. She has nonspecific ST changes. I did treat her with Cardizem 10 mg IV. Her heart rate did come down to 85. I did repeat another twelve-lead EKG which shows no signs of STEMI. I did order and personally reviewed the images of the patient's chest x-ray as described above. There is no evidence of acute cardiopulmonary process. I did order and review the patient's blood work as noted in the electronic medical record. Her white count is elevated at 13. She is not anemic. Platelet count is 345. She denies any fevers or infectious symptoms. Lipase is slightly elevated at 105. LFTs are unremarkable other than alk phos of 126. Electrolytes are unremarkable. High-sensitivity troponin is negative. I did reassess the patient. Her chest heaviness went away after her heart rate came down but she stated while she was here she had a few episodes of it come back. I did discuss her test results with her. She denies any alcohol use or any abdominal pain. She was advised to have her blood work rechecked by her doctor. I did recommend hospitalization for further care and evaluation and repeat cardiac biomarkers. I did discuss the case with the hospitalist and correctional case manager. Impression & Plan Atrial flutter with rapid ventricular response, Chest pain, Alkaline phosphatase elevation, Elevated lipase Discharge Plan Visit Data Chief Complaint: Illness Stated Complaint: AFIB, BP ABNORMAL, PULSE OX ABNORMAL ED Provider: Moreno Beard Discharge Problem: Atrial flutter with rapid ventricular response, Chest pain, Alkaline phosp hatase elevation, Elevated lipase Patient Disposition: Being Evaluated by Hospitalist Forms Stand Alone Forms: My [facility] Prescriptions Prescriptions: No Action clindamycin HCl 300 mg capsule 300 mg PO DIRECTED PRN (Reason: PRIOR TO DENTAL APPOINTMENT) Qty: 6 3RF Rx Instructions: TAKE 2 CAPSULES ONE HOUR PRIOR TO DENTAL WORK levothyroxine 112 mcg tablet 112 mcg PO QAM Qty: 90 3RF (DME) CPAP Machine Misc .Route Qty: 1 0RF Rx Instructions: 9 cm of water, mask fit patient comfort, heated humidification, compliance download capabilities, DME of patient choice metoprolol succinate 100 mg tablet extended release 24 hr 100 mg PO BID Rx Instructions: pt states has been cutting night time dose in 1/2 multivitamin Tablet 1 tab PO QAM prednisone 5 mg tablet 5 mg PO QAM PreserVision AREDS-2 [id number] ms-apaz-zx-mg Capsule 1 tab PO BID Eliquis 5 mg Tablet 5 mg PO BID Qty: 60 2RF duloxetine [Cymbalta] 60 mg Capsule,Delayed Release(Dr/Ec) 60 mg PO QPM Mag 64 64 mg Tablet,Delayed Release (Dr/Ec) 64 mg PO BID Qty: 60 0RF atorvastatin 10 mg tablet 10 mg PO QPM metformin 500 mg tablet 500 mg PO BID furosemide 20 mg tablet 20 mg PO DAILY PRN (Reason: EDEMA/WT GAIN >3#) cholecalciferol (vitamin D3) [Vitamin D3] 50 mcg (2,000 unit) Capsule 50 mcg PO QAM Referrals Referrals: Reid Main MD [Primary Care Provider] -
[2022-02-26 19:23] LABS: Basophils # (auto) 0.15 K/uL (0-0.2); Basophils % (auto) 1.1 %; Eosinophils # (auto) 1.86 K/uL (0-0.50); Eosinophils % (auto) 14.1 %; Hematocrit (blood only) 42.5 % (34.1-44.9); Hemoglobin 13.4 g/dl (12.0-16.0); Immature Granulocytes # (auto) 0.07 K/uL (0.00-0.02); Immature Granulocytes % (auto) 0.5 %; Lymphocytes # (auto) 3.17 K/uL (1.2-3.4); Lymphocytes % (auto) 24.1 %; Mean Corpuscular Hemoglobin 27.3 pg (25.0-34.0); Mean Corpuscular Hgb Conc 31.5 g/dL (32.0-36.0); Mean Corpuscular Volume 86.7 fL (80.0-100.0); Monocytes # (auto) 1.18 K/uL (0.24-0.82); Neutrophils # (auto) 6.73 K/uL (1.4-6.5); Neutrophils % (auto) 51.2 %; Platelet Count 345 K/uL (130-400); RDW Coefficient of Variation 14.2 % (11.5-14.5); RDW Standard Deviation 44.7 fL (36.4-46.3); White Blood Count 13.16 K/ul (4.8-10.8)
--- NOTE | 2022-02-26 19:28 | XRay Report ---
XR chest 1V portable CLINICAL HISTORY: Atypical chest pain. COMPARISON STUDY: Chest radiograph January 17, 2022. Chest CT March 20, 2021. FINDINGS: Lung volumes are normal. Lungs are clear. There is no pneumothorax or pleural effusion. Car diac size is normal. Mediastinal contours are normal. There is no evidence for pulmonary edema. IMPRESSION: No acute cardiopulmonary findings. ACT 112: Negative or not required by law. Electronically signed by: Sam Jacinto M.D. 02/26/2022 7:26 PM
[2022-02-26 19:47] LABS: Alanine Aminotransferase 24 U/L (7-52); Albumin Globulin Ratio 2.1 (0.9-2); Albumin Level 4.8 gm/dl (3.4-5.0); Alkaline Phosphatase 126 U/L (34-104); Anion Gap 8 (3-11); Aspartate Aminotransferase 18 U/L (13-39); BUN Creatinine Ratio 20.2 (10-20); Bilirubin,Total 0.4 mg/dl (0.2-1.0); Blood Urea Nitrogen 19 mg/dl (6-23); Calcium 10.1 mg/dl (8.5-10.1); Carbon Dioxide 30 mmol/L (21-32); Chloride 103 mmol/L (98-107); Est GFR (African American) 71.2 ml/min; Est GFR (Non-African American) 61.5 ml/min; Globulin 2.3 gm/dl (2.5-4.0); Glucose 101 mg/dl (70-99(Fasting)); Lipase 105 U/L (11-82); Potassium 3.9 mmol/L (3.5-5.1); Sodium 141 mmol/L (136-145); Total Protein 7.1 gm/dl (6.0-8.3)
[2022-02-26 19:49] LABS: Troponin I High Sensitivity 11.6 pg/ml (0-14)
[2022-02-26] MEDS ORDERED: Patient's HEIGHT &/or WEIGHT Needed SCH (20:00)
[2022-02-26] MEDS ORDERED: NITROGLYCERIN SL 0.4 MG/TAB TAB SL PRN (21:03)
[2022-02-26] MEDS ORDERED: POLYETHYLENE (MIRALAX) 17 GM PACK PO PRN (21:03)
[2022-02-26] MEDS ORDERED: ACETAMINOPHEN 325 MG TAB PO PRN (21:03)
[2022-02-26] MEDS ORDERED: APIXABAN 5 MG TABLET PO SCH (21:15)
[2022-02-26] MEDS ORDERED: METOPROLOL SUCC 50MG EXT REL TAB PO SCH (21:15)
[2022-02-26] MEDS ORDERED: METOPROLOL SUCC 50MG EXT REL TAB PO STA (21:18)
[2022-02-26] MEDS ORDERED: APIXABAN 5 MG TABLET PO ONE (21:19)
--- NOTE | 2022-02-26 21:25 | History & Physical Report ---
Date of Service February 26, 2022 Assessment & Plan (1) Atrial flutter with rapid ventricular response: Plan: - has recurrent episodes of symptomatic afib/aflutter with RVR - presented in aflutter with RVR at rate of 160s - s/p IV diltiazem 10mg x1 in ED with good response - does not appear to be trigger - no infectious symptoms, CXR negative - will get UA and TSH - has been wnl recently and on treatment for hypothyroidism - continue metoprolol succinate 100mg BID - continue Apixaban - telemetry monitoring - Cardiology consulted (2) Chest pain: Plan: - described as discomfort and likely related to aflutter with RVR - symptoms have improved with improvement in HR - troponin negative initially - will trend one more troponin - Cardiology as above (3) Alkaline phosphatase elevation: Plan: - unclear etiology but has had this in the past - no abdominal pain or RUQ pain - normal bilis - will monitor for now (4) Elevated lipase: Plan: - unclear etiology - no abdominal pain or n/v (5) GERD (gastroesophageal reflux disease): Plan: - continue PPI (6) Leukocytosis: Plan: - possibly stress response given aflutter with RVR - no symptoms of infection - CXR negative, afebrile - will get UA to evaluate - trend for now off abx (7) SOB (shortness of breath): Plan: - related to HR - improved now with improvement in HR - CXR negative for pathology (8) Hypothyroidism: Plan: - continue home medication - check TSH Plan DVT ppx: Apixaban Code Status: Full Code Dispo: telemetry Alban Harkins MD Hospital Medicine Admission and Anticipated Discharge Date Admission Date: 02/26/2022 History of Present Illness Chief Complaint: chest discomfort Primary Care Provider: Reid Main MD The patient is a 71 year old woman with pmh afib/flutter on AC, hypothyroidism, CARLOS on CPAP, prediabetes, HLD who presents with 2 days of weakness, fatigue, chest discomfort and shortness of breath. The patient says that yesterday she was feeling weak and generally fatigued. The day of presentation, she felt no better and had shortness of breath intermittently with chest discomfort. She has a history of symptomatic atrial fibrillation and has had ablations in the past without success. She reports that she is typically able to feel when she is in afib but reports that her rate was too fast to determine at home and she was not able to get a blood pressure reading. She denies other symptoms of nausea or vomiting, dizziness, light headedness, LOC, cough, fever or chills, dysuria, diarrhea. She reports taking her medications as prescribed. 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 In the ED, vitals were significant for HR 160s in aflutter RVR, BP stable. Labs were significant for WBC 13, ALP 126, lipase 105. ECG showed aflutter. CXR was negative for acute pathology. She was given a dose of 10mg IV diltiazem in the ED and admitted to medicine. Allergies Allergy/AdvReac Type Severity Reaction Status Date / Time monosodium glutamate Allergy Severe THROAT Verified 02/26/22 21:07 SWELLS bacitracin Allergy Mild RASH Verified 02/26/22 21:07 neomycin Allergy Mild RASH Verified 02/26/22 21:07 polymyxin B Allergy Mild RASH Verified 02/26/22 21:07 Penicillins Allergy Unknown UNKNOWN Verified 02/26/22 21:07 Sulfa (Sulfonamide Allergy Unknown UNKNOWN Verified 02/26/22 21:07 Antibiotics) piroxicam AdvReac Severe SEVERE Verified 02/26/22 21:07 DIARRHEA nitrofurantoin AdvReac Intermediate DIARRHEA Verified 02/26/22 21:07 amiodarone AdvReac Mild GI upset Verified 02/26/22 21:07 ciprofloxacin AdvReac Mild N/V Verified 02/26/22 21:07 Home Medications Medication Instructions Recorded Confirmed Type vit C 250 mg-vit E 90 mg-zinc 40 1 tab PO BID 03/25/19 02/26/22 History mg-copper 1 [id number] capsule (PreserVision AREDS-2) apixaban 5 mg tablet (Eliquis) 5 mg PO BID #60 tabs 03/30/19 02/26/22 Rx prednisone 5 mg tablet 5 mg PO QAM 01/01/20 02/26/22 History duloxetine 60 mg capsule,delayed 60 mg PO QPM 04/22/20 02/26/22 History release (Cymbalta) multivitamin 1 tab PO QAM 09/29/20 02/26/22 History atorvastatin 10 mg tablet 10 mg PO QPM 03/04/21 02/26/22 History cholecalciferol (vitamin D3) 50 50 mcg PO QAM 03/20/21 02/26/22 History mcg (2,000 unit) capsule (Vitamin D3) furosemide 20 mg tablet 20 mg PO DAILY PRN EDEMA/WT GAIN 03/20/21 02/26/22 History >3# metformin 500 mg tablet 500 mg PO BID 03/20/21 02/26/22 History clindamycin HCl 300 mg capsule 300 mg PO DIRECTED PRN PRIOR TO 11/06/21 02/26/22 Rx DENTAL APPOINTMENT #6 caps levothyroxine 112 mcg tablet 112 mcg PO QAM #90 tabs 11/24/21 02/26/22 Rx CPAP Machine #1 ea 12/18/21 02/26/22 Rx magnesium chloride 64 mg 64 mg PO BID #60 tabs 01/18/22 02/26/22 Rx (magnesium chloride) tablet,delayed release (Mag 64) metoprolol succinate 100 mg 100 mg PO BID 02/02/22 02/26/22 History tablet,extended release 24 hr docusate sodium 100 mg capsule 100 mg PO HS 02/26/22 02/26/22 History (Stool Softener) polyethylene glycol 3350 17 8.5 g PO QAM 02/26/22 02/26/22 History gram/dose oral powder (Miralax) Past Med/Surg History Medical History A-fib AND A-FLUTTER, S/P RFA OF PULMONARY VEIN 05/2019; ABLATION IN 06/2021 AT [facility]. ON ELIQUIS Anticoagulant long-term use Arthritis, rheumatoid Chronic HFrEF (heart failure with reduced ejection fraction) EF 60% on 06/27/21 ECHO Depression DM type 2 (diabetes mellitus, type 2) Dyslipidemia Fibromyalgia GERD (gastroesophageal reflux disease) Hypertension Hypothyroidism Jaw clicking skilled nursing current use of systemic steroids Macular degeneration Osteoporosis Polyarthropathy, inflammatory SOBOE (shortness of breath on exertion) OUT OF SHAPE Surgical History H/O cardiac radiofrequency ablation x2--06/2021 @ [place] and 05/2019 AT [facility] History of bilateral tubal ligation History of cardiac cath 7 YEARS AGO (NO STENTS) History of cardioversion X 1 History of cholecystectomy History of colonoscopy History of hysterectomy History of tonsillectomy History of tooth extraction History of total left knee replacement History of total right knee replacement (~07/26/20) Hx of bilateral breast reduction surgery ALONG WITH REVISION D/T BLEEDING Hx of bladder repair surgery CYSTOCELE REPAIR AND SLING S/P panniculectomy Family History Mother Alzheimer disease Father Coronary heart disease Family history of diabetes mellitus Sister Hypothyroidism Sister Hypothyroidism Other No family history of adverse response to anesthesia Social History Smoking Status: Never smoker Second Hand Exposure: No; Hx Alcohol Use: No Hx Substance Use: No Preferred Language: Latvian Communication Ability: Effective Car Checker Required: No Beliefs That Will Affect Care: None marital status: Current Living Situation: Spouse Current Living Situation Comment: Home with Feels Safe at Home: Yes Assistive Devices: Cane and Walker Review of Systems Review of Systems: All systems reviewed & are unremarkable except as noted in Subjective Physical Exam Constitutional: WD/WN, vitals as above well developed; no acute distress and not ill appearing Eyes: PERRL, conjunctivae normal, anicteric sclerae ENMT: external ear and nose normal, oropharynx normal Neck: trachea midline, no thyromegaly Respiratory: normal respiratory effort, lungs clear to auscultation Cardiovascular: Rate/Rhythm: regular rate and + irregularly irregular Heart Sounds: no gallop, no murmur and no cardiac rub Gastrointestinal (Abdomen): normal bowel sounds, soft, nontender, no hepatosplenomegaly Musculoskeletal: no cyanosis or clubbing, extremities motor strength 5/5 Skin: no rashes, warm and dry Neurologic: patellar DTR's 2+ bilat, sensation intact and PERRL, EOMI, accommodation nl, no face palsy, no dysarthria Psychiatric: A+Ox3, euthymic affect Results & Data Results & Data ([facility]) Vital Signs (Past 12 Hours) Vital Signs Temp Pulse Resp BP Pulse Ox O2 Del Method 02/26/22 20:00 81 19 116/92 95 02/26/22 19:45 23 120/75 98 02/26/22 19:31 117/77 02/26/22 19:31 85 21 98 02/26/22 19:16 163 H 28 H 156/107 H 100 02/26/22 18:59 36.9 C 165 H 22 148/90 H 93 Room Air Laboratory Results Short CBC 02/26/22 Range/Units 19:16 WBC 13.16 H (4.8-10.8) K/ul Hgb 13.4 (12.0-16.0) g/dl Hct 42.5 (34.1-44.9) % Plt Count 345 (130-400) K/uL BMP 02/26/22 19:16 Sodium 141 Potassium 3.9 Chloride 103 Carbon Dioxide 30 BUN 19 Creatinine 0.94 Glucose 101 H Calcium 10.1 Liver Function 02/26/22 Range/Units 19:16 Total Bilirubin 0.4 (0.2-1.0) mg/dl AST 18 (13-39) U/L ALT 24 (7-52) U/L Alkaline Phosphatase 126 H (34-104) U/L Albumin 4.8 (3.4-5.0) gm/dl Diagnostic Findings Chest X-Ray 02/26/22 19:12 XR chest 1V portable CLINICAL HISTORY: Atypical chest pain. COMPARISON STUDY: Chest radiograph January 17, 2022. Chest CT March 20, 2021. FINDINGS: Lung volumes are normal. Lungs are clear. There is no pneumothorax or pleural effusion. Cardiac size is normal. Mediastinal contours are normal. There is no evidence for pulmonary edema. IMPRESSION: No acute cardiopulmonary findings. ACT 112: Negative or not required by law. Electronically signed by: Sam Jacinto M.D. 02/26/2022 7:26 PM Medications Administered Current Inpatient Medications Acetaminophen (Acetaminophen 325 Mg Tab) 650 mg PO Q4H PRN PRN Reason: Pain or Fever Stop: 03/28/22 21:02 Apixaban (Apixaban 5 Mg Tablet) 5 mg PO NOW ONE Stop: 02/26/22 21:20 Miscellaneous (Patient's Height &/Or Weight Needed) 1 each N/A Q2H ULICES Stop: 03/28/22 19:59 Nitroglycerin (Nitroglycerin Sl 0.4 Mg/Tab Tab) 0.4 mg SL UD PRN PRN Reason: Chest Pain Stop: 03/28/22 21:02 Polyethylene Glycol (Polyethylene (Miralax) 17 Gm Pack) 17 gm PO DAILY PRN PRN Reason: Constipation Stop: 03/28/22 21:02 Code Status & VTE Plan Code Status Full Code VTE Prophylaxis Plan VTE Prophylaxis will be ordered: Yes
[2022-02-26] MEDS ORDERED: SIMETHICONE 40 MG/0.6 ML 30ML PO ONE (21:57)
[2022-02-26] MEDS ORDERED: FUROSEMIDE 20 MG TAB PO PRN (22:31)
[2022-02-26] MEDS ORDERED: dilTIAZem HCL 30 MG TAB PO ONE (22:48)
[2022-02-26] MEDS: APIXABAN 5 MG TABLET PO SCH (23:08)
[2022-02-27] MEDS ORDERED: dilTIAZem HCL 30 MG TAB PO ONE (03:54)
[2022-02-27] MEDS: LEVOTHYROXINE SODIUM 112 MCG TABLET PO SCH (06:00)
[2022-02-27 06:28] LABS: Basophils # (auto) 0.11 K/uL (0-0.2); Eosinophils # (auto) 1.59 K/uL (0-0.50); Eosinophils % (auto) 15.1 %; Hematocrit (blood only) 36.5 % (34.1-44.9); Hemoglobin 11.5 g/dl (12.0-16.0); Immature Granulocytes # (auto) 0.04 K/uL (0.00-0.02); Immature Granulocytes % (auto) 0.4 %; Lymphocytes # (auto) 2.51 K/uL (1.2-3.4); Lymphocytes % (auto) 23.8 %; Mean Corpuscular Hemoglobin 26.9 pg (25.0-34.0); Mean Corpuscular Hgb Conc 31.5 g/dL (32.0-36.0); Mean Corpuscular Volume 85.5 fL (80.0-100.0); Mean Platelet Volume 9.9 fL (9.4-12.3); Monocytes # (auto) 1.01 K/uL (0.24-0.82); Monocytes % (auto) 9.6 %; Neutrophils # (auto) 5.28 K/uL (1.4-6.5); Neutrophils % (auto) 50.1 %; Platelet Count 267 K/uL (130-400); RDW Coefficient of Variation 14.2 % (11.5-14.5); Red Blood Count 4.27 M/uL (3.93-5.22); White Blood Count 10.54 K/ul (4.8-10.8)
[2022-02-27 06:59] LABS: Albumin Globulin Ratio 2.1 (0.9-2); Albumin Level 3.8 gm/dl (3.4-5.0); BUN Creatinine Ratio 23.5 (10-20); Bilirubin,Total 0.5 mg/dl (0.2-1.0); Calcium 9.1 mg/dl (8.5-10.1); Creatinine Clr Calc Pharmacy 61.4 ml/min; Est GFR (African American) 80.5 ml/min; Est GFR (Non-African American) 69.4 ml/min; Globulin 1.8 gm/dl (2.5-4.0); Magnesium 1.7 mg/dl (1.7-2.4); Phosphorus 4.2 mg/dl (2.5-4.9); Potassium 4.1 mmol/L (3.5-5.1); Total Protein 5.6 gm/dl (6.0-8.3)
[2022-02-27] MEDS: APIXABAN 5 MG TABLET PO SCH ×2 (07:25→21:50)
[2022-02-27] MEDS: MULTIVITAMIN TAB PO SCH (07:25)
[2022-02-27] MEDS: METOPROLOL SUCC 50MG EXT REL TAB PO SCH ×2 (07:25→21:49)
[2022-02-27] MEDS: CHOLECALCIFEROL 1,000 UNITS 25 MCG TAB PO SCH (07:26)
[2022-02-27] MEDS ORDERED: FUROSEMIDE INJ 20 MG/2 ML VIAL IV ONE (10:26)
[2022-02-27] MEDS ORDERED: FLECAINIDE ACETATE 100 MG TABLET PO ONE (10:30)
--- NOTE | 2022-02-27 10:38 | Cardiology Consultation ---
Date of Consultation February 27, 2022 Assessment & Plan (1) Atrial flutter with rapid ventricular response: (2) Chest pain: (3) Paroxysmal atrial fibrillation: Plan 1. Atrial flutter: She appears have an organized atrial rhythm. The rate is also regular suggesting atrial flutter versus fibrillation. This appears to be in atypical atrial flutter and is consistent with some of the arrhythmias seen since her last pulmonary vein isolation. At rest she seems to have good rate c ontrol and few symptoms. With activity she certainly has higher rates this likely accounts for her symptoms. It is very possible she transition from atrial fibrillation to this flutter in the past couple of days based on her report of symptoms. I think we will try to cardiovert her back to sinus. Will give some oral flecainide today. If that is unsuccessful we will arrange for electrical cardioversion in the morning. The alternative would be more aggressive rate control, but I think this may be difficult with her atrial flutter. Ultimate treatment will be repeat ablation for which he is being evaluated this at the [facility]. Continue systemic anticoagulation with Eliquis. 2. Atrial fibrillation: Currently appears to be a flutter. However, she has had recurrence of atrial fibrillation since her 2nd pulmonary vein isolation. She has had some symptoms in our more recent strategy has been rate control given the absence of efficacy with Tikosyn, sotalol, amiodarone and flecainide. 3. Cardiomyopathy: She has a history of cardiomyopathy likely rate related. Most recent evaluation was in June of this year and her ejection fraction was normal. She has some symptoms of pulmonary congestion in her lung examination is not entirely normal. I will order 1 dose of Lasix. Hopefully with improved rate control or return to sinus rhythm we will run into worsening pulmonary edema. History of Present Illness Reason for Consultation: Atrial flutter Requesting Physician: Mahi Attending Physician: Donald Champagne MD History of Present Illness The patient is a 71-year-old woman with a long history of atrial arrhythmias including atrial fibrillation and atrial flutter who presented to the emergency room with symptoms of fatigue and dyspnea on exertion. The patient states that until 2 days ago she was actually feeling quite well. She has been performing her usual activities and has not noticed high heart rates. In fact, she was concerned about some low heart rates more recently. She began to notice some symptoms of dyspnea with activity associated with some high heart rates. She had some fleeting chest pains that were very mild in nature. Some of these were associated with exertion. She did not report dizziness or lightheadedness. No presyncope. No overt sense of palpitations. Worsening fatigue. She presented to the emergency room was discovered to have atrial flutter with a rapid ventricular rate. Some calcium channel angelica was administered with improvement in her heart rate. At rest she seems to feel well but does report more fatigue. No other symptoms at rest. Allergies Allergy/AdvReac Type Severity Reaction Status Date / Time monosodium glutamate Allergy Severe THROAT Verified 02/26/22 21:07 SWELLS bacitracin Allergy Mild RASH Verified 02/26/22 21:07 neomycin Allergy Mild RASH Verified 02/26/22 21:07 polymyxin B Allergy Mild RASH Verified 02/26/22 21:07 Penicillins Allergy Unknown UNKNOWN Verified 02/26/22 21:07 Sulfa (Sulfonamide Allergy Unknown UNKNOWN Verified 02/26/22 21:07 Antibiotics) piroxicam AdvReac Severe SEVERE Verified 02/26/22 21:07 DIARRHEA nitrofurantoin AdvReac Intermediate DIARRHEA Verified 02/26/22 21:07 amiodarone AdvReac Mild GI upset Verified 02/26/22 21:07 ciprofloxacin AdvReac Mild N/V Verified 02/26/22 21:07 Home Medications Medication Instructions Recorded Confirmed Type vit C 250 mg-vit E 90 mg-zinc 40 1 tab PO BID 03/25/19 02/26/22 History mg-copper 1 [id number] capsule (PreserVision AREDS-2) apixaban 5 mg tablet (Eliquis) 5 mg PO BID #60 tabs 03/30/19 02/26/22 Rx prednisone 5 mg tablet 5 mg PO QAM 01/01/20 02/26/22 History duloxetine 60 mg capsule,delayed 60 mg PO QPM 04/22/20 02/26/22 History release (Cymbalta) multivitamin 1 tab PO QAM 09/29/20 02/26/22 History atorvastatin 10 mg tablet 10 mg PO QPM 03/04/21 02/26/22 History cholecalciferol (vitamin D3) 50 50 mcg PO QAM 03/20/21 02/26/22 History mcg (2,000 unit) capsule (Vitamin D3) furosemide 20 mg tablet 20 mg PO DAILY PRN EDEMA/WT GAIN 03/20/21 02/26/22 History >3# metformin 500 mg tablet 500 mg PO BID 03/20/21 02/26/22 History clindamycin HCl 300 mg capsule 300 mg PO DIRECTED PRN PRIOR TO 11/06/21 02/26/22 Rx DENTAL APPOINTMENT #6 caps levothyroxine 112 mcg tablet 112 mcg PO QAM #90 tabs 11/24/21 02/26/22 Rx CPAP Machine #1 ea 12/18/21 02/26/22 Rx magnesium chloride 64 mg 64 mg PO BID #60 tabs 01/18/22 02/26/22 Rx (magnesium chloride) tablet,delayed release (Mag 64) metoprolol succinate 100 mg 100 mg PO BID 02/02/22 02/26/22 History tablet,extended release 24 hr docusate sodium 100 mg capsule 100 mg PO HS 02/26/22 02/26/22 History (Stool Softener) polyethylene glycol 3350 17 8.5 g PO QAM 02/26/22 02/26/22 History gram/dose oral powder (Miralax) Patient History Medical History A-fib AND A-FLUTTER, S/P RFA OF PULMONARY VEIN 05/2019; ABLATION IN 06/2021 AT [facility]. ON ELIQUIS Anticoagulant long-term use Arthritis, rheumatoid Chronic HFrEF (heart failure with reduced ejection fraction) EF 60% on 06/27/21 ECHO Depression DM type 2 (diabetes mellitus, type 2) Dyslipidemia Fibromyalgia GERD (gastroesophageal reflux disease) Hypertension Hypothyroidism Jaw clicking snf current use of systemic steroids Macular degeneration Osteoporosis Polyarthropathy, inflammatory SOBOE (shortness of breath on exertion) OUT OF SHAPE Surgical History H/O cardiac radiofrequency ablation x2--06/2021 @ [place] and 05/2019 AT [facility] History of bilateral tubal ligation History of cardiac cath 7 YEARS AGO (NO STENTS) History of cardioversion X 1 History of cholecystectomy History of colonoscopy History of hysterectomy History of tonsillectomy History of tooth extraction History of total left knee replacement History of total right knee replacement (~07/26/20) Hx of bilateral breast reduction surgery ALONG WITH REVISION D/T BLEEDING Hx of bladder repair surgery CYSTOCELE REPAIR AND SLING S/P panniculectomy Family History Mother Alzheimer disease Father Coronary heart disease Family history of diabetes mellitus Sister Hypothyroidism Sister Hypothyroidism Other No family history of adverse response to anesthesia Social History Smoking Status: Never smoker Second Hand Exposure: No; Hx Alcohol Use: No Hx Substance Use: No Preferred Language: Wolof Communication Ability: Effective Fingerer Required: No Beliefs That Will Affect Care: None marital status: Current Living Situation: Spouse Current Living Situation Comment: Home with Other Information That Helps Us Care for You: No Feels Safe at Home: Yes Assistive Devices: Cane and Walker Assistive Devices Comment: used assistive devices during previous knee surgery Review of Systems Review of Systems: Per HPI. No recent fevers or chills. Physical Exam Physical Exam: She is alert and oriented x3. Mood affect appear normal. She answered all questions appropriately. HEENT: Sclerae are anicteric. Pupils are equal and reactive to light and accommodation. Extraocular movements were intact. Neuro: Cranial nerves intact Lungs: Pulmonary congestion noted. She has normal respiratory effort without use of accessory muscles. There is normal pulmonary excursion. Cardiac: The rhythm was regular. S1 and S2 were normal. There are no murmurs on examination. The PMI was not markedly displaced on palpation. Extremities: Patient has bilateral radial pulses that are equal in intensity. There is no evidence cyanosis or clubbing. Mild edema primarily involving the left ankle. Skin: There are no rashes noted on examination today. Results & Data ([facility]) Vital Signs (Past 12 Hours) Vital Signs Temp Pulse Pulse Pulse Resp BP BP 02/27/22 07:35 02/27/22 07:23 37.1 C 119 H 16 127/89 02/27/22 06:54 119 H 02/27/22 02:40 37.2 C 83 18 100/64 02/27/22 03:42 121 H 02/27/22 01:54 02/27/22 01:54 37.0 C 60 16 02/26/22 22:49 87 18 Pulse Ox O2 Del Method FiO2 09/06/22 07:35 Room Air 02/27/22 07:23 95 Room Air 02/27/22 06:54 02/27/22 02:40 98 Room Air 02/27/22 03:42 02/27/22 01:54 21 02/27/22 01:54 95 Room Air 02/26/22 22:49 96 21 Laboratory Results Abnormal Lab Results 02/26/22 02/26/22 02/26/22 19:16 19:16 19:16 WBC 13.16 H RBC 4.90 Hgb 13.4 Hct 42.5 MCV 86.7 MCH 27.3 MCHC 31.5 L RDW Std Deviation 44.7 RDW Coeff of Starla 14.2 Plt Count 345 MPV 10.0 Immature Gran % (Auto) 0.5 Neut % (Auto) 51.2 Lymph % (Auto) 24.1 Weak[place] % (Auto) 9.0 Eos % (Auto) 14.1 Baso % (Auto) 1.1 Neut # (Auto) 6.73 H Lymph # (Auto) 3.17 Weakley # (Auto) 1.18 H Eos # (Auto) 1.86 H Baso # (Auto) 0.15 Immature Gran # (Auto) 0.07 H Sodium 141 Potassium 3.9 Chloride 103 Carbon Dioxide 30 Anion Gap 8 BUN 19 Creatinine 0.94 Est Cr Clr Drug Dosing Not Reportable Est GFR ( Amer) 71.2 Est GFR (Non-Af Amer) 61.5 BUN/Creatinine Ratio 20.2 H Glucose 101 H Calcium 10.1 Phosphorus Magnesium Total Bilirubin 0.4 AST 18 ALT 24 Alkaline Phosphatase 126 H Troponin I High Sens 11.6 D Total Protein 7.1 Albumin 4.8 Globulin 2.3 L Albumin/Globulin Ratio 2.1 H Lipase 105 H TSH 2.830 SARS-CoV-2, RNA, NAAT 02/26/22 02/27/22 02/27/22 19:42 06:13 06:13 WBC 10.54 RBC 4.27 Hgb 11.5 L Hct 36.5 MCV 85.5 MCH 26.9 MCHC 31.5 L RDW Std Deviation 44.0 RDW Coeff of Starla 14.2 Plt Count 267 MPV 9.9 Immature Gran % (Auto) 0.4 Neut % (Auto) 50.1 Lymph % (Auto) 23.8 [place] % (Auto) 9.6 Eos % (Auto) 15.1 Baso % (Auto) 1.0 Neut # (Auto) 5.28 Lymph # (Auto) 2.51 Weak[place] # (Auto) 1.01 H Eos # (Auto) 1.59 H Baso # (Auto) 0.11 Immature Gran # (Auto) 0.04 H Sodium 139 Potassium 4.1 Chloride 105 Carbon Dioxide 26 Anion Gap 8 BUN 20 Creatinine 0.85 Est Cr Clr Drug Dosing 61.4 Est GFR ( Amer) 80.5 Est GFR (Non-Af Amer) 69.4 BUN/Creatinine Ratio 23.5 H Glucose 101 H Calcium 9.1 Phosphorus 4.2 Magnesium 1.7 Total Bilirubin 0.5 AST 14 ALT 17 Alkaline Phosphatase 100 Troponin I High Sens Total Protein 5.6 L D Albumin 3.8 Globulin 1.8 L Albumin/Globulin Ratio 2.1 H Lipase TSH SARS-CoV-2, RNA, NAAT NEGATIVE Diagnostic Findings Chest x-ray at the time admission not reveal any acute cardiopulmonary process. Echocardiogram performed 06/27/2021 [facility]: Ejection fraction 55%. No regional wall motion abnormalities. Moderate left atrial dilation. ECG Additional Comments: Atrial flutter with controlled ventricular response. Otherwise unremarkable. PG Care Time/CCT Total # of Minutes Spent Total Time Spent with Patient: Total time spent is greater than 50% in coordination of care (as documented) at patient's floor/unit and/or counseling patient: Coding Level of Care Code INT OBSERVATION CARE 50M LVL 2 Diagnoses Atrial flutter with rapid ventricular response I48.92 Chest pain R07.9 Paroxysmal atrial fibrillation I48.0
[2022-02-27 11:05] LABS: Lyme Ab IgG w/WB Rflx Negative (Negative); Lyme Ab IgM w/WB Rflx Negative (Negative)
[2022-02-27 11:18] LABS: Appearance Urine Clear (Clear); Bilirubin Urine Negative (Negative); Blood Urine Negative (Negative); Color Urine Yellow; Glucose Urine UA Negative (Negative); Ketones Urine Negative (Negative); Leukocyte Esterase Urine Negative (Negative); Nitrite Urine Negative (Negative); Protein Urine Negative (Negative); Specific Gravity Urine 1.014 (1.000-1.030); Urobilinogen Urine Negative (Negative)
--- NOTE | 2022-02-27 11:34 | Electrocardiogram Report ---
Test Reason : Blood Pressure : / mmHG Vent. Rate : 162 BPM Atrial Rate : 166 BPM P-R Int : 000 ms QRS Dur : 088 ms QT Int : 304 ms P-R-T Axes : 000 069 086 degrees QTc Int : 499 ms Supraventricular tachycardia Nonspecific ST abnormality Abnormal ECG When compared with ECG of 18-JAN-2022 05:27, Sinus rhythm has replaced Atrial fibrillation Vent. rate has increased BY 56 BPM Confirmed by Ezio Torres ([id number]) on 02/27/2022 11:34:18 AM Referred By: REFERRED SELF Confirmed By:Berto Torres
--- NOTE | 2022-02-27 11:34 | Electrocardiogram Report ---
Test Reason : Blood Pressure : / mmHG Vent. Rate : 085 BPM Atrial Rate : 340 BPM P-R Int : 000 ms QRS Dur : 076 ms QT Int : 362 ms P-R-T Axes : 074 059 076 degrees QTc Int : 430 ms Atrial flutter with 4:1 A-V conduction Nonspecific ST and T wave abnormality Abnormal ECG When compared with ECG of 26-FEB-2022 19:07, (unconfirmed) Atrial flutter has replaced Sinus rhythm Vent. rate has decreased BY 77 BPM Confirmed by Ezio Torres ([id number]) on 02/27/2022 11:34:31 AM Referred By: REFERRED SELF Confirmed By:Berto Torres
--- NOTE | 2022-02-27 12:56 | Hospitalist Progress Note ---
Date of Service February 27, 2022 Assessment & Plan (1) Atrial flutter with rapid ventricular response: Plan: - has recurrent episodes of symptomatic afib/aflutter with RVR - presented in aflutter with RVR at rate of 160s - s/p IV diltiazem 10mg x1 in ED with good response - does not appear to be trigger - no infectious symptoms, CXR negative - will get UA and TSH - has been wnl recently and on treatment for hypothyroidism Plan: -Cardiology on board; patient given flecainide for cardioversion. If fails to convert chemically, patient to have electrical cardioversion in a.m. We will keep her n.p.o. from midnight -Continue on Eliquis and metoprolol -Continue telemetry monitoring. -Patient as appointment in [facility] on . (2) Chest pain: Plan: - described as discomfort and likely related to aflutter with RVR - symptoms have improved with improvement in HR - troponin negative. (3) Alkaline phosphatase elevation: Plan: - Resolved (4) Elevated lipase: Plan: - unclear etiology - no abdominal pain or n/v (5) GERD (gastroesophageal reflux disease): Plan: - continue PPI (6) Leukocytosis: Plan: -Resolved - possibly stress response given aflutter with RVR - no symptoms of infection - CXR negative, afebrile (7) SOB (shortness of breath): Plan: - related to HR - improved now with improvement in HR - CXR negative for pathology (8) Hypothyroidism: Plan: TSH WNL. Continue home dose. (9) Tick bite: Plan: Patient reports tick bite on right thigh on Saturday(02/23) after she came back from hiking. Reports of fatigue and joint pain Serology for Lyme is negative but is early in the course. Plan to treat empirically with doxycycline and follow-up with PCP to repeat serology in 1 week. Plan DVT ppx: Apixaban Code Status: Full Code Dispo: telemetry Admission and Anticipated Discharge Date Admission Date: February 26, 2022 Subjective Since seen and examined at bedside. She is comfortably sitting up on the bed; not in acute distress. She states she has palpitation on exertion but feels comfortable at rest. She complains of fatigue and joint aches. She also reports going for a hike on Saturday(4 days prior to admission) and found of couple of tick bites on her thigh. Telemetry shows a flutter with variable conduction with ventricular rate of 90- 100. Review of Systems Review of Systems: All systems reviewed & are unremarkable except as noted in Subjective Physical Exam Physical Exam: Constitutional:L WD/WN, vitals as a betzaida well develop ed; no acute distr ess and not ill ap pearing Eyes: PERRL, conjunctiva e normal, anicteri c sclerae ENMT: external ear and n ose normal, oropha rynx normal Neck: trachea midline, n o thyromegaly Respiratory: normal respiratory effort, lungs pepe ar to auscultation Cardiovascular:L Rate/Rhythm: irreg ular Heart Sounds : no gallop, no mu rmur and no cardia c rub Gastrointestinal ( Abdomen): normal bowel sound s, soft, nontender , no hepatosplenom egaly Musculoskeletal: Two small puncture wound on right in ner thigh; no surr ounding erythema o r swelling Skin: no rashes, warm an d dry Neurologic: patellar DTR's 2+ bilat, sensation i ntact and PERRL, E KIP, accommodation nl, no face palsy , no dysarthria Psychiatric: A+Ox3, euthymic af fect Results & Data Results & Data ([facility]) Vital Signs (Past 12 Hours) Vital Signs Temp Pulse Pulse Pulse Resp BP BP 02/27/22 11:58 36.6 C 76 18 110/72 02/27/22 07:35 02/27/22 07:23 37.1 C 119 H 16 127/89 02/27/22 06:54 119 H 02/27/22 02:40 37.2 C 83 18 100/64 02/27/22 03:42 121 H 02/27/22 01:54 02/27/22 01:54 37.0 C 60 16 Pulse Ox O2 Del Method FiO2 02/27/22 11:58 98 Room Air 02/27/22 07:35 Room Air 02/27/22 07:23 95 Room Air 02/27/22 06:54 02/27/22 02:40 98 Room Air 02/27/22 03:42 02/27/22 01:54 21 02/27/22 01:54 95 Room Air Laboratory Results Laboratory Results WBC 10.54 K/ul (4.8-10.8) 02/27/22 06:13 RBC 4.27 M/uL (3.93-5.22) 02/27/22 06:13 Hgb 11.5 g/dl (12.0-16.0) L 02/27/22 06:13 Hct 36.5 % (34.1-44.9) 02/27/22 06:13 MCV 85.5 fL (80.0-100.0) 02/27/22 06:13 MCH 26.9 pg (25.0-34.0) 02/27/22 06:13 MCHC 31.5 g/dL (32.0-36.0) L 02/27/22 06:13 RDW Std Deviation 44.0 fL (36.4-46.3) 02/27/22 06:13 RDW Coeff of Starla 14.2 % (11.5-14.5) 02/27/22 06:13 Plt Count 267 K/uL (130-400) 02/27/22 06:13 MPV 9.9 fL (9.4-12.3) 02/27/22 06:13 Immature Gran % (Auto) 0.4 % 02/27/22 06:13 Neut % (Auto) 50.1 % 02/27/22 06:13 Lymph % (Auto) 23.8 % 02/27/22 06:13 Gosper % (Auto) 9.6 % 02/27/22 06:13 Eos % (Auto) 15.1 % 02/27/22 06:13 Baso % (Auto) 1.0 % 02/27/22 06:13 Neut # (Auto) 5.28 K/uL (1.4-6.5) 02/27/22 06:13 Lymph # (Auto) 2.51 K/uL (1.2-3.4) 02/27/22 06:13 Gosper # (Auto) 1.01 K/uL (0.24-0.82) H 02/27/22 06:13 Eos # (Auto) 1.59 K/uL (0-0.50) H 02/27/22 06:13 Baso # (Auto) 0.11 K/uL (0-0.2) 02/27/22 06:13 Immature Gran # (Auto) 0.04 K/uL (0.00-0.02) H 02/27/22 06:13 Sodium 139 mmol/L (136-145) 02/27/22 06:13 Potassium 4.1 mmol/L (3.5-5.1) 02/27/22 06:13 Chloride 105 mmol/L (98-107) 02/27/22 06:13 Carbon Dioxide 26 mmol/L (21-32) 02/27/22 06:13 Anion Gap 8 (3-11) 02/27/22 06:13 BUN 20 mg/dl (6-23) 02/27/22 06:13 Creatinine 0.85 mg/dl (0.6-1.2) 02/27/22 06:13 Est Cr Clr Drug Dosing 61.4 ml/min 02/27/22 06:13 Est GFR ( Amer) 80.5 ml/min 02/27/22 06:13 Est GFR (Non-Af Amer) 69.4 ml/min 02/27/22 06:13 BUN/Creatinine Ratio 23.5 (10-20) H 02/27/22 06:13 Glucose 101 mg/dl (70-99(Fasting)) H 02/27/22 06:13 Calcium 9.1 mg/dl (8.5-10.1) 02/27/22 06:13 Phosphorus 4.2 mg/dl (2.5-4.9) 02/27/22 06:13 Magnesium 1.7 mg/dl (1.7-2.4) 02/27/22 06:13 Total Bilirubin 0.5 mg/dl (0.2-1.0) 02/27/22 06:13 AST 14 U/L (13-39) 02/27/22 06:13 ALT 17 U/L (7-52) 02/27/22 06:13 Alkaline Phosphatase 100 U/L (34-104) 02/27/22 06:13 Troponin I High Sens 11.6 pg/ml (0-14) D 02/26/22 19:16 Total Protein 5.6 gm/dl (6.0-8.3) L D 02/27/22 06:13 Albumin 3.8 gm/dl (3.4-5.0) 02/27/22 06:13 Globulin 1.8 gm/dl (2.5-4.0) L 02/27/22 06:13 Albumin/Globulin Ratio 2.1 (0.9-2) H 02/27/22 06:13 Lipase 105 U/L (11-82) H 02/26/22 19:16 TSH 2.830 uIu/ml (0.300-4.500) 02/26/22 19:16 Urine Color Yellow 02/27/22 10:57 Urine Appearance Clear (Clear) 02/27/22 10:57 Urine pH 6.0 (4.5-7.5) 02/27/22 10:57 Ur Specific [place] 1.014 (1.000-1.030) 02/27/22 10:57 Urine Protein Negative (Negative) 02/27/22 10:57 Urine Glucose (UA) Negative (Negative) 02/27/22 10:57 Urine Ketones Negative (Negative) 02/27/22 10:57 Urine Blood Negative (Negative) 02/27/22 10:57 Urine Nitrite Negative (Negative) 02/27/22 10:57 Urine Bilirubin Negative (Negative) 02/27/22 10:57 Urine Urobilinogen Negative (Negative) 02/27/22 10:57 Ur Leukocyte Esterase Negative (Negative) 02/27/22 10:57 Lyme Disease IgG Ab Negative (Negative) 02/27/22 09:59 Lyme Disease IgM Ab Negative (Negative) 02/27/22 09:59 SARS-CoV-2, RNA, NAAT NEGATIVE (NEGATIVE) 02/26/22 19:42 Impressions Chest X-Ray 02/26/22 19:12 XR chest 1V portable CLINICAL HISTORY: Atypical chest pain. COMPARISON STUDY: Chest radiograph January 17, 2022. Chest CT March 20, 2021. FINDINGS: Lung volumes are normal. Lungs are clear. There is no pneumothorax or pleural effusion. Cardiac size is normal. Mediastinal contours are normal. There is no evidence for pulmonary edema. IMPRESSION: No acute cardiopulmonary findings. ACT 112: Negative or not required by law. Electronically signed by: Sam Jacinto M.D. 02/26/2022 7:26 PM
--- NOTE | 2022-02-27 13:04 | Hospitalist Progress Note ---
Date of Service February 27, 2022 Assessment & Plan Admission and Anticipated Discharge Date Admission Date: February 26, 2022 Results & Data Results & Data ([facility]) Vital Signs (Past 12 Hours) Vital Signs Temp Pulse Pulse Pulse Resp BP BP 02/27/22 11:58 36.6 C 76 18 110/72 02/27/22 07:35 02/27/22 07:23 37.1 C 119 H 16 127/89 02/27/22 06:54 119 H 02/27/22 02:40 37.2 C 83 18 100/64 02/27/22 03:42 121 H 02/27/22 01:54 02/27/22 01:54 37.0 C 60 16 Pulse Ox O2 Del Method FiO2 02/27/22 11:58 98 Room Air 02/27/22 07:35 Room Air 02/27/22 07:23 95 Room Air 02/27/22 06:54 02/27/22 02:40 98 Room Air 02/27/22 03:42 02/27/22 01:54 21 02/27/22 01:54 95 Room Air
[2022-02-27] MEDS: DOXYCYCLINE HYCLATE 100 MG CAP PO SCH ×2 (13:45→21:50)
[2022-02-27] MEDS ORDERED: ATORVASTATIN 10 MG TAB PO SCH (21:00)
[2022-02-27] MEDS ORDERED: DOCUSATE SODIUM 100 MG CAP PO SCH (21:00)
[2022-02-27] MEDS ORDERED: SIMETHICONE 80 MG CHEW PO PRN (22:10)
[2022-02-28] MEDS ORDERED: dilTIAZem HCl 5 MG/ML 5 ML VIAL IV STA (01:13)
[2022-02-28] MEDS: LEVOTHYROXINE SODIUM 112 MCG TABLET PO SCH (06:12)
[2022-02-28 06:44] LABS: Hematocrit (blood only) 38.6 % (34.1-44.9); Hemoglobin 12.6 g/dl (12.0-16.0); Mean Corpuscular Hgb Conc 32.6 g/dL (32.0-36.0); Mean Corpuscular Volume 82.8 fL (80.0-100.0); Mean Platelet Volume 10.2 fL (9.4-12.3); Platelet Count 265 K/uL (130-400); RDW Coefficient of Variation 14.3 % (11.5-14.5); RDW Standard Deviation 42.5 fL (36.4-46.3); Red Blood Count 4.66 M/uL (3.93-5.22); White Blood Count 10.82 K/ul (4.8-10.8)
[2022-02-28 07:12] LABS: BUN Creatinine Ratio 19.3 (10-20); Calcium 9.3 mg/dl (8.5-10.1); Creatinine Clr Calc Pharmacy 59.3 ml/min; Est GFR (African American) 77.2 ml/min; Est GFR (Non-African American) 66.6 ml/min; Potassium 3.9 mmol/L (3.5-5.1)
--- NOTE | 2022-02-28 07:43 | Anesthesiology Consultation ---
Date of Service February 28, 2022 Assessment & Plan (1) Encounter for pre-operative examination: Chart Review Chart Review: Acceptable Risk for Surgery and Patient NOT seen in Pre Admission Testing Consults Requested none History Surgery Operation Date: 02/28/22 07:45 Proposed Procedures p Cardioversion - Ezio Torres MD Height/Weight Height: 5 ft 1 in Weight: 86.1 kg Allergies Allergy/AdvReac Type Severity Reaction Status Date / Time monosodium glutamate Allergy Severe THROAT Verified 02/26/22 21:07 SWELLS bacitracin Allergy Mild RASH Verified 02/26/22 21:07 neomycin Allergy Mild RASH Verified 02/26/22 21:07 polymyxin B Allergy Mild RASH Verified 02/26/22 21:07 Penicillins Allergy Unknown UNKNOWN Verified 02/26/22 21:07 Sulfa (Sulfonamide Allergy Unknown UNKNOWN Verified 02/26/22 21:07 Antibiotics) piroxicam AdvReac Severe SEVERE Verified 02/26/22 21:07 DIARRHEA nitrofurantoin AdvReac Intermediate DIARRHEA Verified 02/26/22 21:07 amiodarone AdvReac Mild GI upset Verified 02/26/22 21:07 ciprofloxacin AdvReac Mild N/V Verified 02/26/22 21:07 Medications Home Medications Medication Instructions Recorded Confirmed Last Taken vit C 250 mg-vit E 90 mg-zinc 40 1 tab PO BID 03/25/19 02/26/22 02/26/22 08:00 mg-copper 1 [id number] capsule (PreserVision AREDS-2) apixaban 5 mg tablet (Eliquis) 5 mg PO BID #60 tabs 03/30/19 02/26/22 02/26/22 08:00 prednisone 5 mg tablet 5 mg PO QAM 01/01/20 02/26/22 02/26/22 08:00 duloxetine 60 mg capsule,delayed 60 mg PO QPM 04/22/20 02/26/22 02/25/22 release (Cymbalta) multivitamin 1 tab PO QAM 09/29/20 02/26/22 02/26/22 08:00 atorvastatin 10 mg tablet 10 mg PO QPM 03/04/21 02/26/22 02/25/22 cholecalciferol (vitamin D3) 50 50 mcg PO QAM 03/20/21 02/26/22 02/26/22 08:00 mcg (2,000 unit) capsule (Vitamin D3) furosemide 20 mg tablet 20 mg PO DAILY PRN EDEMA/WT GAIN 03/20/21 02/26/22 Unknown >3# metformin 500 mg tablet 500 mg PO BID 03/20/21 02/26/22 02/26/22 08:00 clindamycin HCl 300 mg capsule 300 mg PO DIRECTED PRN PRIOR TO 11/06/21 02/26/22 Unknown DENTAL APPOINTMENT #6 caps levothyroxine 112 mcg tablet 112 mcg PO QAM #90 tabs 11/24/21 02/26/22 02/26/22 08:00 CPAP Machine #1 ea 12/18/21 02/26/22 Unknown magnesium chloride 64 mg 64 mg PO BID #60 tabs 01/18/22 02/26/22 02/26/22 08:00 (magnesium chloride) tablet,delayed release (Mag 64) metoprolol succinate 100 mg 100 mg PO BID 02/02/22 02/26/22 02/26/22 07:00 tablet,extended release 24 hr docusate sodium 100 mg capsule 100 mg PO HS 02/26/22 02/26/22 02/25/22 (Stool Softener) polyethylene glycol 3350 17 8.5 g PO QAM 02/26/22 02/26/22 02/26/22 08:00 gram/dose oral powder (Miralax) Active Medications Generic Name Dose Route Start Last Admin Trade Name Freq PRN Reason Stop Dose Admin Acetaminophen 650 mg 02/26/22 21:03 02/27/22 21:48 Acetaminophen 325 Mg Tab PO 03/28/22 21:02 650 mg Q4H PRN Administration Pain or Fever Apixaban 5 mg 02/26/22 22:31 02/27/22 21:50 Apixaban 5 Mg Tablet PO 03/28/22 22:30 5 mg BID ULICES Administration Atorvastatin Calcium 10 mg 02/27/22 21:00 02/27/22 21:50 Atorvastatin 10 Mg Tab PO 03/29/22 20:59 10 mg QPM ULICES Administration Docusate Sodium 100 mg 02/27/22 21:00 02/27/22 21:49 Docusate Sodium 100 Mg Cap PO 03/29/22 20:59 100 mg HS ULICES Administration Doxycycline Hyclate 100 mg 02/27/22 13:15 02/27/22 21:50 Doxycycline Hyclate 100 Mg Cap PO 03/09/22 13:14 100 mg BID ULICES Administration Levothyroxine Sodium 112 mcg 02/27/22 06:30 02/28/22 06:12 Levothyroxine Sodium 112 Mcg Tablet PO 03/29/22 06:29 112 mcg DAILYBB ULICES Administration Metoprolol Succinate 100 mg 02/27/22 09:00 02/27/22 21:49 Metoprolol Succ 50mg Ext Rel Tab PO 03/29/22 08:59 100 mg BID ULICES Administration Multivitamins 1 tab 02/27/22 09:00 02/27/22 07:25 Multivitamin Tab PO 03/29/22 08:59 1 tab QAM ULICES Administration Simethicone 80 mg 02/27/22 22:10 02/27/22 22:47 Simethicone 80 Mg Chew PO 03/01/22 22:09 80 mg Q6H PRN Administration Indigestion Vitamin D 2,000 units 02/27/22 09:00 02/27/22 07:26 Cholecalciferol 1,000 Units 25 Mcg Tab PO 03/29/22 08:59 2,000 units QAM ULICES Administration Past Medical History Medical History A-fib AND A-FLUTTER, S/P RFA OF PULMONARY VEIN 05/2019; ABLATION IN 06/2021 AT [facility]. 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 Macular degeneration Osteoporosis Polyarthropathy, inflammatory SOBOE (shortness of breath on exertion) OUT OF SHAPE Exercise / Class Metabolic Activity II 4-5 Yardwork/Stairs/Walk up hill Past Family History Family History Mother Alzheimer disease Father Coronary heart disease Family history of diabetes mellitus Sister Hypothyroidism Sister Hypothyroidism Other No family history of adverse response to anesthesia Past Surgical History Surgical History H/O cardiac radiofrequency ablation x2--06/2021 @ [place] and 05/2019 AT [facility] History of bilateral tubal ligation History of cardiac cath 7 YEARS AGO (NO STENTS) History of cardioversion X 1 History of cholecystectomy History of colonoscopy History of hysterectomy History of tonsillectomy History of tooth extraction History of total left knee replacement History of total right knee replacement (~07/26/20) Hx of bilateral breast reduction surgery ALONG WITH REVISION D/T BLEEDING Hx of bladder repair surgery CYSTOCELE REPAIR AND SLING S/P panniculectomy Past Anesthesia History No Hx of Anesthesia Complications and No Family Hx of Anesthesia Complications History of PONV No Hx of PONV and No Hx of Motion Sickness Social History Smoking Status: Never smoker Hx Alcohol Use: No Hx Substance Use: No substance use type: does not use Physical Exam Vital Signs Last Vital Signs Temp 36.8 C 02/28/22 07:13 Pulse 134 H 02/28/22 07:13 Resp 18 02/28/22 07:13 BP 112/76 02/28/22 07:13 Pulse Ox 95 02/28/22 07:13 O2 Del Method 02/28/22 07:13 FiO2 21 02/27/22 01:54 Testing Laboratory Results 02/28/22 06:29 02/28/22 06:29 Urine Color Yellow 02/27/22 10:57 Urine Appearance Clear (Clear) 02/27/22 10:57 Urine pH 6.0 (4.5-7.5) 02/27/22 10:57 Ur Specific [place] 1.014 (1.000-1.030) 02/27/22 10:57 Urine Protein Negative (Negative) 02/27/22 10:57 Urine Glucose (UA) Negative (Negative) 02/27/22 10:57 Urine Ketones Negative (Negative) 02/27/22 10:57 Urine Nitrite Negative (Negative) 02/27/22 10:57 Ur Leukocyte Esterase Negative (Negative) 02/27/22 10:57
--- NOTE | 2022-02-28 07:57 | Electrophysiology Report ---
Date of Service February 28, 2022
[2022-02-28] MEDS: APIXABAN 5 MG TABLET PO SCH (08:59)
[2022-02-28] MEDS: DOXYCYCLINE HYCLATE 100 MG CAP PO SCH (08:59)
[2022-02-28] MEDS: CHOLECALCIFEROL 1,000 UNITS 25 MCG TAB PO SCH (09:01)
[2022-02-28] MEDS: MULTIVITAMIN TAB PO SCH (09:01)
[2022-02-28] MEDS: METOPROLOL SUCC 50MG EXT REL TAB PO SCH (09:02)
--- NOTE | 2022-02-28 09:57 | Anesthesiology Progress Note ---
Date of Service February 28, 2022 Anesthesia Post Procedure Vital Signs Vital Signs: Temp Pulse Pulse Resp BP BP Pulse Ox 02/28/22 08:56 37.0 C 73 18 97/66 L 94 02/28/22 08:25 74 16 107/51 L 99 02/28/22 08:15 78 14 99/61 L 98 02/28/22 08:00 78 14 96/57 L 98 02/28/22 07:56 78 16 91/58 L 98 02/28/22 07:13 36.8 C 134 H 18 112/76 95 02/28/22 06:15 131 H 02/28/22 03:52 37.6 C H 133 H 18 125/88 94 02/27/22 22:14 128 H 02/27/22 23:18 37.4 C 128 H 18 126/74 94 02/27/22 19:44 37.5 C 129 H 24 117/78 95 02/27/22 15:26 36.8 C 106 H 18 125/77 96 02/27/22 14:46 94 H 02/27/22 11:58 36.6 C 76 18 110/72 98 O2 Del Method 02/28/22 08:56 02/28/22 08:25 Room Air 02/28/22 08:15 Room Air 02/28/22 08:00 Room Air 02/28/22 07:56 Room Air 02/28/22 07:13 Room Air 02/28/22 06:15 02/28/22 03:52 Room Air 02/27/22 22:14 02/27/22 23:18 Room Air 02/27/22 19:44 Room Air 02/27/22 15:26 Room Air 02/27/22 14:46 02/27/22 11:58 Room Air Pain Intensity Head: Pain Intensity: 4 Transfer of Care Handoff Completed per policy Notes Mental Status: alert / awake / arousable and participated in evaluation Patient Amnestic to Procedure: Yes Nausea / Vomiting: adequately controlled Pain: adequately controlled Airway Patency, RR, SpO2: stable & adequate BP & HR: stable & adequate Hydration State: stable & adequate Anesthetic Complications: no major complications apparent and Pt Satisfied with anesthetic care
--- NOTE | 2022-02-28 10:49 | Cardioversion ---
Date of Service February 28, 2022 PG Electrical Cardioversion Rp Electrical Cardioversion Report Procedure performed: Cardioversion Indication: Atrial flutter Staff warehouse lead: Ezio Torres MD Procedure in detail: The patient was informed of the risks benefits and alternatives to the intended procedure. He understood such which proceed. He was taken to the cardiac catheterization suite holding area. A general anesthetic was administered by the Anesthesiology Service. Once appropriately anesthetized, the patient was cardioverted using 50 joules delivered in a biphasic fashion. This returned the patient to sinus rhythm. The patient tolerated procedure well, there were no immediate complications. Patient was neurologically intact subsequent to the procedure. Impression: Successful cardioversion from atrial flutter to normal sinus rhythm Coding Level of Care Code Cardioversion, elective Additional Codes Electrical Cardioversion Report ([id number])
[2022-02-28] MEDS ORDERED: predniSONE 5 MG TAB PO STA (11:05)
[2022-02-28] MEDS ORDERED: DULoxetine HCL 60 MG CAP PO STA (11:05)
--- NOTE | 2022-02-28 11:45 | Discharge Summary ---
Discharge Summary Date of Service February 28, 2022 Notes For Next Care Provider Medication Changes From Visit No new changes Admission HPI Per Admitting Provider The patient is a 71 year old woman with pmh afib/flutter on AC, hypothyroidism, CARLOS on CPAP, prediabetes, HLD who presents with 2 days of weakness, fatigue, chest discomfort and shortness of breath. The patient says that yesterday she was feeling weak and generally fatigued. The day of presentation, she felt no better and had shortness of breath intermittently with chest discomfort. She has a history of symptomatic atrial fibrillation and has had ablations in the past without success. She reports that she is typically able to feel when she is in afib but reports that her rate was too fast to determine at home and she was not able to get a blood pressure reading. She denies other symptoms of nausea or vomiting, dizziness, light headedness, LOC, cough, fever or chills, dysuria, diarrhea. She reports taking her medications as prescribed. She is scheduled for appointment in [place] for 03/01/2022 with an EP Senior Staff Accountant. In the ED, vitals were significant for HR 160s in aflutter RVR, BP stable. Labs were significant for WBC 13, ALP 126, lipase 105. ECG showed aflutter. CXR was negative for acute pathology. She was given a dose of 10mg IV diltiazem in the ED and admitted to medicine. Admission Exam Per Admitting Provider Constitutional: WD/WN, vitals as above well developed; no acute distress and not ill appearing Eyes: PERRL, conjunctivae normal, anicteric sclerae ENMT: external ear and nose normal, oropharynx normal Neck: trachea midline, no thyromegaly Respiratory: normal respiratory effort, lungs clear to auscultation Cardiovascular: Rate/Rhythm: regular rate and + irregularly irregular Heart Sounds: no gallop, no murmur and no cardiac rub Gastrointestinal (Abdomen): normal bowel sounds, soft, nontender, no hepatosplenomegaly Musculoskeletal: no cyanosis or clubbing, extremities motor strength 5/5 Skin: no rashes, warm and dry Neurologic: patellar DTR's 2+ bilat, sensation intact and PERRL, EOMI, accommodation nl, no face palsy, no dysarthria Psychiatric: A+Ox3, euthymic affect Principal Dx & Hospital Course #1 = Principal Diagnosis (1) Atrial flutter with rapid ventricular response: (2) Tick bite: Plan 71 yo F with a h/o recurrent symptomatic atrial fibrillation/flutter presented with rapid ventricular response with a heart rate in the 160s. She was given diltiazem in the ER and workup was unrevealing for a reversible underlying cause. She was continued on home metoprolol and apixaban. She did have chest pain associated with the arrhythmia and cardiology was consulted. Serial troponin enzymes were negative and her symptoms were related to her rhythm, having resolved after return to sinus rhythm. Cardioversion was initially attempted with flecainide, but this was unsuccessful. She then underwent a DCCV on 02/28/22 with successful conversion to sinus rhythm. She has a scheduled appointment with [facility] on [facility]/01 for consideration for repeat ablation therapy. She was discharged in stable condition and was asymptomatic at the time of discharge. Notably she did mention a tick bite last week and was given a couple doses of doxycycline during her stay. Lyme screen was negative and doxycycline was stopped. Patient was counseled that this may be a false negative this early in the ocurse and to follow-up with her primary care physician for any issues with rash of other concerning symptoms that may be consistent with an acute rickettsial illness. Discharge Exam CONSTITUTIONAL: WNWD, vitals as above, generally well-appearing, NAD EYES: normal conjunctivae, no scleral icterus ENT: external ear and nose normal, MMM NECK: trachea midline, RESPIRATORY: clear to auscultation bilaterally, no crackles, rales or wheezes, normal respiratory effort CARDIOVASCULAR: regular rate and rhythm, S1 and 2 heard without murmurs, gallops or rubs, no JVD, no peripheral edema, CHEST: inspection of chest was normal GASTROINTESTINAL: soft, nontender, ND, no guarding MUSCULOSKELETAL: strength 5/5 throughout, head is normocephalic and atraumatic SKIN: warm and dry NEUROLOGIC: CN 2-12 grossly intact, no sensory deficit, normal cognition, normal speech, no tremor PSYCHIATRIC: alert cooperative and oriented to person, place and time. Euthymic mood, makes good eye contact, language grossly intact, recent and remote memory grossly intact. Updated Medication List Medication Instructions Recorded Confirmed Type vit C 250 mg-vit E 90 mg-zinc 40 1 tab PO BID 03/25/19 02/26/22 History mg-copper 1 [id number]-rmtenp capsule (PreserVision AREDS-2) apixaban 5 mg tablet (Eliquis) 5 mg PO BID #60 tabs 03/30/19 02/26/22 Rx prednisone 5 mg tablet 5 mg PO QAM 01/01/20 02/26/22 History duloxetine 60 mg capsule,delayed 60 mg PO QPM 04/22/20 02/26/22 History release (Cymbalta) multivitamin 1 tab PO QAM 09/29/20 02/26/22 History atorvastatin 10 mg tablet 10 mg PO QPM 03/04/21 02/26/22 History cholecalciferol (vitamin D3) 50 50 mcg PO QAM 03/20/21 02/26/22 History mcg (2,000 unit) capsule (Vitamin D3) furosemide 20 mg tablet 20 mg PO DAILY PRN EDEMA/WT GAIN 03/20/21 02/26/22 History >3# metformin 500 mg tablet 500 mg PO BID 03/20/21 02/26/22 History clindamycin HCl 300 mg capsule 300 mg PO DIRECTED PRN PRIOR TO 11/06/21 02/26/22 Rx DENTAL APPOINTMENT #6 caps levothyroxine 112 mcg tablet 112 mcg PO QAM #90 tabs 11/24/21 02/26/22 Rx CPAP Machine #1 ea 12/18/21 02/26/22 Rx magnesium chloride 64 mg 64 mg PO BID #60 tabs 01/18/22 02/26/22 Rx (magnesium chloride) tablet,delayed release (Mag 64) metoprolol succinate 100 mg 100 mg PO BID 02/02/22 02/26/22 History tablet,extended release 24 hr docusate sodium 100 mg capsule 100 mg PO HS 02/26/22 02/26/22 History (Stool Softener) polyethylene glycol 3350 17 8.5 g PO QAM 02/26/22 02/26/22 History gram/dose oral powder (Miralax) Hospital Stay Data Consultations 02/26/22 20:41 ED Decision to Admit Stat 02/27/22 08:57 Consult Cardiology Routine Procedures Performed Operation Date: 02/28/22 07:45 Actual Procedures p Cardioversion - Ezio Torres MD Pending Results Patient Have Any Pending Studies at Discharge: No Discharge Instructions Given to Patient (Per Discharging Provider) Please take all medications as instructed on discharge list below. You were given a couple of doses of doxycycline while in the hospital given your history of tick bite last week. Although your Lyme test was negative here, it may be too early to see this come positive. Please monitor the area you were bitten for any rash, and seek medical attention for any concerning symptoms including rash, joint pain, numbness and tingling that is new, fever. You will not need to continue doxycycline at this time. Please follow-up with your primary care provider to ensure you are doing well after returning home and to review medications and symptoms since returning home. It was a pleasure taking care of you! Please call if you have any questions or problems. You can reach a [facility] hospitalist on duty at [facility] 24 hours a day by calling [phone]. Take care of yourself. Shannon Farrell, DO [facility] Hospitalist Total Time Total Time Spent Total Time Spent (In Minutes): 60
--- NOTE | 2022-03-01 09:55 | Electrocardiogram Report ---
Test Reason : Blood Pressure : / mmHG Vent. Rate : 078 BPM Atrial Rate : 078 BPM P-R Int : 158 ms QRS Dur : 084 ms QT Int : 418 ms P-R-T Axes : 057 062 098 degrees QTc Int : 476 ms Normal sinus rhythm Abnormal ECG When compared with ECG of 26-FEB-2022 19:30, Sinus rhythm has replaced Atrial flutter Confirmed by Orville Ragland ([id number]) on 03/01/2022 9:55:36 AM Referred By: REFERRED SELF Confirmed By:Orville Ragland
== END 2022-02-28 13:23 | disposition home or self-care (01) | DRG 309 ==
LOC: ED 18:57 → 2N 21:05 → SUATTDRO 21:05 → 2N 21:42
DX: Z79.899 Other long term (current) drug therapy; I50.22 Chronic systolic (congestive) heart failure; Z79.890 Hormone replacement therapy; Z88.8 Allergy status to other drugs, medicaments and biological substances; M06.9 Rheumatoid arthritis, unspecified; E11.9 Type 2 diabetes mellitus without complications; Z79.52 Long term (current) use of systemic steroids; Z82.49 Family history of ischemic heart disease and other diseases of the circulatory system; I48.0 Paroxysmal atrial fibrillation; Z79.84 Long term (current) use of oral hypoglycemic drugs; Z98.890 Other specified postprocedural states; Z88.0 Allergy status to penicillin; Z83.3 Family history of diabetes mellitus; G47.33 Obstructive sleep apnea (adult) (pediatric); M79.7 Fibromyalgia; Z83.49 Family history of other endocrine, nutritional and metabolic diseases; M81.0 Age-related osteoporosis without current pathological fracture; Z79.01 Long term (current) use of anticoagulants; E78.5 Hyperlipidemia, unspecified; I42.8 Other cardiomyopathies; Z88.1 Allergy status to other antibiotic agents; R74.8 Abnormal levels of other serum enzymes; K21.9 Gastro-esophageal reflux disease without esophagitis; H35.30 Unspecified macular degeneration; I11.0 Hypertensive heart disease with heart failure; Z91.02 Food additives allergy status; S70.361A Insect bite (nonvenomous), right thigh, initial encounter; Z88.2 Allergy status to sulfonamides; D72.829 Elevated white blood cell count, unspecified; F32.A Depression, unspecified; I48.92 Unspecified atrial flutter; W57.XXXA Bitten or stung by nonvenomous insect and other nonvenomous arthropods, initial encounter; E03.9 Hypothyroidism, unspecified

== ENCOUNTER 2025-03-13 09:50 | Inpatient (IN) ==
--- NOTE | 2025-03-13 10:03 | Emergency Department Note ---
History of Present Illness General Chief complaint: Shortness of Breath/Dyspnea Stated complaint: SHOULDER SURG YEST, SOB, WEAK, UNSTEADY Time Seen by Provider: 03/13/25 09:57 History of Present Illness This is a 74-year-old female that presents to the emergency department via private vehicle with complaints of "shoulder surgery yesterday, shortness of breath, weakness, unsteady". The patient notes that she underwent left shoulder surgery yesterday by Dr. Keating here at [facility]. She notes the surgery went very well without issue. However she noted that this past evening/this morning she began with some "gurgling" and a cough. She had some phlegm but the shortness of breath persisted. No chest pain. She notes similar symptoms before with acute exacerbations of CHF. The patient tried CPAP at home but notes that she still could not lay in the supine position and had to sit up. The patient took 10 mg of prednisone but notes persistence of symptoms. She notes remote history of COPD but nothing recent. No fevers or chills. No speech trouble. Home Medications Medication Instructions Recorded Confirmed Type vit C 250 mg-vit E 90 mg-zinc 40 1 tab PO BID 03/25/19 03/13/25 History mg-copper 1 [id number] capsule (PreserVision AREDS-2) prednisone 5 mg tablet 5 mg PO QAM 01/01/20 03/13/25 History multivitamin 1 tab PO QAM 09/29/20 03/13/25 History atorvastatin 10 mg tablet 10 mg PO QPM 03/04/21 03/13/25 History cholecalciferol (vitamin D3) 50 50 mcg PO QAM 03/20/21 03/13/25 History mcg (2,000 unit) capsule (Vitamin D3) furosemide 20 mg tablet 20 mg PO DAILY PRN EDEMA/WT GAIN 03/20/21 03/13/25 History >3# clindamycin HCl 300 mg capsule 300 mg PO DIRECTED PRN PRIOR TO 11/06/21 03/13/25 Rx DENTAL APPOINTMENT #6 caps levothyroxine 112 mcg tablet 112 mcg PO QAM #90 tabs 11/24/21 03/13/25 Rx CPAP Machine #1 ea 12/18/21 12/01/24 Rx docusate sodium 100 mg capsule 100 mg PO HS 02/26/22 03/13/25 History (Stool Softener) losartan 25 mg tablet (Cozaar) 25 mg PO QAM 03/15/22 03/13/25 History apixaban 5 mg tablet (Eliquis) 5 mg PO BID #180 tabs 09/12/22 03/13/25 Rx metoprolol succinate 50 mg 50 mg PO QAM 07/12/23 03/13/25 History tablet,extended release 24 hr cefadroxil 500 mg capsule 500 mg PO BID 7 days #14 caps 03/12/25 03/13/25 Rx oxycodone 5 mg tablet 5 mg PO Q6H PRN pain #30 tabs 03/12/25 03/13/25 Rx duloxetine 60 mg capsule,delayed 60 mg PO QPM 03/13/25 03/13/25 History release Allergies Allergy/AdvReac Type Severity Reaction Status Date / Time soy Allergy Severe Anaphylaxis Verified 03/13/25 11:57 bacitracin Allergy Unknown RASH Verified 03/13/25 11:57 monosodium glutamate Allergy Unknown THROAT Verified 03/13/25 11:57 SWELLS neomycin Allergy Unknown RASH Verified 03/13/25 11:57 Penicillins Allergy Unknown UNKNOWN Verified 03/13/25 11:57 polymyxin B Allergy Unknown RASH Verified 03/13/25 11:57 Sulfa (Sulfonamide Allergy Unknown so long Verified 03/13/25 11:57 Antibiotics) ago, I don't remember amiodarone AdvReac Unknown GI upset Verified 03/13/25 11:57 ciprofloxacin AdvReac Unknown N/V Verified 03/13/25 11:57 nitrofurantoin AdvReac Unknown DIARRHEA Verified 03/13/25 11:57 piroxicam AdvReac Unknown SEVERE Verified 03/13/25 11:57 DIARRHEA Past Med/Surg History Problem List (Updated 03/13/25 @ 13:50 by Juvenal Craig PA-C) Post-operative state (Acute) Orthopnea (Acute) Dyspnea (Acute) Status post reverse total arthroplasty of left shoulder Muscle strain Rotator cuff arthropathy of both shoulders Arthritis, rheumatoid Leukocytosis (Acute) SOB (shortness of breath) (Acute) Sleep apnea Encounter for pre-operative examination Excessive daytime sleepiness Parasomnia Anemia DM type 2 (diabetes mellitus, type 2) Chronic HFrEF (heart failure with reduced ejection fraction) EF 60% on 06/27/21 ECHO Paroxysmal atrial fibrillation (Acute) GERD (gastroesophageal reflux disease) H/O cardiac radiofrequency ablation x2--06/2021 @ [facility] and 05/2019 AT [place] Mitral regurgitation Jaleesa's thyroiditis (Chronic) Allergic rhinitis (Chronic) Depression (Chronic) Dyslipidemia (Chronic) Fibromyalgia (Chronic) Hypothyroidism (Chronic) Osteoarthritis (Chronic) Anticoagulant long-term use (Chronic) Hypertension (Chronic) Medical History History of atrial flutter x3 ablations History of atrial fibrillation x3 ablations History of COVID-19 (~11/2024) october or november 2024/. no hx hospitalization. 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 2018, 2021 ([facility]) and third one was done at [facility] in [place] ( ? date/approx 2022). History of total right knee replacement History of left knee replacement History of esophagogastroduodenoscopy (EGD) Hx of bilateral breast reduction surgery ALONG WITH REVISION D/T BLEEDING Hx of bladder repair surgery CYSTOCELE REPAIR AND SLING History of colonoscopy S/P panniculectomy History of hysterectomy History of bilateral tubal ligation History of cholecystectomy History of tooth extraction History of tonsillectomy History of cardiac cath hx c/p..approx 2009 , [facility] , no stent(s) pt reports told "stress related" History of cardioversion x3 Family History Mother Alzheimer disease Father Coronary heart disease Family history of diabetes mellitus Sister Hypothyroidism Sister Hypothyroidism Other No family history of adverse response to anesthesia Social History Smoking Status: Never smoker Second Hand Exposure: No; Do You Dip or Chew Tobacco: No; Hx Alcohol Use: No Hx Substance Use: No Preferred Language: Mauritanian Communication Ability: Effective Integration Engineer Required: No Beliefs That Will Affect Care: None marital status: Current Living Situation: Spouse Current Living Situation Comment: Home with Feels Safe at Home: Yes Assistive Devices: CPAP, Glasses and Other Review of Systems A total of 10 systems reviewed and were otherwise negative Physical Exam Vital Signs Vital Signs - 24 hr 03/13/25 09:50 03/13/25 09:54 03/13/25 10:23 Temperature 36.3 C L Temperature Source Temporal Artery Scan Temporal Artery Scan Pulse Rate Pulse Rate [Apical] 83 Respiratory Rate 27 H Respiratory Effort / Characteristics Respiratory Depth Respiratory Pattern Blood Pressure Blood Pressure [Right Arm] 127/77 Blood Pressure Mean Blood Pressure Mean [Right Arm] 93 Blood Pressure Position [Right Arm] Pulse Oximetry 92 Oxygen Delivery Method Room Air Sepsis Recent Fever Within 48 Hours No Sepsis New/Unexplained Change in Mental Status N/A Sepsis Action Taken by Nursing No Action Required 03/13/25 10:23 03/13/25 10:32 03/13/25 10:55 Temperature Temperature Source Pulse Rate 83 Pulse Rate [Apical] 83 Respiratory Rate 19 18 Respiratory Effort / Characteristics Non-Labored Spontaneous Respiratory Depth Normal Respiratory Pattern Regular Blood Pressure Blood Pressure [Right Arm] 154/78 H Blood Pressure Mean Blood Pressure Mean [Right Arm] 103 Blood Pressure Position [Right Arm] Semi-fowlers Pulse Oximetry 92 94 95 Oxygen Delivery Method Room Air Room Air Room Air Sepsis Recent Fever Within 48 Hours Sepsis New/Unexplained Change in Mental Status Sepsis Action Taken by Nursing 03/13/25 11:04 03/13/25 11:45 03/13/25 13:38 Temperature Temperature Source Pulse Rate 81 86 Pulse Rate [Apical] 83 Respiratory Rate 27 H 20 Respiratory Effort / Characteristics Non-Labored Respiratory Depth Normal Respiratory Pattern Blood Pressure 157/73 H Blood Pressure [Right Arm] 130/93 Blood Pressure Mean 101 Blood Pressure Mean [Right Arm] 105 Blood Pressure Position [Right Arm] Pulse Oximetry 95 95 Oxygen Delivery Method Room Air Room Air Sepsis Recent Fever Within 48 Hours Sepsis New/Unexplained Change in Mental Status Sepsis Action Taken by Nursing VITAL SIGNS - Vital signs and nursing notes were reviewed. GENERAL -74-year-old female appearing her stated age who is in no acute distress. Communicates well with provider and answers questions appropriately. SKIN - Without rashes. Dressing overlying the left anterior shoulder noted. No active bleeding. HEAD - NC/AT. EYES - PERRL with EOMI bilaterally. Sclera anicteric. EARS - No deformities of external structures noted on gross examination bilaterally. NOSE - Midline and without cyanosis. No epistaxis or purulent drainage noted. MOUTH/OROPHARYNX - Without perioral cyanosis. NECK - Neck with FROM. No nuchal rigidity. LUNGS - CTA, with mildly diminished breath sounds on the left CARDIAC - RRR ABDOMEN - Abdominal contour normal without pulsations or visible masses. BS normoactive all four quadrants. No tenderness, palpable masses, hepatosplenomegaly, or ascites noted. EXTREMITIES - No clubbing or peripheral cyanosis. +5/5 strength noted in UE/LE bilaterally. NEUROLOGIC - Cranial nerves II through XII grossly intact. PSYCH -alert, oriented and pleasant on exam Course Administered Medications Discontinued Medications Acetaminophen (Acetaminophen Susp 160 Mg/5 Ml Btl) 500 mg PO NOW STA Stop: 03/13/25 11:47 Last Admin: 03/13/25 12:35 Dose: 500 mg Documented By: ALEJANDRO Furosemide (Furosemide Inj 20 Mg/2 Ml Vial) 20 mg IV ONE ONE Stop: 03/13/25 11:08 Last Admin: 03/13/25 11:29 Dose: 20 mg Documented By: BORA Ceftriaxone Sodium (Rocephin) 2,000 mg in 50 mls @ 100 mls/hr IV NOW STA Stop: 03/13/25 11:24 Last Infusion: 03/13/25 12:05 Dose: Infused Documented By: Admin: 03/13/25 11:29 Dose: 100 mls/hr Documented By: BORA Azithromycin (Zithromax) 500 mg in 255 mls @ 127.5 mls/hr IV NOW ONE Stop: 03/13/25 12:54 Last Admin: 03/13/25 12:37 Dose: 127.5 mls/hr Documented By: ALEJANDRO Ioversol (Optiray 320 125ml) 118 ml IV ONCE ONE Stop: 03/13/25 13:15 Last Admin: 03/13/25 13:14 Dose: 118 ml Documented By: CLIFFORD Medical Decision Making Laboratory Data 03/13/25 10:24 03/13/25 10:24 Lab Results 03/13/25 03/13/25 03/13/25 Range/Units 10:24 11:00 11:14 WBC 18.34 H (4.8-10.8) K/ul RBC 4.01 L (4.20-5.40) M/uL Hgb 11.5 L (12.0-16.0) g/dl Hct 36.3 L (37.0-47.0) % MCV 90.5 (80.0-100.0) fL MCH 28.7 (25.0-34.0) pg MCHC 31.7 L (32.0-36.0) g/dL RDW Std Deviation 44.3 (36.4-46.3) fL RDW Coeff of Starla 13.4 (11.5-14.5) % Plt Count 292 (130-400) K/uL MPV 9.6 (9.4-12.4) fL Immature Gran % (Auto) 0.8 % Neut % (Auto) 83.1 % Lymph % (Auto) 9.7 % Morrison % (Auto) 6.1 % Eos % (Auto) 0.1 % Baso % (Auto) 0.2 % Neut # (Auto) 15.26 H (1.40-6.50) K/uL Lymph # (Auto) 1.77 (1.20-3.40) K/uL Morrison # (Auto) 1.12 H (0.11-0.59) K/uL Eos # (Auto) 0.01 (0.00-0.50) K/uL Baso # (Auto) 0.04 (0.00-0.20) K/uL Immature Gran # (Auto) 0.14 (0.01-0.20) K/uL PT 10.6 (9.0-12.0) Seconds INR 1.0 (0.9-1.1) APTT 27 (21-31) Seconds PTT Ratio 1.0 VBG pH 7.42 H (7.36-7.41) VBG pCO2 41 (38-50) mmHg VBG pO2 35 mmHg VBG HCO3 27 mmol/L VBG O2 Saturation 65.4 % VBG Base Excess 1.9 mEq/L Sodium 139 (136-145) mmol/L Potassium 4.3 (3.5-5.1) mmol/L Chloride 105 (98-107) mmol/L Carbon Dioxide 28 (21-32) mmol/L Anion Gap 6 (3-11) BUN 23 (6-23) mg/dl Creatinine 0.70 (0.6-1.2) mg/dl Est Cr Clr Drug Dosing 71.5 ml/min eGFR 91.26 BUN/Creatinine Ratio 32.9 H (10-20) Glucose 152 H (70-99(Fasting)) mg/dl Calcium 9.1 (8.6-10.3) mg/dl Magnesium 2.2 (1.7-2.4) mg/dl Total Bilirubin 0.5 (0.2-1.0) mg/dl AST 27 (13-39) U/L ALT 36 (7-52) U/L Alkaline Phosphatase 92 (34-104) U/L Troponin I High Sens 10.2 (0-14) pg/ml B-Natriuretic Peptide 306 H (0-100) pg/ml Total Protein 6.4 (6.0-8.3) gm/dl Albumin 4.2 (3.4-5.0) gm/dl Globulin 2.2 L (2.5-4.0) gm/dl Albumin/Globulin Ratio 1.9 (0.9-2) Procalcitonin 0.04 (0-0.5) ng/ml TSH 0.314 (0.300-4.500) uIu/ml Nasal Screen MRSA (PCR) Negative (Negative) Imaging Data My Impression: chest xray: LLL pneumonia Radiologist's Impression: Chest X-Ray 03/13/25 10:02 Clinical History: Dyspnea Technique: A frontal view of the chest was obtained Comparison is made to the prior examination dated 02/16/2025 Findings: There is diffuse interstitial prominence, concerning for mild pulmonary edema. There is more focal left lower lobe opacity. The heart size is at the upper limit of normal. No right pleural effusion or pneumothorax is seen. There is a suspected small left pleural effusion. There is a new left shoulder arthroplasty Impression: 1. Mild pulmonary edema 2. Left lower lobe opacity that could be due to either atelectasis or pneumonia 3. Small left pleural effusion ACT 112: Positive. There are findings on this exam that require communication between the performing entity and the patient following Patient Test Result Information Act ([place] ACT 112) guidelines. Electronically signed by Joseph Solo 03-13-2025 10:51 AM Chest CTA 03/13/25 12:40 Clinical history: Chest pain Technique: Axial computed tomography images were obtained of the chest after the administration of intravenous contrast according to the CT angiogram protocol Comparison is made to the prior CT dated 03/20/2021 Findings: There is no definite sign of pulmonary embolism. There is a new 7 mm nodule in the lateral segment of the right middle lobe. There is bilateral lower lobe and lingular atelectasis. There is no left pleural effusion or pneumothorax. There is a small right pleural effusion. No endobronchial lesion is seen There are mildly prominent mediastinal and hilar lymph nodes, measuring up to 9 mm. There is no overt mediastinal, hilar, or axillary adenopathy. The thoracic aorta appears unremarkable with no sign of aneurysm or dissection. There is no pericardial effusion. There is coronary atherosclerosis There is a 4 mm left renal calculus. There is a small hiatal hernia. There is a left shoulder arthroplasty, resulting in surrounding artifact. No fracture is seen. No focal osseous lesion is evident Impression: 1. No definite sign of pulmonary embolism 2. New right middle lobe nodule that may be inflammatory but is indeterminate in nature. A follow-up chest CT is recommended in 3 months 3. Small right pleural effusion and bilateral lung base atelectasis 4. Small hiatal hernia 5. Nonobstructing left renal calculus ACT 112: Positive. There are findings on this exam that require communication between the performing entity and the patient following Patient Test Result Information Act ([place] ACT 112) guidelines. Electronically signed by Joseph Solo 03-13-2025 13:44 PM MDM Narrative Patient was seen and evaluated as above in room A04. Review was performed of nursing notes and vital signs. I did review pertinent previous visits and patient history. After obtaining a thorough history and physical examination the above work up was performed. Patient presents to us today for evaluation of dyspnea following left shoulder surgery yesterday. Options of care were discussed with the patient. IV access was established. Labs were drawn. EKG per my interpretation reveals sinus rhythm with a rate of 88 bpm. PVC noted. QTc [address] elevation. Chest x-ray per my interpretation reveals left lower lobe pneumonia versus atelectasis. Pulmonary edema also noted. Patient does have orthopnea. She also notes some "gurgling" and there has been some sputum production. I do suspect a component of volume overload plus pneumonia. Will cover with IV antibiotics. IV Lasix also ordered. Per most recent IDSA guidelines we will proceed with CAP coverage with ceftriaxone and azithromycin. Anaerobic coverage at this time is not felt to be needed per current guidelines even if aspiration pneumonia may be a possibility. Labs reveal leukocytosis 18.34. Anemia with hemoglobin of 11.5. There are normal coags. No evidence of kidney or liver failure. Hyperglycemia 152. Troponin normal. BNP elevated at 306. At this time I do believe that further evaluation and management inpatient setting is warranted noting the patient's tachypnea, diffuse weakness, and findings today. Case discussed with the hospitalist service. Please refer to further documentation regarding her stay. GCS: 15 In the evaluation and treatment of this patient the following differential diagnoses were entertained: CHF, pneumothorax, pneumonia, PE, OR, among others Impression & Plan Leukocytosis, Dyspnea, Orthopnea, Post-operative state Discharge Plan Visit Data Chief Complaint: Shortness of Breath/Dyspnea Stated Complaint: SHOULDER SURG YEST, SOB, WEAK, UNSTEADY ED Provider: John Amato ED Midlevel Provider: Juvenal Craig Discharge Problem: Leukocytosis, Dyspnea, Orthopnea, Post-operative state Patient Disposition: Admitted As Inpatient Condition: Good Forms Stand Alone Forms: My [facility] Prescriptions Prescriptions: No Action clindamycin HCl 300 mg capsule 300 mg PO DIRECTED PRN (Reason: PRIOR TO DENTAL APPOINTMENT) Qty: 6 3RF Rx Instructions: TAKE 2 CAPSULES ONE HOUR PRIOR TO DENTAL WORK levothyroxine 112 mcg tablet 112 mcg PO QAM Qty: 90 3RF (DME) CPAP Machine Misc .Route Qty: 1 0RF Rx Instructions: 9 cm of water, mask fit patient comfort, heated humidification, compliance download capabilities, DME of patient choice Eliquis 5 mg tablet 5 mg PO BID Qty: 180 3RF metoprolol succinate 50 mg tablet extended release 24 hr 50 mg PO QAM multivitamin Tablet 1 tab PO QAM prednisone 5 mg tablet 5 mg PO QAM losartan [Cozaar] 25 mg tablet 25 mg PO QAM PreserVision AREDS-2 [id number] Capsule 1 tab PO BID docusate sodium [Stool Softener] 100 mg Capsule 100 mg PO HS atorvastatin 10 mg tablet 10 mg PO QPM furosemide 20 mg tablet 20 mg PO DAILY PRN (Reason: EDEMA/WT GAIN >3#) cholecalciferol (vitamin D3) [Vitamin D3] 50 mcg (2,000 unit) Capsule 50 mcg PO QAM cefadroxil 500 mg capsule 500 mg PO BID 7 Days Qty: 14 0RF Rx Instructions: Start Date 03/12/25 x7 day supply oxycodone 5 mg tablet 5 mg PO Q6H PRN (Reason: pain) Qty: 30 0RF duloxetine 60 mg capsule,delayed release(DR/EC) 60 mg PO QPM Referrals Referrals: Reid Main MD [Primary Care Provider] -
[2025-03-13 10:38] LABS: Hematocrit (blood only) 36.3 % (37.0-47.0); Hemoglobin 11.5 g/dl (12.0-16.0); Immature Granulocytes # (auto) 0.14 K/uL (0.01-0.20); Immature Granulocytes % (auto) 0.8 %; Mean Corpuscular Hemoglobin 28.7 pg (25.0-34.0); Mean Corpuscular Volume 90.5 fL (80.0-100.0); Platelet Count 292 K/uL (130-400); RDW Standard Deviation 44.3 fL (36.4-46.3); Red Blood Count 4.01 M/uL (4.20-5.40); White Blood Count 18.34 K/ul (4.8-10.8)
--- NOTE | 2025-03-13 10:51 | XRay Report ---
Clinical History: Dyspnea Technique: A frontal view of the chest was obtained Comparison is made to the prior examination dated 02/16/2025 Findings: There is diffuse interstitial prominence, concerning for mild pulmonary edema. There is more focal left lower lobe opacity. The heart size is at the upper limit of normal. No right pleural effusion or pneumothorax is seen. There is a suspected small left pleural effusion. There is a new left shoulder arthroplasty Impression: 1. Mild pulmonary edema 2. Left lower lobe opacity that could be due to either atelectasis or pneumonia 3. Small left pleural effusion ACT 112: Positive. There are findings on this exam that require communication between the performing entity and the patient following Patient Test Result Information Act ([place] ACT 112) guidelines. Electronically signed by Joseph Solo 03-13-2025 10:51 AM
[2025-03-13 10:55] LABS: Alanine Aminotransferase 36.0 U/L (7-52); Albumin Globulin Ratio 1.9 (0.9-2); Albumin Level 4.2 gm/dl (3.4-5.0); Alkaline Phosphatase 92.0 U/L (34-104); Anion Gap 6.0 (3-11); Bilirubin,Total 0.5 mg/dl (0.2-1.0); Blood Urea Nitrogen 23.0 mg/dl (6-23); Calcium 9.1 mg/dl (8.6-10.3); Carbon Dioxide 28.0 mmol/L (21-32); Chloride 105.0 mmol/L (98-107); Creatinine Clr Calc Pharmacy 71.5 ml/min; Globulin 2.2 gm/dl (2.5-4.0); Glucose 152.0 mg/dl (70-99(Fasting)); Magnesium 2.2 mg/dl (1.7-2.4); Potassium 4.3 mmol/L (3.5-5.1); Sodium 139.0 mmol/L (136-145); Total Protein 6.4 gm/dl (6.0-8.3)
[2025-03-13 11:07] LABS: INR 1.0 (0.9-1.1); Partial Thromboplastin Time 27 Seconds (21-31); Prothrombin Time 10.6 Seconds (9.0-12.0)
[2025-03-13 11:11] LABS: Thyroid Stimulating Hormone 0.314 uIu/ml (0.300-4.500)
[2025-03-13] MEDS: FUROSEMIDE INJ 20 MG/2 ML VIAL IV ONE (11:29)
[2025-03-13] MEDS: cefTRIAXone SODIUM 2,000 MG/50 ML BAG IV STA (11:29)
[2025-03-13 11:32] LABS: Base Excess VBG 1.9 mEq/L; HCO3 VBG 27 mmol/L; Oxygen Saturation VBG 65.4 %; PCO2 VBG 41 mmHg (38-50); PO2 VBG 35 mmHg; pH VBG 7.42 (7.36-7.41)
[2025-03-13] MEDS: ACETAMINOPHEN SUSP 160 MG/5 ML BTL PO STA (12:35)
[2025-03-13] MEDS: AZITHROMYCIN 500 MG/255 ML BAG IV ONE (12:37)
--- NOTE | 2025-03-13 12:50 | History & Physical Report ---
Date of Service March 13, 2025 Assessment & Plan (1) Status post reverse total arthroplasty of left shoulder: (2) SOB (shortness of breath): Plan: 74-year-old female with history of paroxysmal A-fib on Eliquis, hypertension, dyslipidemia, GERD, obstructive sleep apnea, presenting with shortness of breath which started at around 2 AM this morning. Shortness of breath Status post left rotator cuff surgery 03/12/2025 Rule out CHF Rule out pneumonia Rule out acute PE given IV Lasix 20 mg and ceftriaxone plus azithromycin at the ER Currently on room air, no signs of acute respiratory distress Chest x-ray: 1. Mild pulmonary edema 2. Left lower lobe opacity that could be due to either atelectasis or pneumonia 3. Small left pleural effusion Patient given Lasix 20 mg IV Also given ceftriaxone plus azithromycin Remains on room air, saturating more than 90% on Lasix 20 mg p.o. as needed at home for leg edema No known history of CHF BNP 300s Echocardiogram ordered reassess volume status tomorrow to determine if patient needs further IV Lasix check COVID, flu, RSV swab Nasal MRSA negative Check sputum culture blood cultures obtained continue ceftriaxone plus azithromycin patient held her Eliquis 3 days prior to procedure and travelled to [place] [address] angiogram of the chest ordered to rule out acute PE Continue usual CPAP while sleeping for obstructive sleep apnea Atrial fibrillation Continue metoprolol and Eliquis Other chronic medical problems: Hypertension Dyslipidemia GERD Hypothyroidism - Continue usual medications Osteoarthritis - patient reports she takes prednisone 5 mg daily for this condition DVT prophylaxis Eliquis CODE STATUS full code as per patient Disposition Admit to [facility] telemetry total time spent 80 minutes including review of medical records, discussion with ER physician, history and physical exam, etc. History of Present Illness Chief Complaint: Shortness of breath started earlier this morning Primary Care Provider: Reid Main MD 74-year-old female with history of paroxysmal A-fib on Eliquis, hypertension, dyslipidemia, GERD, obstructive sleep apnea, presenting with shortness of breath which started at around 2 AM this morning. Patient underwent an elective left shoulder rotator cuff repair yesterday at [facility] by Dr. Keating. She was discharged home on the same day. Prior to the procedure yesterday, patient states she has been feeling fine overall-no shortness of breath, cough, fevers or chills. Upon arriving home After her shoulder procedure yesterday, patient said that she was feeling fine except for mild left shoulder discomfort. She took an oxycodone for pain. She went to bed around 12 midnight Wearing her usual CPAP during sleep. Around 2 AM, patient states she woke up because she felt that she could not breathe And was having productive cough. She then went to her bedside chair and fell asleep while sitting up, with her BiPAP on. She woke up this morning and was still feeling short of breath, hence, she went to the ER. Upon arrival to the ED, patient's blood pressure was 127/87, heart rate 83, respiratory rate 27, saturating 92% on room air. Chest x-ray showed possible left pleural effusion versus pneumonia. She was then given ceftriaxone plus azithromycin, and Lasix 20 mg IV. On my exam, patient seen sitting up in bed, awake, comfortable, not in distress States she has been voiding significantly since the Lasix IV was given and her breathing is starting to improve. Denies chest pain, palpitations, dizziness, nausea. No fevers or chills No other new symptoms. Allergies Allergy/AdvReac Type Severity Reaction Status Date / Time soy Allergy Severe Anaphylaxis Verified 03/13/25 11:57 bacitracin Allergy Unknown RASH Verified 03/13/25 11:57 monosodium glutamate Allergy Unknown THROAT Verified 03/13/25 11:57 SWELLS neomycin Allergy Unknown RASH Verified 03/13/25 11:57 Penicillins Allergy Unknown UNKNOWN Verified 03/13/25 11:57 polymyxin B Allergy Unknown RASH Verified 03/13/25 11:57 Sulfa (Sulfonamide Allergy Unknown so long Verified 03/13/25 11:57 Antibiotics) ago, I don't remember amiodarone AdvReac Unknown GI upset Verified 03/13/25 11:57 ciprofloxacin AdvReac Unknown N/V Verified 03/13/25 11:57 nitrofurantoin AdvReac Unknown DIARRHEA Verified 03/13/25 11:57 piroxicam AdvReac Unknown SEVERE Verified 03/13/25 11:57 DIARRHEA Home Medications Medication Instructions Recorded Confirmed Type vit C 250 mg-vit E 90 mg-zinc 40 1 tab PO BID 03/25/19 03/13/25 History mg-copper 1 [id number] capsule (PreserVision AREDS-2) prednisone 5 mg tablet 5 mg PO QAM 01/01/20 03/13/25 History multivitamin 1 tab PO QAM 09/29/20 03/13/25 History atorvastatin 10 mg tablet 10 mg PO QPM 03/04/21 03/13/25 History cholecalciferol (vitamin D3) 50 50 mcg PO QAM 03/20/21 03/13/25 History mcg (2,000 unit) capsule (Vitamin D3) furosemide 20 mg tablet 20 mg PO DAILY PRN EDEMA/WT GAIN 03/20/21 03/13/25 History >3# clindamycin HCl 300 mg capsule 300 mg PO DIRECTED PRN PRIOR TO 11/06/21 03/13/25 Rx DENTAL APPOINTMENT #6 caps levothyroxine 112 mcg tablet 112 mcg PO QAM #90 tabs 11/24/21 03/13/25 Rx CPAP Machine #1 ea 12/18/21 12/01/24 Rx docusate sodium 100 mg capsule 100 mg PO HS 02/26/22 03/13/25 History (Stool Softener) losartan 25 mg tablet (Cozaar) 25 mg PO QAM 03/15/22 03/13/25 History apixaban 5 mg tablet (Eliquis) 5 mg PO BID #180 tabs 09/12/22 03/13/25 Rx metoprolol succinate 50 mg 50 mg PO QAM 07/12/23 03/13/25 History tablet,extended release 24 hr cefadroxil 500 mg capsule 500 mg PO BID 7 days #14 caps 03/12/25 03/13/25 Rx oxycodone 5 mg tablet 5 mg PO Q6H PRN pain #30 tabs 03/12/25 03/13/25 Rx duloxetine 60 mg capsule,delayed 60 mg PO QPM 03/13/25 03/13/25 History release Past Med/Surg History Problem List (Updated 03/13/25 @ 13:50 by Juvenal Craig PA-C) Post-operative state (Acute) Orthopnea (Acute) Dyspnea (Acute) Status post reverse total arthroplasty of left shoulder Muscle strain Rotator cuff arthropathy of both shoulders Arthritis, rheumatoid Leukocytosis (Acute) SOB (shortness of breath) (Acute) Sleep apnea Encounter for pre-operative examination Excessive daytime sleepiness Parasomnia Anemia DM type 2 (diabetes mellitus, type 2) Chronic HFrEF (heart failure with reduced ejection fraction) EF 60% on 06/27/21 ECHO Paroxysmal atrial fibrillation (Acute) GERD (gastroesophageal reflux disease) H/O cardiac radiofrequency ablation x2--06/2021 @ [facility] and 05/2019 AT [place] Mitral regurgitation Jaleesa's thyroiditis (Chronic) Allergic rhinitis (Chronic) Depression (Chronic) Dyslipidemia (Chronic) Fibromyalgia (Chronic) Hypothyroidism (Chronic) Osteoarthritis (Chronic) Anticoagulant long-term use (Chronic) Hypertension (Chronic) Medical History History of atrial flutter x3 ablations History of atrial fibrillation x3 ablations History of COVID-19 (~11/2024) october or november 2024/. no hx hospitalization. 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 2018, 2021 ([facility]) and third one was done at [facility] in [place] ( ? date/approx 2022). History of total right knee replacement History of left knee replacement History of esophagogastroduodenoscopy (EGD) Hx of bilateral breast reduction surgery ALONG WITH REVISION D/T BLEEDING Hx of bladder repair surgery CYSTOCELE REPAIR AND SLING History of colonoscopy S/P panniculectomy History of hysterectomy History of bilateral tubal ligation History of cholecystectomy History of tooth extraction History of tonsillectomy History of cardiac cath hx c/p..approx 2009 , [facility] , no stent(s) pt reports told "stress related" History of cardioversion x3 Family History Mother Alzheimer disease Father Coronary heart disease Family history of diabetes mellitus Sister Hypothyroidism Sister Hypothyroidism Other No family history of adverse response to anesthesia Social History Smoking Status: Never smoker Second Hand Exposure: No; Do You Dip or Chew Tobacco: No; Hx Alcohol Use: No Hx Substance Use: No Preferred Language: [place] Communication Ability: Effective 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 Beliefs That Will Affect Care: None marital status: Current Living Situation: Spouse Current Living Situation Comment: Home with Feels Safe at Home: Yes Assistive Devices: CPAP, Glasses and Other Review of Systems Review of Systems: all noted and negative except for above Physical Exam Physical Exam: General- oriented x 3, not in distress, speaks in sentences with no effort or accessory muscle use Head- atraumatic Eyes- PERRL, EOMI, anicteric ENT- oropharynx clear Neck- supple, no JVD, no adenopathy, no thyromegaly; carotids +2/2, no bruits appreciated Lungs- Mild crackles left base, clear on the right, no wheezing Heart- normal rate, regular rhythm; no murmur, no gallop, no rub appreciated Abdomen- normal bowel sounds, nondistended, soft, nontender, no masses or hepatosplenomegaly Extremities- left shoulder: Surgical incision well opposed, no bleeding or discharge, no hematoma sling in place no pretibial edema, no calf tenderness; peripheral pulses intact Neuro- alert, oriented x 3; CN 2-12 grossly intact; motor 5/5 bilaterally;sensation 100% on all extremities; no other gross focal neurologic deficits Skin- warm & dry Results & Data Results & Data Vital Signs (Past 12 Hours) Vital Signs Temp Pulse Pulse Resp BP BP Pulse Ox 03/13/25 11:45 86 27 H 157/73 H 95 03/13/25 11:04 81 03/13/25 10:55 83 18 154/78 H 95 03/13/25 10:32 94 03/13/25 10:23 83 19 92 03/13/25 10:23 83 27 H 127/77 92 03/13/25 09:50 36.3 C L O2 Del Method 03/13/25 11:45 Room Air 03/13/25 11:04 03/13/25 10:55 Room Air 03/13/25 10:32 Room Air 03/13/25 10:23 Room Air 03/13/25 10:23 Room Air 03/13/25 09:50 all noted and reviewed including below Code Status & VTE Plan VTE Prophylaxis Plan VTE Prophylaxis will be ordered: Yes
[2025-03-13] MEDS: OPTIRAY 320 125ml IV ONE (13:14)
--- NOTE | 2025-03-13 13:45 | CT Scan Report ---
Clinical history: Chest pain Technique: Axial computed tomography images were obtained of the chest after the administration of intravenous contrast according to the CT angiogram protocol Comparison is made to the prior CT dated 03/20/2021 Findings: There is no definite sign of pulmonary embolism. There is a new 7 mm nodule in the lateral segment of the right middle lobe. There is bilateral lower lobe and lingular atelectasis. There is no left pleural effusion or pneumothorax. There is a small right pleural effusion. No endobronchial lesion is seen There are mildly prominent mediastinal and hilar lymph nodes, measuring up to 9 mm. There is no overt mediastinal, hilar, or axillary adenopathy. The thoracic aorta appears unremarkable with no sign of aneurysm or dissection. There is no pericardial effusion. There is coronary atherosclerosis There is a 4 mm left renal calculus. There is a small hiatal hernia. There is a left shoulder arthroplasty, resulting in surrounding artifact. No fracture is seen. No focal osseous lesion is evident Impression: 1. No definite sign of pulmonary embolism 2. New right middle lobe nodule that may be inflammatory but is indeterminate in nature. A follow-up chest CT is recommended in 3 months 3. Small right pleural effusion and bilateral lung base atelectasis 4. Small hiatal hernia 5. Nonobstructing left renal calculus ACT 112: Positive. There are findings on this exam that require communication between the performing entity and the patient following Patient Test Result Information Act ([place] ACT 112) guidelines. Electronically signed by Joseph Solo 03-13-2025 13:44 PM
[2025-03-13] MEDS: METOPROLOL SUCC 50MG EXT REL TAB PO STA (14:14)
[2025-03-13] MEDS: LOSARTAN POTASSIUM 25 MG TAB PO STA (14:14)
[2025-03-13] MEDS: APIXABAN 5 MG TABLET PO ONE (14:14)
[2025-03-13 16:00] LABS: Influenza A virus by PCR Negative (Neg); Influenza B virus by PCR Negative (Neg); SARS CoV2 RNA(COVID-19) Ceph NEGATIVE (Negative)
--- NOTE | 2025-03-13 16:29 | Emergency Department Note ---
ED Visit Note I was consulted by the Advanced Practice Provider, Juvenal Muñoz. I performed a substantive portion of the visit. This includes aspects of: History: This is a 74yoF with PMHx of HTN, HLF, CHF, pAfib on chronic anticoagulation (Apixaban), DM2 and hypothyroidism presenting for SOB. She has recent shoulder surgery. She did hold Apixaban for surgery. She notes dyspnea at rest that worsens with exertion. Chest pain and orthopnea reported. MDM: Exam and presentation were consistent with both hypervolemia and PNA. Leukocytosis and BNP elevation noted. She was started on CAP abx coverage and diuresis. Admission recommended and hospitalist was agreeable. John Amato DO Emergency Medicine .
[2025-03-13] MEDS: ACETAMINOPHEN 325 MG TAB PO PRN (21:48)
[2025-03-13] MEDS: DOCUSATE SODIUM 100 MG CAP PO SCH (21:48)
[2025-03-13] MEDS: ATORVASTATIN 10 MG TAB PO SCH (21:49)
[2025-03-13] MEDS: APIXABAN 5 MG TABLET PO SCH (21:49)
[2025-03-13] MEDS: ADVANCED PROBIOTIC 625 MG CAPSULE PO SCH (21:49)
[2025-03-14 04:24] LABS: Hematocrit (blood only) 31.9 % (37.0-47.0); Hemoglobin 10.3 g/dl (12.0-16.0); Immature Granulocytes # (auto) 0.12 K/uL (0.01-0.20); Immature Granulocytes % (auto) 0.8 %; Mean Corpuscular Hemoglobin 29.0 pg (25.0-34.0); Mean Corpuscular Volume 89.9 fL (80.0-100.0); Platelet Count 255 K/uL (130-400); RDW Standard Deviation 44.6 fL (36.4-46.3); Red Blood Count 3.55 M/uL (4.20-5.40); White Blood Count 15.85 K/ul (4.8-10.8)
[2025-03-14 04:40] LABS: Alanine Aminotransferase 27.0 U/L (7-52); Albumin Globulin Ratio 1.8 (0.9-2); Albumin Level 3.5 gm/dl (3.4-5.0); Alkaline Phosphatase 81.0 U/L (34-104); Anion Gap 5.0 (3-11); Bilirubin,Total 0.8 mg/dl (0.2-1.0); Blood Urea Nitrogen 18.0 mg/dl (6-23); Calcium 8.7 mg/dl (8.6-10.3); Carbon Dioxide 28.0 mmol/L (21-32); Chloride 105.0 mmol/L (98-107); Creatinine Clr Calc Pharmacy 63.1 ml/min; Globulin 2.0 gm/dl (2.5-4.0); Glucose 113.0 mg/dl (70-99(Fasting)); Potassium 3.8 mmol/L (3.5-5.1); Sodium 138.0 mmol/L (136-145); Total Protein 5.5 gm/dl (6.0-8.3)
[2025-03-14] MEDS: LEVOTHYROXINE SODIUM 112 MCG TABLET PO SCH (06:08)
[2025-03-14] MEDS: AZITHROMYCIN 250 MG TAB PO SCH (08:25)
[2025-03-14] MEDS: METOPROLOL SUCC 50MG EXT REL TAB PO SCH ×2 (08:25→19:58)
[2025-03-14] MEDS: CHOLECALCIFEROL 25 MCG (1000 UNITS) TAB PO SCH (08:25)
[2025-03-14] MEDS: CEROVITE ADV FORMULA TAB PO SCH (08:25)
[2025-03-14] MEDS: MULTIVITAMIN TAB PO SCH (08:25)
[2025-03-14] MEDS: LOSARTAN POTASSIUM 25 MG TAB PO SCH (08:25)
[2025-03-14] MEDS: cefTRIAXone SODIUM 2,000 MG/50 ML BAG IV SCH (08:25)
[2025-03-14] MEDS: FUROSEMIDE INJ 20 MG/2 ML VIAL IV ONE (09:47)
[2025-03-14] MEDS: POTASSIUM CHLORIDE 10 MEQ TABCR PO ONE (11:16)
--- NOTE | 2025-03-14 11:17 | XRay Report ---
HISTORY: Hypoxia TECHNIQUE: Portable AP radiograph of the chest. COMPARISON: Chest CT dated 03/13/2025. FINDINGS: No focal lung consolidation. No pneumothorax or pleural effusion. Normal heart size. Left-sided aortic arch. Midline trachea. grocery manager leads overlie the chest. Left shoulder arthroplasty. Degenerative changes of the right shoulder and spine. IMPRESSION: No acute cardiopulmonary findings. Electronically signed by Olayinka Dupree 03-14-2025 11:17 AM
--- NOTE | 2025-03-14 11:55 | Hospitalist Progress Note ---
Date of Service March 14, 2025 Assessment & Plan (1) Status post reverse total arthroplasty of left shoulder: (2) SOB (shortness of breath): Plan: 74-year-old female with history of paroxysmal A-fib on Eliquis, hypertension, dyslipidemia, GERD, obstructive sleep apnea, presenting with shortness of breath which started at around 2 AM this morning. A-fib RVR H/O Afib --ECHO: EF 55 to 60%. Right ventricle is normal in size. Right ventricle systolic function is normal. Mild mitral regurgitation. Mild tricuspid regurgitation. --Normal TSH Continue Eliquis for anticoagulation Increase metoprolol succinate to 50 mg twice a day IV Lopressor as needed Monitor and replete electrolytes as needed Suspected aspiration/atypical pneumonia Right middle lobe pulmonary nodule Right pleural effusion Atelectasis Hypoxia secondary to above Normal procalcitonin --Chest CTA: No definite sign of pulmonary embolism. New right middle lobe nodule that may be inflammatory but is indeterminate in nature. A follow-up chest CT is recommended in 3 months. Small right pleural effusion and bilateral lung base atelectasis. . Small hiatal hernia. Nonobstructing left renal calculus --COVID, influenza, RSV screen negative --Nasal MRSA negative --Blood cultures pending --Sputum cultures pending -- Empirically on azithromycin, Rocephin Aspiration precautions Continue supplemental oxygen as needed IV Lasix as needed Will need repeat CT chest in 3 months to evaluate right pulmonary nodule Will consider 2 step prior discharge Nonobstructing left renal calculus Incidental finding on CT Follow-up as outpatient Obstructive sleep apnea Continue CPAP at bedtime 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 Postoperative acute blood loss anemia --S/P Left Reverse Total Shoulder Arthroplasty(Left) with open biceps tenodesis as a distinct and separate procedure by on 03/12/25 Pain control as needed Monitor CBC Other chronic medical problems: Hypertension--monitor blood pressure Dyslipidemia GERD Hypothyroidism - Continue usual medications as able Osteoarthritis--On chronic prednisone 5 mg daily DVT prophylaxis Eliquis CODE STATUS Full code Disposition Expect to discharge home Admission and Anticipated Discharge Date Admission Date: March 13, 2025 Subjective Patient is seen and examined at bedside States having headache earlier this morning Denies any dyspnea Admits to have some cough with expectoration Also has some left shoulder pain from recent surgery No other complaints today A-fib RVR monitor Requiring 2 L supplemental oxygen to maintain saturation Chest x-ray showed no acute process Review of Systems Review of Systems: All systems reviewed & are unremarkable except as noted in Subjective Physical Exam Physical Exam: Physical Exam: Vitals signs as noted above General Appearance: Obese, no apparent distress Head: normocephalic, Atraumatic Eyes: normal inspection, EOMI Neck: supple, Trachea midline Respiratory/Chest: Normal breath sounds, right basal crackles, No accessory muscle use Cardiovascular: Irregularly irregular, tachycardic, No murmur Abdomen/GI:Soft, Non tender, Bowel sounds present Extremities/Musculoskeletal:normal inspection, trace pedal edema, left shoulder surgical dressing/sling Neurologic/Psych:AAOX3, grossly no focal neurological deficits Skin: normal color, warm Results & Data Results & Data Vital Signs (Past 12 Hours) Vital Signs Temp Pulse Pulse Resp BP Pulse Ox O2 Del Method 03/14/25 11:37 37.3 C 69 18 131/85 95 Nasal Cannula 03/14/25 10:00 Nasal Cannula 03/14/25 07:57 37.1 C 87 16 106/68 92 Room Air 03/14/25 05:47 82 03/14/25 04:03 37.4 C 86 18 101/64 91 Room Air O2 Flow Rate 03/14/25 11:37 2 03/14/25 10:00 3 03/14/25 07:57 03/14/25 05:47 03/14/25 04:03 Laboratory Results Short CBC 03/14/25 Range/Units 04:04 WBC 15.85 H (4.8-10.8) K/ul Hgb 10.3 L (12.0-16.0) g/dl Hct 31.9 L (37.0-47.0) % Plt Count 255 (130-400) K/uL BMP 03/14/25 04:04 Sodium 138 Potassium 3.8 Chloride 105 Carbon Dioxide 28 BUN 18 Creatinine 0.79 Glucose 113 H Calcium 8.7 Liver Function 03/14/25 Range/Units 04:04 Total Bilirubin 0.8 (0.2-1.0) mg/dl AST 20 (13-39) U/L ALT 27 (7-52) U/L Alkaline Phosphatase 81 (34-104) U/L Albumin 3.5 (3.4-5.0) gm/dl
[2025-03-14] MEDS: METOPROLOL TARTRATE 1 MG/ML VIAL IV PRN (12:05)
--- NOTE | 2025-03-14 12:28 | Electrocardiogram Report ---
Test Reason : Blood Pressure : */* mmHG Vent. Rate : 88 BPM Atrial Rate : 88 BPM P-R Int : 154 ms QRS Dur : 76 ms QT Int : 360 ms P-R-T Axes : 64 37 58 degrees QTcB Int : 435 ms Sinus rhythm with occasional Premature ventricular complexes Otherwise normal ECG When compared with ECG of 16-Feb-2025 12:49, Premature ventricular complexes are now Present Confirmed by Donna Nelson (Omer) on 03/14/2025 12:28:15 PM Referred By: REFERRED SELF Confirmed By: Donna Nelson
[2025-03-14] MEDS: METOPROLOL TARTRATE 1 MG/ML VIAL IV ONE ×2 (13:08→13:25)
[2025-03-14] MEDS: METOPROLOL TARTRATE 1 MG/ML VIAL IV STA (16:20)
--- NOTE | 2025-03-14 21:20 | XRay Report ---
Exam(s): XR CXR 1 VIEW EXAM: XR Chest, 1 View CLINICAL HISTORY: sob. TECHNIQUE: Frontal view of the chest. COMPARISON: Portable chest single view 03/14/2025 FINDINGS: Lungs: No focal consolidation. The pulmonary vasculature demonstrates no significant radiographic abnormality. Pleural space: Unremarkable. No pneumothorax. No large pleural effusion. Heart: Unremarkable. No cardiomegaly. Mediastinum: No significant abnormality identified. The trachea is midline. Bones/joints: A left total shoulder arthroplasties noted, stable. Chronic degenerative changes of the right shoulder. No acute fracture. IMPRESSION: No acute cardiopulmonary process or significant alteration from the prior examination. Electronically signed by: Alexi Newell MD 03/14/25 21:19 PM
[2025-03-15 06:05] LABS: Hematocrit (blood only) 38.1 % (37.0-47.0); Hemoglobin 12.0 g/dl (12.0-16.0); Mean Corpuscular Hemoglobin 28.8 pg (25.0-34.0); Mean Corpuscular Volume 91.6 fL (80.0-100.0); Platelet Count 269 K/uL (130-400); RDW Standard Deviation 46.4 fL (36.4-46.3); Red Blood Count 4.16 M/uL (4.20-5.40); White Blood Count 13.90 K/ul (4.8-10.8)
[2025-03-15 06:45] LABS: Anion Gap 5.0 (3-11); Blood Urea Nitrogen 20.0 mg/dl (6-23); Calcium 9.3 mg/dl (8.6-10.3); Carbon Dioxide 31.0 mmol/L (21-32); Chloride 103.0 mmol/L (98-107); Creatinine Clr Calc Pharmacy 65.5 ml/min; Glucose 134.0 mg/dl (70-99(Fasting)); Magnesium 2.1 mg/dl (1.7-2.4); Potassium 3.8 mmol/L (3.5-5.1); Sodium 139.0 mmol/L (136-145)
--- NOTE | 2025-03-15 08:17 | Electrocardiogram Report ---
Test Reason : Blood Pressure : */* mmHG Vent. Rate : 120 BPM Atrial Rate : * BPM P-R Int : * ms QRS Dur : 82 ms QT Int : 300 ms P-R-T Axes : * 51 72 degrees QTcB Int : 424 ms Multifocal atrial tachycardia Nonspecific ST abnormality Abnormal ECG When compared with ECG of 13-Mar-2025 10:03, MAT has replaced Sinus rhythm ST now depressed in Lateral leads Confirmed by Donna Nelson (Omer) on 03/15/2025 8:17:43 AM Referred By: REFERRED SELF Confirmed By: Donna Nelson
[2025-03-15] MEDS: POTASSIUM CHLORIDE 10 MEQ TABCR PO ONE (09:08)
--- NOTE | 2025-03-15 12:54 | Electrocardiogram Report ---
Test Reason : Blood Pressure : */* mmHG Vent. Rate : 102 BPM Atrial Rate : 288 BPM P-R Int : * ms QRS Dur : 86 ms QT Int : 358 ms P-R-T Axes : 47 51 62 degrees QTcB Int : 466 ms Atrial fibrillation with rapid ventricular response Abnormal ECG When compared with ECG of 14-Mar-2025 11:01, Atrial fibrillation now present ST no longer depressed in Lateral leads Confirmed by Zain Carpenter ([id number]) on 03/15/2025 12:54:25 PM Referred By: REFERRED SELF Confirmed By: Zain Carpenter
[2025-03-15] MEDS: SODIUM CHLORIDE 0.9% 500 ML IV ONE (13:30)
--- NOTE | 2025-03-15 15:53 | Hospitalist Progress Note ---
Date of Service March 15, 2025 Assessment & Plan (1) Status post reverse total arthroplasty of left shoulder: (2) SOB (shortness of breath): Plan: 74-year-old female with history of paroxysmal A-fib on Eliquis, hypertension, dyslipidemia, GERD, obstructive sleep apnea, presenting with shortness of breath which started at around 2 AM this morning. A-fib RVR H/O Afib --ECHO: EF 55 to 60%. Right ventricle is normal in size. Right ventricle systolic function is normal. Mild mitral regurgitation. Mild tricuspid regurgitation. --Normal TSH Spontaneously converted to sinus on 03/15/2025 continue Eliquis for anticoagulation Increase metoprolol succinate to 50 mg twice a day IV Lopressor as needed Monitor and replete electrolytes as needed Suspected aspiration/atypical pneumonia Right middle lobe pulmonary nodule Right pleural effusion Atelectasis Hypoxia secondary to above Normal procalcitonin --Chest CTA: No definite sign of pulmonary embolism. New right middle lobe nodule that may be inflammatory but is indeterminate in nature. A follow-up chest CT is recommended in 3 months. Small right pleural effusion and bilateral lung base atelectasis. . Small hiatal hernia. 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 Postoperative acute blood loss anemia --S/P Left Reverse Total Shoulder Arthroplasty(Left) with open biceps tenodesis as a distinct and separate procedure by on 03/12/25 Pain control as needed Monitor CBC Other chronic medical problems: Hypertension--monitor blood pressure Dyslipidemia GERD Hypothyroidism - Continue usual medications as able Osteoarthritis--On chronic prednisone 5 mg daily DVT prophylaxis Eliquis CODE STATUS Full code Disposition Expect to discharge home Admission and Anticipated Discharge Date Admission Date: March 13, 2025 Subjective Patient is seen and examined at bedside Spontaneously converted to sinus rhythm this morning Transiently had some dizziness while ambulating today Left shoulder pain at surgical site is controlled Denies any chest pain, dyspnea, nausea, vomiting, abdominal pain Saturating well on room air Review of Systems Review of Systems: All systems reviewed & are unremarkable except as noted in Subjective Physical Exam Physical Exam: Physical Exam: Vitals signs as noted above General Appearance: Obese, no apparent distress Head: normocephalic, Atraumatic Eyes: normal inspection, EOMI Neck: supple, Trachea midline Respiratory/Chest: Normal breath sounds, CTA, No accessory muscle use Cardiovascular: S1, S2, No murmur Abdomen/GI:Soft, Non tender, Bowel sounds present Extremities/Musculoskeletal:normal inspection, trace pedal edema, left shoulder surgical dressing/sling Neurologic/Psych:AAOX3, grossly no focal neurological deficits Skin: normal color, warm Results & Data Results & Data Vital Signs (Past 12 Hours) Vital Signs Temp Pulse Pulse Resp BP BP Pulse Ox 03/15/25 15:31 37.3 C 74 16 98/66 L 97 03/15/25 13:00 79 03/15/25 13:00 03/15/25 11:24 36.5 C 77 16 94/64 L 96 03/15/25 10:09 81 105/60 03/15/25 09:17 03/15/25 08:29 82 92/61 L 03/15/25 08:14 114 H 129/79 03/15/25 08:00 129/79 98 03/15/25 07:44 36.9 C 102 H 18 92/64 L 92 03/15/25 07:00 86 Pulse Ox O2 Del Method O2 Del Method O2 Flow Rate 03/15/25 15:31 Room Air 03/15/25 13:00 03/15/25 13:00 91 Room Air 03/15/25 11:24 Nasal Cannula 1 03/15/25 10:09 03/15/25 09:17 Nasal Cannula 2 03/15/25 08:29 03/15/25 08:14 03/15/25 08:00 Nasal Cannula 2 03/15/25 07:44 Nasal Cannula 2 03/15/25 07:00 Laboratory Results Short CBC 03/15/25 Range/Units 05:24 WBC 13.90 H (4.8-10.8) K/ul Hgb 12.0 (12.0-16.0) g/dl Hct 38.1 (37.0-47.0) % Plt Count 269 (130-400) K/uL BMP 03/15/25 05:24 Sodium 139 Potassium 3.8 Chloride 103 Carbon Dioxide 31 BUN 20 Creatinine 0.76 Glucose 134 H Calcium 9.3
[2025-03-16 06:01] LABS: Hematocrit (blood only) 33.6 % (37.0-47.0); Hemoglobin 10.9 g/dl (12.0-16.0); Mean Corpuscular Hemoglobin 29.6 pg (25.0-34.0); Mean Corpuscular Volume 91.3 fL (80.0-100.0); Platelet Count 293 K/uL (130-400); RDW Standard Deviation 45.3 fL (36.4-46.3); Red Blood Count 3.68 M/uL (4.20-5.40); White Blood Count 12.64 K/ul (4.8-10.8)
[2025-03-16 06:17] LABS: Anion Gap 6.0 (3-11); Blood Urea Nitrogen 20.0 mg/dl (6-23); Calcium 8.9 mg/dl (8.6-10.3); Carbon Dioxide 28.0 mmol/L (21-32); Chloride 104.0 mmol/L (98-107); Creatinine Clr Calc Pharmacy 72.9 ml/min; Glucose 122.0 mg/dl (70-99(Fasting)); Magnesium 2.0 mg/dl (1.7-2.4); Potassium 3.9 mmol/L (3.5-5.1); Sodium 138.0 mmol/L (136-145)
[2025-03-16 07:31] VITALS: TEMP 98.1
[2025-03-16 11:01] VITALS: BP 98/64; PULSE 70; RESP 20; O2SAT 93
--- NOTE | 2025-03-16 12:11 | Hospitalist Progress Note ---
Date of Service March 16, 2025 Assessment & Plan (1) Status post reverse total arthroplasty of left shoulder: (2) SOB (shortness of breath): Plan: 74-year-old female with history of paroxysmal A-fib on Eliquis, hypertension, dyslipidemia, GERD, obstructive sleep apnea, presenting with shortness of breath which started at around 2 AM this morning. A-fib RVR H/O Afib --ECHO: EF 55 to 60%. Right ventricle is normal in size. Right ventricle systolic function is normal. Mild mitral regurgitation. Mild tricuspid regurgitation. --Normal TSH Spontaneously converted to sinus on 03/15/2025 continue Eliquis for anticoagulation Increase metoprolol succinate to 50 mg twice a day IV Lopressor as needed Monitor and replete electrolytes as needed Advised to follow-up with cardiology on discharge Suspected aspiration/atypical pneumonia Right middle lobe pulmonary nodule Right pleural effusion Atelectasis Hypoxia secondary to above Normal procalcitonin --Chest CTA: No definite sign of pulmonary embolism. New right middle lobe nodule that may be inflammatory but is indeterminate in nature. A follow-up chest CT is recommended in 3 months. Small right pleural effusion and bilateral lung base atelectasis. . Small hiatal hernia. Nonobstructing left renal calculus --COVID, influenza, RSV screen negative --Nasal MRSA negative --Blood cultures negative to date --Sputum cultures normal domo -- Empirically on azithromycin, Rocephin>> transition to oral antibiotics to complete the course Aspiration precautions Continue supplemental oxygen as needed IV Lasix as needed Will need repeat CT chest in 3 months to evaluate right pulmonary nodule Saturating well on room air 2 step: Did not qualify for supplemental oxygen Nonobstructing left renal calculus Incidental finding on CT Follow-up as outpatient Obstructive sleep apnea Continue CPAP at bedtime 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 Postoperative acute blood loss anemia --S/P Left Reverse Total Shoulder Arthroplasty(Left) with open biceps tenodesis as a distinct and separate procedure by on 03/12/25 Pain control as needed Monitor CBC Other chronic medical problems: Hypertension--monitor blood pressure Dyslipidemia GERD Hypothyroidism - Continue usual medications as able Osteoarthritis--On chronic prednisone 5 mg daily DVT prophylaxis Eliquis CODE STATUS Full code Disposition Home Admission and Anticipated Discharge Date Admission Date: March 13, 2025 Subjective Patient is seen and examined at bedside States feeling well today Remains in sinus No new complaints today Left shoulder pain is well-controlled Denies any chest pain, dyspnea, nausea, vomiting, abdominal pain Had 2 step earlier today Review of Systems Review of Systems: All systems reviewed & are unremarkable except as noted in Subjective Physical Exam Physical Exam: Physical Exam: Vitals signs as noted above General Appearance: Obese, no apparent distress Head: normocephalic, Atraumatic Eyes: normal inspection, EOMI Neck: supple, Trachea midline Respiratory/Chest: Normal breath sounds, CTA, No accessory muscle use Cardiovascular: S1, S2, No murmur Abdomen/GI:Soft, Non tender, Bowel sounds present Extremities/Musculoskeletal:normal inspection, trace pedal edema, left shoulder surgical dressing/sling Neurologic/Psych:AAOX3, grossly no focal neurological deficits Skin: normal color, warm Results & Data Results & Data Vital Signs (Past 12 Hours) Vital Signs Temp Pulse Pulse Pulse Pulse Pulse Resp 03/16/25 10:29 36.7 C 70 20 03/16/25 09:47 71 03/16/25 08:55 88 83 76 03/16/25 07:02 36.7 C 71 15 03/16/25 06:36 72 03/16/25 02:55 36.9 C 74 18 03/16/25 01:30 77 Resp Resp Resp BP Pulse Ox Pulse Ox Pulse Ox 03/16/25 10:29 98/64 L 93 03/16/25 09:47 03/16/25 08:55 18 16 16 92 95 03/16/25 07:02 113/75 99 03/16/25 06:36 03/16/25 02:55 103/63 99 03/16/25 01:30 Pulse Ox O2 Del Method O2 Flow Rate 03/16/25 10:29 Room Air 03/16/25 09:47 03/16/25 08:55 92 03/16/25 07:02 Nasal Cannula 2 03/16/25 06:36 03/16/25 02:55 Nasal Cannula 2 03/16/25 01:30 Laboratory Results Short CBC 03/16/25 Range/Units 05:40 WBC 12.64 H (4.8-10.8) K/ul Hgb 10.9 L (12.0-16.0) g/dl Hct 33.6 L (37.0-47.0) % Plt Count 293 (130-400) K/uL BMP 03/16/25 05:40 Sodium 138 Potassium 3.9 Chloride 104 Carbon Dioxide 28 BUN 20 Creatinine 0.69 Glucose 122 H Calcium 8.9
--- NOTE | 2025-03-16 13:50 | Discharge Summary ---
Date of Service March 16, 2025 Admission HPI Per Admitting Provider 74-year-old female with history of paroxysmal A-fib on Eliquis, hypertension, dyslipidemia, GERD, obstructive sleep apnea, presenting with shortness of breath which started at around 2 AM this morning. Patient underwent an elective left shoulder rotator cuff repair yesterday at [facility] by Dr. Keating. She was discharged home on the same day. Prior to the procedure yesterday, patient states she has been feeling fine overall-no shortness of breath, cough, fevers or chills. Upon arriving home After her shoulder procedure yesterday, patient said that she was feeling fine except for mild left shoulder discomfort. She took an oxycodone for pain. She went to bed around 12 midnight Wearing her usual CPAP during sleep. Around 2 AM, patient states she woke up because she felt that she could not breathe And was having productive cough. She then went to her bedside chair and fell asleep while sitting up, with her BiPAP on. She woke up this morning and was still feeling short of breath, hence, she went to the ER. Upon arrival to the ED, patient's blood pressure was 127/87, heart rate 83, respiratory rate 27, saturating 92% on room air. Chest x-ray showed possible left pleural effusion versus pneumonia. She was then given ceftriaxone plus azithromycin, and Lasix 20 mg IV. On my exam, patient seen sitting up in bed, awake, comfortable, not in distress States she has been voiding significantly since the Lasix IV was given and her breathing is starting to improve. Denies chest pain, palpitations, dizziness, nausea. No fevers or chills No other new symptoms. Admission Exam Per Admitting Provider General- oriented x 3, not in distress, speaks in sentences with no effort or accessory muscle use Head- atraumatic Eyes- PERRL, EOMI, anicteric ENT- oropharynx clear Neck- supple, no JVD, no adenopathy, no thyromegaly; carotids +2/2, no bruits appreciated Lungs- Mild crackles left base, clear on the right, no wheezing Heart- normal rate, regular rhythm; no murmur, no gallop, no rub appreciated Abdomen- normal bowel sounds, nondistended, soft, nontender, no masses or hepatosplenomegaly Extremities- left shoulder: Surgical incision well opposed, no bleeding or discharge, no hematoma sling in place no pretibial edema, no calf tenderness; peripheral pulses intact Neuro- alert, oriented x 3; CN 2-12 grossly intact; motor 5/5 bilaterally;sensation 100% on all extremities; no other gross focal neurologic deficits Skin- warm & dry Principal Diagnosis Atrial fibrillation with rapid ventricular response Possible aspiration pneumonia Right middle lobe pulmonary nodule Nonobstructing left renal calculus Discharge Data Allergies Allergy/AdvReac Type Severity Reaction Status Date / Time bacitracin Allergy Unknown RASH Verified 03/13/25 11:57 neomycin Allergy Unknown RASH Verified 03/13/25 11:57 Penicillins Allergy Unknown UNKNOWN Verified 03/13/25 11:57 polymyxin B Allergy Unknown RASH Verified 03/13/25 11:57 Sulfa (Sulfonamide Allergy Unknown so long Verified 03/13/25 11:57 Antibiotics) ago, I don't remember amiodarone AdvReac Unknown GI upset Verified 03/13/25 11:57 ciprofloxacin AdvReac Unknown N/V Verified 03/13/25 11:57 nitrofurantoin AdvReac Unknown DIARRHEA Verified 03/13/25 11:57 piroxicam AdvReac Unknown SEVERE Verified 03/13/25 11:57 DIARRHEA Consultations 03/13/25 11:15 ED Decision to Admit Stat Procedures Performed Laboratory Results WBC 12.64 K/ul (4.8-10.8) H 03/16/25 05:40 RBC 3.68 M/uL (4.20-5.40) L 03/16/25 05:40 Hgb 10.9 g/dl (12.0-16.0) L 03/16/25 05:40 Hct 33.6 % (37.0-47.0) L 03/16/25 05:40 MCV 91.3 fL (80.0-100.0) 03/16/25 05:40 MCH 29.6 pg (25.0-34.0) 03/16/25 05:40 MCHC 32.4 g/dL (32.0-36.0) 03/16/25 05:40 RDW Std Deviation 45.3 fL (36.4-46.3) 03/16/25 05:40 RDW Coeff of Starla 13.4 % (11.5-14.5) 03/16/25 05:40 Plt Count 293 K/uL (130-400) 03/16/25 05:40 MPV 9.8 fL (9.4-12.4) 03/16/25 05:40 Immature Gran % (Auto) 0.8 % 03/14/25 04:04 Neut % (Auto) 65.5 % 03/14/25 04:04 Lymph % (Auto) 20.5 % 03/14/25 04:04 Howard % (Auto) 9.8 % 03/14/25 04:04 Eos % (Auto) 2.8 % 03/14/25 04:04 Baso % (Auto) 0.6 % 03/14/25 04:04 Neut # (Auto) 10.39 K/uL (1.40-6.50) H 03/14/25 04:04 Lymph # (Auto) 3.25 K/uL (1.20-3.40) 03/14/25 04:04 Howard # (Auto) 1.55 K/uL (0.11-0.59) H 03/14/25 04:04 Eos # (Auto) 0.44 K/uL (0.00-0.50) 03/14/25 04:04 Baso # (Auto) 0.10 K/uL (0.00-0.20) 03/14/25 04:04 Immature Gran # (Auto) 0.12 K/uL (0.01-0.20) 03/14/25 04:04 PT 10.6 Seconds (9.0-12.0) 03/13/25 10:24 INR 1.0 (0.9-1.1) 03/13/25 10:24 APTT 27 Seconds (21-31) 03/13/25 10:24 PTT Ratio 1.0 03/13/25 10:24 VBG pH 7.42 (7.36-7.41) H 03/13/25 11:14 VBG pCO2 41 mmHg (38-50) 03/13/25 11:14 VBG pO2 35 mmHg 03/13/25 11:14 VBG HCO3 27 mmol/L 03/13/25 11:14 VBG O2 Saturation 65.4 % 03/13/25 11:14 VBG Base Excess 1.9 mEq/L 03/13/25 11:14 Sodium 138 mmol/L (136-145) 03/16/25 05:40 Potassium 3.9 mmol/L (3.5-5.1) 03/16/25 05:40 Chloride 104 mmol/L (98-107) 03/16/25 05:40 Carbon Dioxide 28 mmol/L (21-32) 03/16/25 05:40 Anion Gap 6 (3-11) 03/16/25 05:40 BUN 20 mg/dl (6-23) 03/16/25 05:40 Creatinine 0.69 mg/dl (0.6-1.2) 03/16/25 05:40 Est Cr Clr Drug Dosing 72.9 ml/min 03/16/25 05:40 eGFR 91.58 03/16/25 05:40 BUN/Creatinine Ratio 29.0 (10-20) H 03/16/25 05:40 Glucose 122 mg/dl (70-99(Fasting)) H 03/16/25 05:40 Calcium 8.9 mg/dl (8.6-10.3) 03/16/25 05:40 Magnesium 2.0 mg/dl (1.7-2.4) 03/16/25 05:40 Total Bilirubin 0.8 mg/dl (0.2-1.0) 03/14/25 04:04 AST 20 U/L (13-39) 03/14/25 04:04 ALT 27 U/L (7-52) 03/14/25 04:04 Alkaline Phosphatase 81 U/L (34-104) 03/14/25 04:04 Troponin I High Sens 10.2 pg/ml (0-14) 03/13/25 10:24 B-Natriuretic Peptide 306 pg/ml (0-100) H 03/13/25 10:24 Total Protein 5.5 gm/dl (6.0-8.3) L 03/14/25 04:04 Albumin 3.5 gm/dl (3.4-5.0) 03/14/25 04:04 Globulin 2.0 gm/dl (2.5-4.0) L 03/14/25 04:04 Albumin/Globulin Ratio 1.8 (0.9-2) 03/14/25 04:04 Procalcitonin 0.04 ng/ml (0-0.5) 03/13/25 10:24 TSH 0.314 uIu/ml (0.300-4.500) 03/13/25 10:24 Nasal Screen MRSA (PCR) Negative (Negative) 03/13/25 11:00 SARS-CoV-2 (PCR) NEGATIVE (Negative) 03/13/25 14:14 Influenza Type A (PCR) Negative (Neg) 03/13/25 14:14 Influenza Type B (PCR) Negative (Neg) 03/13/25 14:14 RSV (RT-PCR) Negative (Neg) 03/13/25 14:14 Impressions Chest CTA 03/13/25 12:40 Clinical history: Chest pain Technique: Axial computed tomography images were obtained of the chest after the administration of intravenous contrast according to the CT angiogram protocol Comparison is made to the prior CT dated 03/20/2021 Findings: There is no definite sign of pulmonary embolism. There is a new 7 mm nodule in the lateral segment of the right middle lobe. There is bilateral lower lobe and lingular atelectasis. There is no left pleural effusion or pneumothorax. There is a small right pleural effusion. No endobronchial lesion is seen There are mildly prominent mediastinal and hilar lymph nodes, measuring up to 9 mm. There is no overt mediastinal, hilar, or axillary adenopathy. The thoracic aorta appears unremarkable with no sign of aneurysm or dissection. There is no pericardial effusion. There is coronary atherosclerosis There is a 4 mm left renal calculus. There is a small hiatal hernia. There is a left shoulder arthroplasty, resulting in surrounding artifact. No fracture is seen. No focal osseous lesion is evident Impression: 1. No definite sign of pulmonary embolism 2. New right middle lobe nodule that may be inflammatory but is indeterminate in nature. A follow-up chest CT is recommended in 3 months 3. Small right pleural effusion and bilateral lung base atelectasis 4. Small hiatal hernia 5. Nonobstructing left renal calculus ACT 112: Positive. There are findings on this exam that require communication between the performing entity and the patient following Patient Test Result Information Act ([place] ACT 112) guidelines. Electronically signed by Joseph Solo 03-13-2025 13:44 PM Chest X-Ray 03/14/25 20:13 Exam(s): XR CXR 1 VIEW EXAM: XR Chest, 1 View CLINICAL HISTORY: sob. TECHNIQUE: Frontal view of the chest. COMPARISON: Portable chest single view 03/14/2025 FINDINGS: Lungs: No focal consolidation. The pulmonary vasculature demonstrates no significant radiographic abnormality. Pleural space: Unremarkable. No pneumothorax. No large pleural effusion. Heart: Unremarkable. No cardiomegaly. Mediastinum: No significant abnormality identified. The trachea is midline. Bones/joints: A left total shoulder arthroplasties noted, stable. Chronic degenerative changes of the right shoulder. No acute fracture. IMPRESSION: No acute cardiopulmonary process or significant alteration from the prior examination. Electronically signed by: Alexi Newell MD 03/14/25 21:19 PM Ordered Studies 03/13/25 12:40 CT angio chest PE protocol Stat Hospital Course (1) Status post reverse total arthroplasty of left shoulder: (2) SOB (shortness of breath): 74-year-old female with history of paroxysmal A-fib on Eliquis, hypertension, dyslipidemia, GERD, obstructive sleep apnea, presenting with shortness of breath which started at around 2 AM this morning. A-fib RVR H/O Afib --ECHO: EF 55 to 60%. Right ventricle is normal in size. Right ventricle systolic function is normal. Mild mitral regurgitation. Mild tricuspid regurgitation. --Normal TSH Spontaneously converted to sinus on 03/15/2025 continue Eliquis for anticoagulation Increase metoprolol succinate to 50 mg twice a day IV Lopressor as needed Monitor and replete electrolytes as needed Advised to follow-up with cardiology on discharge Suspected aspiration/atypical pneumonia Right middle lobe pulmonary nodule Right pleural effusion Atelectasis Hypoxia secondary to above Normal procalcitonin --Chest CTA: No definite sign of pulmonary embolism. New right middle lobe nodule that may be inflammatory but is indeterminate in nature. A follow-up chest CT is recommended in 3 months. Small right pleural effusion and bilateral lung base atelectasis. . Small hiatal hernia. Nonobstructing left renal calculus --COVID, influenza, RSV screen negative --Nasal MRSA negative --Blood cultures negative to date --Sputum cultures normal domo -- Empirically on azithromycin, Rocephin>> transition to oral antibiotics to complete the course Aspiration precautions Continue supplemental oxygen as needed IV Lasix as needed Will need repeat CT chest in 3 months to evaluate right pulmonary nodule Saturating well on room air 2 step: Did not qualify for supplemental oxygen Nonobstructing left renal calculus Incidental finding on CT Follow-up as outpatient Obstructive sleep apnea Continue CPAP at bedtime 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 Postoperative acute blood loss anemia --S/P Left Reverse Total Shoulder Arthroplasty(Left) with open biceps tenodesis as a distinct and separate procedure by on 03/12/25 Pain control as needed Monitor CBC Other chronic medical problems: Hypertension--monitor blood pressure Dyslipidemia GERD Hypothyroidism - Continue usual medications as able Osteoarthritis--On chronic prednisone 5 mg daily DVT prophylaxis Eliquis CODE STATUS Full code Disposition Home Total Time Total Time Spent Total Time Spent (In Minutes): 49 minutes Discharge Plan Discharge Items Patient Disposition: Home - Self-Care Reason For Visit: SHORTNESS OF BREATH Discharge Diagnosis: Atrial fibrillation with rapid ventricular response Possible aspiration pneumonia Right middle lobe pulmonary nodule Nonobstructing left renal calculus Condition on Discharge: Good Activity: Per Instructions section Exercise/Sports: Wait until after follow-up appointment Non-emergency contact: Primary Care Provider, Surgeon and Blow Off Worker Call non-emergency contact if: you have any medication questions, your symptoms worsen, your pain is concerning for you and you have a fever Follow-up/Referrals: Reid Main MD [Primary Care Provider] - 03/23/25 10:40 am (Date & Time 03/23/2025 10:40 AM Provider: Reid Main MD [facility] ) Diet: Heart Healthy Add Attending Provider Instructions: -- Follow-up with your primary care physician Dr. Main in 1 week -- Follow-up with your orthopedic surgeon Dr. Keating as previously recommended --Follow-up with your lye machine operator in 3 to 4 weeks as recommended --Complete the antibiotic course azithromycin, cefuroxime as prescribed --Start taking metoprolol succinate 50 mg twice a day (increased from your home dose 50 mg once a day) -- Hold taking losartan until your blood pressure improves ( fo 2-3 days). Monitor your blood pressure regularly and discuss with your primary care physician for further adjustment of medications as needed. -- Obtain CT chest in 3 months to evaluate right pulmonary nodule Seek immediate medical attention if your symptoms reoccur or worsen Please review medication list provided on discharge for any medication changes as instructed. Please call if you have any questions or problems. You can reach a [facility] hospitalist on duty at [facility] 24 hours a day by calling [phone] Pending Studies at Discharge: Yes (Blood cultures) Stand-Alone Forms: My [facility], Smoking Cessation Medications and DC Order Prescriptions: New azithromycin 250 mg Tablet 250 mg PO QAM Qty: 2 0RF Advanced Probiotic 625 mg (10 billion cell) Capsule 1 cap PO DAILY Qty: 5 0RF cefuroxime axetil 500 mg tablet 500 mg PO BID Qty: 8 0RF Continued clindamycin HCl 300 mg capsule 300 mg PO DIRECTED PRN (Reason: PRIOR TO DENTAL APPOINTMENT) Qty: 6 3RF Rx Instructions: TAKE 2 CAPSULES ONE HOUR PRIOR TO DENTAL WORK levothyroxine 112 mcg tablet 112 mcg PO QAM Qty: 90 3RF (DME) CPAP Machine Misc .Route Qty: 1 0RF Rx Instructions: 9 cm of water, mask fit patient comfort, heated humidification, compliance download capabilities, DME of patient choice Eliquis 5 mg tablet 5 mg PO BID Qty: 180 3RF multivitamin Tablet 1 tab PO QAM prednisone 5 mg tablet 5 mg PO QAM PreserVision AREDS-2 [id number] Capsule 1 tab PO BID docusate sodium [Stool Softener] 100 mg Capsule 100 mg PO HS atorvastatin 10 mg tablet 10 mg PO QPM furosemide 20 mg tablet 20 mg PO DAILY PRN (Reason: EDEMA/WT GAIN >3#) cholecalciferol (vitamin D3) [Vitamin D3] 50 mcg (2,000 unit) Capsule 50 mcg PO QAM oxycodone 5 mg tablet 5 mg PO Q6H PRN (Reason: pain) Qty: 30 0RF duloxetine 60 mg capsule,delayed release(DR/EC) 60 mg PO QPM Changed metoprolol succinate 50 mg tablet extended release 24 hr 50 mg PO BID Qty: 60 1RF Held losartan [Cozaar] 25 mg tablet 25 mg PO QAM Hold Instructions: Hold for 2 to 3 days until your blood pressure improves as recommended Discontinued cefadroxil 500 mg capsule 500 mg PO BID 7 Days Qty: 14 0RF Rx Instructions: Start Date 03/12/25 x7 day supply Discharge Orders: Discharge Order (Routine); Ordered 03/16/25 Ordered By: Nitin Logan Admission Data Admit Date/Time: 03/13/25 12:45 Attending Provider: Nitin Logan Admit Provider: Terrell Arguello Primary Care Provider: Reid Main I. Other Providers: Terrell Arguello Other Interventions: Discharge Summary Assessment (RN) Last Done: 03/16/25 12:43
== END 2025-03-16 13:19 | disposition home or self-care (01) | DRG 178 ==
LOC: ED 09:50 → EDINP 12:45 → SUATTDRO 12:45 → 2W 17:55 → 2E 03-14 15:50